=== PATIENT | male | born 1935 | race Caucasian/White ===

== ENCOUNTER 2017-08-30 14:08 | Inpatient (IN) | payer MEDICARE, BC, SELFPAY ==
[2017-08-30] VITALS (10 sets, daily range): BP systolic 111–133; BP diastolic 61–91; PULSE 65–81; RESP 13–20; TEMP 36.4–37.2; O2SAT 94–100; BMI 23.6; BMI 23.3
--- NOTE | 2017-08-30 14:26 | RAD_ITS ---
STUDY: X-RAY CHEST REASON FOR EXAM: Male, 81 years old. Chest tightness. TECHNIQUE: AP upright portable view. COMPARISON: None. FINDINGS: The lungs are clear and expanded. There is no demonstrated pleural abnormality. Normal size heart. Normal mediastinum and erika. Normal visualized pulmonary arteries. Normal visualized aortic arch and descending thoracic aorta. Normal visualized thoracic spine. Normal visualized ribs, clavicles, and shoulders. There is no demonstrated abnormality of the visualized soft tissue structures of the upper abdomen. RAD/Chest 1 View (Portable) IMPRESSION: Normal x-ray examination of the chest. Electronically Signed: Neo Salmon MD at 14:51 EDT , Service support ,
--- NOTE | 2017-08-30 14:26 | EKG12_ITS ---
Test Reason : CP Blood Pressure : / mmHG Vent. Rate : 076 BPM Atrial Rate : 076 BPM P-R Int : 160 ms QRS Dur : 092 ms QT Int : 382 ms P-R-T Axes : 035 -16 046 degrees QTc Int : 429 ms Normal sinus rhythm Leftward axis Inferior AR, age undetermined, cannot be excluded Confirmed by ERAN KYLE, MYNOR ([id number]), graphic editor CELSO URBANO ([id number] on 09/03/2017 2:20:44 PM Referred By: Lupillo Vick Confirmed By:MYNOR BARILLAS MD
--- NOTE | 2017-08-30 14:39 | ED.VISSUMM ---
- ER Visit Summary Date of Service: 08/30/17 Chief Complaint: Chest pain History of Present Illness: The patient is a 81 M history of prior CAD with one stent. Patient states that was placed 15 or so years ago in [place]. He also is a uau-jnsbkzn-iupelzfkx diabetic. He states the last 6 months he has had exertional dyspnea and exertional chest pain. It seems be progressively getting more advanced. He states the trazodone too much work he has to stop because he is short of breath and at times is midsternal chest pain. It occurred today while working in his yard. And seemed to last longer today he was more concerned so he came into the ER. His did give him one baby aspirin. Currently states he feels much better. Physical Examination: Well appearing older male. Vital signs are stable afebrile. Pulse ox 96% on room air no signs of hypoxia. H EENT exam unremarkable. Neck nontender no JVD. Lungs clear to auscultation bilaterally. Heart regular rate and rhythm no murmur. Chest wall nontender. Abdomen soft and nontender. Normal bowel sounds. No peritoneal signs. Moving all 4 extremities. Neurovascular intact. Calves nontender without edema or cords. Neurologically is awake and alert without focal motor deficits. Test Results: CBC is unremarkable with a hemoglobin of 12.9. Chemistries unremarkable. Glucose is 214. Normal creatinine. Troponin normal. EKG sinus rhythm rate is 76 no acute abnormality. Chest x-ray shows a normal cardiac silhouette and mediastinum read by my Emergency Department Course and Treatment: Patient will undergo a cardiac workup and be admitted. He is describing classic exertional chest pain and dyspnea consistent with accelerating angina. Treatment Plan: Exam doing well resting in bed comfortably. I did speak to Dr. Mauricio on for cardiology and Dr. Vick who is the hospitalist down the ER evaluate the patient for admission. Disposition: Admission Impression: Acute exertional chest pain and dyspnea consistent with accelerating angina History of prior CAD and one stent History of plx-swkcsza-hxuyswwlf diabetes This note was generated with [employer] dictation software. It may contain incorrect words, spelling, and punctuation that were not noted in review of the chart prior to signing ED Disposition - Plan for ED Patient: Chief Complaint: Chest Pain Referrals: [facility] Doctor,Out of [NON-STAFF] -
[2017-08-30] MEDS: Aspirin 81 MG TAB.CHEW 324 MG PO (14:56)
[2017-08-30 15:05] LABS: Absolute Lymphocyte Count 1.79 X10^3/ul (0.83-4.51); Absolute Neutrophil Count 2.7 X10^3/uL (2.0-7.7); Basophil# 0.01 X10^3/uL; Basophil% 0.2 % (0-1); Eosinophil# 0.12 X10^3/uL; Eosinophils% 2.3 % (0-5); Hematocrit 37.4 % (40-54); Hemoglobin 12.9 g/dl (13.0-16.5); Lymphocyte # 1.79 X10^3/ul (4.0); Lymphocyte % 34.4 % (19-41); Mean Corp Hgb Conc 34.5 g/gl (32-36); Mean Corpuscular Hgb 29.5 pg (27.0-32.0); Mean Corpuscular Volume 85.4 fL (80-94); Mean Platelet Vol. 10.1 fl (6.2-12.0); Monocyte# 0.59 X10^3/uL; Monocyte% 11.3 % (0-10); Neutrophil # 2.69 X10^3/uL (2.7-7.7); Neutrophil % 51.8 % (47-70); Platelet Count 204 K/mm3 (150-450); RBC Distribution Width CV 12.2 % (11.6-14.6); Red Blood Count 4.38 M/mm3 (4.6-6.2); White Blood Count 5.2 K/mm3 (4.4-11.0)
[2017-08-30 15:16] LABS: POSITIVE COUNT NO; POSITIVE DIFFERENTIAL NO; POSITIVE MORPHOLOGY NO
[2017-08-30 15:24] LABS: Anion Gap 5 (5-15); BUN 15 mg/dL (7-18); BUN/Creat Ratio 15.3 RATIO (10-20); Calcium,Total 8.5 mg/dL (8.5-10.1); Chloride 105 mmol/L (98-107); Creatinine, Serum 0.98 mg/dL (0.70-1.30); EST Glomerular Filtration Rate 78 mL/min (>60); Est Glom Filt Rate - Afr Amer 94 mL/min (>60); Estimated Creatinine Clearance 56.22 ml/min; Glucose 214 mg/dL (74-106); Potassium 4.1 mmol/L (3.5-5.1); Sodium Level 139 mmol/L (136-145)
--- NOTE | 2017-08-30 16:04 | ED.DEP ---
ED Disposition - Plan for ED Patient: Chief Complaint: Chest Pain Referrals: [facility] Doctor,Out of [NON-STAFF] -
--- NOTE | 2017-08-30 16:37 | HP.PCM_ITS ---
<Philip Land - Last Filed: 08/30/17 16:26> Problem List (1) Unstable angina Status: Acute (2) HTN (hypertension) Status: Chronic (3) HLD (hyperlipidemia) Status: Chronic (4) Anxiety Status: Chronic (5) CAD (coronary artery disease) Status: Chronic (6) Hearing loss Status: Chronic History of Present Illness Date of Admission: 08/30/17 Chief Complaint: chest pain The patient is a 81 year old M with a past medical history of CAD with one stent about 15 years ago, type 2 diabetes, does not follow cardiology, hypertension, hyperlipidemia, anxiety, who presented to the emergency room with chief complaint of chest pain. Pain is been going on for about 6 months. Is been off and on most notably with exertion, however is normally relieved with rest. Today he presented to the emergency room because he developed 6-7 out of 10 midsternal and bilateral anterior chest wall pain described as an aching sensation that did not go away when he sat down. He also became short of breath. He had no radiation of chest pain into his back, neck, jaw, or arms. He sometimes feels dizzy and lightheaded but did not notice any at the time for chest pain. He was brought to the emergency room and is currently feeling better in the emergency room. Dr. Mauricio came and evaluated the patient and is planning to take him to have a heart catheterization on Saturday for unstable angina. The patient thinks that he did have a stress test last year and that was negative at that time. He had been getting dizzy and lightheaded he had had his Lexapro decreased by half at that time. He is also former smoker, he smoked for 25 years about a pack per day but did quit about 50 years ago. He does have a positive family history for heart disease, his father of an [place]. [] Past Medical History Past Medical History (Chronic Problems): Chronic Problems HTN (hypertension) (Chronic) HLD (hyperlipidemia) (Chronic) Anxiety (Chronic) CAD (coronary artery disease) (Chronic) Hearing loss (Chronic) Allergies Penicillins Allergy (Verified 08/30/17 14:09) Unknown Home Medications: Ambulatory Orders Medication Instructions Recorded Amlodipine [Norvasc] 5 mg PO DAILY 08/30/17 Aspirin [Aspir-Low] 81 mg PO DAILY 08/30/17 Escitalopram Oxalate [Lexapro] 5 mg PO DAILY 08/30/17 Herbal Drugs [Colon Herbal 1 each PO DAILY 08/30/17 Cleanser] Lansoprazole [Prevacid] 30 mg PO DAILY 08/30/17 Metformin HCl [Glucophage] 100 mg PO BIDCM 08/30/17 Mv-Min/FA/Vit K/Lycop/Lut/Zeax 1 each PO QHS 08/30/17 [Ocuvite Eye + Multi Tablet] Rosuvastatin Calcium [Rosuvastatin 20 mg PO QHS 08/30/17 Calcium] Surgical History: no surgical history Psychiatric History: Anxiety Lives: Spouse/ Significant Other Smoking Status: Former smoker Tobacco Use: Non-smoker Alcohol: None Drugs: None - *Family History Maternal History Items: - - from complications of Paternal History Items: Heart Disease - from [place] Review of Systems Constitutional: Denies: Chills, Fever, Weight Change HEENT: Denies: Head Aches, Sinus Congestion, Sinus Drainage Cardiovascular: Reports: Chest Pain, Light Headedness. Denies: Heaviness, Palpitations Respiratory: Reports: Shortness of Breath, Shortness of breath upon exertion. Denies: Cough, Shortness of breath at rest, Sputum production Gastrointestinal: Denies: Abdominal Pain, Nausea, Vomiting Genitourinary: Denies: Dysuria Musculoskeletal: Denies: Joint Pain, Joint Tenderness Skin: Denies: Rash, Wounds Neurological: Denies: Numbness, Tingling, Focal weakness Psychiatric: Reports: Anxiety. Denies: Depression, Homicidal Ideations, Suicidal Ideations Hematologic/ Lymphatic: Denies: Easy Bruising, Easy Bleeding VTE Information - Inpt Only VTE Present on Admission: No VTE Mechan Device Prophylaxis: SCD's VTE Pharm Prophylaxis ordered?: Yes Patient Problems: Active and Suspected Problems Unstable angina (Acute) - Physical Exam General: Alert, Oriented x3, Cooperative HEENT: Atraumatic, PERRLA, EOMI, Normocephalic Neck: Supple, No JVD, Negative Carotid Bruits Lungs: Clear to auscultation, Normal air movement Cardiovascular: Regular rate, No murmurs Abdomen: Bowel Sounds Present, Soft, Non Tender Extremities: No edema, Capillary Refill Less than 3 Seconds Skin: No rashes, No breakdown Musculoskeletal: No Tenderness to Palpation of Joints or Extremities Neurological: Cranial nerves II-XII grossly intact Psych/Mental Status: Normal Affect, Appropriate Vital Signs Temp Pulse Resp BP Pulse Ox 99 F 72 15 113/61 98 08/30/17 14:10 08/30/17 16:09 08/30/17 16:09 08/30/17 16:09 08/30/17 16:09 Oxygen Flow Rate (L/min) 2 Oxygen Delivery Method Nasal Cannula Weight: 70.4 kg Body Mass Index (BMI) 23.6 Laboratory Tests Past 24 Hrs 08/30/17 08/30/17 14:10 14:10 WBC 5.2 RBC 4.38 L Hgb 12.9 L Hct 37.4 L MCV 85.4 MCH 29.5 MCHC 34.5 RDW 12.2 RDW Differential 38.0 Plt Count 204 MPV 10.1 Immature Gran % (Auto) 0.000 Neut % (Auto) 51.8 Lymph % (Auto) 34.4 Buchanan % (Auto) 11.3 H Eos % (Auto) 2.3 Baso % (Auto) 0.2 Absolute Neuts (auto) 2.7 Absolute Lymphs (auto) 1.79 Total Counted Not Reportable Sodium 139 Potassium 4.1 Chloride 105 Carbon Dioxide 29.0 Anion Gap 5 BUN 15 Creatinine 0.98 Estim Creat Clear Calc 56.22 Est GFR (MDRD) Af Amer 94 Est GFR (MDRD) Non-Af 78 BUN/Creatinine Ratio 15.3 Glucose 214 H Calcium 8.5 Troponin I < 0.015 Assessment/Plan Active and Suspected Problems Unstable angina (Acute) 1. Unstable angina-patient will be placed on aspirin, Plavix, as needed nitro. Consider insitiating lizandro/BB. Cardiology consult, plan for cath on Saturday. Maintain on telemetry. Repeat EKG, cycle troponins, echocardiogram. Start on high-dose statin therapy. Check fasting lipid panel, check A1c. EKG was negative in the ER. Patient risk factors include increasing symptoms of chest pain with exertion, now no longer relieved by rest, history of CAD with prior stent, hypertension, diabetes, hyperlipidemia, family history, and significant smoking history, age. 2. History of CAD-status post 1 stent approximately 15 years ago. Currently on aspirin and statin, and Norvasc at home. He does not regularly follow cardiology, reportedly had a negative stress test last year. 3. Hypertension-stable in the emergency room 4. Type 2 diabetes-hold metformin, start sliding scale insulin, check A1c and adjust home medications if indicated 5. Anxiety-continue Lexapro 6. GERD-continue PPI DVT prophylaxis: Lovenox DC planning: Patient will be here at least until Saturday as he will have a heart catheterization on Saturday This patient was seen by Philip Land PA-C under the supervision of Doctor Nicanor. <Lupillo Vick - Last Filed: 08/30/17 17:06> History of Present Illness Seen and examined The patient came to ER with gradual progression of chest pressure and shortness of breath on exertion for last 6 months. Says he gets chest pressure/shortness of breath on climbing 10 steps walking half to 1 block. Seen by instant printer operator Dr. Mauricio in the ER. [] Past Medical History Allergies Penicillins Allergy (Verified 08/30/17 14:09) Unknown - Physical Exam General: Alert, Oriented x3, Cooperative HEENT: Atraumatic, PERRLA, EOMI, Normocephalic Neck: Supple, No JVD, Negative Carotid Bruits Lungs: Clear to auscultation, Normal air movement Cardiovascular: Regular rate, Regular Rhythm, Normal S1, Normal S2, No murmurs Abdomen: Bowel Sounds Present, Soft, Non Tender, Non-Distended Extremities: No edema, Capillary Refill Less than 3 Seconds Skin: No rashes, No breakdown Musculoskeletal: No Tenderness to Palpation of Joints or Extremities Neurological: Cranial nerves II-XII grossly intact Psych/Mental Status: Normal Affect, Appropriate Vital Signs Temp Pulse Resp BP Pulse Ox 99 F 72 15 113/61 98 08/30/17 14:10 08/30/17 16:09 08/30/17 16:09 08/30/17 16:09 08/30/17 16:09 Weight: 153 lb 7.068 oz Body Mass Index (BMI) 23.3 Assessment/Plan This patient was seen in conjunction with Philip GREEN. I have independently interviewed and examined the patient and reviewed pertinent history, examination findings, laboratory and plan of management. I have reviewed the note and agree with the documented findings with the few additional points. In brief, patient is admitted for chest pain or shortness of breath, progressively worsening for 6 months suggestive of unstable angina. On aspirin and Plavix as mentioned above. On ACS protocol. Seen by instant printer operator carolann. Plan for cardiac cath on Saturday. I have discussed my assessment with Philip GREEN and orders have been reviewed. Code Visit Inpatient E&M: 15103 Init Hosp L3
--- NOTE | 2017-08-30 17:14 | EKG12_ITS ---
Test Reason : AM EKG Blood Pressure : / mmHG Vent. Rate : 067 BPM Atrial Rate : 067 BPM P-R Int : 182 ms QRS Dur : 094 ms QT Int : 416 ms P-R-T Axes : 045 -01 049 degrees QTc Int : 439 ms Normal sinus rhythm Normal ECG When compared with ECG of 31-AUG-2017 03:42, MANUAL COMPARISON REQUIRED, DATA IS UNCONFIRMED Confirmed by ASAF KYLE, DE ([id number]), material expeditor CELSO URBANO ([id number]) on 09/03/2017 3:20:06 PM Referred By: Lupillo Vick Confirmed By:DE RON MD
--- NOTE | 2017-08-30 17:51 | PCM.CONS.C ---
Reason for Consult Date of Consultation: 08/30/17 Reason for Consultation: Chest discomfort History of Present Illness: The patient is an 81 year old M with a past medical history of CAD with one stent about 15 years ago, type 2 diabetes, hypertension, hyperlipidemia, who presented to the emergency room with chief complaint of chest pain. Pain is been going on for about 6 months. Is been off and on most notably with exertion, however is normally relieved with rest. Today he presented to the emergency room because he developed 6-7 out of 10 midsternal and bilateral anterior chest wall pain described as an aching sensation that did not go away when he sat down. He also became short of breath. He had no radiation of chest pain into his back, neck, jaw, or arms. He has never had any rest discomfort but due to the persistence of the chest discomfort he presented to the emergency room where he was evaluated his electrocardiogram did not demonstrate any significant changes in his blood work was also noted to be normal. I was notified to evaluate him and I saw him in the emergency room where he was pain-free. He has had no previous dizziness diaphoresis near syncope or syncope. [] Past Medical History Allergies/Adverse Reactions: Allergies Penicillins Allergy (Verified 08/30/17 14:09) Unknown Home Medications: Ambulatory Orders Medication Instructions Recorded Amlodipine [Norvasc] 5 mg PO DAILY 08/30/17 Aspirin [Aspir-Low] 81 mg PO DAILY 08/30/17 Escitalopram Oxalate [Lexapro] 5 mg PO DAILY 08/30/17 Herbal Drugs [Colon Herbal 1 each PO DAILY 08/30/17 Cleanser] Lansoprazole [Prevacid] 30 mg PO DAILY 08/30/17 Metformin HCl [Glucophage] 100 mg PO BIDCM 08/30/17 Mv-Min/FA/Vit K/Lycop/Lut/Zeax 1 each PO QHS 08/30/17 [Ocuvite Eye + Multi Tablet] Rosuvastatin Calcium [Rosuvastatin 20 mg PO QHS 08/30/17 Calcium] Past Medical History (Chronic Problems): Chronic Problems HTN (hypertension) (Chronic) HLD (hyperlipidemia) (Chronic) Anxiety (Chronic) CAD (coronary artery disease) (Chronic) Hearing loss (Chronic) Surgical History: no surgical history Psychiatric History: Anxiety - *Family History Maternal History Items: - - from complications of Paternal History Items: Heart Disease - from [place] Lives: Spouse/ Significant Other Smoking Status: Former smoker Tobacco Use: Non-smoker Alcohol: None Drugs: None Review of Systems - Review of Systems General: Denies: Fever, Night Sweats, Fatigue Cardiovascular: Reports: Chest Discomfort, Chest Discomfort with Exertion, Chest Heaviness, Shortness of Breath with Exertion. Denies: Shortness of Breath, Orthopnea, PND, Peripheral Edema, Palpitations, Lightheadedness, Dizziness, Near Syncope, Syncope Respiratory: Denies: Cough, Sputum Production, Hemoptysis Gastrointestinal: Denies: Hematemesis, Hematochezia, Melena Genitourinary: Denies: Dysuria, Hematuria Skin: Denies: Rash Psychiatric: Reports: Anxiety Subjectve: Pleasant gentleman in no apparent distress Objective: Vital Signs Temp Pulse Resp BP Pulse Ox 97.6 F L 71 16 133/65 H 100 08/30/17 16:56 08/30/17 17:16 08/30/17 16:56 08/30/17 16:56 08/30/17 16:56 Oxygen Flow Rate (L/min) 2 Oxygen Delivery Method Nasal Cannula Weight: 153 lb 7.068 oz Body Mass Index (BMI) 23.3 General: Awake, Alert, Oriented x 3 HEENT: PERRL, EOMI, Sclera Non Icteric Neck: Supple, Good ROM, No Lymph Node Enlargement Lungs: Clear to auscultation Cardiovascular: Regular Rhythm, Normal S1, Normal S2, No Murmurs, No Rubs, No Gallops Vascular: No Carotid Bruits, Normal Femoral Pulses, Normal Radial Pulses, Normal Dorsalis Pedal Pulse, Normal Posterior Tibial Pulses Abdomen: Bowel Sounds Present, Soft, Non Tender, No HSM, No Organomegaly Extremities: No Cyanosis, No Clubbing, No edema Neurological: No Focal Motor or Sensory Deficit Rhythm: EKG: Normal sinus rhythm with a rate of 54 bpm no acute changes Assessment/Plan 1. New onset angina. Patient presents with fairly recent onset angina which appears to be worse with exertion and dissipates with rest. The above appears to have the classic characteristics of angina pectoris. My recommendation at this time would be for him to continue his statin, and start him on aspirin as well as clopidogrel and a low-dose beta-javier. I would recommend that he undergo coronary angiography to assess his coronary anatomy and to determine further therapy. I have discussed the above with him and his family they understand and agreed to proceed. Depending on the results further recommendations will be made. Plans are for him to undergo the above procedure on Saturday morning. 2. Hypertension He does have a history of hypertension which is well-controlled on his amlodipine and this will be continued without any changes. Her low-dose beta-javier would however be added. An echocardiogram should be performed to assess his left ventricular function and evaluate for any wall thickness and wall motion abnormality. 3. Hyperlipidemia risk factor modification He does have a history of hyperlipidemia and will continue on medium intensity statin. Lipid profile will be performed in a.m. Thank you for allowing me to participate in the care of your patient. Please don't hesitate to call if any issues arise
--- NOTE | 2017-08-30 17:57 | CON.PCM_ITS ---
Reason for Consult Date of Consultation: 08/30/17 Reason for Consultation: Chest discomfort History of Present Illness: The patient is an 81 year old M with a past medical history of CAD with one stent about 15 years ago, type 2 diabetes, hypertension, hyperlipidemia, who presented to the emergency room with chief complaint of chest pain. Pain is been going on for about 6 months. Is been off and on most notably with exertion , however is normally relieved with rest. Today he presented to the emergency room because he developed 6-7 out of 10 midsternal and bilateral anterior chest wall pain described as an aching sensation that did not go away when he sat down. He also became short of breath. He had no radiation of chest pain into his back, neck, jaw, or arms. He has never had any rest discomfort but due to the persistence of the chest discomfort he presented to the emergency room where he was evaluated his electrocardiogram did not demonstrate any significant changes in his blood work was also noted to be normal. I was notified to evaluate him and I saw him in the emergency room where he was pain- free. He has had no previous dizziness diaphoresis near syncope or syncope. [] Past Medical History Allergies/Adverse Reactions: Allergies Penicillins Allergy (Verified 08/30/17 14:09) Unknown Home Medications: Ambulatory Orders Medication Instructions Recorded Amlodipine [Norvasc] 5 mg PO DAILY 08/30/17 Aspirin [Aspir-Low] 81 mg PO DAILY 08/30/17 Escitalopram Oxalate [Lexapro] 5 mg PO DAILY 08/30/17 Herbal Drugs [Colon Herbal 1 each PO DAILY 08/30/17 Cleanser] Lansoprazole [Prevacid] 30 mg PO DAILY 08/30/17 Metformin HCl [Glucophage] 100 mg PO BIDCM 08/30/17 Mv-Min/FA/Vit K/Lycop/Lut/Zeax 1 each PO QHS 08/30/17 [Ocuvite Eye + Multi Tablet] Rosuvastatin Calcium [Rosuvastatin 20 mg PO QHS 08/30/17 Calcium] Past Medical History (Chronic Problems): Chronic Problems HTN (hypertension) (Chronic) HLD (hyperlipidemia) (Chronic) Anxiety (Chronic) CAD (coronary artery disease) (Chronic) Hearing loss (Chronic) Surgical History: no surgical history Psychiatric History: Anxiety - *Family History Maternal History Items: - - from complications of Paternal History Items: Heart Disease - from [place] Lives: Spouse/ Significant Other Smoking Status: Former smoker Tobacco Use: Non-smoker Alcohol: None Drugs: None Review of Systems - Review of Systems General: Denies: Fever, Night Sweats, Fatigue Cardiovascular: Reports: Chest Discomfort, Chest Discomfort with Exertion, Chest Heaviness, Shortness of Breath with Exertion. Denies: Shortness of Breath , Orthopnea, PND, Peripheral Edema, Palpitations, Lightheadedness, Dizziness, Near Syncope, Syncope Respiratory: Denies: Cough, Sputum Production, Hemoptysis Gastrointestinal: Denies: Hematemesis, Hematochezia, Melena Genitourinary: Denies: Dysuria, Hematuria Skin: Denies: Rash Psychiatric: Reports: Anxiety Subjectve: Pleasant gentleman in no apparent distress Objective: Vital Signs Temp Pulse Resp BP Pulse Ox 97.6 F L 71 16 133/65 H 100 08/30/17 16:56 08/30/17 17:16 08/30/17 16:56 08/30/17 16:56 08/30/17 16:56 Oxygen Flow Rate (L/min) 2 Oxygen Delivery Method Nasal Cannula Weight: 153 lb 7.068 oz Body Mass Index (BMI) 23.3 General: Awake, Alert, Oriented x 3 HEENT: PERRL, EOMI, Sclera Non Icteric Neck: Supple, Good ROM, No Lymph Node Enlargement Lungs: Clear to auscultation Cardiovascular: Regular Rhythm, Normal S1, Normal S2, No Murmurs, No Rubs, No Gallops Vascular: No Carotid Bruits, Normal Femoral Pulses, Normal Radial Pulses, Normal Dorsalis Pedal Pulse, Normal Posterior Tibial Pulses Abdomen: Bowel Sounds Present, Soft, Non Tender, No HSM, No Organomegaly Extremities: No Cyanosis, No Clubbing, No edema Neurological: No Focal Motor or Sensory Deficit Rhythm: EKG: Normal sinus rhythm with a rate of 54 bpm no acute changes Assessment/Plan 1. New onset angina. * Patient presents with fairly recent onset angina which appears to be worse with exertion and dissipates with rest. The above appears to have the classic characteristics of angina pectoris. My recommendation at this time would be for him to continue his statin, and start him on aspirin as well as clopidogrel and a low-dose beta-javier. I would recommend that he undergo coronary angiography to assess his coronary anatomy and to determine further therapy. I have discussed the above with him and his family they understand and agreed to proceed. Depending on the results further recommendations will be made. Plans are for him to undergo the above procedure on Saturday morning. 2. Hypertension * He does have a history of hypertension which is well-controlled on his amlodipine and this will be continued without any changes. Her low-dose beta- javier would however be added. An echocardiogram should be performed to assess his left ventricular function and evaluate for any wall thickness and wall motion abnormality. * 3. Hyperlipidemia risk factor modification * He does have a history of hyperlipidemia and will continue on medium intensity statin. Lipid profile will be performed in a.m. * * Thank you for allowing me to participate in the care of your patient. Please don't hesitate to call if any issues arise
[2017-08-30] MEDS: Clopidogrel Bisulfate 300 MG Tablet PO (18:47)
[2017-08-30] MEDS: Enoxaparin 80 MG/0.8 ML Syringe 70 MG SC (18:47)
[2017-08-30 19:22] LABS: Magnesium 1.6 mg/dL (1.6-2.6); Thyroid Stim Hormone (TSH) 1.56 uIU/mL (0.358-3.74)
[2017-08-30] MEDS: Atorvastatin Calcium 40 MG Tablet PO (22:30)
[2017-08-30 23:11] LABS: Bedside Glucose 213 mg/dL (70-110)
[2017-08-31] VITALS (13 sets, daily range): BP systolic 116–133; BP diastolic 57–66; PULSE 65–80; RESP 16; TEMP 36.7–36.8; O2SAT 92–96
--- NOTE | 2017-08-31 03:03 | EKG12_ITS ---
Test Reason : Blood Pressure : / mmHG Vent. Rate : 071 BPM Atrial Rate : 071 BPM P-R Int : 180 ms QRS Dur : 096 ms QT Int : 404 ms P-R-T Axes : 045 001 042 degrees QTc Int : 439 ms Normal sinus rhythm Normal ECG No previous ECGs available Confirmed by ASAF KYLE, DE ([id number]), acquisitions editor CELSO URBANO ([id number] on 09/03/2017 3:36:13 PM Referred By: Lupillo Vick Confirmed By:DE RON MD
--- NOTE | 2017-08-31 05:55 | EKG12_ITS ---
Test Reason : CP/AM EKG Blood Pressure : / mmHG Vent. Rate : 073 BPM Atrial Rate : 073 BPM P-R Int : 170 ms QRS Dur : 092 ms QT Int : 398 ms P-R-T Axes : 050 -06 058 degrees QTc Int : 438 ms Normal sinus rhythm Normal ECG When compared with ECG of 30-AUG-2017 17:18, MANUAL COMPARISON REQUIRED, DATA IS UNCONFIRMED Confirmed by ASAF KYLE, DE ([id number]), magazine editor CELSO URBANO ([id number]) on 09/03/2017 3:24:14 PM Referred By: Lupillo Vick Confirmed By:DE RON MD
[2017-08-31] MEDS: Enoxaparin 80 MG/0.8 ML Syringe 70 MG SC ×2 (06:53→17:27)
[2017-08-31 07:05] LABS: Bedside Glucose 147 mg/dL (70-110)
[2017-08-31 07:08] LABS: Absolute Lymphocyte Count 1.69 X10^3/ul (0.83-4.51); Absolute Neutrophil Count 2.3 X10^3/uL (2.0-7.7); Basophil# 0.01 X10^3/uL; Basophil% 0.2 % (0-1); Eosinophils% 4.2 % (0-5); Hematocrit 36.1 % (40-54); Hemoglobin 12.6 g/dl (13.0-16.5); Lymphocyte # 1.69 X10^3/ul (4.0); Lymphocyte % 35.5 % (19-41); Mean Corp Hgb Conc 34.9 g/gl (32-36); Mean Corpuscular Hgb 29.9 pg (27.0-32.0); Mean Corpuscular Volume 85.5 fL (80-94); Mean Platelet Vol. 10.5 fl (6.2-12.0); Monocyte# 0.57 X10^3/uL; Neutrophil # 2.29 X10^3/uL (2.7-7.7); Neutrophil % 48.1 % (47-70); Platelet Count 223 K/mm3 (150-450); RBC Distribution Width SD 36.3 fl (35.1-43.9); Red Blood Count 4.22 M/mm3 (4.6-6.2); White Blood Count 4.8 K/mm3 (4.4-11.0)
[2017-08-31 07:11] LABS: POSITIVE COUNT NO; POSITIVE DIFFERENTIAL NO; POSITIVE MORPHOLOGY NO
[2017-08-31 07:23] LABS: Anion Gap 7 (5-15); BUN 15 mg/dL (7-18); BUN/Creat Ratio 19.7 RATIO (10-20); Calcium,Total 8.4 mg/dL (8.5-10.1); Chloride 105 mmol/L (98-107); Cholesterol 111 mg/dL (200); Creatinine, Serum 0.76 mg/dL (0.70-1.30); EST Glomerular Filtration Rate 104 mL/min (>60); Est Glom Filt Rate - Afr Amer 126 mL/min (>60); Glucose 145 mg/dL (74-106); High Density Lipoprotein 28 mg/dL; Potassium 3.8 mmol/L (3.5-5.1); Sodium Level 142 mmol/L (136-145); Triglycerides 177 mg/dL; Very Low Density Lipoprotein 35 mg/dL (5-40)
[2017-08-31 07:41] LABS: Hemoglobin A1c 8.7 % (4.2-6.3)
[2017-08-31] MEDS: Escitalopram Oxalate 10 MG Tablet 5 MG PO (08:55)
[2017-08-31] MEDS: Aspirin 81 MG TAB.CHEW PO (08:55)
[2017-08-31] MEDS: amLODIPine 5 MG Tablet PO (08:56)
[2017-08-31] MEDS: Clopidogrel Bisulfate 75 MG Tablet PO (08:56)
[2017-08-31] MEDS: Metoprolol(XL)Succ 25 MG Tablet PO (08:57)
[2017-08-31] MEDS: Pantoprazole Sodium 40 MG Tablet PO (08:57)
[2017-08-31 11:11] LABS: Bedside Glucose 237 mg/dL (70-110)
--- NOTE | 2017-08-31 12:13 | CASEMGMT ---
SOCIAL WORK: Referral received from form drafter this date. Chart reviewed. Met with patient and in room to introduce self and SW role and availability at [facility] and to assess for potential discharge planning needs. Patient to have heart cath on Saturday. presents self and as being independent and capable and denies any current needs or concerns for discharge. SW will remain available in the event that needs arise. Carmen RODRIGUEZ,JUAN
--- NOTE | 2017-08-31 12:50 | PCM.PN.CARD ---
Subjectve: The patient states overall he is feeling better at this time. He denies ongoing episodes at rest or with his minimal exertion of chest discomfort or worsening shortness of breath/dyspnea. Objective: Vital Signs Temp Pulse Resp BP Pulse Ox 98.3 F 67 16 120/57 L 96 08/31/17 08:59 08/31/17 11:00 08/31/17 08:59 08/31/17 08:59 08/31/17 08:59 Oxygen Flow Rate (L/min) 1 Oxygen Delivery Method Room Air Weight: 153 lb 7.068 oz Body Mass Index (BMI) 23.3 Intake and Output for Last 24 Hours 08/29/17 08/30/17 08/31/17 23:59 23:59 23:59 Intake Total 150 / 150 700 / 700 Balance 150 / 150 700 / 700 General: Awake, Alert, Oriented x 3, Cooperative, No Acute Distress HEENT: Atraumatic, Normocephalic, PERRL, EOMI, Sclera Non Icteric Neck: Supple, Good ROM, No JVD Lungs: Clear to auscultation Cardiovascular: Regular Rhythm, Normal S1, Normal S2 Abdomen: Bowel Sounds Present, Soft, Non Tender Extremities: No Cyanosis, No Clubbing, No edema Neurological: No Focal Motor or Sensory Deficit 08/30/17 17:58: Troponin I < 0.015 08/30/17 17:58: Magnesium 1.6 08/30/17 20:28: Troponin I < 0.015 08/31/17 06:15: WBC 4.8, RBC 4.22 L, Hgb 12.6 L, Hct 36.1 L, MCV 85.5, MCH 29.9, MCHC 34.9, RDW 12.0, RDW Differential 36.3, Plt Count 223, MPV 10.5, Immature Gran % (Auto) 0.000, Neut % (Auto) 48.1, Lymph % (Auto) 35.5, [place] % (Auto) 12.0 H, Eos % (Auto) 4.2, Baso % (Auto) 0.2, Absolute Neuts (auto) 2.3, Total Counted Not Reportable 08/31/17 06:15: Sodium 142, Potassium 3.8, Chloride 105, Carbon Dioxide 30.0, Anion Gap 7, BUN 15, Creatinine 0.76, Est GFR (MDRD) Af Amer 126, Est GFR (MDRD) Non-Af 104, BUN/Creatinine Ratio 19.7, Glucose 145 H, Calcium 8.4 L, Triglycerides 177, Cholesterol 111, LDL Cholesterol 48, VLDL Cholesterol 35, HDL Cholesterol 28 L 08/31/17 06:15: Hemoglobin A1c 8.7 H Rhythm: Sinus rhythm EKG: Sinus rhythm; no acute ECG changes ECHO: Pending Medical Necessity - Tobacco Use Smoking Status: Former smoker Tobacco Use: Non-smoker Assessment/Plan 1. Unstable angina pectoris The present time the patient has been monitored. His cardiac enzymes have been negative. His ECG demonstrates no new acute ECG changes. He is continuing risk factor modification and medical management. He is tentatively scheduled for upcoming diagnostic cardiac catheterization on 09/02/2017 further evaluate his coronary anatomy, etc. 2. Hypertension The patient's blood pressure is being monitored. His medications will be adjusted as deemed appropriate. 3. Hyperlipidemia The patient will remain on lipid-lowering therapy. Comment: The above was discussed with the patient, his spouse, and other family members present. This note was generated with [employer] software. It may contain incorrect words, spelling, and punctuation that were not noted in checking the note before signing.
--- NOTE | 2017-08-31 12:54 | PN.CARD_ITS ---
Subjectve: The patient states overall he is feeling better at this time. He denies ongoing episodes at rest or with his minimal exertion of chest discomfort or worsening shortness of breath/dyspnea. Objective: Vital Signs Temp Pulse Resp BP Pulse Ox 98.3 F 67 16 120/57 L 96 08/31/17 08:59 08/31/17 11:00 08/31/17 08:59 08/31/17 08:59 08/31/17 08:59 Oxygen Flow Rate (L/min) 1 Oxygen Delivery Method Room Air Weight: 153 lb 7.068 oz Body Mass Index (BMI) 23.3 Intake and Output for Last 24 Hours 08/29/17 08/30/17 08/31/17 23:59 23:59 23:59 Intake Total 150 / 150 700 / 700 Balance 150 / 150 700 / 700 General: Awake, Alert, Oriented x 3, Cooperative, No Acute Distress HEENT: Atraumatic, Normocephalic, PERRL, EOMI, Sclera Non Icteric Neck: Supple, Good ROM, No JVD Lungs: Clear to auscultation Cardiovascular: Regular Rhythm, Normal S1, Normal S2 Abdomen: Bowel Sounds Present, Soft, Non Tender Extremities: No Cyanosis, No Clubbing, No edema Neurological: No Focal Motor or Sensory Deficit 08/30/17 17:58: Troponin I < 0.015 08/30/17 17:58: Magnesium 1.6 08/30/17 20:28: Troponin I < 0.015 08/31/17 06:15: WBC 4.8, RBC 4.22 L, Hgb 12.6 L, Hct 36.1 L, MCV 85.5, MCH 29.9 , MCHC 34.9, RDW 12.0, RDW Differential 36.3, Plt Count 223, MPV 10.5, Immature Gran % (Auto) 0.000, Neut % (Auto) 48.1, Lymph % (Auto) 35.5, [place] % (Auto) 12.0 H, Eos % (Auto) 4.2, Baso % (Auto) 0.2, Absolute Neuts (auto) 2.3, Total Counted Not Reportable 08/31/17 06:15: Sodium 142, Potassium 3.8, Chloride 105, Carbon Dioxide 30.0, Anion Gap 7, BUN 15, Creatinine 0.76, Est GFR (MDRD) Af Amer 126, Est GFR (MDRD ) Non-Af 104, BUN/Creatinine Ratio 19.7, Glucose 145 H, Calcium 8.4 L, Triglycerides 177, Cholesterol 111, LDL Cholesterol 48, VLDL Cholesterol 35, HDL Cholesterol 28 L 08/31/17 06:15: Hemoglobin A1c 8.7 H Rhythm: Sinus rhythm EKG: Sinus rhythm; no acute ECG changes ECHO: Pending Medical Necessity - Tobacco Use Smoking Status: Former smoker Tobacco Use: Non-smoker Assessment/Plan 1. Unstable angina pectoris The present time the patient has been monitored. His cardiac enzymes have been negative. His ECG demonstrates no new acute ECG changes. He is continuing risk factor modification and medical management. He is tentatively scheduled for upcoming diagnostic cardiac catheterization on 2017 further evaluate his coronary anatomy, etc. 2. Hypertension The patient's blood pressure is being monitored. His medications will be adjusted as deemed appropriate. 3. Hyperlipidemia The patient will remain on lipid-lowering therapy. Comment: The above was discussed with the patient, his spouse, and other family members present. This note was generated with Integration [employer] software. It may contain incorrect words, spelling, and punctuation that were not noted in checking the note before signing.
--- NOTE | 2017-08-31 13:14 | PCM.PN.HOSP ---
Patient Problems: Active and Suspected Problems Unstable angina (Acute) Subjective: Patient did not had chest pain or shortness of breath overnight. Patient is comfortable laying on the bed. On Lovenox 1 mg/kg body weight for unstable angina. Serial troponins are negative. Vitals/I&O's: Vital Signs Temp Pulse Resp BP Pulse Ox 98.3 F 67 16 120/57 L 96 08/31/17 08:59 08/31/17 11:00 08/31/17 08:59 08/31/17 08:59 08/31/17 08:59 Oxygen Flow Rate (L/min) 1 Oxygen Delivery Method Room Air Weight: 153 lb 7.068 oz Body Mass Index (BMI) 23.3 Intake and Output for Last 24 Hours 08/29/17 08/30/17 08/31/17 23:59 23:59 23:59 Intake Total 150 / 150 700 / 700 Balance 150 / 150 700 / 700 General: Alert, Oriented x3, Cooperative HEENT: Atraumatic, PERRLA, EOMI, Normocephalic Neck: Supple, No JVD, Negative Carotid Bruits Lungs: Clear to auscultation, Normal air movement, No rhonchi, No wheeze Cardiovascular: Regular rate, Regular Rhythm, Normal S1, Normal S2, No murmurs Abdomen: Bowel Sounds Present, Soft, Non Tender, Non-Distended, No Hepato-splenomegaly Extremities: No edema, Capillary Refill Less than 3 Seconds Skin: No rashes, No breakdown Musculoskeletal: No Tenderness to Palpation of Joints or Extremities Neurological: Cranial nerves II-XII grossly intact, Neuro grossly intact Psych/Mental Status: Normal Affect, Appropriate Laboratory Results 08/30/17 17:58: Troponin I < 0.015 08/30/17 17:58: Magnesium 1.6, TSH 1.56 08/30/17 20:28: Troponin I < 0.015 08/30/17 22:18: POC Glucose 213 H 08/31/17 06:15: WBC 4.8, RBC 4.22 L, Hgb 12.6 L, Hct 36.1 L, MCV 85.5, MCH 29.9, MCHC 34.9, RDW 12.0, RDW Differential 36.3, Plt Count 223, MPV 10.5, Immature Gran % (Auto) 0.000, Neut % (Auto) 48.1, Lymph % (Auto) 35.5, [place] % (Auto) 12.0 H, Eos % (Auto) 4.2, Baso % (Auto) 0.2, Absolute Neuts (auto) 2.3, Absolute Lymphs (auto) 1.69, Total Counted Not Reportable 08/31/17 06:15: Sodium 142, Potassium 3.8, Chloride 105, Carbon Dioxide 30.0, Anion Gap 7, BUN 15, Creatinine 0.76, Estim Creat Clear Calc 55.10, Est GFR (MDRD) Af Amer 126, Est GFR (MDRD) Non-Af 104, BUN/Creatinine Ratio 19.7, Glucose 145 H, Calcium 8.4 L, Triglycerides 177, Cholesterol 111, LDL Cholesterol 48, VLDL Cholesterol 35, HDL Cholesterol 28 L 08/31/17 06:15: Hemoglobin A1c 8.7 H 08/31/17 06:57: POC Glucose 147 H 08/31/17 11:07: POC Glucose 237 H Current Medications Acetaminophen (Tylenol) 650 mg PO Q6H PRN PRN PRN Reason: PAIN Amlodipine Besylate (Norvasc) 5 mg PO DAILY [facility] Last Admin: 08/31/17 08:56 Dose: 5 mg Aspirin (Aspirin, Baby) 81 mg PO DAILY@0800 [facility] Last Admin: 08/31/17 08:55 Dose: 81 mg Atorvastatin Calcium (Lipitor) 40 mg PO QHS [facility] Last Admin: 08/30/17 22:30 Dose: 40 mg Clopidogrel Bisulfate (Plavix) 75 mg PO DAILY [facility] Last Admin: 08/31/17 08:56 Dose: 75 mg Enoxaparin Sodium (Lovenox) 70 mg SC Q12@0600,1800 [facility] Last Admin: 08/31/17 06:53 Dose: 70 mg Escitalopram Oxalate (Lexapro) 5 mg PO DAILY [facility] Last Admin: 08/31/17 08:55 Dose: 5 mg Insulin Aspart (Novolog Flexpen (Bkc)) 0 units SC ACHS [facility] PRN Reason: Protocol Last Admin: 08/31/17 11:32 Dose: 2 units Metoprolol Succinate (Toprol Xl (Beta Yen)) 25 mg PO DAILY [facility] Last Admin: 08/31/17 08:57 Dose: 25 mg Morphine Sulfate () 1 mg IV Q3H PRN PRN PRN Reason: SEVERE PAIN (6-10/10) Nitroglycerin (Nitrostat) 0.4 mg SUBLINGUAL Q5M PRN PRN Reason: CARDIAC/CHEST PAIN Last Admin: 08/31/17 03:06 Dose: 0.4 mg Ondansetron HCl (Zofran) 4 mg IV Q6H PRN PRN PRN Reason: NAUSEA Pantoprazole Sodium (Protonix) 40 mg PO DAILY [facility] Last Admin: 08/31/17 08:57 Dose: 40 mg Sodium Chloride () 5 - 30 ml IV UD PRN PRN Reason: SALINE FLUSH Medical Necessity - Tobacco Use Smoking Status: Former smoker Tobacco Use: Non-smoker Assessment/Plan Active and Suspected Problems Unstable angina (Acute) patient is admitted for chest pain or shortness of breath, progressively worsening for 6 months suggestive of unstable angina. On aspirin and Plavix as mentioned above. On ACS protocol. Seen by dark[facility]. Plan for cardiac cath on Saturday. 1. Unstable angina with typical pattern of angina pectoris-patient will be placed on aspirin, Plavix, Lovenox 1 mg/kg body weight as needed nitro. On beta-yen. Maintain on telemetry. Start on high-dose statin therapy. EKG was negative in the ER. Scheduled for cardiac cath on Saturday 2. History of CAD-status post 1 stent approximately 15 years ago. He does not regularly follow cardiology, reportedly had a negative stress test last year. 3. Hypertension-stable Blood pressure is controlled. 4. Type 2 diabetes-hold metformin, start sliding scale insulin, adjust home medications if indicated. A1c 8.7. 5. Anxiety-continue Lexapro 6. GERD-continue PPI DVT prophylaxis: Lovenox DC planning: Patient will be here at least until Saturday as he will have a heart catheterization on Saturday Laboratory Results 08/30/17 14:10: WBC 5.2, RBC 4.38 L, Hgb 12.9 L, Hct 37.4 L, MCV 85.4, MCH 29.5, MCHC 34.5, RDW 12.2, RDW Differential 38.0, Plt Count 204, MPV 10.1, Immature Gran % (Auto) 0.000, Neut % (Auto) 51.8, Lymph % (Auto) 34.4, [place] % (Auto) 11.3 H, Eos % (Auto) 2.3, Baso % (Auto) 0.2, Absolute Neuts (auto) 2.7, Absolute Lymphs (auto) 1.79, Total Counted Not Reportable 08/30/17 14:10: Sodium 139, Potassium 4.1, Chloride 105, Carbon Dioxide 29.0, Anion Gap 5, BUN 15, Creatinine 0.98, Estim Creat Clear Calc 56.22, Est GFR (MDRD) Af Amer 94, Est GFR (MDRD) Non-Af 78, BUN/Creatinine Ratio 15.3, Glucose 214 H, Calcium 8.5, Troponin I < 0.015 08/30/17 17:58: Troponin I < 0.015 08/30/17 17:58: Magnesium 1.6, TSH 1.56 08/30/17 20:28: Troponin I < 0.015 08/30/17 22:18: POC Glucose 213 H 08/31/17 06:15: WBC 4.8, RBC 4.22 L, Hgb 12.6 L, Hct 36.1 L, MCV 85.5, MCH 29.9, MCHC 34.9, RDW 12.0, RDW Differential 36.3, Plt Count 223, MPV 10.5, Immature Gran % (Auto) 0.000, Neut % (Auto) 48.1, Lymph % (Auto) 35.5, [place] % (Auto) 12.0 H, Eos % (Auto) 4.2, Baso % (Auto) 0.2, Absolute Neuts (auto) 2.3, Absolute Lymphs (auto) 1.69, Total Counted Not Reportable 08/31/17 06:15: Sodium 142, Potassium 3.8, Chloride 105, Carbon Dioxide 30.0, Anion Gap 7, BUN 15, Creatinine 0.76, Estim Creat Clear Calc 55.10, Est GFR (MDRD) Af Amer 126, Est GFR (MDRD) Non-Af 104, BUN/Creatinine Ratio 19.7, Glucose 145 H, Calcium 8.4 L, Triglycerides 177, Cholesterol 111, LDL Cholesterol 48, VLDL Cholesterol 35, HDL Cholesterol 28 L 08/31/17 06:15: Hemoglobin A1c 8.7 H 08/31/17 06:57: POC Glucose 147 H 08/31/17 11:07: POC Glucose 237 H Clinical Impression(s) from Imaging Studies Chest X-Ray 08/30/17 14:26 IMPRESSION: Normal x-ray examination of the chest. Code Visit Inpatient E&M: 94859 Subs Hosp L2
--- NOTE | 2017-08-31 13:21 | PN_ITS ---
Patient Problems: Active and Suspected Problems Unstable angina (Acute) Subjective: Patient did not had chest pain or shortness of breath overnight. Patient is comfortable laying on the bed. On Lovenox 1 mg/kg body weight for unstable angina. Serial troponins are negative. Vitals/I&O's: Vital Signs Temp Pulse Resp BP Pulse Ox 98.3 F 67 16 120/57 L 96 08/31/17 08:59 08/31/17 11:00 08/31/17 08:59 08/31/17 08:59 08/31/17 08:59 Oxygen Flow Rate (L/min) 1 Oxygen Delivery Method Room Air Weight: 153 lb 7.068 oz Body Mass Index (BMI) 23.3 Intake and Output for Last 24 Hours 08/29/17 08/30/17 08/31/17 23:59 23:59 23:59 Intake Total 150 / 150 700 / 700 Balance 150 / 150 700 / 700 General: Alert, Oriented x3, Cooperative HEENT: Atraumatic, PERRLA, EOMI, Normocephalic Neck: Supple, No JVD, Negative Carotid Bruits Lungs: Clear to auscultation, Normal air movement, No rhonchi, No wheeze Cardiovascular: Regular rate, Regular Rhythm, Normal S1, Normal S2, No murmurs Abdomen: Bowel Sounds Present, Soft, Non Tender, Non-Distended, No Hepato- splenomegaly Extremities: No edema, Capillary Refill Less than 3 Seconds Skin: No rashes, No breakdown Musculoskeletal: No Tenderness to Palpation of Joints or Extremities Neurological: Cranial nerves II-XII grossly intact, Neuro grossly intact Psych/Mental Status: Normal Affect, Appropriate Laboratory Results 08/30/17 17:58: Troponin I < 0.015 08/30/17 17:58: Magnesium 1.6, TSH 1.56 08/30/17 20:28: Troponin I < 0.015 08/30/17 22:18: POC Glucose 213 H 08/31/17 06:15: WBC 4.8, RBC 4.22 L, Hgb 12.6 L, Hct 36.1 L, MCV 85.5, MCH 29.9 , MCHC 34.9, RDW 12.0, RDW Differential 36.3, Plt Count 223, MPV 10.5, Immature Gran % (Auto) 0.000, Neut % (Auto) 48.1, Lymph % (Auto) 35.5, [place] % (Auto) 12.0 H, Eos % (Auto) 4.2, Baso % (Auto) 0.2, Absolute Neuts (auto) 2.3, Absolute Lymphs (auto) 1.69, Total Counted Not Reportable 08/31/17 06:15: Sodium 142, Potassium 3.8, Chloride 105, Carbon Dioxide 30.0, Anion Gap 7, BUN 15, Creatinine 0.76, Estim Creat Clear Calc 55.10, Est GFR ( MDRD) Af Amer 126, Est GFR (MDRD) Non-Af 104, BUN/Creatinine Ratio 19.7, Glucose 145 H, Calcium 8.4 L, Triglycerides 177, Cholesterol 111, LDL Cholesterol 48, VLDL Cholesterol 35, HDL Cholesterol 28 L 08/31/17 06:15: Hemoglobin A1c 8.7 H 08/31/17 06:57: POC Glucose 147 H 08/31/17 11:07: POC Glucose 237 H Current Medications Acetaminophen (Tylenol) 650 mg PO Q6H PRN PRN PRN Reason: PAIN Amlodipine Besylate (Norvasc) 5 mg PO DAILY [facility] Last Admin: 08/31/17 08:56 Dose: 5 mg Aspirin (Aspirin, Baby) 81 mg PO DAILY@0800 [facility] Last Admin: 08/31/17 08:55 Dose: 81 mg Atorvastatin Calcium (Lipitor) 40 mg PO QHS [facility] Last Admin: 08/30/17 22:30 Dose: 40 mg Clopidogrel Bisulfate (Plavix) 75 mg PO DAILY [facility] Last Admin: 08/31/17 08:56 Dose: 75 mg Enoxaparin Sodium (Lovenox) 70 mg SC Q12@0600,1800 [facility] Last Admin: 08/31/17 06:53 Dose: 70 mg Escitalopram Oxalate (Lexapro) 5 mg PO DAILY [facility] Last Admin: 08/31/17 08:55 Dose: 5 mg Insulin Aspart (Novolog Flexpen (Bkc)) 0 units SC ACHS [facility] PRN Reason: Protocol Last Admin: 08/31/17 11:32 Dose: 2 units Metoprolol Succinate (Toprol Xl (Beta Yen)) 25 mg PO DAILY [facility] Last Admin: 08/31/17 08:57 Dose: 25 mg Morphine Sulfate () 1 mg IV Q3H PRN PRN PRN Reason: SEVERE PAIN (6-10/10) Nitroglycerin (Nitrostat) 0.4 mg SUBLINGUAL Q5M PRN PRN Reason: CARDIAC/CHEST PAIN Last Admin: 08/31/17 03:06 Dose: 0.4 mg Ondansetron HCl (Zofran) 4 mg IV Q6H PRN PRN PRN Reason: NAUSEA Pantoprazole Sodium (Protonix) 40 mg PO DAILY [facility] Last Admin: 08/31/17 08:57 Dose: 40 mg Sodium Chloride () 5 - 30 ml IV UD PRN PRN Reason: SALINE FLUSH Medical Necessity - Tobacco Use Smoking Status: Former smoker Tobacco Use: Non-smoker Assessment/Plan Active and Suspected Problems Unstable angina (Acute) patient is admitted for chest pain or shortness of breath, progressively worsening for 6 months suggestive of unstable angina. On aspirin and Plavix as mentioned above. On ACS protocol. Seen by construction economist [facility]. Plan for cardiac cath on Saturday. 1. Unstable angina with typical pattern of angina pectoris-patient will be placed on aspirin, Plavix, Lovenox 1 mg/kg body weight as needed nitro. On beta -yen. Maintain on telemetry. Start on high-dose statin therapy. EKG was negative in the ER. Scheduled for cardiac cath on Saturday 2. History of CAD-status post 1 stent approximately 15 years ago. He does not regularly follow cardiology, reportedly had a negative stress test last year. 3. Hypertension-stable Blood pressure is controlled. 4. Type 2 diabetes-hold metformin, start sliding scale insulin, adjust home medications if indicated. A1c 8.7. 5. Anxiety-continue Lexapro 6. GERD-continue PPI DVT prophylaxis: Lovenox DC planning: Patient will be here at least until Saturday as he will have a heart catheterization on Saturday Laboratory Results 08/30/17 14:10: WBC 5.2, RBC 4.38 L, Hgb 12.9 L, Hct 37.4 L, MCV 85.4, MCH 29.5 , MCHC 34.5, RDW 12.2, RDW Differential 38.0, Plt Count 204, MPV 10.1, Immature Gran % (Auto) 0.000, Neut % (Auto) 51.8, Lymph % (Auto) 34.4, [place] % (Auto) 11.3 H, Eos % (Auto) 2.3, Baso % (Auto) 0.2, Absolute Neuts (auto) 2.7, Absolute Lymphs (auto) 1.79, Total Counted Not Reportable 08/30/17 14:10: Sodium 139, Potassium 4.1, Chloride 105, Carbon Dioxide 29.0, Anion Gap 5, BUN 15, Creatinine 0.98, Estim Creat Clear Calc 56.22, Est GFR ( MDRD) Af Amer 94, Est GFR (MDRD) Non-Af 78, BUN/Creatinine Ratio 15.3, Glucose 214 H, Calcium 8.5, Troponin I < 0.015 08/30/17 17:58: Troponin I < 0.015 08/30/17 17:58: Magnesium 1.6, TSH 1.56 08/30/17 20:28: Troponin I < 0.015 08/30/17 22:18: POC Glucose 213 H 08/31/17 06:15: WBC 4.8, RBC 4.22 L, Hgb 12.6 L, Hct 36.1 L, MCV 85.5, MCH 29.9 , MCHC 34.9, RDW 12.0, RDW Differential 36.3, Plt Count 223, MPV 10.5, Immature Gran % (Auto) 0.000, Neut % (Auto) 48.1, Lymph % (Auto) 35.5, [place] % (Auto) 12.0 H, Eos % (Auto) 4.2, Baso % (Auto) 0.2, Absolute Neuts (auto) 2.3, Absolute Lymphs (auto) 1.69, Total Counted Not Reportable 08/31/17 06:15: Sodium 142, Potassium 3.8, Chloride 105, Carbon Dioxide 30.0, Anion Gap 7, BUN 15, Creatinine 0.76, Estim Creat Clear Calc 55.10, Est GFR ( MDRD) Af Amer 126, Est GFR (MDRD) Non-Af 104, BUN/Creatinine Ratio 19.7, Glucose 145 H, Calcium 8.4 L, Triglycerides 177, Cholesterol 111, LDL Cholesterol 48, VLDL Cholesterol 35, HDL Cholesterol 28 L 08/31/17 06:15: Hemoglobin A1c 8.7 H 08/31/17 06:57: POC Glucose 147 H 08/31/17 11:07: POC Glucose 237 H Clinical Impression(s) from Imaging Studies Chest X-Ray 08/30/17 14:26 IMPRESSION: Normal x-ray examination of the chest. Code Visit Inpatient E&M: 85001 Subs Hosp L2
[2017-08-31 16:35] LABS: Bedside Glucose 166 mg/dL (70-110)
[2017-08-31] MEDS: Bisacodyl 5 MG Tablet 10 MG PO (17:27)
[2017-08-31] MEDS: Atorvastatin Calcium 40 MG Tablet PO (21:07)
[2017-08-31 21:11] LABS: Bedside Glucose 268 mg/dL (70-110)
[2017-09-01] VITALS (11 sets, daily range): BP systolic 108–114; BP diastolic 52–67; PULSE 58–69; RESP 14–16; TEMP 36.6–37; O2SAT 95–97
[2017-09-01 06:30] LABS: Anion Gap 5 (5-15); BUN 15 mg/dL (7-18); BUN/Creat Ratio 20.2 RATIO (10-20); Calcium,Total 8.6 mg/dL (8.5-10.1); Chloride 105 mmol/L (98-107); Creatinine, Serum 0.74 mg/dL (0.70-1.30); EST Glomerular Filtration Rate 107 mL/min (>60); Est Glom Filt Rate - Afr Amer 129 mL/min (>60); Glucose 155 mg/dL (74-106); Potassium 3.9 mmol/L (3.5-5.1); Sodium Level 140 mmol/L (136-145)
[2017-09-01] MEDS: Enoxaparin 80 MG/0.8 ML Syringe 70 MG SC (07:33)
[2017-09-01] MEDS: Bisacodyl 5 MG Tablet 10 MG PO (09:52)
[2017-09-01] MEDS: Aspirin 81 MG TAB.CHEW PO (09:52)
[2017-09-01] MEDS: Escitalopram Oxalate 10 MG Tablet 5 MG PO (09:52)
[2017-09-01] MEDS: amLODIPine 5 MG Tablet PO (09:53)
[2017-09-01] MEDS: Metoprolol(XL)Succ 25 MG Tablet PO (09:54)
[2017-09-01] MEDS: Pantoprazole Sodium 40 MG Tablet PO (09:54)
[2017-09-01] MEDS: Clopidogrel Bisulfate 75 MG Tablet PO (09:54)
[2017-09-01 11:05] LABS: Bedside Glucose 173 mg/dL (70-110)
[2017-09-01 11:11] LABS: Bedside Glucose 385 mg/dL (70-110)
--- NOTE | 2017-09-01 11:17 | PCM.PN.HOSP ---
Patient Problems: Active and Suspected Problems Unstable angina (Acute) Subjective: No obvious previous night symptoms or health related issues. On Lovenox. We will stop the night dose today. Vitals/I&O's: Vital Signs Temp Pulse Resp BP Pulse Ox 98.1 F 68 16 110/59 L 95 09/01/17 09:42 09/01/17 09:54 09/01/17 09:42 09/01/17 09:42 09/01/17 09:42 Oxygen Flow Rate (L/min) 1 Oxygen Delivery Method Room Air Weight: 153 lb 7.068 oz Body Mass Index (BMI) 23.3 Intake and Output for Last 24 Hours 08/30/17 08/31/17 09/01/17 23:59 23:59 23:59 Intake Total 150 / 150 700 / 700 240 / 240 Balance 150 / 150 700 / 700 240 / 240 General: Alert, Oriented x3, Cooperative HEENT: Atraumatic, PERRLA, EOMI, Normocephalic Neck: Supple, No JVD, Negative Carotid Bruits Lungs: Clear to auscultation, Normal air movement, No rhonchi, No wheeze, No rales Cardiovascular: Regular rate, Regular Rhythm, Normal S1, Normal S2, No murmurs Abdomen: Bowel Sounds Present, Soft, Non Tender Extremities: No edema, Capillary Refill Less than 3 Seconds Skin: No rashes, No breakdown Musculoskeletal: No Tenderness to Palpation of Joints or Extremities Neurological: Cranial nerves II-XII grossly intact Psych/Mental Status: Normal Affect, Appropriate Laboratory Results 08/31/17 16:27: POC Glucose 166 H 08/31/17 21:05: POC Glucose 268 H 09/01/17 06:00: Sodium 140, Potassium 3.9, Chloride 105, Carbon Dioxide 30.0, Anion Gap 5, BUN 15, Creatinine 0.74, Estim Creat Clear Calc 55.10, Est GFR (MDRD) Af Amer 129, Est GFR (MDRD) Non-Af 107, BUN/Creatinine Ratio 20.2 H, Glucose 155 H, Calcium 8.6 09/01/17 07:32: POC Glucose 173 H 09/01/17 11:04: POC Glucose 385 H Current Medications Acetaminophen (Tylenol) 650 mg PO Q6H PRN PRN PRN Reason: PAIN Amlodipine Besylate (Norvasc) 5 mg PO DAILY CINDY Last Admin: 09/01/17 09:53 Dose: 5 mg Aspirin (Aspirin, Baby) 81 mg PO DAILY@0800 [facility] Last Admin: 09/01/17 09:52 Dose: 81 mg Atorvastatin Calcium (Lipitor) 40 mg PO QHS [facility] Last Admin: 08/31/17 21:07 Dose: 40 mg Bisacodyl (Dulcolax) 10 mg PO DAILY PRN PRN Reason: Constipation Last Admin: 09/01/17 09:52 Dose: 10 mg Clopidogrel Bisulfate (Plavix) 75 mg PO DAILY [facility] Last Admin: 09/01/17 09:54 Dose: 75 mg Enoxaparin Sodium (Lovenox) 70 mg SC Q12@0600,1800 [facility] Last Admin: 09/01/17 07:33 Dose: 70 mg Escitalopram Oxalate (Lexapro) 5 mg PO DAILY [facility] Last Admin: 09/01/17 09:52 Dose: 5 mg Insulin Aspart (Novolog Flexpen (Bkc)) 0 units SC ACHS [facility] PRN Reason: Protocol Last Admin: 09/01/17 07:33 Dose: 1 units Metoprolol Succinate (Toprol Xl (Beta Yen)) 25 mg PO DAILY [facility] Last Admin: 09/01/17 09:54 Dose: 25 mg Morphine Sulfate () 1 mg IV Q3H PRN PRN PRN Reason: SEVERE PAIN (6-10/10) Nitroglycerin (Nitrostat) 0.4 mg SUBLINGUAL Q5M PRN PRN Reason: CARDIAC/CHEST PAIN Last Admin: 08/31/17 03:06 Dose: 0.4 mg Ondansetron HCl (Zofran) 4 mg IV Q6H PRN PRN PRN Reason: NAUSEA Pantoprazole Sodium (Protonix) 40 mg PO DAILY [facility] Last Admin: 09/01/17 09:54 Dose: 40 mg Sodium Chloride () 5 - 30 ml IV UD PRN PRN Reason: SALINE FLUSH Medical Necessity - Tobacco Use Smoking Status: Former smoker Tobacco Use: Non-smoker Assessment/Plan Active and Suspected Problems Unstable angina (Acute) patient is admitted for chest pain or shortness of breath, progressively worsening for 6 months suggestive of unstable angina. On aspirin and Plavix as mentioned above. On ACS protocol. [facility] Plan for cardiac cath on Saturday. 1. Unstable angina with typical pattern of angina pectoris-patient will be placed on aspirin, Plavix, Lovenox 1 mg/kg body weight as needed nitro. On beta-yen. Maintain on telemetry. Start on high-dose statin therapy. EKG was negative in the ER. Hold the night dose of Lovenox for scheduled cardiac cath on Saturday. Discussed with Dr. vuong and Dr. Leos. 2. History of CAD-status post 1 stent approximately 15 years ago. He does not regularly follow cardiology, reportedly had a negative stress test last year. 3. Hypertension-stable Blood pressure is controlled. 4. Type 2 diabetes-hold metformin, start sliding scale insulin, adjust home medications if indicated. A1c 8.7. 5. Anxiety-continue Lexapro 6. GERD-continue PPI DVT prophylaxis: Lovenox DC planning: Patient will be here at least until Saturday as he will have a heart catheterization on Saturday Laboratory Results 08/31/17 16:27: POC Glucose 166 H 08/31/17 21:05: POC Glucose 268 H 09/01/17 06:00: Sodium 140, Potassium 3.9, Chloride 105, Carbon Dioxide 30.0, Anion Gap 5, BUN 15, Creatinine 0.74, Estim Creat Clear Calc 55.10, Est GFR (MDRD) Af Amer 129, Est GFR (MDRD) Non-Af 107, BUN/Creatinine Ratio 20.2 H, Glucose 155 H, Calcium 8.6 09/01/17 07:32: POC Glucose 173 H 09/01/17 11:04: POC Glucose 385 H 08/31/17 06:15: WBC 4.8, RBC 4.22 L, Hgb 12.6 L, Hct 36.1 L, MCV 85.5, MCH 29.9, MCHC 34.9, RDW 12.0, RDW Differential 36.3, Plt Count 223, MPV 10.5, Immature Gran % (Auto) 0.000, Neut % (Auto) 48.1, Lymph % (Auto) 35.5, [place] % (Auto) 12.0 H, Eos % (Auto) 4.2, Baso % (Auto) 0.2, Absolute Neuts (auto) 2.3, Absolute Lymphs (auto) 1.69, Total Counted Not Reportable 08/31/17 06:15: Sodium 142, Potassium 3.8, Chloride 105, Carbon Dioxide 30.0, Anion Gap 7, BUN 15, Creatinine 0.76, Estim Creat Clear Calc 55.10, Est GFR (MDRD) Af Amer 126, Est GFR (MDRD) Non-Af 104, BUN/Creatinine Ratio 19.7, Glucose 145 H, Calcium 8.4 L, Triglycerides 177, Cholesterol 111, LDL Cholesterol 48, VLDL Cholesterol 35, HDL Cholesterol 28 L 08/31/17 06:15: Hemoglobin A1c 8.7 H Clinical Impression(s) from Imaging Studies Chest X-Ray 08/30/17 14:26 IMPRESSION: Normal x-ray examination of the chest. Code Visit Inpatient E&M: 25878 Subs Hosp L2
--- NOTE | 2017-09-01 13:20 | PCM.PN.CARD ---
Subjectve: The patient states he feels better overall. He is not complaining of ongoing chest discomfort or difficulty breathing. Objective: Vital Signs Temp Pulse Resp BP Pulse Ox 98.1 F 67 16 110/59 L 95 09/01/17 09:42 09/01/17 11:00 09/01/17 09:42 09/01/17 09:42 09/01/17 09:42 Oxygen Flow Rate (L/min) 1 Oxygen Delivery Method Room Air Weight: 153 lb 7.068 oz Body Mass Index (BMI) 23.3 Intake and Output for Last 24 Hours 08/30/17 08/31/17 09/01/17 23:59 23:59 23:59 Intake Total 150 / 150 700 / 700 800 / 800 Balance 150 / 150 700 / 700 800 / 800 General: Awake, Alert, Oriented x 3, Cooperative, No Acute Distress HEENT: Atraumatic, Normocephalic, PERRL, EOMI, Sclera Non Icteric Neck: Supple, Good ROM, No JVD Lungs: Clear to auscultation Cardiovascular: Regular Rhythm, Normal S1, Normal S2 Abdomen: Bowel Sounds Present, Soft, Non Tender Extremities: No Cyanosis, No Clubbing, No edema Neurological: No Focal Motor or Sensory Deficit 09/01/17 06:00: Sodium 140, Potassium 3.9, Chloride 105, Carbon Dioxide 30.0, Anion Gap 5, BUN 15, Creatinine 0.74, Est GFR (MDRD) Af Amer 129, Est GFR (MDRD) Non-Af 107, BUN/Creatinine Ratio 20.2 H, Glucose 155 H, Calcium 8.6 Rhythm: Sinus rhythm EKG: Sinus rhythm; no acute ECG changes Medical Necessity - Tobacco Use Smoking Status: Former smoker Tobacco Use: Non-smoker Assessment/Plan 1. Unstable angina pectoris The present time the patient has been monitored. His cardiac enzymes have been negative. His ECG demonstrates no new acute ECG changes. He is continuing risk factor modification and medical management. He is tentatively scheduled for upcoming diagnostic cardiac catheterization on 09/02/2017 further evaluate his coronary anatomy, etc. 2. Hypertension The patient's blood pressure is being monitored. His medications will be adjusted as deemed appropriate. 3. Hyperlipidemia The patient will remain on lipid-lowering therapy. Comment: The above was discussed with the patient. This note was generated with [employer] software. It may contain incorrect words, spelling, and punctuation that were not noted in checking the note before signing.
[2017-09-01 16:35] LABS: Bedside Glucose 155 mg/dL (70-110)
[2017-09-01 19:52] LABS: Color, Urine Yellow (Yellow); Glucose, Dipstick 1000 mg/dl (Normal); Ketone-Dipstick 5 mg/dl (Negative); Leukocyte Esterase-Dipstick 25 /ul (Negative); Nitrite-Dipstick Negative (Negative); Occult Blood-Urine 10 /ul (Negative); Protein-Dipstick 15 mg/dl (Negative); Urine Bilirubin Dipstick 1 mg/dL (Negative); Urine Clarity Clear (Clear); Urine Urobilinogen 1 mg/dl (Normal)
[2017-09-01] MEDS: 0.9% NaCl Peripheral Flush Adult/Peds IV (19:53)
[2017-09-01] MEDS: Atorvastatin Calcium 40 MG Tablet PO (22:04)
[2017-09-01 22:11] LABS: Bedside Glucose 272 mg/dL (70-110)
[2017-09-02] VITALS (37 sets, daily range): BP systolic 109–153; BP diastolic 42–64; PULSE 55–71; RESP 11–21; TEMP 36.5–37.1; O2SAT 93–99
[2017-09-02 05:51] LABS: Hematocrit 38.4 % (40-54); Hemoglobin 13.2 g/dl (13.0-16.5); Mean Corp Hgb Conc 34.4 g/gl (32-36); Mean Corpuscular Hgb 29.4 pg (27.0-32.0); Mean Corpuscular Volume 85.5 fL (80-94); Mean Platelet Vol. 10.3 fl (6.2-12.0); Platelet Count 204 K/mm3 (150-450); RBC Distribution Width CV 12.4 % (11.6-14.6); RBC Distribution Width SD 38.8 fl (35.1-43.9); Red Blood Count 4.49 M/mm3 (4.6-6.2); White Blood Count 4.5 K/mm3 (4.4-11.0)
[2017-09-02 05:57] LABS: Anion Gap 9 (5-15); BUN 15 mg/dL (7-18); BUN/Creat Ratio 20.9 RATIO (10-20); Calcium,Total 8.5 mg/dL (8.5-10.1); Chloride 105 mmol/L (98-107); Creatinine, Serum 0.72 mg/dL (0.70-1.30); EST Glomerular Filtration Rate 111 mL/min (>60); Est Glom Filt Rate - Afr Amer 135 mL/min (>60); Glucose 131 mg/dL (74-106); Potassium 3.9 mmol/L (3.5-5.1); Sodium Level 144 mmol/L (136-145)
[2017-09-02 05:58] LABS: International Normalized Ratio 1.1; Partial Thromboplast Time 28.3 Seconds (24.1-36.2); Prothrombin Time (Protime)PT. 13.8 SECONDS (11.7-14.9)
[2017-09-02 06:15] LABS: Scan Indicated on CBC? Y/N NO
[2017-09-02] MEDS: amLODIPine 5 MG Tablet PO (06:20)
[2017-09-02] MEDS: Aspirin 81 MG TAB.CHEW PO (06:20)
[2017-09-02] MEDS: Metoprolol(XL)Succ 25 MG Tablet PO (06:20)
[2017-09-02] MEDS: 0.9% Normal Saline 1,000 ML 15 ML IV (06:20)
[2017-09-02] MEDS: Clopidogrel Bisulfate 75 MG Tablet PO (06:20)
[2017-09-02 06:26] LABS: Bedside Glucose 136 mg/dL (70-110)
--- NOTE | 2017-09-02 07:52 | PCM.PN.CARD ---
Subjectve: Patient seen and evaluated. Appears to be doing well. Underwent cardiac catheterization this morning. Objective: Vital Signs Temp Pulse Resp BP Pulse Ox 98.3 F 66 15 122/60 H 97 09/02/17 06:20 09/02/17 06:20 09/02/17 06:20 09/02/17 06:20 09/02/17 06:20 Oxygen Flow Rate (L/min) 1 Oxygen Delivery Method Room Air Weight: 153 lb 7.068 oz Body Mass Index (BMI) 23.3 Intake and Output for Last 24 Hours 08/31/17 09/01/17 09/02/17 23:59 23:59 23:59 Intake Total 700 / 700 1400 / 1400 60 / 60 Balance 700 / 700 1400 / 1400 60 / 60 General: Awake, Alert, Oriented x 3 HEENT: PERRL, EOMI, Sclera Non Icteric Neck: Supple, Good ROM, No Lymph Node Enlargement Lungs: Clear to auscultation Cardiovascular: Regular Rhythm, Normal S1, Normal S2, No Murmurs, No Rubs, No Gallops Vascular: No Carotid Bruits, Normal Femoral Pulses, Normal Radial Pulses, Normal Dorsalis Pedal Pulse, Normal Posterior Tibial Pulses Abdomen: Bowel Sounds Present, Soft, Non Tender, No HSM, No Organomegaly Extremities: No Cyanosis, No Clubbing, No edema Neurological: No Focal Motor or Sensory Deficit 09/01/17 19:00: Urine Color Yellow, Urine Clarity Clear, Urine pH 5.0, Ur Specific [place] 1.020, Urine Protein 15 H, Urine Glucose (UA) 1000 H, Urine Ketones 5 H, Urine Occult Blood 10 H, Urine Nitrite Negative, Urine Bilirubin 1 H, Urine Urobilinogen 1 H, Ur Leukocyte Esterase 25 H 09/02/17 05:15: WBC 4.5, RBC 4.49 L, Hgb 13.2, Hct 38.4 L, MCV 85.5, MCH 29.4, MCHC 34.4, RDW 12.4, RDW Differential 38.8, Plt Count 204, MPV 10.3 09/02/17 05:15: PT 13.8, INR 1.1, APTT 28.3 09/02/17 05:15: Sodium 144, Potassium 3.9, Chloride 105, Carbon Dioxide 30.0, Anion Gap 9, BUN 15, Creatinine 0.72, Est GFR (MDRD) Af Amer 135, Est GFR (MDRD) Non-Af 111, BUN/Creatinine Ratio 20.9 H, Glucose 131 H, Calcium 8.5 Rhythm: EKG: ECHO: Stress Test: Cardiac Cath: PCI: CT Surgery: Holter monitor: EPS: PPM: CXR: Chest CT Scan: Medical Necessity - Tobacco Use Smoking Status: Former smoker Tobacco Use: Non-smoker Assessment/Plan 1. New onset angina. Patient presents with fairly recent onset angina which appears to be worse with exertion and dissipates with rest. The above appears to have the classic characteristics of angina pectoris. My recommendation at this time would be for him to continue his statin, and start him on aspirin as well as clopidogrel and a low-dose beta-javier. His cardiac catheterization this morning demonstrated the following: Left main coronary artery which is normal. Dominant right coronary artery with proximal 95-99% stenosis with mild distal disease. Left circumflex artery with 70% calcified proximal stenosis. Left anterior descending artery which is previously stented with approximately 30% in-stent stenosis and ostial disease noted of the septal perforators. Preserved left ventricular systolic function. Based on the above angiographic findings the patient will be considered for percutaneous intervention. 2. Hypertension He does have a history of hypertension which is well-controlled on his amlodipine and this will be continued without any changes. A low-dose beta-javier would however be added. 3. Hyperlipidemia risk factor modification He does have a history of hyperlipidemia and will continue on medium intensity statin. Thank you for allowing me to participate in the care of your patient. Please don't hesitate to call if any issues arise
--- NOTE | 2017-09-02 07:56 | PN.CARD_ITS ---
Subjectve: Patient seen and evaluated. Appears to be doing well. Underwent cardiac catheterization this morning. Objective: Vital Signs Temp Pulse Resp BP Pulse Ox 98.3 F 66 15 122/60 H 97 09/02/17 06:20 09/02/17 06:20 09/02/17 06:20 09/02/17 06:20 09/02/17 06:20 Oxygen Flow Rate (L/min) 1 Oxygen Delivery Method Room Air Weight: 153 lb 7.068 oz Body Mass Index (BMI) 23.3 Intake and Output for Last 24 Hours 08/31/17 09/01/17 09/02/17 23:59 23:59 23:59 Intake Total 700 / 700 1400 / 1400 60 / 60 Balance 700 / 700 1400 / 1400 60 / 60 General: Awake, Alert, Oriented x 3 HEENT: PERRL, EOMI, Sclera Non Icteric Neck: Supple, Good ROM, No Lymph Node Enlargement Lungs: Clear to auscultation Cardiovascular: Regular Rhythm, Normal S1, Normal S2, No Murmurs, No Rubs, No Gallops Vascular: No Carotid Bruits, Normal Femoral Pulses, Normal Radial Pulses, Normal Dorsalis Pedal Pulse, Normal Posterior Tibial Pulses Abdomen: Bowel Sounds Present, Soft, Non Tender, No HSM, No Organomegaly Extremities: No Cyanosis, No Clubbing, No edema Neurological: No Focal Motor or Sensory Deficit 09/01/17 19:00: Urine Color Yellow, Urine Clarity Clear, Urine pH 5.0, Ur Specific [place] 1.020, Urine Protein 15 H, Urine Glucose (UA) 1000 H, Urine Ketones 5 H, Urine Occult Blood 10 H, Urine Nitrite Negative, Urine Bilirubin 1 H, Urine Urobilinogen 1 H, Ur Leukocyte Esterase 25 H 09/02/17 05:15: WBC 4.5, RBC 4.49 L, Hgb 13.2, Hct 38.4 L, MCV 85.5, MCH 29.4, MCHC 34.4, RDW 12.4, RDW Differential 38.8, Plt Count 204, MPV 10.3 09/02/17 05:15: PT 13.8, INR 1.1, APTT 28.3 09/02/17 05:15: Sodium 144, Potassium 3.9, Chloride 105, Carbon Dioxide 30.0, Anion Gap 9, BUN 15, Creatinine 0.72, Est GFR (MDRD) Af Amer 135, Est GFR (MDRD ) Non-Af 111, BUN/Creatinine Ratio 20.9 H, Glucose 131 H, Calcium 8.5 Rhythm: EKG: ECHO: Stress Test: Cardiac Cath: PCI: CT Surgery: Holter monitor: EPS: PPM: CXR: Chest CT Scan: Medical Necessity - Tobacco Use Smoking Status: Former smoker Tobacco Use: Non-smoker Assessment/Plan 1. New onset angina. * Patient presents with fairly recent onset angina which appears to be worse with exertion and dissipates with rest. The above appears to have the classic characteristics of angina pectoris. My recommendation at this time would be for him to continue his statin, and start him on aspirin as well as clopidogrel and a low-dose beta-javier. * His cardiac catheterization this morning demonstrated the following: Left main coronary artery which is normal. Dominant right coronary artery with proximal 95-99% stenosis with mild distal disease. Left circumflex artery with 70% calcified proximal stenosis. Left anterior descending artery which is previously stented with approximately 30% in-stent stenosis and ostial disease noted of the septal perforators. Preserved left ventricular systolic function. Based on the above angiographic findings the patient will be considered for percutaneous intervention. 2. Hypertension * He does have a history of hypertension which is well-controlled on his amlodipine and this will be continued without any changes. A low-dose beta- javier would however be added. * 3. Hyperlipidemia risk factor modification * He does have a history of hyperlipidemia and will continue on medium intensity statin. * * Thank you for allowing me to participate in the care of your patient. Please don't hesitate to call if any issues arise
--- NOTE | 2017-09-02 08:03 | CL.D_ITS ---
Patient Name: NIGEL DONOHUE Study Date: 09/02/2017 Performing: Fernando Mauricio MD Ht: 68.11 inches 173 cm : 1935 Wt: 154.32 lbs 70 kg Age: 81 Gender: male BSA: 1.83 PROCEDURE(S) PERFORMED [id number]/LV CLINICAL PROFILE AND INDICATIONS Indications: New Onset Angina <= 2 months Heart Failure: None Stress/Imaging Stress/Image Study Performed: No Angina Classification Anginal Classification w/in 2 Weeks: CCS III CAD Presentations: Unstable angina. CONCLUSIONS Severe disease involving the proximal right coronary artery and moderately severe disease involving t he left circumflex artery. Previously placed stent in the left anterior descending artery is patent. RECOMMENDATIONS Referred for immediate PCI DESCRIPTION OF PROCEDURE The patient arrived to the procedure lab. The risks and benefits of the procedure as well as a full d escription of our services here and current unavailability of surgical backup were fully explained to the patient and/or their significant other prior to the catheterization. The Timeout was completed, verifying the correct patient and procedure. The patient's procedural site was prepped and draped in the usual fashion. Local anesthetic was given subcutaneously to right groin region with Lidocaine 2%. Using a modified Seldinger technique, arterial access was obtained via the right femoral artery, a 5 Fr sheath was inserted. Left Coronary Artery selective angiography was performed in multiple views u sing a 5 Fr. JL4 catheter. Right Coronary Artery selective angiography was then performed in multiple views using a 5 Fr. 3DRC (Vincenzo) catheter. Left Ventriculography was performed in LUJAN projection using a 5 Fr. Pigtail catheter. LV to AO pullback pressures were then recorded. CORONARY ANGIOGRAPHY DOMINANCE: Right Dominant LEFT HEART ASSESSMENT Left Ventricular Ejection Fraction: by LV Gram 60 % Normal LV wall motion Normal Left Ventricular systolic function LEFT MAIN: Angiographically normal LEFT ANTERIOR DECENDING ARTERY: PROX LAD: Previously placed stent has an instent 20 % restenosis SEPTAL: 70 % Stenosis CIRCUMFLEX ARTERY: PROX CIRC: 70 % Stenosis, Moderate calcification RIGHT CORONARY ARTERY: PROX RCA: 95 % Stenosis COMPLICATIONS PROCEDURE MEDICATIONS Versed 1 mg IV Oxygen: 2 L/min via nasal cannula SUMMARY OF HEMODYNAMIC DATA Time AIR REST ECG 07:10:35 AO 95/49 (69) SA 07:26:50 LV 112/5, 7 07:34:26 LV 111/4, 6 07:34:33 LV 96/4, 6 07:35:28 LVp 97/4, 6 07:35:35 AOp 102/42 (64) 07:35:40 Signed By Fernando Mauricio MD On 09/02/2017 08:02:58 Fernando Mauricio MD
--- NOTE | 2017-09-02 08:59 | CL.I_ITS ---
Patient Name: NIGEL DONOHUE Study Date: 09/02/2017 Performing: Hernandez Lafleur MD Ht: 68.11 inches 173 cm : 1935 Wt: 154.32 lbs 70 kg Age: 81 Gender: male BSA: 1.83 PROCEDURE(S) PERFORMED [id number] W OR WO PTCA, SINGLE CORONARY ARTERY CLINICAL PROFILE AND CO-MORBIDITIES Indications: New Onset Angina <= 2 months, ACS <= 24 hrs Heart Failure: None Stress/Imaging Stress/Image Study Performed: No Stress/Image Study Performed: No Angina Classification Anginal Classification w/in 2 Weeks: CCS III CAD Presentations: Unstable angina. Unstable angina. Comorbidities/Risk Factors: Hypertension Dyslipidemia Prior PCI CONCLUSIONS Successful PTCA/LOUISE of the proximal RCA with 3.0 x 16 Promus stent with 3.25 x 8 NC balloon post dila may; 85%-->0%, no dissection. Pt required multiple pre-dilation and long 45 cm sheath due to tortuos ity. RECOMMENDATIONS Highly recommend quitting all tobacco products Follow up with primary electrical tech/project manager Risk factor modification ASA Indefinitley Plavix for at least 12 months Routine post interventional care Refer for Outpatient Cardiac Rehab Manual sheath removal per protocol Elective PCI/LOUISE of proximal LCX in 3 weeks. Follow up with Dr. Mauricio DESCRIPTION OF PROCEDURE The patient arrived to the procedure lab. The risks and benefits of the procedure as well as a full d escription of our services here and current unavailability of surgical backup were fully explained to the patient and/or their significant other prior to the catheterization. The Timeout was completed, verifying the correct patient and procedure. The patient's procedural site was prepped and draped in the usual fashion. Local anesthetic was given subcutaneously to right groin region with Lidocaine 2% Using a modified Seldinger technique,arterial access was obtained via the right femoral artery, a 5Fr sheath was inserted. Left Coronary Artery selective angiography was performed in multiple views usin g a 5 Fr. JL4 catheter. Right Coronary Artery selective angiography was then performed in multiple vi ews using a 5 Fr. 3DRC (Vincenzo) catheter. Left Ventriculography was performed in LUJAN projection usi ng a 5 Fr. Pigtail catheter. LV to AO pullback pressures were then recorded.The images were reviewed and options discussed. A decision was then made to proceed with an Intervention, IVUS or other adjunc t procedure. Arterial sheath was exchanged for a 45cm 6 Fr Sheath. HSII Guide catheter was inserted and engaged in to the RCA. [employer] [place] Wire Guide wire was advanced to the RCA. 2.0x12 emerge Balloon catheter was inserted. Balloon catheter was advanced across lesion in the right coronary, proximal. Angiogram per formed pre balloon dilatation. PTCA balloon inflated at 12 atms for 10 secs. PTCA balloon inflated at 12 atms for 8 secs. PTCA balloon inflated at 12 atms for 11 secs. Angiogram performed post balloon d ilatation. 3.0x 16 synergy Drug Eluting stent was inserted. Drug Eluting stent was removed intact, fa iled to cross lesion 2.5 x 12 emerge Balloon catheter was inserted. Balloon catheter was advanced acr oss lesion in the right coronary, proximal. PTCA balloon inflated at 12 atms for 9 secs. PTCA balloon inflated at 10 atms for 8 secs. 3.0x 16 emerge Drug Eluting stent was inserted. Drug Eluting stent w as advanced across the lesion in the right coronary, proximal. Angiogram performed pre stent deployme nt. Angiogram performed post stent deployment. 3.025x8 NC Emerge Balloon catheter was inserted. Ballo on catheter was advanced across lesion in the right coronary, proximal. Angiogram performed pre ballo on dilatation. Angiogram performed post balloon dilatation. Arterial sheath was exchanged for a 11 cm 6 Fr Sheath. The arterial sheath was sutured in place and capped INTERVENTION INFORMATION LESION SITE: RCA (Proximal) Lesion Complexity: High/C, lesion at bifurcation: No, thrombus present: No, lesion length: 16 mm, cul prit lesion: Yes Pre Stenosis: 85 % Pre intervention ROCIO flow: 3 PROCEDURE: Drug Eluting Stent with pre and post dilatation Post Stenosis: 0 % Post intervention ROCIO flow: 3 Lesion Devices: [place] .014 [employer] [place] Straight 190cm Medtronic 6 Fr HSII 100cm Guide Catheter Dada Sci EMERGE MR 2.00x12 BALLOON Dada Sci Synergy MR LOUISE 3.00x16 Dada Sci NC EMERGE MR 3.25x08 BALLOON Dada Sci EMERGE MR 2.50x12 BALLOON COMPLICATIONS No Complications PROCEDURE MEDICATIONS Versed 1 mg IV Oxygen: 2 L/min via nasal cannula Heparin 6000 unit(s) IV 09/02/2017 08:16:39 Nitro 200 mcg IC 09/02/2017 08:23:28 Nitro 200 mcg IC 09/02/2017 08:23:28 IV Bolus: .9 NaCl 500ml total 09/02/2017 08:18:17 SUMMARY OF HEMODYNAMIC DATA Time AIR REST ECG 07:10:35 AO 95/49 (69) SA 07:26:50 LV 112/5, 7 07:34:26 LV 111/4, 6 07:34:33 LV 96/4, 6 07:35:28 LVp 97/4, 6 07:35:35 AOp 102/42 (64) 07:35:40 Signed By Hernandez Lafleur MD On 09/02/2017 08:59:10 Hernandez Lafleur MD
[2017-09-02 09:01] LABS: ACT Activated Clotting Time 202 sec (74-137)
[2017-09-02] MEDS: 0.9% Normal Saline 1,000 ML 150 ML IV (09:30)
[2017-09-02 09:33] LABS: Hematocrit 37.7 % (40-54); Hemoglobin 13.1 g/dl (13.0-16.5); Mean Corp Hgb Conc 34.7 g/gl (32-36); Mean Corpuscular Volume 86.5 fL (80-94); Mean Platelet Vol. 10.4 fl (6.2-12.0); Platelet Count 203 K/mm3 (150-450); RBC Distribution Width CV 12.1 % (11.6-14.6); RBC Distribution Width SD 37.7 fl (35.1-43.9); Red Blood Count 4.36 M/mm3 (4.6-6.2)
[2017-09-02 09:34] LABS: Scan Indicated on CBC? Y/N NO
[2017-09-02] MEDS: Acetaminophen 325 MG Tablet 650 MG PO (09:37)
[2017-09-02 09:48] LABS: CPK Total, Creatine Kinase 36 U/L (39-308)
[2017-09-02 11:15] LABS: ACT Activated Clotting Time 147 sec (74-137)
--- NOTE | 2017-09-02 11:26 | CRPHASE1 ---
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 Risk Factors/Lifestyle Smoking Status: Former smoker Hx Hypertension: Yes Hx Diabetes Mellitus Type 2: Yes Hx Metabolic Disorders: Yes Hx Dyslipidemia: Yes Hx Obesity: No Height: 5 ft 8 in - BMI 23.3 Stress: Home/Family Risk Factor for Sedentary Lifestyle: Highest Risk Past Cardiac Illness: Coronary Artery Disease, Previous PCI w/Stent Laboratory Values: Cardiac Rehab Phase I Labs Hemoglobin A1c 8.7 % (4.2-6.3) H 08/31/17 06:15 Triglycerides 177 mg/dL (-199) 08/31/17 06:15 Cholesterol 111 mg/dL (200) 08/31/17 06:15 LDL Cholesterol 48 mg/dL (0-130) 08/31/17 06:15 HDL Cholesterol 28 mg/dL (40-) L 08/31/17 06:15 Phase I Education Given On:: [place], Nutrition, Antiplatelet medication, Smoking cessation, Diabetes - Type II Issues Affecting Care:: None Knowledge of Condition:: Yes Learning Preferences: Verbal, Written - AND SON AT BEDSIDE Hospital Course Presenting Symptoms:: EXERTIONAL ANGINA Medical/Surgical History [place]:: No Angina:: Yes - WITH EXERTION Diabetes Type II:: Yes Hypertension:: Yes Dyslipidemia:: Yes Anxiety:: Yes PTCA:: Yes Discharge/Home/Social Eval Discharge Disposition: Home Marital Status:
--- NOTE | 2017-09-02 11:29 | CRPHASE1_ITS ---
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 Risk Factors/Lifestyle Smoking Status: Former smoker Hx Hypertension: Yes Hx Diabetes Mellitus Type 2: Yes Hx Metabolic Disorders: Yes Hx Dyslipidemia: Yes Hx Obesity: No Height: 5 ft 8 in - BMI 23.3 Stress: Home/Family Risk Factor for Sedentary Lifestyle: Highest Risk Past Cardiac Illness: Coronary Artery Disease, Previous PCI w/Stent Laboratory Values: Cardiac Rehab Phase I Labs Hemoglobin A1c 8.7 % (4.2-6.3) H 08/31/17 06:15 Triglycerides 177 mg/dL (-199) 08/31/17 06:15 Cholesterol 111 mg/dL (200) 08/31/17 06:15 LDL Cholesterol 48 mg/dL (0-130) 08/31/17 06:15 HDL Cholesterol 28 mg/dL (40-) L 08/31/17 06:15 Phase I Education Given On:: Gap, Nutrition, Antiplatelet medication, Smoking cessation, Diabetes - Type II Issues Affecting Care:: None Knowledge of Condition:: Yes Learning Preferences: Verbal, Written - AND SON AT BEDSIDE Hospital Course Presenting Symptoms:: EXERTIONAL ANGINA Medical/Surgical History DE:: No Angina:: Yes - WITH EXERTION Diabetes Type II:: Yes Hypertension:: Yes Dyslipidemia:: Yes Anxiety:: Yes PTCA:: Yes Discharge/Home/Social Eval Discharge Disposition: Home Marital Status:
--- NOTE | 2017-09-02 11:31 | CRPH1.INST_ITS ---
General Education CAD and cardiac anatomy and function:: Patient communicates acknowledgment, Family communicates acknowledgment Explanation of diagnoses and procedures:: Patient communicates acknowledgment, Family communicates acknowledgment Sign/Symptoms of DE:: Patient communicates acknowledgment, Family communicates acknowledgment Antiplatelet therapy: Patient communicates acknowledgment, Family communicates acknowledgment Proper use of NTG-SL: Patient communicates acknowledgment, Family communicates acknowledgment Emergency procedures and activation of EMS: Patient communicates acknowledgment , Family communicates acknowledgment Compliance of all prescribed medications: Patient communicates acknowledgment, Family communicates acknowledgment - AND SON AT BEDSIDE Smoking Recommendations Include:: Previous smoker; encourage continued cessation Nicotine/Smoking Response Code:: Patient communicates acknowledgment, Family communicates acknowledgment Dyslipidemia Patient Dyslipidemia Risk Factors Are:: Total Cholesterol, Triglycerides, HDL, LDL Recommendations Include:: Lipid profile provided, Reviewed NCEP/ATP guidelines, Therapeutic Lifestyle Change dietary guidelines Dyslipidemia Response Code:: Patient communicates acknowledgment, Family communicates acknowledgment Overweight/Obesity Patient Overweight/Obesity Risk Factors Are:: BMI Normal [24-29 & > 65 years old ] Hypertension Recommendations Include:: BP <130/80 if diabetic, DASH dietary guidelines, Decrease/maintain normal body weight, Moderation of ETOH Hypertension:: Patient communicates acknowledgment, Family communicates acknowledgment Heart Disease Patient Heart Disease Risk Factors Are:: Previous cardiac event Recommendations Include:: Educated family members of their risk, Educated family members of importance of prevention of heart disease Heart Disease Response Code:: Patient communicates acknowledgment, Family communicates acknowledgment Diabetes Patient Diabetes Risk Factors Are:: Elevated blood sugars Recommendations Include:: Maintain fasting blood sugars 70-110 md/dL, Maintain HgbA1c of 6% or less, Monitor blood sugar as prescribed, Diabetic dietary guidelines, Decrease/maintain body weight Diabetes:: Patient communicates acknowledgment, Family communicates acknowledgment Metabolic Syndrome Patient Metabolic Syndrome Risk Factors Are [3 of 5]:: Fasting blood sugar > 100 mg/dL, High triglyceride >150, Hypertension, Low HDL <40 [male] or < 50 [ female] Recommendations Include:: Reinforce compliance to risk factor modifications, Patient is diabetic, Encouraged follow-up with Primary Care Physician Metabolic Syndrome Response Code:: Patient communicates acknowledgment, Family communicates acknowledgment Sedentary Patient Sedentary Risk Factors Are:: Lack of regular exercise Recommendations Include:: Aerobic exercise 5-7 times/week for 20-30 minutes continuously, Benefits of regular exercise, Discussed home walking program, Monitored Outpatient Cardiac Rehab Sedentary Response Code:: Patient communicates acknowledgment, Family communicates acknowledgment Stress Recommendations Include:: Identification of stressors, and assessment of coping skills, Stress management techniques Stress Response Code:: Patient communicates acknowledgment, Family communicates acknowledgment
--- NOTE | 2017-09-02 12:11 | PCM.PROGNOTE ---
<Philip Land - Last Filed: 09/02/17 12:11> Patient Problems: Active and Suspected Problems Unstable angina (Acute) Subjective: Pt resting comfortably in bed s/p heart cath. No chest pain. No pressure or tightness. No SOB. No palp/dizziness/LH. No n/v. No leg edema. No sweating. - Physical Exam General: Alert, Oriented x3, Cooperative HEENT: Atraumatic, PERRLA, EOMI, Normocephalic Neck: Supple, No JVD, Negative Carotid Bruits Lungs: Clear to auscultation, Normal air movement Cardiovascular: Regular rate, No murmurs Abdomen: Bowel Sounds Present, Soft, Non Tender Extremities: No edema, Capillary Refill Less than 3 Seconds Skin: No rashes, No breakdown Musculoskeletal: No Tenderness to Palpation of Joints or Extremities Neurological: Cranial nerves II-XII grossly intact Psych/Mental Status: Normal Affect, Appropriate, Alert and oriented to time, place, person, mood and affect Vital Signs Temp Pulse Resp BP Pulse Ox 98.3 F 55 L 18 134/60 H 96 09/02/17 06:20 09/02/17 12:00 09/02/17 12:00 09/02/17 12:00 09/02/17 12:00 Oxygen Flow Rate (L/min) 2 Oxygen Delivery Method Room Air Weight: 69.6 kg Body Mass Index (BMI) 23.3 Intake and Output for Last 24 Hours 08/31/17 09/01/17 09/02/17 23:59 23:59 23:59 Intake Total 700 / 700 1400 / 1400 60 / 60 Balance 700 / 700 1400 / 1400 60 / 60 Laboratory Tests Past 24 Hrs 09/01/17 09/02/17 09/02/17 19:00 05:15 05:15 WBC 4.5 RBC 4.49 L Hgb 13.2 Hct 38.4 L MCV 85.5 MCH 29.4 MCHC 34.4 RDW 12.4 RDW Differential 38.8 Plt Count 204 MPV 10.3 PT 13.8 INR 1.1 APTT 28.3 Activated Clotting Time Sodium Potassium Chloride Carbon Dioxide Anion Gap BUN Creatinine Estim Creat Clear Calc Est GFR (MDRD) Af Amer Est GFR (MDRD) Non-Af BUN/Creatinine Ratio Glucose Calcium Total Creatine Kinase Urine Color Yellow Urine Clarity Clear Urine pH 5.0 Ur Specific [place] 1.020 Urine Protein 15 H Urine Glucose (UA) 1000 H Urine Ketones 5 H Urine Occult Blood 10 H Urine Nitrite Negative Urine Bilirubin 1 H Urine Urobilinogen 1 H Ur Leukocyte Esterase 25 H MRSA (PCR) 09/02/17 09/02/17 09/02/17 05:15 08:41 09:15 WBC RBC Hgb Hct MCV MCH MCHC RDW RDW Differential Plt Count MPV PT INR APTT Activated Clotting Time 202 H Sodium 144 Potassium 3.9 Chloride 105 Carbon Dioxide 30.0 Anion Gap 9 BUN 15 Creatinine 0.72 Estim Creat Clear Calc 55.10 Est GFR (MDRD) Af Amer 135 Est GFR (MDRD) Non-Af 111 BUN/Creatinine Ratio 20.9 H Glucose 131 H Calcium 8.5 Total Creatine Kinase 36 L Urine Color Urine Clarity Urine pH Ur Specific [place] Urine Protein Urine Glucose (UA) Urine Ketones Urine Occult Blood Urine Nitrite Urine Bilirubin Urine Urobilinogen Ur Leukocyte Esterase MRSA (PCR) 09/02/17 09/02/17 09/02/17 09:15 09:45 11:03 WBC 5.0 RBC 4.36 L Hgb 13.1 Hct 37.7 L MCV 86.5 MCH 30.0 MCHC 34.7 RDW 12.1 RDW Differential 37.7 Plt Count 203 MPV 10.4 PT INR APTT Activated Clotting Time 147 H Sodium Potassium Chloride Carbon Dioxide Anion Gap BUN Creatinine Estim Creat Clear Calc Est GFR (MDRD) Af Amer Est GFR (MDRD) Non-Af BUN/Creatinine Ratio Glucose Calcium Total Creatine Kinase Urine Color Urine Clarity Urine pH Ur Specific [place] Urine Protein Urine Glucose (UA) Urine Ketones Urine Occult Blood Urine Nitrite Urine Bilirubin Urine Urobilinogen Ur Leukocyte Esterase MRSA (PCR) Pending POC Glucose 09/02/17 09/01/17 09/01/17 06:17 22:02 16:28 POC Glucose 136 H 272 H 155 H Medical Necessity - Tobacco Use Smoking Status: Former smoker Tobacco Use: Non-smoker Assessment/Plan Active and Suspected Problems Unstable angina (Acute) 1. Unstable angina - s/p cath with stent x 1 prox RCA. Asa/statin/BB/plavix/heparin. Never had bump in troponin this admission. LDL was 48. 2. History of CAD-status post 1 stent approximately 15 years ago. He does not regularly follow cardiology, reportedly had a negative stress test last year. 3. Hypertension-stable 4. Type 2 diabetes-hold metformin x 3 days. plan to add additional agent at DC given his A1C, would benefit from agent that will reduce his incidence of CV events such as GLP-1 agonist or SGLT2 inhibitor. Continue SSI. 5. Anxiety-continue Lexapro 6. GERD-continue PPI DVT prophylaxis: heparin DC planning: monitor overnight. This patient was seen by Philip Land PA-C under the supervision of Doctor Chloe. <Gorge Corona - Last Filed: 09/02/17 16:02> - Physical Exam Vital Signs Temp Pulse Resp BP Pulse Ox 98.7 F 60 16 121/55 H 96 09/02/17 12:00 09/02/17 15:09 09/02/17 15:00 09/02/17 15:00 09/02/17 15:00 Oxygen Flow Rate (L/min) 2 Oxygen Delivery Method Room Air Weight: 69.6 kg Body Mass Index (BMI) 23.3 Intake and Output for Last 24 Hours 08/31/17 09/01/17 09/02/17 23:59 23:59 23:59 Intake Total 700 / 700 1400 / 1400 60 / 60 Balance 700 / 700 1400 / 1400 60 / 60 Laboratory Tests Past 24 Hrs 09/01/17 09/02/17 09/02/17 19:00 05:15 05:15 WBC 4.5 RBC 4.49 L Hgb 13.2 Hct 38.4 L MCV 85.5 MCH 29.4 MCHC 34.4 RDW 12.4 RDW Differential 38.8 Plt Count 204 MPV 10.3 PT 13.8 INR 1.1 APTT 28.3 Activated Clotting Time Sodium Potassium Chloride Carbon Dioxide Anion Gap BUN Creatinine Estim Creat Clear Calc Est GFR (MDRD) Af Amer Est GFR (MDRD) Non-Af BUN/Creatinine Ratio Glucose Calcium Total Creatine Kinase Urine Color Yellow Urine Clarity Clear Urine pH 5.0 Ur Specific [place] 1.020 Urine Protein 15 H Urine Glucose (UA) 1000 H Urine Ketones 5 H Urine Occult Blood 10 H Urine Nitrite Negative Urine Bilirubin 1 H Urine Urobilinogen 1 H Ur Leukocyte Esterase 25 H MRSA (PCR) 09/02/17 09/02/17 09/02/17 05:15 08:41 09:15 WBC RBC Hgb Hct MCV MCH MCHC RDW RDW Differential Plt Count MPV PT INR APTT Activated Clotting Time 202 H Sodium 144 Potassium 3.9 Chloride 105 Carbon Dioxide 30.0 Anion Gap 9 BUN 15 Creatinine 0.72 Estim Creat Clear Calc 55.10 Est GFR (MDRD) Af Amer 135 Est GFR (MDRD) Non-Af 111 BUN/Creatinine Ratio 20.9 H Glucose 131 H Calcium 8.5 Total Creatine Kinase 36 L Urine Color Urine Clarity Urine pH Ur Specific [place] Urine Protein Urine Glucose (UA) Urine Ketones Urine Occult Blood Urine Nitrite Urine Bilirubin Urine Urobilinogen Ur Leukocyte Esterase MRSA (PCR) 09/02/17 09/02/17 09/02/17 09:15 09:45 11:03 WBC 5.0 RBC 4.36 L Hgb 13.1 Hct 37.7 L MCV 86.5 MCH 30.0 MCHC 34.7 RDW 12.1 RDW Differential 37.7 Plt Count 203 MPV 10.4 PT INR APTT Activated Clotting Time 147 H Sodium Potassium Chloride Carbon Dioxide Anion Gap BUN Creatinine Estim Creat Clear Calc Est GFR (MDRD) Af Amer Est GFR (MDRD) Non-Af BUN/Creatinine Ratio Glucose Calcium Total Creatine Kinase Urine Color Urine Clarity Urine pH Ur Specific [place] Urine Protein Urine Glucose (UA) Urine Ketones Urine Occult Blood Urine Nitrite Urine Bilirubin Urine Urobilinogen Ur Leukocyte Esterase MRSA (PCR) POSITIVE H 09/02/17 09/02/17 15:20 15:20 WBC Pending RBC Pending Hgb Pending Hct Pending MCV Pending MCH Pending MCHC Pending RDW Pending RDW Differential Pending Plt Count Pending MPV PT INR APTT Activated Clotting Time Sodium Potassium Chloride Carbon Dioxide Anion Gap BUN Creatinine Estim Creat Clear Calc Est GFR (MDRD) Af Amer Est GFR (MDRD) Non-Af BUN/Creatinine Ratio Glucose Calcium Total Creatine Kinase 33 L Urine Color Urine Clarity Urine pH Ur Specific [place] Urine Protein Urine Glucose (UA) Urine Ketones Urine Occult Blood Urine Nitrite Urine Bilirubin Urine Urobilinogen Ur Leukocyte Esterase MRSA (PCR) POC Glucose 09/02/17 09/02/17 09/01/17 14:02 06:17 22:02 POC Glucose 120 H 136 H 272 H 09/01/17 16:28 POC Glucose 155 H Assessment/Plan This patient was seen in conjunction withCasey Shanda PA-C. I have independently interviewed and examined the patient and reviewed pertinent historical, laboratory, and other data. Please refer to Philip Land PA-C note for details of this patient's presentation, findings, and recommendations. I have reviewed Philip Land PA-C note and concur with documented findings. In brief, patient is a 81-year-old gentleman with previous history of CAD status post stent placement who presented with chest pain and assessment of unstable angina made admitted to monitored bed with consultation placed to cardiology patient underwent left heart catheterization with stent placements in the proximal RCA. Patient was also found to have significant lesions in his LAD plan is for patient undergo PCI/LOUISE in 3 weeks Physical Examination: GENERAL: cooperative HEENT: Clear conjunctiva, NECK; supple, normal thyroid, CHEST: Clear to auscultation bilaterally, HEART: Regular S1 S2, no audible murmurs ABDOMEN: soft, non-tender, normoactive bowel sounds, RECTAL: deferred EXTREMITIES: No edema, no clubbing, no cyanosis. ORTHOPHOTOGRAPHY TECHNICIAN: Awake; no lateralizing signs. SKIN: No Rash Assessment: 1. Unstable angina status post PCI/LOUISE to proximal RCA 2. CAD next 3. Depression with anxiety 4. Diabetes mellitus type 2 5. GERD Recommendations: 1. I have discussed the results of my overview and impressions with the patient 2. Options for management were reviewed Code Visit Inpatient E&M: 44818 [facility] L3
[2017-09-02 12:18] LABS: M R Staph aureus DNA By PCR POSITIVE (Negative); Probe Check PASS
[2017-09-02 14:11] LABS: Bedside Glucose 120 mg/dL (70-110)
--- NOTE | 2017-09-02 15:24 | CASEMGMT ---
RN CM Assessment Link. DC PLAN: home on dc. no needs identified @ this time. Carmela WALTERN RN ACM
[2017-09-02] MEDS: Pantoprazole Sodium 40 MG Tablet PO (15:27)
[2017-09-02] MEDS: Escitalopram Oxalate 10 MG Tablet 5 MG PO (15:27)
[2017-09-02 15:43] LABS: Hemoglobin 12.7 g/dl (13.0-16.5); Mean Corp Hgb Conc 33.4 g/gl (32-36); Mean Corpuscular Volume 86.8 fL (80-94); Mean Platelet Vol. 10.2 fl (6.2-12.0); Platelet Count 189 K/mm3 (150-450); RBC Distribution Width CV 12.5 % (11.6-14.6); RBC Distribution Width SD 40.1 fl (35.1-43.9); Red Blood Count 4.38 M/mm3 (4.6-6.2); White Blood Count 4.1 K/mm3 (4.4-11.0)
[2017-09-02 15:48] LABS: CPK Total, Creatine Kinase 33 U/L (39-308)
[2017-09-02 16:07] LABS: Scan Indicated on CBC? Y/N NO
[2017-09-02] MEDS: 0.9% NaCl Peripheral Flush Adult/Peds IV (16:53)
[2017-09-02 19:20] LABS: Bedside Glucose 237 mg/dL (70-110)
[2017-09-02] MEDS: Atorvastatin Calcium 40 MG Tablet PO (21:20)
[2017-09-02 21:26] LABS: Bedside Glucose 293 mg/dL (70-110)
[2017-09-02 23:23] LABS: Hematocrit 35.2 % (40-54); Mean Corp Hgb Conc 34.1 g/gl (32-36); Mean Corpuscular Hgb 29.2 pg (27.0-32.0); Mean Corpuscular Volume 85.6 fL (80-94); Platelet Count 192 K/mm3 (150-450); RBC Distribution Width CV 12.2 % (11.6-14.6); RBC Distribution Width SD 38.1 fl (35.1-43.9); Red Blood Count 4.11 M/mm3 (4.6-6.2); White Blood Count 3.7 K/mm3 (4.4-11.0)
[2017-09-02 23:25] LABS: Scan Indicated on CBC? Y/N NO
[2017-09-02 23:47] LABS: CPK Total, Creatine Kinase 34 U/L (39-308)
[2017-09-03] VITALS (14 sets, daily range): BP systolic 106–143; BP diastolic 32–99; PULSE 59–71; RESP 16–19; TEMP 36.5–36.7; O2SAT 93–95
[2017-09-03 04:27] LABS: Hematocrit 36.1 % (40-54); Hemoglobin 12.5 g/dl (13.0-16.5); Mean Corp Hgb Conc 34.6 g/gl (32-36); Mean Corpuscular Hgb 29.6 pg (27.0-32.0); Mean Corpuscular Volume 85.5 fL (80-94); Mean Platelet Vol. 10.3 fl (6.2-12.0); Platelet Count 193 K/mm3 (150-450); RBC Distribution Width CV 11.9 % (11.6-14.6); RBC Distribution Width SD 36.3 fl (35.1-43.9); Red Blood Count 4.22 M/mm3 (4.6-6.2); White Blood Count 4.3 K/mm3 (4.4-11.0)
[2017-09-03 04:28] LABS: Scan Indicated on CBC? Y/N NO
[2017-09-03 05:14] LABS: Anion Gap 7 (5-15); BUN 15 mg/dL (7-18); BUN/Creat Ratio 20.9 RATIO (10-20); Calcium,Total 8.2 mg/dL (8.5-10.1); Chloride 106 mmol/L (98-107); Cholesterol 105 mg/dL (200); Creatinine, Serum 0.72 mg/dL (0.70-1.30); EST Glomerular Filtration Rate 111 mL/min (>60); Est Glom Filt Rate - Afr Amer 135 mL/min (>60); Glucose 155 mg/dL (74-106); High Density Lipoprotein 29 mg/dL; Sodium Level 143 mmol/L (136-145); Triglycerides 120 mg/dL; Very Low Density Lipoprotein 24 mg/dL (5-40)
--- NOTE | 2017-09-03 05:55 | EKG12_ITS ---
Test Reason : AM EKG Blood Pressure : / mmHG Vent. Rate : 068 BPM Atrial Rate : 068 BPM P-R Int : 188 ms QRS Dur : 092 ms QT Int : 402 ms P-R-T Axes : 047 001 049 degrees QTc Int : 427 ms Normal sinus rhythm Normal ECG Confirmed by ERAN KYLE, MYNOR ([id number]), non linear editor CELSO URBANO ([id number] on 09/11/2017 3:34:46 PM Referred By: Lupillo Vick Confirmed By:MYNOR BARILLAS MD
[2017-09-03 06:16] LABS: Bedside Glucose 159 mg/dL (70-110)
--- NOTE | 2017-09-03 07:05 | PCM.PN.CARD ---
Subjectve: The patient was seen and evaluated and appears to be doing quite well with no chest pain or groin problems Objective: Vital Signs Temp Pulse Resp BP Pulse Ox 97.7 F L 65 18 108/45 L 94 09/03/17 05:00 09/03/17 06:00 09/03/17 06:00 09/03/17 06:00 09/03/17 06:00 Oxygen Flow Rate (L/min) 2 Oxygen Delivery Method Room Air Weight: 153 lb 7.068 oz Body Mass Index (BMI) 23.3 Intake and Output for Last 24 Hours 09/01/17 09/02/17 09/03/17 23:59 23:59 23:59 Intake Total 1400 / 1400 1482 / 1482 400 / 400 Output Total 1200 / 1200 600 / 600 Balance 1400 / 1400 282 / 282 -200 / -200 General: Awake, Alert, Oriented x 3 HEENT: PERRL, EOMI, Sclera Non Icteric Neck: Supple, Good ROM, No Lymph Node Enlargement Lungs: Clear to auscultation Cardiovascular: Regular Rhythm, Normal S1, Normal S2, No Murmurs, No Rubs, No Gallops Vascular: No Carotid Bruits, Normal Femoral Pulses, Normal Radial Pulses, Normal Dorsalis Pedal Pulse, Normal Posterior Tibial Pulses Abdomen: Bowel Sounds Present, Soft, Non Tender, No HSM, No Organomegaly Extremities: No Cyanosis, No Clubbing, No edema Neurological: No Focal Motor or Sensory Deficit 09/02/17 09:15: WBC 5.0, RBC 4.36 L, Hgb 13.1, Hct 37.7 L, MCV 86.5, MCH 30.0, MCHC 34.7, RDW 12.1, RDW Differential 37.7, Plt Count 203, MPV 10.4 09/02/17 15:20: WBC 4.1 L, RBC 4.38 L, Hgb 12.7 L, Hct 38.0 L, MCV 86.8, MCH 29.0, MCHC 33.4, RDW 12.5, RDW Differential 40.1, Plt Count 189, MPV 10.2 09/02/17 23:00: WBC 3.7 L, RBC 4.11 L, Hgb 12.0 L, Hct 35.2 L, MCV 85.6, MCH 29.2, MCHC 34.1, RDW 12.2, RDW Differential 38.1, Plt Count 192, MPV 10.0 09/03/17 04:00: Sodium 143, Potassium 4.0, Chloride 106, Carbon Dioxide 30.0, Anion Gap 7, BUN 15, Creatinine 0.72, Est GFR (MDRD) Af Amer 135, Est GFR (MDRD) Non-Af 111, BUN/Creatinine Ratio 20.9 H, Glucose 155 H, Calcium 8.2 L, Triglycerides 120, Cholesterol 105, LDL Cholesterol 52, VLDL Cholesterol 24, HDL Cholesterol 29 L 09/03/17 04:00: WBC 4.3 L, RBC 4.22 L, Hgb 12.5 L, Hct 36.1 L, MCV 85.5, MCH 29.6, MCHC 34.6, RDW 11.9, RDW Differential 36.3, Plt Count 193, MPV 10.3 Rhythm: EKG: Normal sinus rhythm with no acute changes ECHO: Stress Test: Cardiac Cath: PCI: CT Surgery: Holter monitor: EPS: PPM: CXR: Chest CT Scan: Medical Necessity - Tobacco Use Smoking Status: Former smoker Tobacco Use: Non-smoker Assessment/Plan 1. New onset angina. Patient presented with fairly recent onset angina which appears to be worse with exertion and dissipates with rest. The above appeared to have the classic characteristics of angina pectoris. His cardiac catheterization demonstrated the following: Left main coronary artery which is normal. Dominant right coronary artery with proximal 95-99% stenosis with mild distal disease. Left circumflex artery with 70% calcified proximal stenosis. Left anterior descending artery which is previously stented with approximately 30% in-stent stenosis and ostial disease noted of the septal perforators. Preserved left ventricular systolic function. Based on the above angiographic findings the patient underwent percutaneous intervention and stenting of the right coronary artery. He has done well postprocedure with no drop in his hemoglobin and no increase in his creatinine. His EKG remains free of any changes. Plan will be to discharge patient today and see him in the office in 2 weeks. Will schedule for elective intervention of the circumflex artery lesion in [address] Lafleur. 2. Hypertension He does have a history of hypertension which is well-controlled on his amlodipine and this will be continued without any changes. A low-dose beta-javier would however be added. 3. Hyperlipidemia risk factor modification He does have a history of hyperlipidemia and will continue on medium intensity statin. Thank you for allowing me to participate in the care of your patient. Please don't hesitate to call if any issues arise
--- NOTE | 2017-09-03 07:08 | PN.CARD_ITS ---
Subjectve: The patient was seen and evaluated and appears to be doing quite well with no chest pain or groin problems Objective: Vital Signs Temp Pulse Resp BP Pulse Ox 97.7 F L 65 18 108/45 L 94 09/03/17 05:00 09/03/17 06:00 09/03/17 06:00 09/03/17 06:00 09/03/17 06:00 Oxygen Flow Rate (L/min) 2 Oxygen Delivery Method Room Air Weight: 153 lb 7.068 oz Body Mass Index (BMI) 23.3 Intake and Output for Last 24 Hours 09/01/17 09/02/17 09/03/17 23:59 23:59 23:59 Intake Total 1400 / 1400 1482 / 1482 400 / 400 Output Total 1200 / 1200 600 / 600 Balance 1400 / 1400 282 / 282 -200 / -200 General: Awake, Alert, Oriented x 3 HEENT: PERRL, EOMI, Sclera Non Icteric Neck: Supple, Good ROM, No Lymph Node Enlargement Lungs: Clear to auscultation Cardiovascular: Regular Rhythm, Normal S1, Normal S2, No Murmurs, No Rubs, No Gallops Vascular: No Carotid Bruits, Normal Femoral Pulses, Normal Radial Pulses, Normal Dorsalis Pedal Pulse, Normal Posterior Tibial Pulses Abdomen: Bowel Sounds Present, Soft, Non Tender, No HSM, No Organomegaly Extremities: No Cyanosis, No Clubbing, No edema Neurological: No Focal Motor or Sensory Deficit 09/02/17 09:15: WBC 5.0, RBC 4.36 L, Hgb 13.1, Hct 37.7 L, MCV 86.5, MCH 30.0, MCHC 34.7, RDW 12.1, RDW Differential 37.7, Plt Count 203, MPV 10.4 09/02/17 15:20: WBC 4.1 L, RBC 4.38 L, Hgb 12.7 L, Hct 38.0 L, MCV 86.8, MCH 29.0, MCHC 33.4, RDW 12.5, RDW Differential 40.1, Plt Count 189, MPV 10.2 09/02/17 23:00: WBC 3.7 L, RBC 4.11 L, Hgb 12.0 L, Hct 35.2 L, MCV 85.6, MCH 29.2, MCHC 34.1, RDW 12.2, RDW Differential 38.1, Plt Count 192, MPV 10.0 09/03/17 04:00: Sodium 143, Potassium 4.0, Chloride 106, Carbon Dioxide 30.0, Anion Gap 7, BUN 15, Creatinine 0.72, Est GFR (MDRD) Af Amer 135, Est GFR (MDRD ) Non-Af 111, BUN/Creatinine Ratio 20.9 H, Glucose 155 H, Calcium 8.2 L, Triglycerides 120, Cholesterol 105, LDL Cholesterol 52, VLDL Cholesterol 24, HDL Cholesterol 29 L 09/03/17 04:00: WBC 4.3 L, RBC 4.22 L, Hgb 12.5 L, Hct 36.1 L, MCV 85.5, MCH 29.6, MCHC 34.6, RDW 11.9, RDW Differential 36.3, Plt Count 193, MPV 10.3 Rhythm: EKG: Normal sinus rhythm with no acute changes ECHO: Stress Test: Cardiac Cath: PCI: CT Surgery: Holter monitor: EPS: PPM: CXR: Chest CT Scan: Medical Necessity - Tobacco Use Smoking Status: Former smoker Tobacco Use: Non-smoker Assessment/Plan 1. New onset angina. * Patient presented with fairly recent onset angina which appears to be worse with exertion and dissipates with rest. The above appeared to have the classic characteristics of angina pectoris. * His cardiac catheterization demonstrated the following: Left main coronary artery which is normal. Dominant right coronary artery with proximal 95-99% stenosis with mild distal disease. Left circumflex artery with 70% calcified proximal stenosis. Left anterior descending artery which is previously stented with approximately 30% in-stent stenosis and ostial disease noted of the septal perforators. Preserved left ventricular systolic function. Based on the above angiographic findings the patient underwent percutaneous intervention and stenting of the right coronary artery. He has done well postprocedure with no drop in his hemoglobin and no increase in his creatinine. His EKG remains free of any changes. Plan will be to discharge patient today and see him in the office in 2 weeks. * Will schedule for elective intervention of the circumflex artery lesion in [address] Lafleur. * 2. Hypertension * He does have a history of hypertension which is well-controlled on his amlodipine and this will be continued without any changes. A low-dose beta- javier would however be added. * 3. Hyperlipidemia risk factor modification * He does have a history of hyperlipidemia and will continue on medium intensity statin. * * Thank you for allowing me to participate in the care of your patient. Please don't hesitate to call if any issues arise
--- NOTE | 2017-09-03 07:21 | PCM.DC ---
- Discharge Diagnoses Current Active Problems: Current Active and Chronic Problems Unstable angina (Acute) HTN (hypertension) (Chronic) HLD (hyperlipidemia) (Chronic) Anxiety (Chronic) CAD (coronary artery disease) (Chronic) Hearing loss (Chronic) You will use the following diet at home:: Calorie/Carbohydrate Controlled (specify 1200, 1400, etc) - 1800, Cardiac Discharge Activity: Return to Normal Activity Instructions: ED Chest Pain NonCardiac Allergies/Adverse Reactions: Allergies Penicillins Allergy (Verified 08/30/17 14:09) Unknown Medications to take at Discharge Amlodipine [Norvasc] 5 mg PO DAILY 08/30/17 Aspirin [Aspir-Low] 81 mg PO DAILY 08/30/17 Escitalopram Oxalate [Lexapro] 5 mg PO DAILY 08/30/17 Lansoprazole [Prevacid] 30 mg PO DAILY 08/30/17 Metformin HCl [Glucophage] 100 mg PO BIDCM 08/30/17 Mv-Min/FA/Vit K/Lycop/Lut/Zeax [Ocuvite Eye Plus Multi Tablet] 1 each PO QHS 08/30/17 Rosuvastatin Calcium 20 mg PO QHS 08/30/17 Clopidogrel Bisulfate [Plavix] 75 mg PO DAILY #90 tab 09/03/17 The following prescriptions were given: Clopidogrel Bisulfate [Plavix] 75 mg PO DAILY #90 tab Primary Care Physician: [facility] Doctor,Out of [NON-STAFF] - Please Follow Up With: Fernando Mauricio MD When: in 2 weeks Please Follow Up With: Hernandez Lafleur MD When: in 3 weeks for intervention of circumflex lesion Proposed Discharge Date: 09/03/17
--- NOTE | 2017-09-03 07:23 | PCM.DC.SUM ---
Discharge Date and Diagnosis - Problem List Patient Problems: Active and Suspected Problems Unstable angina (Acute) Date of Admission: 08/30/17 Date of Discharge: 09/03/17 - Primary Discharge Diagnosis Active and Suspected Problems Unstable angina (Acute) - Secondary Discharge Diagnosis Chronic Problems HTN (hypertension) (Chronic) HLD (hyperlipidemia) (Chronic) Anxiety (Chronic) CAD (coronary artery disease) (Chronic) Hearing loss (Chronic) Hospital Course and Treatment Imaging Results: Clinical Impression(s) from Imaging Studies Chest X-Ray 08/30/17 14:26 IMPRESSION: Normal x-ray examination of the chest. Electronically Signed: Neo Salmon MD at 14:51 EDT , Service support , Summary of Care Provided: In brief, patient is a 81-year-old gentleman with previous history of CAD status post stent placement who presented with chest pain and assessment of unstable angina made admitted to monitored bed with consultation placed to cardiology patient underwent left heart catheterization with stent placements in the proximal RCA. Patient was also found to have significant lesions in his LAD plan is for patient undergo PCI/LOUISE in 3 weeks Assessment: 1. Unstable angina status post PCI/LOUISE to proximal RCA 2. CAD next 3. Depression with anxiety 4. Diabetes mellitus type 2 5. GERD Physical Examination on discharge: GENERAL: cooperative HEENT: Clear conjunctiva, NECK; supple, normal thyroid, CHEST: Clear to auscultation bilaterally, HEART: Regular S1 S2, no audible murmurs ABDOMEN: soft, non-tender, normoactive bowel sounds, RECTAL: deferred EXTREMITIES: No edema, no clubbing, no cyanosis. TELEVISION REPAIRER: Awake; no lateralizing signs. SKIN: No Rash Discharge Activity: Return to Normal Activity Home Medications: Medications to take at Discharge Amlodipine [Norvasc] 5 mg PO DAILY 08/30/17 Aspirin [Aspir-Low] 81 mg PO DAILY 08/30/17 Escitalopram Oxalate [Lexapro] 5 mg PO DAILY 08/30/17 Lansoprazole [Prevacid] 30 mg PO DAILY 08/30/17 Metformin HCl [Glucophage] 100 mg PO BIDCM 08/30/17 Mv-Min/FA/Vit K/Lycop/Lut/Zeax [Ocuvite Eye Plus Multi Tablet] 1 each PO QHS 08/30/17 Rosuvastatin Calcium 20 mg PO QHS 08/30/17 Clopidogrel Bisulfate [Plavix] 75 mg PO DAILY #90 tab 09/03/17 Metoprolol(XL)Succ [Toprol Xl (Beta Yen)] 25 mg PO DAILY #60 tab 09/03/17 Following Prescrptions Were Given to Patient: Clopidogrel Bisulfate [Plavix] 75 mg PO DAILY #90 tab Metoprolol(XL)Succ [Toprol Xl (Beta Yen)] 25 mg PO DAILY #60 tab Primary Care Physician: Gissell Doctor,Out of [NON-STAFF] - Please Follow Up With: Fernando Mauricio MD When: in 2 weeks Please Follow Up With: Hernandez Lafleur MD When: in 3 weeks for intervention of circumflex lesion Patient Instructions: ED Chest Pain NonCardiac Disposition: Home Minutes spent on discharge:: 35 Patient Condition:: Stable Medical Necessity - Tobacco Use Smoking Status: Former smoker Tobacco Use: Non-smoker Meaningful Use Info Meaningful Use Diagnoses (Choose all that apply): None applicable Code Visit Inpatient E&M: 79081 Disch Hosp
[2017-09-03] MEDS: Aspirin 81 MG TAB.CHEW PO (07:54)
[2017-09-03] MEDS: Escitalopram Oxalate 10 MG Tablet 5 MG PO (07:55)
[2017-09-03] MEDS: Pantoprazole Sodium 40 MG Tablet PO (07:56)
[2017-09-03] MEDS: Clopidogrel Bisulfate 75 MG Tablet PO (07:56)
[2017-09-03] MEDS: Metoprolol(XL)Succ 25 MG Tablet PO (07:57)
[2017-09-03] MEDS: amLODIPine 5 MG Tablet PO (07:57)
== END 2017-09-03 10:00 | disposition home or self-care (01) | DRG 247 ==
LOC: ED 15:19 → PCU 16:21 → ICU 09-02 10:16 → PCU 09-02 15:11
PROVIDERS: Internal Medicine Cardiovascular Disease; Physician Assistant; Admitting Provider Internal Medicine; Emergency Provider Emergency Medicine; Family Provider Internal Medicine; PCP Internal Medicine; Visit Provider Internal Medicine
DX: I25.110 Atherosclerotic heart disease of native coronary artery with unstable angina pectoris (principal); I10 Essential (primary) hypertension; E78.5 Hyperlipidemia, unspecified; E11.9 Type 2 diabetes mellitus without complications; H91.90 Unspecified hearing loss, unspecified ear; F32.9 Major depressive disorder, single episode, unspecified; F41.9 Anxiety disorder, unspecified; K21.9 Gastro-esophageal reflux disease without esophagitis; Z95.5 Presence of coronary angioplasty implant and graft; Z87.891 Personal history of nicotine dependence; Z79.01 Long term (current) use of anticoagulants; Z79.82 Long term (current) use of aspirin; Z79.84 Long term (current) use of oral hypoglycemic drugs; Z79.899 Other long term (current) drug therapy; Z82.49 Family history of ischemic heart disease and other diseases of the circulatory system
CPT/HCPCS: 36415; 71045; 80048; 80061; 81002; 82550; 82962; 83036; 83735; 84443; 84484; 85025; 85027; 85347; 85610; 85730; 87641; 92928; 93005; 93306; 93458; 99152; 99153; 99285; J7030; A4216; C1725; C1769; C1874; C1887; C1894; C9600; Q9967

== ENCOUNTER → 2017-10-11 08:13 | Outpatient (CLI) | payer MEDICARE, BC, SELFPAY ==
--- NOTE | 2017-10-11 08:15 | STE_ITS ---
Reason For Study: DYSPNEA/SOB Stress Results Protocol: Jose A Protocol Maximum Predicted HR: 137 bpm Target HR: 116 bpm% Max imum Predicted HR: 75 % DurationHeart Rate Stage (mm:ss) (bpm) BPCom ment BASELINE 58 132/76 STAGE 1 3:00 90 142/52 STAGE 2 1:20 10 3 / LEG DISCOMFORT BASELINE 86 140/62 Stress Duration: 4:20 mm:ss Maximum Stress HR: 103 bpm Baseline Echocardiogram Findings The estimated ejection fraction is 55 %. Stress Echo Wall motion Data Resting WMIntermediate WMStress WM Resting Wall Motion Wall Motion Stress No regional wall motion No regional wall motion abnormalities noted. abnormalities noted. EKG Data The baseline ECG demonstrates normal sinus rhythm with at rate of _ beats per minute. The patient exercised according to the regular Jose A protocol for a total duration of 4:32. The maximum heart rate attained was 103 beats per minute. This was 75% of maximum predicted heart rate. The patient exercised into stage 2 of the Jose A protocol. During stress, there were no ST or T wave changes noted to suggest ischemia. No clinical angina was noted. No arrhythmias noted. Interpretation Summary The estimated ejection fraction is 55 %. Normal, submaximal, treadmill echocardiogram. Negative for ischemia by EKG and echocardiographic criteria. No anginal symptoms noted. No arrhythmias noted. Appropriate blood pressure response to exercise. Although patient did not reach 85% of target heart rate his rate pressure product was adequate at 12,638. Final LVEF of 75%. No complications. Ordering Physician: Hernandez Lafleur Referring Physician: Hernandez Lafleur Performed By: Lucy Brewer RDCS, RVT
--- NOTE | 2017-10-11 13:25 | PFTCOMP_ITS ---
COMPLETE PULMONARY FUNCTION TEST INTERPRETATION Brief HPI: Patient is an 82 year old male, currently under the care of Dr. Lafleur , who presents to [facility] for complete pulmonary function tests secondary to diagnosis of dyspnea on exertion. Respiratory therapist reports good effort and reproducible results. Interpretation: Forced expiration spirometry shows no large airways obstructive ventilatory defect with an FEV1 of 105% predicted. There is no significant bronchodilator response by ATS criteria. Spirograms are of good quality and plateau normally. The respiratory flow volume loop shows a normal pattern. Lung volumes by body plethysmography show an elevated total lung capacity at 6.93 L, 124% predicted. All other lung volumes are increased symmetrically. Diffusion capacity by carbon monoxide is normal at 106% predicted. The airway resistance is normal. No previous pulmonary function tests were available for review. Impression: These pulmonary function tests are grossly within normal limits. There is slight increase in lung volumes, but this may be a physiologic variant.
== END ==
PROVIDERS: Family Provider Internal Medicine; PCP Internal Medicine; Visit Provider Internal Medicine Cardiovascular Disease
DX: I25.110 Atherosclerotic heart disease of native coronary artery with unstable angina pectoris (principal); R06.09 Other forms of dyspnea; Z95.5 Presence of coronary angioplasty implant and graft
CPT/HCPCS: 93017; 93350; 94060; 94726; 94729

== ENCOUNTER → 2017-10-18 07:50 | Outpatient (CLI) | payer MEDICARE, BC, SELFPAY ==
--- NOTE | 2017-10-18 13:03 | PCM.CR.HP2 ---
CR - History & Physical - General Arrival date:: 10/18/17 Arrival time:: 13:03 Date of Referral:: 10/11/17 Date of CR Evaluation:: 10/18/17 Referring Physician: Dr. Hernandez Lafleur Primary Diagnosis: PCI w/ status post coronary stent placement - History of Present Cardiac Event Onset Date: Enter Onset Date of cardiac illnesses in Comment field below PTCA or coronary stenting:: Yes - 09/02/2017 Type of Symptoms:: chest pain, shortness of breath, lazy. Patient complained of dyspnea walkign inclines, but no anginal pain. Interventions with present event:: heart cath 09/02/17; was scheduled for elective PCI but postponed Were there any complications?: none - Medications Home Medications: Ambulatory Orders Medication Instructions Recorded Amlodipine [Norvasc] 5 mg PO DAILY 08/30/17 Aspirin [Aspir-Low] 81 mg PO DAILY 08/30/17 Escitalopram Oxalate [Lexapro] 5 mg PO DAILY 08/30/17 Lansoprazole [Prevacid] 30 mg PO DAILY 08/30/17 Metformin HCl [Glucophage] 100 mg PO BIDCM 08/30/17 Mv-Min/FA/Vit K/Lycop/Lut/Zeax 1 ea PO QHS 08/30/17 [Ocuvite Eye Plus Multi Tablet] Rosuvastatin Calcium 20 mg PO QHS 08/30/17 Clopidogrel Bisulfate [Plavix] 75 mg PO DAILY #90 tab 09/03/17 Metoprolol(XL)Succ [Toprol Xl 25 mg PO DAILY #60 tab 09/03/17 (Beta Yen)] - Allergies Allergies/Adverse Reactions: Allergies Penicillins Allergy (Verified 10/10/17 15:22) Unknown - Sleep Disorder Evaluation Hx of Sleep Apnea: No Do you snore loudly (louder than talking or can be heard through closed doors)?: Yes Do you often feel tired/ fatigued/ sleepy during daytime?: Yes Has anyone observed you stop breathing during sleep?: No History of Hypertension (for STOP score): Yes STOP Results: Positive Advanced Directives - Advanced Directives 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: No Living Will: Yes Advance Directives Information Provided: No Advance Directives on File: Yes DNR Order?:: No - MOLST See MOLST form: No Past Medical History - Past Medical Illness Medical History: Past Medical History (Last Updated 10/10/17 @ 13:08 by Stephanie England) History of coronary artery stent placement (Acute) Onset Date: 09/02/17 Z95.5 [id number] RCA w/ 3.0 x 16 mm Promus Stent Atherosclerosis of coronary artery of elem heart without angina pectoris (Acute) I25.10 [id number] RCA w/ 3.0 x 16 mm Promus Stent 09/02/17 Unstable angina (Resolved) I20.0 HTN (hypertension) (Chronic) I10 HLD (hyperlipidemia) (Chronic) E78.5 - Past Surgical History Surgical History: no surgical history Social History - Smoking History Smoking Status: Former smoker Packs Smoked per Day: 1 Hx Smoking Cessation Date: 53 years ago Hx Tobacco Use: Yes Hx Smoking Exposure: No - Alcohol Use Alcohol Usage: No - Substance Abuse Hx Substance Use: No - Occupation Occupation (List type of work in comments):: Retired - Hobbies, Recreation, Social Activities Hobbies: Other - [employer] car Recreational Activities: I am able to engage in most, but not all activities Social Environment - Status Marital Status: - Current Living Arrangements Living Environment:: Spouse - Children How many children do you have?: 1 Do any of your children live nearby?: Yes - in and around the area; lives close to home - Assistance Do you need any assistance at home?: none Review of Systems - Review of Systems Hints: Right click = Denies ([place]ash). Left click = Reports ([place]) Review of Present Symptoms: Reports: Shortness of Breath with Exertion, Fatigue, Appetite - Normal, Appetite - Special Diet - avoid red meats, and added sugars/sweets, Sleep - Normal. Denies: Angina, Dizziness/Lightheadedness, Heart Arrhythmia/Irregularities, Sexual Changes - Pain Is Patient Pain Free?: Yes Pain Location: none Pain Level: 0/10 Risk Factor Assessment - Chief Complaint Chief Complaint: Derrick is a very pleasant 82 year old male of Dr. Lafleur'emma who presents to cardiac rehab today following a recent elective heart cath w/ subsequent PCI and coroanry stent placement. The patient had been scheduled for an elective additional PCI but that has been postponed at this time. - Vital Signs Temperature: 98.7 F Respiratory Rate: 16 Pulse Ox: 96 - room air Blood Pressure: 112/58 - Pulse Pulse Rate: 62 Pulse Rhythm: Regular - Hypertension Blood Pressure Sitting - Left Arm: 112/58 - Diabetes Diabetic History: Type II, Medication Dependent - metformin only - Obesity Height: 5 ft 8 in Weight:: 155 lb Weight in Pounds: 155.0 lbs Weight Source: Standing Scale Body Mass Index (BMI): 23.6 Nutritional Referral for Obesity: No - Physical Inactivity Physical Inactivity: None - Risk Stratification Risk Guidelines: Lowest Risk: Risk Factor for Smoking, Risk Factor for Dyslipidemia, Risk Factor for Diabetes, Risk Factor for Obesity, Risk Factor for Hypertension, Risk Factor for Depression, Highest Risk: Risk Factor for Sedentary Lifestyle - For Smoking Smoking Risk Guidelines: Smoking Low Risk: None or quit greater than 6 months ago. Smoking Moderate Risk: Smoker or quit 6 months or less ago. Smoking High Risk: Smoker - For Dyslipidemia Dyslipidemia Risk Guidelines: Low Risk: Moderate Risk: High Risk: 15-25% fat 25.1-29% fat >/= 30% fat. <7% sat fat 7-9% sat fat >9% sat fat. <150 mg chol 150-299 mg chol >/= 300 mg chol. LDL <100 LDL 100-129 LDL >/= 130. Chol/HDL ratio <5.0 Chol/HDL ratio 5.0-6.0 Chol/HDL ratio >6.0. Triglycerides <100 Triglycerides 100-149 Triglycerides >/= 150 - For Diabetes Mellitus Diabetes Risk Guidelines: Diabetes Low Risk: HgA1c <6.5% and/or FBG <120. Diabetes Moderate Risk: HgA1c 6.6-7.9% and/or FBG 120-180. Diabetes High Risk: HgA1c >/= 8% and/or FBG >180 - For Obesity/Overweight Obesity/Overweight Risk Guidelines: Obesity Low Risk: BMI <25.0. Obesity Moderate Risk: BMI 25-29.9. Obesity High Risk: BMI >/= 30.0 - For Hypertension Hypertension Risk Guidelines: Hypertension Low Risk: Systolic <120 and Diastolic <80. Hypertension Moderate Risk: Systolic 120-139 and Diastolic 80-89. Hypertension High Risk: Systolic >/= 140 and Diastolic >/= 90 - For Sedentary Lifestyle Sedentary Lifestyle Risk Guidelines: Sedentary Lifestyle Low Risk: >/= 1,500 kcal/week. Sedentary Lifestyle Moderate Risk: 700-1,499 kcal/week. Sedentary Lifestyle High Risk: < 700 kcal/week - For Depression Depression Risk Guidelines: Depression Low Risk: Not clinically depressed. Depression Moderate Risk: Mildly depressed. Depression High Risk: Clinically depressed Motivation - Motivation to Participate On a scale of 1 to 10, how prepared are you to commit to attending program?: 10 What do you see as barriers to successfully being able to complete the program?: shortness of breath; left hip discomfort What do you see as the benefits of succesfully completing the program? In other words, what do you hope to get out of participating in the program?: get back to a normal routine, get back to a healthier life. Are there issues you are dealing with that will interfere with completing the program?: none Do you have a spouse or signficant other, family or friends who will help support you to complete the program?: yes
--- NOTE | 2017-10-18 13:12 | CR.ITP_ITS ---
General Information - General Information Admitting Diagnosis: PCI w/ status post coronary stent placement - Education/Goals Barriers to Learning: Hearing Impairment, Vision Impairment Individual Counseling: Initial Assessment: Abnormal Cholesterol Levels, High Blood Pressure, Diabetes, Hypertension, Sedentary Lifestyle Cardiac Rehabilitation Goals: 1. Maintain the individual as the primary focus of care. 2. To improve the patient's quality of life. 3. Identification of cardiac risk factors and provide cardiac risk factor management. 4. Enhance the psychosocial status of the patient. 5. Reconditioning enough to allow the patient to resume customary activities. 6. Control symptoms of cardiac disease Scale for measuring improvement of personal goals: Enter appropriate number in Comments. 2 = Unchanged. 3 = Slightly Better. 4 = Moderate Improvement. 5 = Met my Goal Personal Goals: Initial Assessment: Improve energy level, Get back to work, or to resume activities faster, Improve knowledge of cardiac disease, Improve muscle strength and endurance, Control risk factors (learn risk factor modification) Exercise - Initial Assessment - Visit Date of Eval: 10/18/17 - established ITP today; starting on - Stages of Change Stages of Change:: Action - Exercise Prescription Mode:: Treadmill, Rower, Airdyne, NuStep Angina with exercise?: No Target Heart Rate:: 103-110 - Hypertension Do any of the following apply?: Yes, Medication Resting Blood Pressure:: 112/58 - Intervention Home Exercise/Activity Goal:: Sitting Time <3 hrs/day - Education Goals:: Warm-up, RPE CAT Scale, S/S, Safe Exercise, Self-Monitoring - Exercise Program Goals Exercise Program Goals: Aerobic Activity >30 min Nutrition - Initial Assessment - Program Goals Nutrition Program Goals: LDL <70. Total Cholesterol <200. HDL >45. Triglycerides <150. HgbA1C <7%. BMI <25 - Visit Date of Assessment:: 10/18/17 - established ITP today; starting on - Stages of Change Stages of Change:: Action - Lipids Total Cholesterol (mg/dL) Goal = less than 200 mg/dL: 111 - 08/31/2017 HDL Cholesterol (mg/dL) Goal = less than 45 mg/dL: 28 LDL Cholesterol (mg/dL) Goal = less than 70 mg/dL: 48 Triglycerides (mg/dL) Goal = less than 150 mg/dL: 177 - Diabetes Diabetes:: Yes Non-Insulin Dependent?: Yes - Metformin - Weight Management Height: 5 ft 8 in Weight:: 155 lb Body Fat %:: 23.6 - Intervention Referral to dietitian:: No Referral to Diabetic Clinic:: Yes Will attend diet classes:: Yes - Education Gave educational materials for:: Relate diabetes to coronary artery disease, Healthy eating Tobacco - Initial Assessment - Program Goals Tobacco Program Goals: Complete smoking cessation. Attend education classes. Improve Knowledge Test score - Stage of Change Stages of Change:: Action - Learning Barriers Learning Barriers: Hearing, Ready to Learn - Family Support Do you have family support?: Yes - Tobacco Use Tobacco Use: Non-smoker - Former smoker quit about 53 years ago. How long ago did you quit using tobacco products?: Greater than or equal to 6 months ago Do you use smokeless tobacco?: No - Intervention Smoking Cessation Referral:: No Individual Education/Counseling:: No Education Schedule Given:: Yes - Education Gave educational material for:: Coronary artery disease, Risk factors, Sexuality , Medical compliance, Cardiac A&P, Angina signs & symptoms Psychosocial - Initial Assess - Target Goals Target Goals: Assess presence or absence of depression. Using a valid screening tool, maximizes coping skills. Positive support system - Stages of Change Stages of Change:: Action - Psychosocial Test Tool Used:: HANDS Depression Questionnaire - Intervention PS - Interventions: Yes Attend Stress Management Classes, No Referral to Mental Health, No Referral to [facility] Case Management, No Referral to Physician, No Uses Stress Management Skills - Education Gave educational materials for:: Coping techniques, Signs & symptoms of depression, Stress management, Relaxation techniques - Patient/Program Goal Preventative Medication(s):: Aspirin, Clopidogrel, Beta javier, Statin/lipid - Assistive Devices Assistive Devices:: None Fall Risk Assessed:: Yes Patient Health Questionnaire Initial Assessment 1. Little interest or pleasure in doing things: Not at all 2. Feeling down, depressed, or hopeless: Not at all 3. Trouble falling or staying asleep, or sleeping too much: Several days 4. Feeling tired or having little energy: More than half the days 5. Poor appetite or overeating: Not at all 6. Feeling bad about yourself -- or that you are a failure or have let yourself or your family down: Not at all 7. Trouble concentrating on things, such as reading the newspaper or watching television: Not at all 8. Moving or speaking so slowly that other people could have noticed. Or the opposite - being so fidgety or restless that you have been moving around a lot more than usual: Several days 9. Thoughts that you would be better off , or of hurting yourself in some way: Not at all How difficult have these problems made it for you to do your work, take care of things at home, or get along with other people?: Not difficult at all Total Score: 4 KIARA-Q SV Test - Statements CAD is a disease of the arteries in the heart: False Examples of risk factors for heart disease: True Angina is chest pain or discomfort: True The benefits of resistance training include: True Eating more meat and dairy products: True Anti-platelet medications such as aspirin are important: True The only effective way to manage stress: True An exercise warm-up slowly increases heart rate: True Prepared, processed foods usually have high sodium: True Depression is common after a heart attack: True The statin medications lower cholesterol: True To control blood pressure, lower the amount of sodium: True If someone gets chest discomfort during walking: False Transfats are partially hydrogenated vegetable oils: True Sleep apnea that is not treated increases the risk: True To control cholesterol, one should become a vegetarian: False Someone knows if he/she is exercising at the right level: False Diabetes cannot be prevented with exercise & health eating: True Stress is a large risk for heart attack: True A diet that can help lower blood pressure is rich in: True - Total Score Total Correct Responses: 15 Self-Efficacy Initial Assessment We would like to know how confident you are in doing certain activities. Please select your confidence level for:: Select your confidence level for the following using the scale 1-10 where 1 is not at all confident and 10 is totally confident. Your score is the average of all 6 responses. Fatigue: How confident are you that you can keep the fatigue caused by your disease from interfering with the things you want to do? Select Number: 5 Physical Discomfort or Pain: How confident are you that you can keep the physical discomfort or pain of your disease from interfering with the things you want to do? Select Number: 6 Emotional Distress: How confident are you that you can keep the emotional distress caused by your disease from interfering with the things you want to do? Select Number: 6 Other Symptoms or Health Problems: How confident are you that you can keep other symptoms or health problems from interfering with the things you want to do? Select Number: 6 Different Tasks and Activities: How confident are you that you can do the different tasks and activities needed to manage your health condition so as to reduce your need to see a doctor? Select Number: 5 Medication: How confident are you that you can do things other than just taking medication to reduce how much your illness affects your everyday life? Select Number: 6 Total Score:: 5 Nutrition Survey - Nutrition Survey Instructions Scoring Instructions: Scoring is as follows: Yes = 1 points. No = 0 point. Patient score that is >/=12 is considered to be at potential nutritional risk and could benefit from a referral to a registered dietitian. - Nutrition Survey Initial Have you lost >10 lbs over the past 2 months without trying?: No Are you following a special diet at home for diabetes, low fat, or low salt?: No Are you interested in meeting with a dietitian for help understanding your diet? : Yes Do you eat less than 3 meals a day?: No Do you eat fatty meats (rich, sausage, ribs, etc), fried foods, desserts, large amounts of salad dressings, margarine, butter, or cheese most days?: Yes Do you have food allergies? [Enter types in comment field]: No Do you eat in restaurants more than 3 times a week?: Yes Do you season food with salt, seasoning salt, or garlic salt?: No Do you used canned, boxed, frozen meals, or soups, seasoning packets?: Yes Total Score:: 4
--- NOTE | 2017-10-18 13:13 | CR.HP_ITS ---
CR - History & Physical - General Arrival date:: 10/18/17 Arrival time:: 13:03 Date of Referral:: 10/11/17 Date of CR Evaluation:: 10/18/17 Referring Physician: Dr. Hernandez Lafleur Primary Diagnosis: PCI w/ status post coronary stent placement - History of Present Cardiac Event Onset Date: Enter Onset Date of cardiac illnesses in Comment field below PTCA or coronary stenting:: Yes - 09/02/2017 Type of Symptoms:: chest pain, shortness of breath, lazy. Patient complained of dyspnea walkign inclines, but no anginal pain. Interventions with present event:: heart cath 09/02/17; was scheduled for elective PCI but postponed Were there any complications?: none - Medications Home Medications: Ambulatory Orders Medication Instructions Recorded Amlodipine [Norvasc] 5 mg PO DAILY 08/30/17 Aspirin [Aspir-Low] 81 mg PO DAILY 08/30/17 Escitalopram Oxalate [Lexapro] 5 mg PO DAILY 08/30/17 Lansoprazole [Prevacid] 30 mg PO DAILY 08/30/17 Metformin HCl [Glucophage] 100 mg PO BIDCM 08/30/17 Mv-Min/FA/Vit K/Lycop/Lut/Zeax 1 ea PO QHS 08/30/17 [Ocuvite Eye Plus Multi Tablet] Rosuvastatin Calcium 20 mg PO QHS 08/30/17 Clopidogrel Bisulfate [Plavix] 75 mg PO DAILY #90 tab 09/03/17 Metoprolol(XL)Succ [Toprol Xl 25 mg PO DAILY #60 tab 09/03/17 (Beta Yen)] - Allergies Allergies/Adverse Reactions: Allergies Penicillins Allergy (Verified 10/10/17 15:22) Unknown - Sleep Disorder Evaluation Hx of Sleep Apnea: No Do you snore loudly (louder than talking or can be heard through closed doors)? : Yes Do you often feel tired/ fatigued/ sleepy during daytime?: Yes Has anyone observed you stop breathing during sleep?: No History of Hypertension (for STOP score): Yes STOP Results: Positive Advanced Directives - Advanced Directives Power of Application Development Consultant: No Living Will: Yes Advance Directives Information Provided: No Advance Directives on File: Yes DNR Order?:: No - MOLST See MOLST form: No Past Medical History - Past Medical Illness Medical History: Past Medical History (Last Updated 10/10/17 @ 13:08 by Stephanie England) History of coronary artery stent placement (Acute) Onset Date: 09/02/17 Z95.5 DJV-IMT-Shab RCA w/ 3.0 x 16 mm Promus Stent Atherosclerosis of coronary artery of [place] heart without angina pectoris ( Acute) I25.10 [facility]-HPD-Vvkv RCA w/ 3.0 x 16 mm Promus Stent 09/02/17 Unstable angina (Resolved) I20.0 HTN (hypertension) (Chronic) I10 HLD (hyperlipidemia) (Chronic) E78.5 - Past Surgical History Surgical History: no surgical history Social History - Smoking History Smoking Status: Former smoker Packs Smoked per Day: 1 Hx Smoking Cessation Date: 53 years ago Hx Tobacco Use: Yes Hx Smoking Exposure: No - Alcohol Use Alcohol Usage: No - Substance Abuse Hx Substance Use: No - Occupation Occupation (List type of work in comments):: Retired - Hobbies, Recreation, Social Activities Hobbies: Other - [employer] car Recreational Activities: I am able to engage in most, but not all activities Social Environment - Status Marital Status: - Current Living Arrangements Living Environment:: Spouse - Children How many children do you have?: 1 Do any of your children live nearby?: Yes - in and around the area; lives close to home - Assistance Do you need any assistance at home?: none Review of Systems - Review of Systems Hints: Right click = Denies (Slash). Left click = Reports ([place] [employer]) Review of Present Symptoms: Reports: Shortness of Breath with Exertion, Fatigue , Appetite - Normal, Appetite - Special Diet - avoid red meats, and added sugars /sweets, Sleep - Normal. Denies: Angina, Dizziness/Lightheadedness, Heart Arrhythmia/Irregularities, Sexual Changes - Pain Is Patient Pain Free?: Yes Pain Location: none Pain Level: 0/10 Risk Factor Assessment - Chief Complaint Chief Complaint: Derrick is a very pleasant 82 year old male of Dr. Lafleur'emma who presents to cardiac rehab today following a recent elective heart cath w/ subsequent PCI and coroanry stent placement. The patient had been scheduled for an elective additional PCI but that has been postponed at this time. - Vital Signs Temperature: 98.7 F Respiratory Rate: 16 Pulse Ox: 96 - room air Blood Pressure: 112/58 - Pulse Pulse Rate: 62 Pulse Rhythm: Regular - Hypertension Blood Pressure Sitting - Left Arm: 112/58 - Diabetes Diabetic History: Type II, Medication Dependent - metformin only - Obesity Height: 5 ft 8 in Weight:: 155 lb Weight in Pounds: 155.0 lbs Weight Source: Standing Scale Body Mass Index (BMI): 23.6 Nutritional Referral for Obesity: No - Physical Inactivity Physical Inactivity: None - Risk Stratification Risk Guidelines: Lowest Risk: Risk Factor for Smoking, Risk Factor for Dyslipidemia, Risk Factor for Diabetes, Risk Factor for Obesity, Risk Factor for Hypertension, Risk Factor for Depression, Highest Risk: Risk Factor for Sedentary Lifestyle - For Smoking Smoking Risk Guidelines: Smoking Low Risk: None or quit greater than 6 months ago. Smoking Moderate Risk: Smoker or quit 6 months or less ago. Smoking High Risk: Smoker - For Dyslipidemia Dyslipidemia Risk Guidelines: Low Risk: Moderate Risk: High Risk: 15-25% fat 25.1-29% fat >/= 30% fat. <7% sat fat 7-9% sat fat >9% sat fat. <150 mg chol 150-299 mg chol >/= 300 mg chol. LDL <100 LDL 100-129 LDL >/= 130. Chol/HDL ratio <5.0 Chol/HDL ratio 5.0-6.0 Chol/HDL ratio >6.0. Triglycerides <100 Triglycerides 100-149 Triglycerides >/= 150 - For Diabetes Mellitus Diabetes Risk Guidelines: Diabetes Low Risk: HgA1c <6.5% and/or FBG <120. Diabetes Moderate Risk: HgA1c 6.6-7.9% and/or FBG 120-180. Diabetes High Risk: HgA1c >/= 8% and/or FBG >180 - For Obesity/Overweight Obesity/Overweight Risk Guidelines: Obesity Low Risk: BMI <25.0. Obesity Moderate Risk: BMI 25-29.9. Obesity High Risk: BMI >/= 30.0 - For Hypertension Hypertension Risk Guidelines: Hypertension Low Risk: Systolic <120 and Diastolic <80. Hypertension Moderate Risk: Systolic 120-139 and Diastolic 80-89. Hypertension High Risk: Systolic >/= 140 and Diastolic >/= 90 - For Sedentary Lifestyle Sedentary Lifestyle Risk Guidelines: Sedentary Lifestyle Low Risk: >/= 1 ,500 kcal/week. Sedentary Lifestyle Moderate Risk: 700-1,499 kcal/week. Sedentary Lifestyle High Risk: < 700 kcal/week - For Depression Depression Risk Guidelines: Depression Low Risk: Not clinically depressed. Depression Moderate Risk: Mildly depressed. Depression High Risk: Clinically depressed Motivation - Motivation to Participate On a scale of 1 to 10, how prepared are you to commit to attending program?: 10 What do you see as barriers to successfully being able to complete the program? : shortness of breath; left hip discomfort What do you see as the benefits of succesfully completing the program? In other words, what do you hope to get out of participating in the program?: get back to a normal routine, get back to a healthier life. Are there issues you are dealing with that will interfere with completing the program?: none Do you have a spouse or signficant other, family or friends who will help support you to complete the program?: yes
[2017-10-18 13:20] VITALS: BP 112/58; PULSE 62; RESP 16; TEMP 37.1; O2SAT 96; BMI 23.6
[2017-10-18 14:00] VITALS: BP 112/58
== END ==
PROVIDERS: Family Provider Internal Medicine; PCP Internal Medicine; Visit Provider Internal Medicine Cardiovascular Disease
DX: Z95.5 Presence of coronary angioplasty implant and graft (principal); I25.110 Atherosclerotic heart disease of native coronary artery with unstable angina pectoris; I10 Essential (primary) hypertension; E78.5 Hyperlipidemia, unspecified

== ENCOUNTER 2017-11-11 08:00 | Outpatient (RCR) | payer MEDICARE, BC, SELFPAY ==
[2017-11-06 11:47] VITALS: BP 112/60; BP 130/72
--- NOTE | 2017-11-06 11:48 | CR.ITP_ITS ---
Exercise - 30-day Assessment - Visit Date of Eval: 11/06/17 Session #:: 8 - Stages of Change Stages of Change:: Action - Exercise Prescription Mode:: Treadmill, Airdyne, NuStep Frequency (x/week): 3 Duration:: 30 METs - Progression: 0.5-1 MET as tolerated: 2.9 Target Heart Rate:: 106-113 - Hypertension Resting Blood Pressure:: 112/60 Peak Exercise Blood Pressure:: 130/72 Medication Changes:: No - Intervention Home Exercise/Activity Goal:: Moderate Exercise 30 min/day x 5 days/wk - Education Goals:: Warm-up, RPE CAT Scale, S/S, Safe Exercise, Self-Monitoring - Exercise Program Goals Exercise Program Goals: Aerobic Activity >30 min Nutrition - 30-Day Assessment - Program Goals Nutrition Program Goals: LDL <70. Total Cholesterol <200. HDL >45. Triglycerides <150. HgbA1C <7%. BMI <25 - Visit Date of Eval: 11/06/17 - Stages of Change Stages of Change:: Action - Lipids Has the patient seen the dietitian?: No - Diabetes Diabetes:: No - Weight Management Weight:: 264 lb - down 4# - Intervention Referral to dietitian:: No Referral to Diabetic Clinic:: No Will attend diet classes:: Yes - Education Attended class for:: Healthy eating Tobacco - Initial Assessment - Program Goals Tobacco Program Goals: Complete smoking cessation. Attend education classes. Improve Knowledge Test score - Learning Barriers Learning Barriers: Hearing, Ready to Learn Tobacco - 30-Day Assessment - Program Goals Tobacco Program Goals: Complete smoking cessation. Attend education classes. Improve Knowledge Test score - Stage of Change Stages of Change:: Action - Learning Barriers Learning Barriers: Participates in education - Family Support Do you have family support?: No - Tobacco Use Tobacco Use: Non-smoker - Intervention Education Schedule Given:: Yes - Education Attended class for:: Coronary artery disease, Risk factors, Sexuality, Medical compliance, Cardiac A&P, Angina signs & symptoms Psychosocial - Initial Assess - Target Goals Target Goals: Assess presence or absence of depression. Using a valid screening tool, maximizes coping skills. Positive support system - Psychosocial Test Tool Used:: HANDS Depression Questionnaire - Assistive Devices Fall Risk Assessed:: Yes Psychosocial - 30-Day Assess - Target Goals Target Goals: Assess presence or absence of depression. Using a valid screening tool, maximizes coping skills. Positive support system - Stages of Change Stages of Change:: Action - Psychosocial Test Tool Used:: HANDS Depression Questionnaire - Intervention PS - Interventions: Yes Attend Stress Management Classes, Yes Uses Stress Management Skills, No Referral to Mental Health, No Referral to [facility] Case Management, No Referral to Physician - Education Attended classes for:: Coping techniques, Signs & symptoms of depression, Stress management, Relaxation techniques - Patient/Program Goal Preventative Medication(s):: Aspirin - Assistive Devices Assistive Devices:: None Fall Risk Assessed:: Yes Patient Health Questionnaire 30-Day Re-eval Assessment 1. Little interest or pleasure in doing things: Not at all 2. Feeling down, depressed, or hopeless: Not at all 3. Trouble falling or staying asleep, or sleeping too much: Not at all 4. Feeling tired or having little energy: Several days 5. Poor appetite or overeating: Not at all 6. Feeling bad about yourself -- or that you are a failure or have let yourself or your family down: Not at all 7. Trouble concentrating on things, such as reading the newspaper or watching television: Not at all 8. Moving or speaking so slowly that other people could have noticed. Or the opposite - being so fidgety or restless that you have been moving around a lot more than usual: Several days 9. Thoughts that you would be better off , or of hurting yourself in some way: Not at all How difficult have these problems made it for you to do your work, take care of things at home, or get along with other people?: Not difficult at all Total Score: 2 Self-Efficacy 30-Day Re-eval Assessment We would like to know how confident you are in doing certain activities. Please select your confidence level for:: Select your confidence level for the following using the scale 1-10 where 1 is not at all confident and 10 is totally confident. Your score is the average of all 6 responses. Fatigue: How confident are you that you can keep the fatigue caused by your disease from interfering with the things you want to do? Select Number: 7 Physical Discomfort or Pain: How confident are you that you can keep the physical discomfort or pain of your disease from interfering with the things you want to do? Select Number: 8 Emotional Distress: How confident are you that you can keep the emotional distress caused by your disease from interfering with the things you want to do? Select Number: 8 Other Symptoms or Health Problems: How confident are you that you can keep other symptoms or health problems from interfering with the things you want to do? Select Number: 8 Different Tasks and Activities: How confident are you that you can do the different tasks and activities needed to manage your health condition so as to reduce your need to see a doctor? Select Number: 6 Medication: How confident are you that you can do things other than just taking medication to reduce how much your illness affects your everyday life? Select Number: 7 Total Score:: 7
== END 2017-11-12 23:59 ==
LOC: CR 08:00
PROVIDERS: Family Provider Internal Medicine; PCP Internal Medicine; Visit Provider Internal Medicine Cardiovascular Disease
DX: I25.10 Atherosclerotic heart disease of native coronary artery without angina pectoris (principal); I10 Essential (primary) hypertension; Z72.0 Tobacco use; Z95.5 Presence of coronary angioplasty implant and graft
CPT/HCPCS: 93798

== ENCOUNTER 2017-12-09 08:00 | Outpatient (RCR) | payer MEDICARE, BC, SELFPAY ==
[2017-11-13 01:19] VITALS: BP 112/60; BP 130/72
--- NOTE | 2017-12-06 15:25 | PCM.CR.ITP ---
General Information - General Information Admitting Diagnosis: PCI with coronary artery stenting - Education/Goals Cardiac Rehabilitation Goals: 1. Maintain the individual as the primary focus of care. 2. To improve the patient's quality of life. 3. Identification of cardiac risk factors and provide cardiac risk factor management. 4. Enhance the psychosocial status of the patient. 5. Reconditioning enough to allow the patient to resume customary activities. 6. Control symptoms of cardiac disease Scale for measuring improvement of personal goals: Enter appropriate number in Comments. 2 = Unchanged. 3 = Slightly Better. 4 = Moderate Improvement. 5 = Met my Goal Exercise - 60-Day Assessment - Visit Date of Eval: 12/06/17 Session #:: 18 - Stages of Change Stages of Change:: Action - Exercise Prescription Mode:: Treadmill, Airdyne, NuStep Frequency (x/week): 3 Duration:: 30 METs: 3.9 Target Heart Rate:: 103-110 Max HR 96 - Hypertension Resting Blood Pressure:: 122/64 Peak Exercise Blood Pressure:: 144/60 - Intervention Home Exercise/Activity Goal:: Sitting Time <3 hrs/day - Education Goals:: Warm-up, RPE CAT Scale, S/S, Safe Exercise, Self-Monitoring - Exercise Program Goals Exercise Program Goals: Aerobic Activity >30 min, B/P <130/80 Nutrition - 60-Day Assessment - Program Goals Nutrition Program Goals: LDL <70. Total Cholesterol <200. HDL >45. Triglycerides <150. HgbA1C <7%. BMI <25 - Visit Date of Eval: 12/06/17 - Stages of Change Stages of Change:: Action - Lipids Has the patient seen the dietitian?: No - Diabetes Diabetes:: No - Weight Management Weight:: 68.039 kg - Intervention Referral to dietitian:: No Referral to Diabetic Clinic:: No Will attend diet classes:: Yes - Education Attended class for:: Signs & symptoms of hypoglycemia, Signs & symptoms of hyperglycemia, Relate diabetes to coronary artery disease, Healthy eating Tobacco - Initial Assessment - Program Goals Tobacco Program Goals: Complete smoking cessation. Attend education classes. Improve Knowledge Test score - Learning Barriers Learning Barriers: Hearing, Ready to Learn Tobacco - 60-Day Assessment - Program Goals Tobacco Program Goals: Complete smoking cessation. Attend education classes. Improve Knowledge Test score - Stage of Change Stages of Change:: Action - Learning Barriers Learning Barriers: Participates in education - Family Support Do you have family support?: Yes - Tobacco Use Tobacco Use: Non-smoker Do you use smokeless tobacco?: No - Intervention Smoking Cessation Referral:: No Individual Education/Counseling:: No Education Schedule Given:: Yes - Education Attended class for:: Tobacco triggers, Coronary artery disease, Risk factors, Sexuality, Medical compliance, Cardiac A&P, Angina signs & symptoms Psychosocial - 60-Day Assess - Target Goals Target Goals: Assess presence or absence of depression. Using a valid screening tool, maximizes coping skills. Positive support system - Stages of Change Stages of Change:: Action - Psychosocial Test Tool Used:: HANDS Depression Questionnaire - Intervention PS - Interventions: Yes Attend Stress Management Classes, Yes Uses Stress Management Skills, No Referral to Mental Health, No Referral to [facility] Case Management, No Referral to Physician - Education Attended classes for:: Coping techniques, Signs & symptoms of depression, Stress management, Relaxation techniques - Assistive Devices Assistive Devices:: None Fall Risk Assessed:: Yes Patient Health Questionnaire 60-Day Re-eval Assessment 1. Little interest or pleasure in doing things: Not at all 2. Feeling down, depressed, or hopeless: Not at all 3. Trouble falling or staying asleep, or sleeping too much: Not at all 4. Feeling tired or having little energy: Several days 5. Poor appetite or overeating: Not at all 6. Feeling bad about yourself -- or that you are a failure or have let yourself or your family down: Not at all 7. Trouble concentrating on things, such as reading the newspaper or watching television: Not at all 8. Moving or speaking so slowly that other people could have noticed. Or the opposite - being so fidgety or restless that you have been moving around a lot more than usual: Several days 9. Thoughts that you would be better off , or of hurting yourself in some way: Not at all How difficult have these problems made it for you to do your work, take care of things at home, or get along with other people?: Not difficult at all Total Score: 2 Self-Efficacy 60-Day Re-eval Assessment We would like to know how confident you are in doing certain activities. Please select your confidence level for:: Select your confidence level for the following using the scale 1-10 where 1 is not at all confident and 10 is totally confident. Your score is the average of all 6 responses. Fatigue: How confident are you that you can keep the fatigue caused by your disease from interfering with the things you want to do? Select Number: 7 Physical Discomfort or Pain: How confident are you that you can keep the physical discomfort or pain of your disease from interfering with the things you want to do? Select Number: 8 Emotional Distress: How confident are you that you can keep the emotional distress caused by your disease from interfering with the things you want to do? Select Number: 8 Other Symptoms or Health Problems: How confident are you that you can keep other symptoms or health problems from interfering with the things you want to do? Select Number: 8 Different Tasks and Activities: How confident are you that you can do the different tasks and activities needed to manage your health condition so as to reduce your need to see a doctor? Select Number: 7 Medication: How confident are you that you can do things other than just taking medication to reduce how much your illness affects your everyday life? Select Number: 7 Total Score:: 7
[2017-12-06 15:29] VITALS: BP 122/64; BP 144/60
== END 2017-12-13 23:59 ==
LOC: CR 08:00
PROVIDERS: Family Provider Internal Medicine; PCP Internal Medicine; Visit Provider Internal Medicine Cardiovascular Disease
DX: I25.810 Atherosclerosis of coronary artery bypass graft(s) without angina pectoris (principal); I10 Essential (primary) hypertension; Z72.0 Tobacco use; Z95.5 Presence of coronary angioplasty implant and graft
CPT/HCPCS: 93798

== ENCOUNTER → 2017-12-13 15:36 | Outpatient (CLI) | payer MEDICARE, BC, SELFPAY ==
[2017-12-13 10:37] LABS: Hemoglobin 12.4 g/dl (13.0-16.5); Mean Corp Hgb Conc 33.5 g/gl (32-36); Mean Corpuscular Hgb 29.1 pg (27.0-32.0); Mean Corpuscular Volume 86.9 fL (80-94); Mean Platelet Vol. 10.5 fl (6.2-12.0); Platelet Count 192 K/mm3 (150-450); RBC Distribution Width CV 12.7 % (11.6-14.6); RBC Distribution Width SD 40.7 fl (35.1-43.9); Red Blood Count 4.26 M/mm3 (4.6-6.2); White Blood Count 4.6 K/mm3 (4.4-11.0)
[2017-12-13 10:38] LABS: Scan Indicated on CBC? Y/N NO
[2017-12-13 10:44] LABS: Partial Thromboplast Time 26.5 Seconds (24.1-36.2); Prothrombin Time (Protime)PT. 13.2 SECONDS (11.7-14.9)
[2017-12-13 10:58] LABS: Anion Gap 8 (5-15); BUN 21 mg/dL (7-18); BUN/Creat Ratio 24.2 RATIO (10-20); Calcium,Total 9.1 mg/dL (8.5-10.1); Chloride 104 mmol/L (98-107); Creatinine, Serum 0.87 mg/dL (0.70-1.30); EST Glomerular Filtration Rate 89 mL/min (>60); Est Glom Filt Rate - Afr Amer 108 mL/min (>60); Glucose 184 mg/dL (74-106); Sodium Level 142 mmol/L (136-145)
[2017-12-17 08:43] VITALS: BMI 22.5
== END ==
PROVIDERS: Family Provider Internal Medicine; PCP Internal Medicine; Visit Provider Internal Medicine Cardiovascular Disease
DX: R07.9 Chest pain, unspecified (principal)
CPT/HCPCS: 36415; 80048; 85027; 85610; 85730

== ENCOUNTER 2017-12-16 19:28 | Inpatient (IN) | payer MEDICARE, BC, SELFPAY ==
[2017-12-16 19:20] VITALS: BP 138/63; PULSE 71; RESP 16; TEMP 36.6; O2SAT 96; BMI 23.5
[2017-12-16 19:36] LABS: Absolute Lymphocyte Count 2.11 X10^3/ul (0.83-4.51); Absolute Neutrophil Count 2.1 X10^3/uL (2.0-7.7); Basophil# 0.01 X10^3/uL; Basophil% 0.2 % (0-1); Eosinophil# 0.14 X10^3/uL; Eosinophils% 2.9 % (0-5); Hemoglobin 11.8 g/dl (13.0-16.5); Lymphocyte # 2.11 X10^3/ul (4.0); Lymphocyte % 43.2 % (19-41); Mean Corp Hgb Conc 33.7 g/gl (32-36); Mean Corpuscular Hgb 29.3 pg (27.0-32.0); Mean Corpuscular Volume 86.8 fL (80-94); Mean Platelet Vol. 10.3 fl (6.2-12.0); Monocyte% 10.2 % (0-10); Neutrophil # 2.11 X10^3/uL (2.7-7.7); Neutrophil % 43.3 % (47-70); Platelet Count 161 K/mm3 (150-450); RBC Distribution Width CV 12.6 % (11.6-14.6); RBC Distribution Width SD 40.4 fl (35.1-43.9); Red Blood Count 4.03 M/mm3 (4.6-6.2); White Blood Count 4.9 K/mm3 (4.4-11.0)
[2017-12-16 19:37] LABS: POSITIVE COUNT NO; POSITIVE DIFFERENTIAL NO; POSITIVE MORPHOLOGY NO
--- NOTE | 2017-12-16 19:48 | ED.VISSUMM ---
- ER Visit Summary Date of Service: 12/16/17 Chief Complaint: Left arm pain History of Present Illness: The patient is a 82 M who developed left arm and neck pain about an hour prior to arrival. He states that sharp in the left upper arm up in the left neck. He denies any chest pain. Nothing made it worse but medications by EMS made it better. He did feel short of breath with it. He is scheduled for a cardiac stent on Saturday with Dr. Lafleur. He has a history of coronary artery disease and had a stent placed back in August due to coronary artery disease. Physical Examination: Vital signs reviewed. HEENT exam unremarkable. Heart is regular rate and rhythm without murmurs. Lungs are clear to auscultation. Abdomen is soft and nontender. Extremities reveal no edema. He does have some tenderness of the left upper arm into the left neck. No chest tenderness. Full pulses are equal. Skin exam normal. Neurologic exam normal. Test Results: EKG is sinus rhythm with nonspecific ST-T wave changes. Unchanged. Laboratory studies are unremarkable. Emergency Department Course and Treatment: Patient does have a history of cardiac disease. He is scheduled to get a catheterization in 2 days. With his symptoms and his history and a ROCIO score of 4, I feel he should be at least kept overnight to cycle his enzymes and have cardiology see him in the morning. Discussed with the hospitalist for admission Treatment Plan: [] Disposition: Admit to inpatient to ROCIO score 4 Impression: Left upper arm pain This note was generated with [employer] dictation software. It may contain incorrect words, spelling, and punctuation that were not noted in review of the chart prior to signing ED Disposition - Plan for ED Patient: Chief Complaint: Chest Pain Referrals: Valeriano Monroy [Primary Care Provider] -
[2017-12-16 19:54] LABS: Anion Gap 9 (5-15); BUN 20 mg/dL (7-18); BUN/Creat Ratio 22.7 RATIO (10-20); Calcium,Total 8.6 mg/dL (8.5-10.1); Chloride 107 mmol/L (98-107); Creatinine, Serum 0.88 mg/dL (0.70-1.30); EST Glomerular Filtration Rate 88 mL/min (>60); Est Glom Filt Rate - Afr Amer 106 mL/min (>60); Estimated Creatinine Clearance 59.46 ml/min; Glucose 144 mg/dL (74-106); Potassium 4.3 mmol/L (3.5-5.1); Sodium Level 145 mmol/L (136-145)
[2017-12-16 20:02] VITALS: BP 142/63; PULSE 66; RESP 16; O2SAT 96
[2017-12-16] MEDS: Aspirin 81 MG TAB.CHEW 324 MG PO (20:04)
--- NOTE | 2017-12-16 20:24 | PCM.HP.STD ---
Problem List (1) HTN (hypertension) Status: Chronic Qualifiers: Hypertension type: essential hypertension Qualified Code(s): I10 - Essential (primary) hypertension (2) Left arm pain Status: Acute (3) History of coronary artery stent placement Status: Chronic Comment: [id number] RCA w/ 3.0 x 16 mm Promus Stent (4) Diabetes Status: Chronic History of Present Illness Date of Admission: 12/16/17 Chief Complaint: left arm pain x one day The patient is a 82 year old M with a significant history of CAD status post drug-eluting stents in RCA in August 2017 and on dual antiplatelet therapy; diabetes mellitus; hypertension; hyperlipidemia, and former smoker who presents with left arm pain that radiates to his left shoulder. His pain started about 3 hours prior to admission. He described his pain as sharp and constant with a severity of about 8 out of 10. His pain occurred at rest. EMS gave patient some kind of pain medication which brought his pain to about a 2. Patient does not know the exact medication he received from the EMS. Patient denies any nausea. His reports that patient looked clammy. Associated with his symptoms is shortness of breath. Because of continuous chest pain with cardiac rehab patient was scheduled to have a cardiac catheterization with Dr. Lafleur on 12/18/2017. At emergency department EKG shows some T-wave flattening in inferior leads, and sinus rhythm with PVC. T waves appeared little flatter than previous. Chest x-ray was unremarkable. Troponin was unremarkable. At emergency department patient was given aspirin 324 mg. Past Medical History Past Medical History (Chronic Problems): Chronic Problems (Last Updated 10/10/17 @ 13:08 by Stephanie England) Diabetes (Chronic) History of coronary artery stent placement (Chronic 09/02/17) [id number] RCA w/ 3.0 x 16 mm Promus Stent HTN (hypertension) (Chronic) HLD (hyperlipidemia) (Chronic) Medical History: Medical History (Last Updated 10/10/17 @ 13:08 by Stephanie England) History of coronary artery stent placement (Chronic) Onset Date: 09/02/17 Z95.5 ENS-VHK-Ypmk RCA w/ 3.0 x 16 mm Promus Stent Atherosclerosis of coronary artery of [place] heart without angina pectoris (Acute) I25.10 OOL-EHG-Qyut RCA w/ 3.0 x 16 mm Promus Stent 09/02/17 Unstable angina (Resolved) I20.0 HTN (hypertension) (Chronic) I10 HLD (hyperlipidemia) (Chronic) E78.5 Allergies Penicillins Allergy (Verified 12/16/17 19:23) Unknown Home Medications: Ambulatory Orders Medication Instructions Recorded Amlodipine [Norvasc] 5 mg PO DAILY 08/30/17 Aspirin [Aspir-Low] 81 mg PO DAILY 08/30/17 Escitalopram Oxalate [Lexapro] 5 mg PO DAILY 08/30/17 Lansoprazole [Prevacid] 30 mg PO DAILY 08/30/17 Metformin HCl [Glucophage] 100 mg PO BIDCM 08/30/17 Mv-Min/FA/Vit K/Lycop/Lut/Zeax 1 ea PO QHS 08/30/17 [Ocuvite Eye Plus Multi Tablet] Rosuvastatin Calcium 20 mg PO QHS 08/30/17 Clopidogrel Bisulfate [Plavix] 75 mg PO DAILY #90 tab 09/03/17 metoprolol succinate ER 25 mg 12.5 mg PO DAILY tab 12/13/17 tablet,extended release 24 hr Surgical History: no surgical history Psychiatric History: Depression Lives: Spouse/ Significant Other Smoking Status: Former smoker - *Family History Maternal History Items: - - from complications of Paternal History Items: Heart Disease - from [place] Review of Systems Constitutional: Reports: - - Clammy Eyes: Denies: Blurred vision, Pain HEENT: Denies: Head Aches, Sinus Congestion, Sinus Drainage Cardiovascular: Denies: Chest Pain, Chest Pressure Respiratory: Reports: Shortness of Breath Gastrointestinal: Denies: Abdominal Pain, Nausea, Vomiting Genitourinary: Denies: Dysuria Musculoskeletal: Reports: Arm Pain Skin: Denies: Rash, Wounds Neurological: Denies: Numbness, Tingling, Focal weakness Psychiatric: Denies: Anxiety, Depression, Homicidal Ideations, Suicidal Ideations Hematologic/ Lymphatic: Denies: Easy Bruising, Easy Bleeding VTE Information - Inpt Only VTE Present on Admission: No VTE Mechan Device Prophylaxis: None VTE Pharm Prophylaxis ordered?: Yes Patient Problems: Active and Suspected Problems (Last Updated 10/10/17 @ 13:08 by Stephanie England) Left arm pain (Acute) - Physical Exam General: Alert, Oriented x3, Cooperative HEENT: Atraumatic, PERRLA, EOMI, Normocephalic Neck: Supple, No JVD, Negative Carotid Bruits Lungs: Clear to auscultation, Normal air movement Cardiovascular: Regular rate Abdomen: Bowel Sounds Present, Soft, Non Tender Extremities: No edema, Capillary Refill Less than 3 Seconds Skin: No rashes, No breakdown Musculoskeletal: No Tenderness to Palpation of Joints or Extremities Neurological: Cranial nerves II-XII grossly intact Psych/Mental Status: Normal Affect, Appropriate Vital Signs Temp Pulse Resp BP Pulse Ox 98 F 66 16 142/63 H 96 12/16/17 19:20 12/16/17 20:02 12/16/17 20:02 12/16/17 20:02 12/16/17 20:02 Oxygen Delivery Method Room Air Weight: 68.2 kg Body Mass Index (BMI) 23.5 Laboratory Tests Past 24 Hrs 12/16/17 12/16/17 19:21 19:21 WBC 4.9 RBC 4.03 L Hgb 11.8 L Hct 35.0 L MCV 86.8 MCH 29.3 MCHC 33.7 RDW 12.6 RDW Differential 40.4 Plt Count 161 MPV 10.3 Immature Gran % (Auto) 0.200 Neut % (Auto) 43.3 L Lymph % (Auto) 43.2 H [place] % (Auto) 10.2 H Eos % (Auto) 2.9 Baso % (Auto) 0.2 Absolute Neuts (auto) 2.1 Absolute Lymphs (auto) 2.11 Total Counted Not Reportable Sodium 145 Potassium 4.3 Chloride 107 Carbon Dioxide 29.0 Anion Gap 9 BUN 20 H Creatinine 0.88 Estim Creat Clear Calc 59.46 Est GFR (MDRD) Af Amer 106 Est GFR (MDRD) Non-Af 88 BUN/Creatinine Ratio 22.7 H Glucose 144 H Calcium 8.6 Troponin I < 0.015 Assessment/Plan All Active Problems (Last Updated 10/10/17 @ 13:08 by Stephanie England) Left arm pain (Acute) Dyspnea on exertion (Acute) Atherosclerosis of coronary artery of [place] heart without angina pectoris (Acute) Unstable angina (Resolved) The patient is a 82 year old M with a significant history of CAD status post drug-eluting stents in RCA in August 2017 and on dual antiplatelet therapy; diabetes mellitus; hypertension; hyperlipidemia, and former smoker who presents with left arm pain that radiates to his left shoulder. Acute coronary syndrome (Unstable Angina) Left arm pain radiating to shoulder. Because of his cardiac history and risk factors of hypertension diabetes this is probably due to acute coronary syndrome Heart score is 6. Admit to a monitored bed on PCU CXR independently reviewed was unremarkable EKG independently reveiwed showed Q waves in lead III and T-wave flattening in lead III and aVF. Q waves was present in EKG in August 2017. T waves in lead III and aVF appears more flattened at this time. ASA 81 mg p.o. daily SL NTG 0.4 mg prn as needed for chest pain Plavix continued Crestor continued Serial cardiac enzymes Stat EKG as needed for chest pain Old record review showed that stress echocardiogram 10/11/2017 showed an ejection fraction of 55%. Stress echo echo was unremarkable except the patient did not reach 85% of target heart rate. Since patient is a known patient of Dr. Lafleur and was scheduled to have a cardiac cath with Dr. Lafleur on 12/18/2017, cardiology has been consulted. If further cardiac evaluation is unremarkable, consider cervical spinal disease Hypertension Blood pressure is within goal at time of admission. Amlodipine and metoprolol continued. Trend blood pressures Diabetes mellitus Blood glucose within goal of 140-180 at the time of admission. We will hold metformin because patient may have had a test. We will keep n.p.o. after midnight. A correction scale insulin with every 6 hours blood glucose check. Depression Lexapro continued. DVT prophylaxis with subcutaneous heparin. Code Visit Inpatient E&M: 17717 Init Hosp L3
--- NOTE | 2017-12-16 20:47 | NURSING ---
ED NOTIFIED OK to bring pt. up to floor
[2017-12-16 21:15] VITALS: BP 142/68; PULSE 60; RESP 16; TEMP 36.7; O2SAT 98
[2017-12-16 22:09] VITALS: BMI 23.1; BMI 23.5
[2017-12-16 22:33] VITALS: PULSE 61
[2017-12-16] MEDS: Heparin Injection (Vial) 5,000 UNIT/ML VIAL 5000 UNIT SC (23:00)
[2017-12-16 23:10] LABS: Bedside Glucose 102 mg/dL (70-110)
[2017-12-16 23:14] VITALS: PULSE 57
[2017-12-16 23:50] VITALS: O2SAT 98
[2017-12-17] VITALS (12 sets, daily range): BP systolic 117–134; BP diastolic 62–71; PULSE 64–74; RESP 16–18; TEMP 36.4–37.1; O2SAT 93–95
[2017-12-17] MEDS: amLODIPine 5 MG Tablet PO (06:38)
[2017-12-17] MEDS: Aspirin E.C. 81 MG Tablet PO (06:38)
[2017-12-17] MEDS: Metoprolol(XL)Succ 25 MG Tablet 12.5 MG PO (06:38)
[2017-12-17] MEDS: Clopidogrel Bisulfate 75 MG Tablet PO (06:38)
[2017-12-17 07:10] LABS: Bedside Glucose 114 mg/dL (70-110)
[2017-12-17 07:14] LABS: Hematocrit 34.8 % (40-54); Hemoglobin 12.1 g/dl (13.0-16.5); Mean Corp Hgb Conc 34.8 g/gl (32-36); Mean Corpuscular Hgb 29.9 pg (27.0-32.0); Mean Corpuscular Volume 85.9 fL (80-94); Mean Platelet Vol. 10.4 fl (6.2-12.0); Platelet Count 170 K/mm3 (150-450); RBC Distribution Width CV 12.3 % (11.6-14.6); RBC Distribution Width SD 37.7 fl (35.1-43.9); Red Blood Count 4.05 M/mm3 (4.6-6.2)
[2017-12-17 07:22] LABS: Scan Indicated on CBC? Y/N NO
[2017-12-17 07:31] LABS: Anion Gap 9 (5-15); BUN 18 mg/dL (7-18); BUN/Creat Ratio 25.8 RATIO (10-20); Calcium,Total 8.4 mg/dL (8.5-10.1); Chloride 107 mmol/L (98-107); EST Glomerular Filtration Rate 115 mL/min (>60); Est Glom Filt Rate - Afr Amer 139 mL/min (>60); Estimated Creatinine Clearance 52.33 ml/min; Glucose 112 mg/dL (74-106); Potassium 3.9 mmol/L (3.5-5.1); Sodium Level 146 mmol/L (136-145)
[2017-12-17 07:55] LABS: Bacteria 0 SEEN /hpf (None Seen); Mucous, Urine 0 SEEN /hpf (<or=2+); Red Blood Cells-Urine 0 SEEN /hpf (0-5); White Blood Cells 0 SEEN /hpf (0-5)
[2017-12-17 08:06] LABS: Color, Urine Yellow (Yellow); Glucose, Dipstick Normal (Normal); Ketone-Dipstick Negative (Negative); Leukocyte Esterase-Dipstick Negative /ul (Negative); Nitrite-Dipstick Negative (Negative); Occult Blood-Urine Negative /ul (Negative); Protein-Dipstick Negative (Negative); Urine Bilirubin Dipstick Negative (Negative); Urine Clarity Clear (Clear); Urine Urobilinogen Normal (Normal)
[2017-12-17 08:26] LABS: Squamous Epithelial Cells - UA 0-5 SEEN /hpf (0-5)
[2017-12-17 08:28] LABS: Prothrombin Time (Protime)PT. 13.5 SECONDS (11.7-14.9)
--- NOTE | 2017-12-17 10:03 | PCM.CONS.C ---
Problem List (1) Left arm pain Status: Acute (2) Diabetes Status: Chronic (3) Dyspnea on exertion Status: Acute (4) History of coronary artery stent placement Status: Chronic Comment: [id number]-Dkha RCA w/ 3.0 x 16 mm Promus Stent (5) Atherosclerosis of coronary artery of [place] heart without angina pectoris Status: Acute Qualifiers: Coronary Disease-Associated Artery/Lesion type: [place] artery Qualified Code(s): I25.10 - Atherosclerotic heart disease of [place] coronary artery without angina pectoris Comment: FVC-RNG-Wtcf RCA w/ 3.0 x 16 mm Promus Stent 09/02/17 (6) Unstable angina Status: Resolved (7) HTN (hypertension) Status: Chronic Qualifiers: Hypertension type: essential hypertension Qualified Code(s): I10 - Essential (primary) hypertension (8) HLD (hyperlipidemia) Status: Chronic Qualifiers: Hyperlipidemia type: pure hypercholesterolemia Qualified Code(s): E78.00 - Pure hypercholesterolemia, unspecified; E78.0 - Pure hypercholesterolemia Reason for Consult Date of Consultation: 12/17/17 Reason for Consultation: Left arm pain, coronary artery disease, unstable angina History of Present Illness: The patient is a 82 year old M, fairly well known to me with a history of coronary artery disease status post angioplasty and stenting to his LAD, I believe his RCA, with complex calcified tortuous proximal left circumflex stenosis which was evaluated recently in the last year with a stress test which was negative for inferolateral ischemia. Patient has been participating in cardiac rehab but has had progressively worsening exertional anginal symptoms, with associated shortness of breath. Given the patient's known left circumflex remaining stenosis, he was scheduled for repeat catheterization tomorrow morning, Saturday, but unfortunately this weekend he developed fatigue, tiredness, and then atypical, nonexertional left upper arm pain with no associated chest pain or angina. Out of an abundance of caution he was brought to the emergency room where an EKG was performed which showed normal sinus rhythm,/sinus bradycardia, PVC, no acute changes. His troponins have been negative ?3. He has had no recurrent anginal symptoms. He has been normotensive since arrival. [] Past Medical History Allergies/Adverse Reactions: Allergies Penicillins Allergy (Verified 12/16/17 22:12) Unknown Home Medications: Ambulatory Orders Medication Instructions Recorded Amlodipine [Norvasc] 5 mg PO DAILY 08/30/17 Aspirin [Aspir-Low] 81 mg PO DAILY 08/30/17 Escitalopram Oxalate [Lexapro] 5 mg PO DAILY 08/30/17 Lansoprazole [Prevacid] 30 mg PO DAILY 08/30/17 Metformin HCl [Glucophage] 100 mg PO BIDCM 08/30/17 Mv-Min/FA/Vit K/Lycop/Lut/Zeax 1 ea PO QHS 08/30/17 [Ocuvite Eye Plus Multi Tablet] Rosuvastatin Calcium 20 mg PO QHS 08/30/17 Clopidogrel Bisulfate [Plavix] 75 mg PO DAILY #90 tab 09/03/17 metoprolol succinate ER 25 mg 12.5 mg PO DAILY tab 12/13/17 tablet,extended release 24 hr Past Medical History (Chronic Problems): Chronic Problems (Last Updated 10/10/17 @ 13:08 by Stephanie England) Diabetes (Chronic) History of coronary artery stent placement (Chronic 09/02/17) [id number] RCA w/ 3.0 x 16 mm Promus Stent HTN (hypertension) (Chronic) HLD (hyperlipidemia) (Chronic) Surgical History: no surgical history Psychiatric History: Depression - *Family History Maternal History Items: - - from complications of Paternal History Items: Heart Disease - from [place] Lives: Spouse/ Significant Other Smoking Status: Former smoker Review of Systems - Review of Systems General: Denies: Fever, Night Sweats, Fatigue Cardiovascular: Reports: Chest Discomfort, Chest Discomfort with Exertion. Denies: Shortness of Breath, Orthopnea, PND, Peripheral Edema, Palpitations, Lightheadedness, Dizziness, Near Syncope, Syncope Respiratory: Denies: Cough, Sputum Production, Hemoptysis Gastrointestinal: Denies: Hematemesis, Hematochezia, Melena Genitourinary: Denies: Dysuria, Hematuria Skin: Denies: Rash Subjectve: Patient laying in bed, no acute distress. Objective: Vital Signs Temp Pulse Resp BP Pulse Ox 97.8 F 68 16 117/62 94 12/17/17 06:35 12/17/17 06:58 12/17/17 06:35 12/17/17 06:38 12/17/17 07:00 Oxygen Delivery Method Room Air Weight: 147 lb 4.301 oz Body Mass Index (BMI) 23.1 General: Awake, Alert, Oriented x 3 HEENT: PERRL, EOMI, Sclera Non Icteric Neck: Supple, Good ROM, No Lymph Node Enlargement Lungs: Clear to auscultation Cardiovascular: Regular Rhythm, Normal S1, Normal S2, No Murmurs, No Rubs, No Gallops Vascular: No Carotid Bruits, Normal Femoral Pulses, Normal Radial Pulses, Normal Dorsalis Pedal Pulse, Normal Posterior Tibial Pulses Abdomen: Bowel Sounds Present, Soft, Non Tender, No HSM, No Organomegaly Extremities: No Cyanosis, No Clubbing, No edema Neurological: No Focal Motor or Sensory Deficit 12/16/17 23:25: Troponin I < 0.015 12/17/17 01:17: Troponin I < 0.015 12/17/17 05:30: Urine Color Yellow, Urine Clarity Clear, Urine pH 7.0, Ur Specific [place] 1.010, Urine Protein Negative, Urine Glucose (UA) Normal, Urine Ketones Negative, Urine Occult Blood Negative, Urine Nitrite Negative, Urine Bilirubin Negative, Urine Urobilinogen Normal, Ur Leukocyte Esterase Negative, Urine RBC 0 SEEN, Urine WBC 0 SEEN 12/17/17 06:44: WBC 4.0 L, RBC 4.05 L, Hgb 12.1 L, Hct 34.8 L, MCV 85.9, MCH 29.9, MCHC 34.8, RDW 12.3, RDW Differential 37.7, Plt Count 170, MPV 10.4 12/17/17 06:44: Sodium 146 H, Potassium 3.9, Chloride 107, Carbon Dioxide 30.0, Anion Gap 9, BUN 18, Creatinine 0.70, Est GFR (MDRD) Af Amer 139, Est GFR (MDRD) Non-Af 115, BUN/Creatinine Ratio 25.8 H, Glucose 112 H, Calcium 8.4 L 12/17/17 06:44: PT 13.5, INR 1.0, APTT 29.0 Rhythm: Telemetry negative. EKG: As above ECHO: Stress Test: Cardiac Cath: Pending PCI: CT Surgery: Holter monitor: EPS: PPM: CXR: Chest CT Scan: Assessment/Plan 1. Coronary artery disease: Patient presents with progressively worsening exertional anginal symptoms, shortness of breath, dyspnea on exertion superimposed on new onset atypical, nonexertional left arm pain with no associated chest pain. Out of an abundance of caution he was brought to the emergency room as we had already scheduled him for a diagnostic coronary angiogram tomorrow morning. Patient has been tolerant of his antihypertensive and dual antiplatelet therapy without any difficulty. His troponins are negative. His EKG is negative for acute changes. At this point I recommend the patient continue his aspirin, Plavix, and antihypertensive medications. We will arrange for the patient undergo diagnostic coronary angiogram tomorrow, 12/18/17. I do not believe he requires urgent catheterization at this time. We will relook at his right coronary artery, and assess whether his left circumflex requires intervention. If the patient's LAD and RCA stents are widely patent, would recommend pursuing intervention of his tortuous, moderately calcified left circumflex. The risks/benefits of the procedure were thoroughly explained to the patient and his family, and informed consent was obtained. 2. Hyperlipidemia: Continue Lipitor. 3. Thank you very much for the opportunity to participate in the cardiac care of your patient. Consultation time took place between 930 and 10:05 AM. Code Visit Inpatient E&M: 14274 Init Hosp L2
[2017-12-17] MEDS: Escitalopram Oxalate 10 MG Tablet 5 MG PO (10:24)
[2017-12-17] MEDS: Pantoprazole Sodium 40 MG Tablet PO (10:25)
[2017-12-17] MEDS: Heparin Injection (Vial) 5,000 UNIT/ML VIAL 5000 UNIT SC ×2 (10:25→21:14)
[2017-12-17] MEDS: Insulin Lispro 100 UNIT/ML INSULN.PEN SQ ×2 (11:32→17:03)
[2017-12-17 11:40] LABS: Bedside Glucose 182 mg/dL (70-110)
--- NOTE | 2017-12-17 11:47 | PCM.PN.HOSP ---
Patient Problems: Active and Suspected Problems (Last Updated 10/10/17 @ 13:08 by Stephanie England) Left arm pain (Acute) Subjective: No further chest pain. Vitals/I&O's: Vital Signs Temp Pulse Resp BP Pulse Ox 36.7 C 64 18 123/62 H 94 12/17/17 10:25 12/17/17 10:25 12/17/17 10:25 12/17/17 10:25 12/17/17 10:25 Oxygen Delivery Method Room Air Weight: 66.8 kg Body Mass Index (BMI) 23.1 General: Alert, No apparent distress HEENT: Atraumatic, Normocephalic Oral: Moist Mucosa, No Gingival or Mucosal Lesions/ Ulcerations Neck: No Nodes, Thyroid Normal Size and Texture Lungs: Clear to auscultation, Normal air movement, No rhonchi, No wheeze Cardiovascular: Regular rate, Regular Rhythm, Normal S1, Normal S2, No murmurs Abdomen: Bowel Sounds Present, Soft, Non Tender, Non-Distended, No Hepato-splenomegaly Extremities: No edema, No Calf Tenderness Skin: No rashes, No breakdown Psych/Mental Status: Normal Affect, Appropriate Laboratory Results 12/16/17 22:59: POC Glucose 102 12/16/17 23:25: Troponin I < 0.015 12/17/17 01:17: Troponin I < 0.015 12/17/17 05:30: Urine Color Yellow, Urine Clarity Clear, Urine pH 7.0, Ur Specific [place] 1.010, Urine Protein Negative, Urine Glucose (UA) Normal, Urine Ketones Negative, Urine Occult Blood Negative, Urine Nitrite Negative, Urine Bilirubin Negative, Urine Urobilinogen Normal, Ur Leukocyte Esterase Negative, Urine RBC 0 SEEN, Urine WBC 0 SEEN, Ur Squamous Epith Cells 0-5 SEEN, Urine Bacteria 0 SEEN, Urine Mucus 0 SEEN 12/17/17 06:44: WBC 4.0 L, RBC 4.05 L, Hgb 12.1 L, Hct 34.8 L, MCV 85.9, MCH 29.9, MCHC 34.8, RDW 12.3, RDW Differential 37.7, Plt Count 170, MPV 10.4 12/17/17 06:44: Sodium 146 H, Potassium 3.9, Chloride 107, Carbon Dioxide 30.0, Anion Gap 9, BUN 18, Creatinine 0.70, Estim Creat Clear Calc 52.33, Est GFR (MDRD) Af Amer 139, Est GFR (MDRD) Non-Af 115, BUN/Creatinine Ratio 25.8 H, Glucose 112 H, Calcium 8.4 L 12/17/17 06:44: PT 13.5, INR 1.0, APTT 29.0 12/17/17 06:45: POC Glucose 114 H 12/17/17 11:30: POC Glucose 182 H Current Medications Amlodipine Besylate (Norvasc) 5 mg PO DAILY [facility] Last Admin: 12/17/17 06:38 Dose: 5 mg Aspirin (Ecotrin) 81 mg PO DAILY [facility] Last Admin: 12/17/17 06:38 Dose: 81 mg Atorvastatin Calcium (Lipitor) 40 mg PO QHS [facility] Bisacodyl (Dulcolax) 5 mg PO DAILY PRN PRN PRN Reason: Constipation Clopidogrel Bisulfate (Plavix) 75 mg PO DAILY [facility] Last Admin: 12/17/17 06:38 Dose: 75 mg Dextrose (D50w Syringe) 0 gm IV X1 PRN; Protocol PRN Reason: Hypoglycemia Diphenhydramine HCl (Benadryl) 50 mg PO X1 ONE Stop: 12/18/17 07:01 Escitalopram Oxalate (Lexapro) 5 mg PO DAILY [facility] Last Admin: 12/17/17 10:24 Dose: 5 mg Glucagon () 1 mg IM .X1 PRN PRN Reason: Hypoglycemia Heparin Sodium (Porcine) (Heparin Na) 5,000 unit SC Q12 [facility] Last Admin: 12/17/17 10:25 Dose: 5,000 unit Sodium Chloride () 1,000 mls @ 15 mls/hr IV .Q48H CINDY PRN Reason: KVO Insulin Human Lispro (Humalog Kwikpen (Bkc)) 0 unit SQ Q6 CINDY PRN Reason: Protocol Last Admin: 12/17/17 11:32 Dose: 2 u Magnesium Hydroxide (Milk Of Magnesia) 30 ml PO DAILY PRN PRN Reason: Constipation Metoprolol Succinate (Toprol Xl (Beta Yen)) 12.5 mg PO DAILY [facility] Last Admin: 12/17/17 06:38 Dose: 12.5 mg Multivitamins/Minerals (Healthy Eyes) 1 tablet PO QHS [facility] Last Admin: 12/16/17 23:01 Dose: Not Given Nitroglycerin (Nitrostat) 0.4 mg SUBLINGUAL Q5M PRN PRN Reason: CHEST PAIN Pantoprazole Sodium (Protonix) 40 mg PO DAILY CINDY Last Admin: 12/17/17 10:25 Dose: 40 mg Sodium Chloride () 5 - 30 ml IV UD PRN PRN Reason: SALINE FLUSH Medical Necessity - Tobacco Use Smoking Status: Former smoker Assessment/Plan All Active Problems (Last Updated 10/10/17 @ 13:08 by Stephanie England) Left arm pain (Acute) Dyspnea on exertion (Acute) Atherosclerosis of coronary artery of [place] heart without angina pectoris (Acute) Unstable angina (Resolved) 1. Chest pain: [facility] planned for 12/18 on ASA, HIS (for age), metoprolol 2. DVT proph: SQ heparin. Code Visit Inpatient E&M: 45790 Subs Hosp L2
--- NOTE | 2017-12-17 15:06 | CASEMGMT ---
RN CM Assessment completed. See Link. No needs identified @ this time. -PT/OT evaluations reviewed. No therapy recommended @ this time. Carmela WALTERN RN ACM
[2017-12-17 17:11] LABS: Bedside Glucose 182 mg/dL (70-110)
[2017-12-17] MEDS: Atorvastatin Calcium 40 MG Tablet PO (21:14)
[2017-12-17 22:36] LABS: Bedside Glucose 144 mg/dL (70-110)
[2017-12-18] VITALS (40 sets, daily range): BP systolic 94–165; BP diastolic 45–93; PULSE 60–74; RESP 12–23; TEMP 36.4–37.2; O2SAT 93–98
[2017-12-18 05:54] LABS: Absolute Lymphocyte Count 1.85 X10^3/ul (0.83-4.51); Absolute Neutrophil Count 2.3 X10^3/uL (2.0-7.7); Basophil# 0.01 X10^3/uL; Basophil% 0.2 % (0-1); Eosinophil# 0.13 X10^3/uL; Eosinophils% 2.7 % (0-5); Hematocrit 35.9 % (40-54); Hemoglobin 12.4 g/dl (13.0-16.5); Lymphocyte # 1.85 X10^3/ul (4.0); Lymphocyte % 38.5 % (19-41); Mean Corp Hgb Conc 34.5 g/gl (32-36); Mean Corpuscular Hgb 29.4 pg (27.0-32.0); Mean Corpuscular Volume 85.1 fL (80-94); Mean Platelet Vol. 10.8 fl (6.2-12.0); Monocyte# 0.52 X10^3/uL; Monocyte% 10.8 % (0-10); Neutrophil # 2.29 X10^3/uL (2.7-7.7); Neutrophil % 47.6 % (47-70); Platelet Count 165 K/mm3 (150-450); RBC Distribution Width CV 12.3 % (11.6-14.6); RBC Distribution Width SD 37.2 fl (35.1-43.9); Red Blood Count 4.22 M/mm3 (4.6-6.2); White Blood Count 4.8 K/mm3 (4.4-11.0)
--- NOTE | 2017-12-18 05:55 | EKG12_ITS ---
Test Reason : AM EKG Blood Pressure : / mmHG Vent. Rate : 065 BPM Atrial Rate : 065 BPM P-R Int : 170 ms QRS Dur : 092 ms QT Int : 420 ms P-R-T Axes : 046 -08 045 degrees QTc Int : 436 ms Sinus rhythm with occasional Premature ventricular complexes Otherwise normal ECG When compared with ECG of 16-DEC-2017 23:52, MANUAL COMPARISON REQUIRED, DATA IS UNCONFIRMED Confirmed by NICOLE DAN ([id number]), news videotape editor CELSO URBANO ([id number]) on 12/24/2017 3:15:06 PM Referred By: BERNARD Confirmed By:NICOLE DAN
[2017-12-18 06:00] LABS: POSITIVE COUNT NO; POSITIVE DIFFERENTIAL NO; POSITIVE MORPHOLOGY NO
[2017-12-18 06:03] LABS: International Normalized Ratio 1.1
[2017-12-18 06:04] LABS: Anion Gap 8 (5-15); BUN 18 mg/dL (7-18); BUN/Creat Ratio 23.6 RATIO (10-20); Calcium,Total 8.5 mg/dL (8.5-10.1); Chloride 107 mmol/L (98-107); Creatinine, Serum 0.76 mg/dL (0.70-1.30); EST Glomerular Filtration Rate 104 mL/min (>60); Est Glom Filt Rate - Afr Amer 126 mL/min (>60); Estimated Creatinine Clearance 52.33 ml/min; Glucose 126 mg/dL (74-106); Partial Thromboplast Time 55.8 Seconds (24.1-36.2); Potassium 4.2 mmol/L (3.5-5.1); Sodium Level 144 mmol/L (136-145)
[2017-12-18] MEDS: Metoprolol(XL)Succ 25 MG Tablet 12.5 MG PO (06:08)
[2017-12-18] MEDS: Pantoprazole Sodium 40 MG Tablet PO (06:08)
[2017-12-18] MEDS: Aspirin E.C. 81 MG Tablet PO (06:08)
[2017-12-18] MEDS: amLODIPine 5 MG Tablet PO (06:08)
[2017-12-18] MEDS: Clopidogrel Bisulfate 75 MG Tablet PO ×2 (06:08→18:12)
[2017-12-18 07:05] LABS: Bedside Glucose 122 mg/dL (70-110)
[2017-12-18] MEDS: DiphenhydrAMINE 25 MG Capsule 50 MG PO (07:47)
[2017-12-18] MEDS: 0.9% Normal Saline 1,000 ML 15 ML IV (07:47)
--- NOTE | 2017-12-18 08:06 | NURSING ---
Patient will be transferred to ICU following heart cath-report given to [employer]
--- NOTE | 2017-12-18 09:41 | CRPHASE1 ---
Patient Data/Charges Former Patient:: Phase II Reason Not Completed:: Patient is a current Cardiac Rehab patient and was seen for ongoing chest pain during activity and exercise. Start Phase II:: Resume Cardiac Rehab 2 weeks post-discharge.
--- NOTE | 2017-12-18 09:42 | CRPH1.INSTRU ---
General Education CAD and cardiac anatomy and function:: Not instructed Explanation of diagnoses and procedures:: Not instructed Sign/Symptoms of [place]:: Not instructed Antiplatelet therapy: Not instructed Proper use of NTG-SL: Not instructed Emergency procedures and activation of EMS: Not instructed Compliance of all prescribed medications: Not instructed - Patient is currently enrolled in Cardiac Rehab following previous PCI/Stent
--- NOTE | 2017-12-18 09:45 | EKG12_ITS ---
Test Reason : POST PCI Blood Pressure : / mmHG Vent. Rate : 060 BPM Atrial Rate : 060 BPM P-R Int : 176 ms QRS Dur : 094 ms QT Int : 426 ms P-R-T Axes : 049 -07 044 degrees QTc Int : 426 ms Normal sinus rhythm Normal ECG When compared with ECG of 18-DEC-2017 05:25, MANUAL COMPARISON REQUIRED, DATA IS UNCONFIRMED Confirmed by NICOLE DAN ([id number]), script editor CELSO URBANO ([id number]) on 12/24/2017 3:11:38 PM Referred By: NI Confirmed By:NICOLE DAN
--- NOTE | 2017-12-18 10:24 | CASEMGMT ---
Pt reports during traffic observer at admission that pt will bring the forms for LW/POA in to the hospital. MICHAEL Helms, EMBEDDED SOFTWARE PROGRAMMER
[2017-12-18] MEDS: 0.9% Normal Saline 1,000 ML 150 ML IV (10:38)
[2017-12-18 11:06] LABS: ACT Activated Clotting Time 208 sec (74-137)
--- NOTE | 2017-12-18 11:36 | PCM.PN.HOSP ---
Patient Problems: Active and Suspected Problems (Last Updated 10/10/17 @ 13:08 by Stephanie England) Left arm pain (Acute) Subjective: S/P LHC with stent to circ. No chest pain at this time. Vitals/I&O's: Vital Signs Temp Pulse Resp BP Pulse Ox 36.4 C L 64 18 165/66 H 96 12/18/17 09:55 12/18/17 11:00 12/18/17 11:00 12/18/17 11:00 12/18/17 11:00 Oxygen Delivery Method Room Air Intake and Output for Last 24 Hours 12/16/17 12/17/17 12/18/17 23:59 23:59 23:59 Intake Total 665 / 1025 120 / 120 Balance 665 / 1025 120 / 120 General: Alert, No apparent distress HEENT: Atraumatic, Normocephalic Oral: Moist Mucosa, No Gingival or Mucosal Lesions/ Ulcerations Neck: No Nodes, Thyroid Normal Size and Texture Lungs: Clear to auscultation, Normal air movement, No rhonchi, No wheeze Cardiovascular: Regular rate, Regular Rhythm, Normal S1, Normal S2, No murmurs Abdomen: Bowel Sounds Present, Soft, Non Tender, Non-Distended, No Hepato-splenomegaly Extremities: No edema, No Calf Tenderness Skin: No rashes, No breakdown Laboratory Results 12/17/17 17:01: POC Glucose 182 H 12/17/17 21:16: POC Glucose 144 H 12/18/17 05:12: WBC 4.8, RBC 4.22 L, Hgb 12.4 L, Hct 35.9 L, MCV 85.1, MCH 29.4, MCHC 34.5, RDW 12.3, RDW Differential 37.2, Plt Count 165, MPV 10.8, Immature Gran % (Auto) 0.200, Neut % (Auto) 47.6, Lymph % (Auto) 38.5, [place] % (Auto) 10.8 H, Eos % (Auto) 2.7, Baso % (Auto) 0.2, Absolute Neuts (auto) 2.3, Absolute Lymphs (auto) 1.85, Total Counted Not Reportable 12/18/17 05:12: PT 14.0, INR 1.1, APTT 55.8 H 12/18/17 05:12: Sodium 144, Potassium 4.2, Chloride 107, Carbon Dioxide 29.0, Anion Gap 8, BUN 18, Creatinine 0.76, Estim Creat Clear Calc 52.33, Est GFR (MDRD) Af Amer 126, Est GFR (MDRD) Non-Af 104, BUN/Creatinine Ratio 23.6 H, Glucose 126 H, Calcium 8.5 12/18/17 06:46: POC Glucose 122 H 12/18/17 09:29: Activated Clotting Time 208 H 12/18/17 10:55: Troponin I < 0.015 Current Medications Amlodipine Besylate (Norvasc) 5 mg PO DAILY [facility] Last Admin: 12/18/17 06:08 Dose: 5 mg Aspirin (Ecotrin) 81 mg PO DAILY [facility] Last Admin: 12/18/17 06:08 Dose: 81 mg Atorvastatin Calcium (Lipitor) 40 mg PO QHS [facility] Last Admin: 12/17/17 21:14 Dose: 40 mg Atropine Sulfate () 0.5 mg IV UD PRN PRN Reason: HR <50 bpm Bisacodyl (Dulcolax) 5 mg PO DAILY PRN PRN PRN Reason: Constipation Clopidogrel Bisulfate (Plavix) 75 mg PO 0600,1800 [facility] Dextrose (D50w Syringe) 0 gm IV X1 PRN; Protocol PRN Reason: Hypoglycemia Escitalopram Oxalate (Lexapro) 5 mg PO DAILY [facility] Last Admin: 12/17/17 10:24 Dose: 5 mg Glucagon () 1 mg IM .X1 PRN PRN Reason: Hypoglycemia Heparin Sodium (Beef Lung) (Heparin 500 Unit/5 Ml (100/Ml)) 500 unit IV UD PRN PRN Reason: HEPARIN FLUSH Heparin Sodium (Porcine) (Heparin Na) 5,000 unit SC Q12 [facility] Last Admin: 12/17/17 21:14 Dose: 5,000 unit Sodium Chloride () 1,000 mls @ 15 mls/hr IV .Q48H [facility] PRN Reason: KVO Last Admin: 12/18/17 07:47 Dose: 15 mls/hr Sodium Chloride () 1,000 mls @ 150 mls/hr IV .Q6H40M [facility] Stop: 12/18/17 16:14 Last Admin: 12/18/17 10:38 Dose: 150 mls/hr Insulin Human Lispro (Humalog Kwikpen (Bkc)) 0 unit SQ ACHS CINDY PRN Reason: Protocol Last Admin: 12/18/17 07:03 Dose: Not Given Labetalol HCl (Trandate) 5 mg IV X1 PRN PRN Reason: SBP > 160 when pulling sheath Stop: 12/20/17 09:31 Magnesium Hydroxide (Milk Of Magnesia) 30 ml PO DAILY PRN PRN Reason: Constipation Metoprolol Succinate (Toprol Xl (Beta Yen)) 12.5 mg PO DAILY [facility] Last Admin: 12/18/17 06:08 Dose: 12.5 mg Multivitamins/Minerals (Healthy Eyes) 1 tablet PO QHS [facility] Last Admin: 12/17/17 21:14 Dose: Not Given Nitroglycerin (Nitrostat) 0.4 mg SUBLINGUAL Q5M PRN PRN Reason: CHEST PAIN Pantoprazole Sodium (Protonix) 40 mg PO DAILY [facility] Last Admin: 12/18/17 06:08 Dose: 40 mg Sodium Chloride () 5 - 30 ml IV UD PRN PRN Reason: SALINE FLUSH Sodium Chloride () 500 ml IV BOLUS PRN PRN Reason: VASO-VAGAL PROTOCOL Medical Necessity - Tobacco Use Smoking Status: Former smoker Assessment/Plan All Active Problems (Last Updated 10/10/17 @ 13:08 by Stephanie England) Left arm pain (Acute) Dyspnea on exertion (Acute) Atherosclerosis of coronary artery of [place] heart without angina pectoris (Acute) Unstable angina (Resolved) 1. Unstable angina s/p stent to circ 12/18/17 on ASA, HIS, plavix, Torpol XL 2. DVT proph: SQ heparin. Code Visit Inpatient E&M: 00347 Subs Hosp L2
[2017-12-18 12:05] LABS: ACT Activated Clotting Time 175 sec (74-137)
[2017-12-18] MEDS: Escitalopram Oxalate 10 MG Tablet 5 MG PO (14:35)
[2017-12-18 14:41] LABS: Bedside Glucose 102 mg/dL (70-110)
[2017-12-18 18:30] LABS: Bedside Glucose 137 mg/dL (70-110)
--- NOTE | 2017-12-18 20:25 | NURSING ---
pt ambulated to bathroom and back to bed at 1950. Heart cath site c/d/i, no bleeding or hematoma noted.
[2017-12-18] MEDS: Atorvastatin Calcium 40 MG Tablet PO (21:33)
[2017-12-18] MEDS: Heparin Injection (Vial) 5,000 UNIT/ML VIAL 5000 UNIT SC (21:33)
[2017-12-18 21:45] LABS: Bedside Glucose 172 mg/dL (70-110)
[2017-12-19] VITALS (15 sets, daily range): BP systolic 90–143; BP diastolic 37–68; PULSE 58–80; RESP 12–19; TEMP 36.4–36.6; O2SAT 94–97
[2017-12-19 04:31] LABS: Hematocrit 33.5 % (40-54); Hemoglobin 11.3 g/dl (13.0-16.5); Mean Corp Hgb Conc 33.7 g/gl (32-36); Mean Corpuscular Volume 85.9 fL (80-94); Mean Platelet Vol. 10.4 fl (6.2-12.0); Platelet Count 152 K/mm3 (150-450); RBC Distribution Width CV 12.7 % (11.6-14.6); RBC Distribution Width SD 39.9 fl (35.1-43.9); White Blood Count 4.5 K/mm3 (4.4-11.0)
[2017-12-19 04:34] LABS: Scan Indicated on CBC? Y/N NO
[2017-12-19 04:52] LABS: Anion Gap 8 (5-15); BUN 17 mg/dL (7-18); BUN/Creat Ratio 22.8 RATIO (10-20); Chloride 111 mmol/L (98-107); Creatinine, Serum 0.75 mg/dL (0.70-1.30); EST Glomerular Filtration Rate 106 mL/min (>60); Est Glom Filt Rate - Afr Amer 128 mL/min (>60); Estimated Creatinine Clearance 52.33 ml/min; Glucose 123 mg/dL (74-106); Potassium 3.9 mmol/L (3.5-5.1); Sodium Level 146 mmol/L (136-145)
[2017-12-19] MEDS: Clopidogrel Bisulfate 75 MG Tablet PO (05:48)
[2017-12-19 06:46] LABS: Bedside Glucose 120 mg/dL (70-110)
--- NOTE | 2017-12-19 07:55 | PCM.PN.BLA ---
Progress Note He will keep January 03, 2018 appointment with [facility] Nurse Practitioner, David Bauer, at 11:00 for ongoing evaluation.
--- NOTE | 2017-12-19 08:11 | PCM.PN.HOSP ---
Patient Problems: Active and Suspected Problems (Last Updated 12/18/17 @ 17:33 by Sandra Arnold) Left arm pain (Acute) Subjective: No new complaints. No chest pain. No right groin pain. Vitals/I&O's: Vital Signs Temp Pulse Resp BP Pulse Ox 36.4 C L 58 L 18 95/37 L 96 12/19/17 06:00 12/19/17 07:00 12/19/17 07:00 12/19/17 07:00 12/19/17 07:00 Oxygen Delivery Method Room Air Weight: 67 kg Intake and Output for Last 24 Hours 12/17/17 12/18/17 12/19/17 23:59 23:59 23:59 Intake Total 665 / 1025 1564 / 1564 360 / 360 Output Total 875 / 875 200 / 200 Balance 665 / 1025 689 / 689 160 / 160 General: Alert, No apparent distress HEENT: Atraumatic, Normocephalic Oral: Moist Mucosa, No Gingival or Mucosal Lesions/ Ulcerations Neck: No Nodes, Thyroid Normal Size and Texture Lungs: Clear to auscultation, Normal air movement, No rhonchi, No wheeze Cardiovascular: Regular rate, Regular Rhythm, Normal S1, Normal S2, No murmurs Abdomen: Bowel Sounds Present, Soft, Non Tender, Non-Distended, No Hepato-splenomegaly Extremities: No edema, No Calf Tenderness, - - ecchymosis right groin. Skin: No rashes, No breakdown Psych/Mental Status: Normal Affect, Appropriate Laboratory Results 12/18/17 09:29: Activated Clotting Time 208 H 12/18/17 10:55: Troponin I < 0.015 12/18/17 11:55: Activated Clotting Time 175 H 12/18/17 14:33: POC Glucose 102 12/18/17 15:40: Troponin I 0.020 12/18/17 18:09: POC Glucose 137 H 12/18/17 18:15: Troponin I 0.074 H 12/18/17 21:32: POC Glucose 172 H 12/19/17 04:20: WBC 4.5, RBC 3.90 L, Hgb 11.3 L, Hct 33.5 L, MCV 85.9, MCH 29.0, MCHC 33.7, RDW 12.7, RDW Differential 39.9, Plt Count 152, MPV 10.4 12/19/17 04:20: Sodium 146 H, Potassium 3.9, Chloride 111 H, Carbon Dioxide 27.0, Anion Gap 8, BUN 17, Creatinine 0.75, Estim Creat Clear Calc 52.33, Est GFR (MDRD) Af Amer 128, Est GFR (MDRD) Non-Af 106, BUN/Creatinine Ratio 22.8 H, Glucose 123 H, Calcium 8.0 L 12/19/17 06:41: POC Glucose 120 H Current Medications Amlodipine Besylate (Norvasc) 5 mg PO DAILY [facility] Last Admin: 12/18/17 06:08 Dose: 5 mg Aspirin (Ecotrin) 81 mg PO DAILY [facility] Last Admin: 12/18/17 06:08 Dose: 81 mg Atorvastatin Calcium (Lipitor) 40 mg PO QHS [facility] Last Admin: 12/18/17 21:33 Dose: 40 mg Atropine Sulfate () 0.5 mg IV UD PRN PRN Reason: HR <50 bpm Bisacodyl (Dulcolax) 5 mg PO DAILY PRN PRN PRN Reason: Constipation Clopidogrel Bisulfate (Plavix) 75 mg PO 0600,1800 [facility] Last Admin: 12/19/17 05:48 Dose: 75 mg Dextrose (D50w Syringe) 0 gm IV X1 PRN; Protocol PRN Reason: Hypoglycemia Escitalopram Oxalate (Lexapro) 5 mg PO DAILY [facility] Last Admin: 12/18/17 14:35 Dose: 5 mg Glucagon () 1 mg IM .X1 PRN PRN Reason: Hypoglycemia Heparin Sodium (Beef Lung) (Heparin 500 Unit/5 Ml (100/Ml)) 500 unit IV UD PRN PRN Reason: HEPARIN FLUSH Heparin Sodium (Porcine) (Heparin Na) 5,000 unit SC Q12 [facility] Last Admin: 12/18/17 21:33 Dose: 5,000 unit Sodium Chloride () 1,000 mls @ 15 mls/hr IV .Q48H [facility]IND[facility] PRN Reason: KVO Last Admin: 12/18/17 07:47 Dose: 15 mls/hr Insulin Human Lispro (Humalog Kwikpen (Bkc)) 0 unit SQ ACHS CINDY PRN Reason: Protocol Last Admin: 12/19/17 08:06 Dose: Not Given Labetalol HCl (Trandate) 5 mg IV X1 PRN PRN Reason: SBP > 160 when pulling sheath Stop: 12/20/17 09:31 Magnesium Hydroxide (Milk Of Magnesia) 30 ml PO DAILY PRN PRN Reason: Constipation Metoprolol Succinate (Toprol Xl (Beta Yen)) 12.5 mg PO DAILY [facility] Last Admin: 12/18/17 06:08 Dose: 12.5 mg Multivitamins/Minerals (Healthy Eyes) 1 tablet PO QHS [facility] Last Admin: 12/18/17 21:34 Dose: Not Given Nitroglycerin (Nitrostat) 0.4 mg SUBLINGUAL Q5M PRN PRN Reason: CHEST PAIN Pantoprazole Sodium (Protonix) 40 mg PO DAILY [facility] Last Admin: 12/18/17 06:08 Dose: 40 mg Sodium Chloride () 5 - 30 ml IV UD PRN PRN Reason: SALINE FLUSH Sodium Chloride () 500 ml IV BOLUS PRN PRN Reason: VASO-VAGAL PROTOCOL Medical Necessity - Tobacco Use Smoking Status: Former smoker Assessment/Plan All Active Problems (Last Updated 12/18/17 @ 17:33 by Sandra Arnold) Left arm pain (Acute) Dyspnea on exertion (Acute) Atherosclerosis of coronary artery of [place] heart without angina pectoris (Acute 09/02/17) Unstable angina (Resolved) 1. Unstable angina s/p stent to circ 12/18/17 on ASA, HIS, plavix, Torpol XL 2. DVT proph: SQ heparin. 3. Disposition: to home when ok w cardiology. Code Visit Inpatient E&M: 45901 Subs Hosp L2
--- NOTE | 2017-12-19 09:42 | PCM.PN.CARD ---
Subjectve: Patient doing very well this morning. Denies any chest pain, in fact feels much better since angioplasty. Right groin is clean/dry/intact with mild ecchymosis, no bruits, thrills or hematoma. 2+ DP PT pulses bilaterally. Creatinine and hemoglobin within nominal limits. Telemetry showed normal sinus rhythm, rare PVCs. Objective: Vital Signs Temp Pulse Resp BP Pulse Ox 97.5 F L 80 17 137/57 H 95 12/19/17 06:00 12/19/17 08:00 12/19/17 08:00 12/19/17 08:00 12/19/17 08:00 Oxygen Delivery Method Room Air Weight: 147 lb 11.355 oz Intake and Output for Last 24 Hours 12/17/17 12/18/17 12/19/17 23:59 23:59 23:59 Intake Total 665 / 1025 1564 / 1564 360 / 360 Output Total 875 / 875 200 / 200 Balance 665 / 1025 689 / 689 160 / 160 General: Awake, Alert, Oriented x 3 HEENT: PERRL, EOMI, Sclera Non Icteric Neck: Supple, Good ROM, No Lymph Node Enlargement Lungs: Clear to auscultation Cardiovascular: Regular Rhythm, Normal S1, Normal S2, No Murmurs, No Rubs, No Gallops Vascular: No Carotid Bruits, Normal Femoral Pulses, Normal Radial Pulses, Normal Dorsalis Pedal Pulse, Normal Posterior Tibial Pulses Abdomen: Bowel Sounds Present, Soft, Non Tender, No HSM, No Organomegaly Extremities: No Cyanosis, No Clubbing, No edema Neurological: No Focal Motor or Sensory Deficit 12/18/17 10:55: Troponin I < 0.015 12/18/17 15:40: Troponin I 0.020 12/18/17 18:15: Troponin I 0.074 H 12/19/17 04:20: WBC 4.5, RBC 3.90 L, Hgb 11.3 L, Hct 33.5 L, MCV 85.9, MCH 29.0, MCHC 33.7, RDW 12.7, RDW Differential 39.9, Plt Count 152, MPV 10.4 12/19/17 04:20: Sodium 146 H, Potassium 3.9, Chloride 111 H, Carbon Dioxide 27.0, Anion Gap 8, BUN 17, Creatinine 0.75, Est GFR (MDRD) Af Amer 128, Est GFR (MDRD) Non-Af 106, BUN/Creatinine Ratio 22.8 H, Glucose 123 H, Calcium 8.0 L Rhythm: EKG: ECHO: Stress Test: Cardiac Cath: PCI: CT Surgery: Holter monitor: EPS: PPM: CXR: Chest CT Scan: Medical Necessity - Tobacco Use Smoking Status: Former smoker Assessment/Plan 1. Coronary artery disease: Patient presented with progressively worsening exertional anginal symptoms, shortness of breath, dyspnea on exertion superimposed on new onset atypical, nonexertional left arm pain with no associated chest pain. Out of an abundance of caution he was brought to the emergency room as we had already scheduled him for a diagnostic coronary angiogram tomorrow morning. Patient has been tolerant of his antihypertensive and dual antiplatelet therapy without any difficulty. His troponins are negative. His EKG is negative for acute changes. Patient underwent repeat catheterization which demonstrated widely patent stents of his RCA, LAD, and a probably significant stenosis in his proximal left circumflex which was known before. Patient underwent successful complex angioplasty and drug-eluting stent to the proximal left circumflex with suboptimal expansion of stent due to concentric calcification and fibrosis. This was despite double wire technique, multiple balloons and multiple wires. Patient absolutely no chest pain symptoms during balloon inflation or stent deployment, suggesting that he has no significant ischemia in this territory with occlusion of the vessel. Given his incomplete stent expansion and drug-eluting stent I recommend baby aspirin for life and Plavix 75 mg p.o. twice daily for at least 6 months time while his stent is endothelialized in. I would not recommend additional intervention at this time given his atypical symptoms, lack of chest pain during balloon inflation, complex tortuosity of his left circumflex with concentric calcification. 2. Hyperlipidemia: Continue Lipitor. 3. Thank you very much for the opportunity to participate in the cardiac care of your patient. Patient may be discharged home. Code Visit Inpatient E&M: 46904 Subs Hosp L2
[2017-12-19] MEDS: Pantoprazole Sodium 40 MG Tablet PO (09:48)
[2017-12-19] MEDS: amLODIPine 5 MG Tablet PO (09:48)
[2017-12-19] MEDS: Aspirin E.C. 81 MG Tablet PO (09:48)
[2017-12-19] MEDS: Escitalopram Oxalate 10 MG Tablet 5 MG PO (09:49)
[2017-12-19] MEDS: Metoprolol(XL)Succ 25 MG Tablet 12.5 MG PO (09:49)
[2017-12-19] MEDS: Heparin Injection (Vial) 5,000 UNIT/ML VIAL 5000 UNIT SC (09:50)
--- NOTE | 2017-12-19 09:53 | PCM.DC ---
- Discharge Diagnoses Current Active Problems: Current Active and Chronic Problems (Last Updated 12/18/17 @ 17:33 by Sandra Arnold) Left arm pain (Acute) Diabetes (Chronic) You will use the following diet at home:: Calorie/Carbohydrate Controlled (specify 1200, 1400, etc) - 1800, Cardiac Your food should be the consistency of: Regular Your liquids should be the consistency of: Regular/Thin Discharge Activity: - - activity as tolerated Call your doctor if your incision/area has: Continuous Slow Oozing, Sudden Increased Bleeding, Increased Pain/ Swelling Call your doctor if you observe: Fever of 101 or Higher, Shortness of breath, Chest pain Instructions: ED Chest Pain NonCardiac Allergies/Adverse Reactions: Allergies Penicillins Allergy (Verified 12/16/17 22:12) Unknown Medications to take at Discharge Amlodipine [Norvasc] 5 mg PO DAILY 08/30/17 Aspirin [Aspir-Low] 81 mg PO DAILY 08/30/17 Escitalopram Oxalate [Lexapro] 5 mg PO DAILY 08/30/17 Lansoprazole [Prevacid] 30 mg PO DAILY 08/30/17 Mv-Min/FA/Vit K/Lycop/Lut/Zeax [Ocuvite Eye Plus Multi Tablet] 1 ea PO QHS 08/30/17 metoprolol succinate ER 25 mg tablet,extended release 24 hr 12.5 mg PO DAILY tab 12/13/17 Atorvastatin Calcium [Lipitor] 40 mg PO QHS #30 tab 12/19/17 Clopidogrel Bisulfate [Plavix] 75 mg PO 0600,1800 #60 tab 12/19/17 Metformin HCl [Glucophage] 100 mg PO BIDCM #0 12/19/17 The following prescriptions were given: Atorvastatin Calcium [Lipitor] 40 mg PO QHS #30 tab Clopidogrel Bisulfate [Plavix] 75 mg PO 0600,1800 #60 tab Primary Care Physician: Valeriano Monroy [Primary Care Provider] - Within 2 Weeks Test Results: Test results from this visit will be discussed in further detail at your follow-up appointment, if applicable. Please Follow Up With: Hernandez Lafleur MD When: 2-4 weeks Proposed Discharge Date: 12/19/17
--- NOTE | 2017-12-19 09:55 | PCM.DC.SUM ---
Discharge Date and Diagnosis Date of Admission: 12/16/17 Date of Discharge: 12/19/17 - Primary Discharge Diagnosis Active and Suspected Problems (Last Updated 12/18/17 @ 17:33 by Sandra Arnold) Left arm pain (Acute) - Secondary Discharge Diagnosis Chronic Problems (Last Updated 12/18/17 @ 17:33 by Sandra Arnold) Diabetes (Chronic) History of coronary artery stent placement (Chronic 12/18/17) LBF-LFA-Gyun RCA w/ 3.0 x 16 mm Promus Stent 09/02/2017; PCI-LOUISE of proximal LCX with 3.0 X12 Promus Synergy 12/18/2017 HTN (hypertension) (Chronic) HLD (hyperlipidemia) (Chronic) Hospital Course and Treatment Imaging Results: Clinical Impression(s) from Imaging Studies Chest X-Ray 12/16/17 19:45 IMPRESSION: No acute cardiopulmonary disease or interval change. Electronically Signed: Ayush Roche DO at 20:03 EDT Tel [phone], Service support , Hernandez Lafleur MD; cardiology Operations: None Procedures: Cardiac catheterization Summary of Care Provided: The patient is a 82 year old M resents with chest pain. Patient underwent a left heart catheterization on the fifth and had a stent to the left circumflex. Patient tolerated the procedure well. Per cardiology's note: Patient underwent repeat catheterization which demonstrated widely patent stents of his RCA, LAD, and a probably significant stenosis in his proximal left circumflex which was known before. Patient underwent successful complex angioplasty and drug-eluting stent to the proximal left circumflex with suboptimal expansion of stent due to concentric calcification and fibrosis. This was despite double wire technique, multiple balloons and multiple wires. Patient absolutely no chest pain symptoms during balloon inflation or stent deployment, suggesting that he has no significant ischemia in this territory with occlusion of the vessel. Given his incomplete stent expansion and drug-eluting stent I recommend baby aspirin for life and Plavix 75 mg p.o. twice daily for at least 6 months time while his stent is endothelialized in. I would not recommend additional intervention at this time given his atypical symptoms, lack of chest pain during balloon inflation, complex tortuosity of his left circumflex with concentric calcification. Patient will be discharged today. [] Discharge Diet: Low fat/ Low Cholesterol, 1800 Calorie Control Diet Discharge Activity: - - activity as tolerated Call your doctor if your incision/area has: Continuous Slow Oozing, Sudden Increased Bleeding, Increased Pain/ Swelling Call your doctor if you observe: Fever of 101 or Higher, Shortness of breath, Chest pain Home Medications: Medications to take at Discharge Amlodipine [Norvasc] 5 mg PO DAILY 08/30/17 Aspirin [Aspir-Low] 81 mg PO DAILY 08/30/17 Escitalopram Oxalate [Lexapro] 5 mg PO DAILY 08/30/17 Lansoprazole [Prevacid] 30 mg PO DAILY 08/30/17 Mv-Min/FA/Vit K/Lycop/Lut/Zeax [Ocuvite Eye Plus Multi Tablet] 1 ea PO QHS 08/30/17 metoprolol succinate ER 25 mg tablet,extended release 24 hr 12.5 mg PO DAILY tab 12/13/17 Atorvastatin Calcium [Lipitor] 40 mg PO QHS #30 tab 12/19/17 Clopidogrel Bisulfate [Plavix] 75 mg PO 0600,1800 #60 tab 12/19/17 Metformin HCl [Glucophage] 100 mg PO BIDCM #0 12/19/17 Following Prescrptions Were Given to Patient: Atorvastatin Calcium [Lipitor] 40 mg PO QHS #30 tab Clopidogrel Bisulfate [Plavix] 75 mg PO 0600,1800 #60 tab Primary Care Physician: Valeriano Monroy [Primary Care Provider] - Within 2 Weeks Please Follow Up With: Hernandez Lafleur MD When: 2-4 weeks Patient Instructions: ED Chest Pain NonCardiac Disposition: Home Minutes spent on discharge:: 32 Patient Condition:: Fair Medical Necessity - Tobacco Use Smoking Status: Former smoker Meaningful Use Info Meaningful Use Diagnoses (Choose all that apply): None applicable Code Visit Inpatient E&M: 67344 Disch Hosp
--- NOTE | 2017-12-19 10:00 | EKG12_ITS ---
Test Reason : AM EKG Blood Pressure : / mmHG Vent. Rate : 071 BPM Atrial Rate : 071 BPM P-R Int : 162 ms QRS Dur : 092 ms QT Int : 424 ms P-R-T Axes : 036 -20 036 degrees QTc Int : 460 ms Sinus rhythm with frequent Premature ventricular complexes Inferior infarct , age undetermined Abnormal ECG When compared with ECG of 18-DEC-2017 10:21, MANUAL COMPARISON REQUIRED, DATA IS UNCONFIRMED Confirmed by ASAF KYLE, DE ([id number]), editorial clerk CELSO URBANO ([id number]) on 12/25/2017 2:10:44 PM Referred By: Hernandez Lafleur Confirmed By:DE RON MD
== END 2017-12-19 11:58 | disposition home or self-care (01) | DRG 247 ==
LOC: ED 20:06 → PCU 20:52 → ICU 12-18 09:25
PROVIDERS: Internal Medicine Cardiovascular Disease; Admitting Provider Hospitalist; Emergency Provider Emergency Medicine; Family Provider Internal Medicine; PCP Internal Medicine
DX: I25.110 Atherosclerotic heart disease of native coronary artery with unstable angina pectoris (principal); E11.9 Type 2 diabetes mellitus without complications; Z95.5 Presence of coronary angioplasty implant and graft; Z87.891 Personal history of nicotine dependence; E78.5 Hyperlipidemia, unspecified; Z79.84 Long term (current) use of oral hypoglycemic drugs; I10 Essential (primary) hypertension
CPT/HCPCS: 36415; 71045; 80048; 81001; 82962; 84484; 85025; 85027; 85347; 85610; 85730; 92928; 93005; 93458; 99285; J7030; A4216; C1725; C1769; C1874; C1887; C1894; C9600; Q9967

== ENCOUNTER 2018-01-10 08:00 | Outpatient (RCR) | payer MEDICARE, BC, SELFPAY ==
[2017-12-14 01:22] VITALS: BP 122/64; BP 144/60
--- NOTE | 2018-01-08 14:12 | PCM.CR.ITP ---
Exercise - 90-Day Assessment - Visit Date of Eval: 01/08/18 - Patient restented and was absent 12/09-01/06/18 Session #:: 23 - Stages of Change Stages of Change:: Action - Exercise Prescription Mode:: Treadmill, Rower, Airdyne, NuStep Frequency (x/week): 3 Duration:: 30 METs: 4 Target Heart Rate:: 103-110 - Hypertension Resting Blood Pressure:: 98/40 Peak Exercise Blood Pressure:: 140/70 Medication Changes:: No - Intervention Home Exercise/Activity Goal:: Moderate Exercise 30 min/day x 5 days/wk - Education Goals:: Warm-up, RPE CAT Scale, S/S, Safe Exercise, Self-Monitoring - Exercise Program Goals Exercise Program Goals: Aerobic Activity >30 min Nutrition - 90-Day Assessment - Program Goals Nutrition Program Goals: LDL <70. Total Cholesterol <200. HDL >45. Triglycerides <150. HgbA1C <7%. BMI <25 - Visit Date of Eval: 01/08/18 - Stages of Change Stages of Change:: Action - Lipids Has the patient seen the dietitian?: No - Diabetes Diabetes:: No Insulin: No Non-Insulin Dependent?: No - Weight Management Weight:: 150 lb - Intervention Referral to dietitian:: No Referral to Diabetic Clinic:: No Will attend diet classes:: Yes - Education Attended class for:: Healthy eating Tobacco - Initial Assessment - Program Goals Tobacco Program Goals: Complete smoking cessation. Attend education classes. Improve Knowledge Test score - Learning Barriers Learning Barriers: Hearing, Ready to Learn Tobacco - 90-Day Assessment - Program Goals Tobacco Program Goals: Complete smoking cessation. Attend education classes. Improve Knowledge Test score - Stage of Change Stages of Change:: Action - Learning Barriers Learning Barriers: Declined education - Family Support Do you have family support?: No - Tobacco Use Tobacco Use: Non-smoker Do you use smokeless tobacco?: No - Intervention Smoking Cessation Referral:: No Education Schedule Given:: Yes - Education Attended class for:: Tobacco triggers, Coronary artery disease, Risk factors, Sexuality, Medical compliance, Cardiac A&P, Angina signs & symptoms Psychosocial - Initial Assess - Target Goals Target Goals: Assess presence or absence of depression. Using a valid screening tool, maximizes coping skills. Positive support system - Psychosocial Test Tool Used:: HANDS Depression Questionnaire - Assistive Devices Fall Risk Assessed:: Yes Psychosocial - 90-Day Assess - Target Goals Target Goals: Assess presence or absence of depression. Using a valid screening tool, maximizes coping skills. Positive support system - Stages of Change Stages of Change:: Action - Psychosocial Test Tool Used:: HANDS Depression Questionnaire - Intervention PS - Interventions: Yes Attend Stress Management Classes, Yes Uses Stress Management Skills, No Referral to Mental Health, No Referral to [facility] Case Management, No Referral to Physician - Education Attended classes for:: Coping techniques, Signs & symptoms of depression, Stress management, Relaxation techniques - Patient/Program Goal Preventative Medication(s):: Aspirin, Clopidogrel, Statin/lipid - Assistive Devices Assistive Devices:: None Fall Risk Assessed:: Yes Patient Health Questionnaire 90-Day Re-eval Assessment 1. Little interest or pleasure in doing things: Several days 2. Feeling down, depressed, or hopeless: Several days 3. Trouble falling or staying asleep, or sleeping too much: Not at all 4. Feeling tired or having little energy: Several days 5. Poor appetite or overeating: Several days 6. Feeling bad about yourself -- or that you are a failure or have let yourself or your family down: Not at all 7. Trouble concentrating on things, such as reading the newspaper or watching television: Not at all 8. Moving or speaking so slowly that other people could have noticed. Or the opposite - being so fidgety or restless that you have been moving around a lot more than usual: Not at all 9. Thoughts that you would be better off , or of hurting yourself in some way: Not at all How difficult have these problems made it for you to do your work, take care of things at home, or get along with other people?: Not difficult at all Total Score: 4 Self-Efficacy 90-Day Re-eval Assessment We would like to know how confident you are in doing certain activities. Please select your confidence level for:: Select your confidence level for the following using the scale 1-10 where 1 is not at all confident and 10 is totally confident. Your score is the average of all 6 responses. Fatigue: How confident are you that you can keep the fatigue caused by your disease from interfering with the things you want to do? Select Number: 8 Physical Discomfort or Pain: How confident are you that you can keep the physical discomfort or pain of your disease from interfering with the things you want to do? Select Number: 8 Emotional Distress: How confident are you that you can keep the emotional distress caused by your disease from interfering with the things you want to do? Select Number: 8 Other Symptoms or Health Problems: How confident are you that you can keep other symptoms or health problems from interfering with the things you want to do? Select Number: 8 Different Tasks and Activities: How confident are you that you can do the different tasks and activities needed to manage your health condition so as to reduce your need to see a doctor? Select Number: 8 Medication: How confident are you that you can do things other than just taking medication to reduce how much your illness affects your everyday life? Select Number: 8 Total Score:: 8
[2018-01-08 14:18] VITALS: BP 140/70; BP 98/40
== END 2018-01-12 23:59 ==
LOC: CR 08:00
PROVIDERS: Family Provider Internal Medicine; PCP Internal Medicine; Visit Provider Internal Medicine Cardiovascular Disease
DX: I25.810 Atherosclerosis of coronary artery bypass graft(s) without angina pectoris (principal); I10 Essential (primary) hypertension; Z72.0 Tobacco use; Z95.5 Presence of coronary angioplasty implant and graft
CPT/HCPCS: 93798

== ENCOUNTER 2018-02-10 08:00 | Outpatient (RCR) | payer MEDICARE, BC, SELFPAY ==
[2018-01-13 01:03] VITALS: BP 140/70; BP 98/40
--- NOTE | 2018-02-07 08:08 | PCM.CR.ITP ---
General Information - Education/Goals Cardiac Rehabilitation Goals: 1. Maintain the individual as the primary focus of care. 2. To improve the patient's quality of life. 3. Identification of cardiac risk factors and provide cardiac risk factor management. 4. Enhance the psychosocial status of the patient. 5. Reconditioning enough to allow the patient to resume customary activities. 6. Control symptoms of cardiac disease Scale for measuring improvement of personal goals: Enter appropriate number in Comments. 2 = Unchanged. 3 = Slightly Better. 4 = Moderate Improvement. 5 = Met my Goal Personal Goals: Discharge Reassessment: Improve energy level - Goal met, Improve knowledge of cardiac disease - goal met, Improve muscle strength and endurance - Goal met, Control risk factors (learn risk factor modification) - goal met Exercise - Final/Discharge - Visit Date of Eval: 02/07/18 Session #:: 35 - Stages of Change Stages of Change:: Action - Exercise Prescription Mode:: Treadmill, Airdyne, NuStep Frequency (x/week): 3 Duration:: 35 METs: 4 Target Heart Rate:: 103-110 Max HR 96 - Hypertension Do any of the following apply?: Yes, Medication Resting Blood Pressure:: 98/40 Peak Exercise Blood Pressure:: 130/50 - on Airdyne - Intervention Home Exercise/Activity Goal:: Moderate Exercise 30 min/day x 5 days/wk - Education Goal Progress: Goal Met - Exercise Program Goals Exercise Program Goals: Aerobic Activity >30 min Nutrition - Final Assessment - Program Goals Nutrition Program Goals: LDL <70. Total Cholesterol <200. HDL >45. Triglycerides <150. HgbA1C <7%. BMI <25 - Visit Date of Eval: 02/07/18 - session 35 - Stages of Change Stages of Change:: Action - Diabetes Diabetes:: No Non-Insulin Dependent?: No - Weight Management Height: 5 ft 8 in Weight:: 144 lb Body Fat %:: 23.3 - Intervention Referral to dietitian:: No Referral to Diabetic Clinic:: No Will attend diet classes:: Yes - Patient participated actively in education - Education Education Goal Reached?: Yes Tobacco - Initial Assessment - Program Goals Tobacco Program Goals: Complete smoking cessation. Attend education classes. Improve Knowledge Test score - Learning Barriers Learning Barriers: Hearing, Ready to Learn Tobacco - Final Assessment - Program Goals Tobacco Program Goals: Complete smoking cessation. Attend education classes. Improve Knowledge Test score - Stage of Change Stages of Change:: Action - Family Support Do you have family support?: Yes - Tobacco Use Tobacco Use: Non-smoker Do you use smokeless tobacco?: No - Intervention Smoking Cessation Referral:: No Individual Education/Counseling:: No Education Schedule Given:: Yes - Education Education Goal Reached?: Yes Psychosocial - Initial Assess - Target Goals Target Goals: Assess presence or absence of depression. Using a valid screening tool, maximizes coping skills. Positive support system - Psychosocial Test Tool Used:: HANDS Depression Questionnaire - Assistive Devices Fall Risk Assessed:: Yes Psychosocial - Final Assessmen - Target Goals Target Goals: Assess presence or absence of depression. Using a valid screening tool, maximizes coping skills. Positive support system - Stages of Change Stages of Change:: Action - Psychosocial Test Tool Used:: HANDS Depression Questionnaire - Intervention PS - Interventions: Yes Attend Stress Management Classes, Yes Uses Stress Management Skills, No Referral to Mental Health, No Referral to [facility] Case Management, No Referral to Physician - Education Education Goal Reached?: Yes - Patient/Program Goal Preventative Medication(s):: Aspirin, Clopidogrel, Beta javier, Statin/lipid - Assistive Devices Assistive Devices:: None Fall Risk Assessed:: Yes Patient Health Questionnaire Discharge Assessment 1. Little interest or pleasure in doing things: Not at all 2. Feeling down, depressed, or hopeless: Not at all 3. Trouble falling or staying asleep, or sleeping too much: Not at all 4. Feeling tired or having little energy: Not at all 5. Poor appetite or overeating: Not at all 6. Feeling bad about yourself -- or that you are a failure or have let yourself or your family down: Not at all 7. Trouble concentrating on things, such as reading the newspaper or watching television: Not at all 8. Moving or speaking so slowly that other people could have noticed. Or the opposite - being so fidgety or restless that you have been moving around a lot more than usual: Not at all 9. Thoughts that you would be better off , or of hurting yourself in some way: Not at all How difficult have these problems made it for you to do your work, take care of things at home, or get along with other people?: Not difficult at all Total Score: 0 KIARA-Q SV Test - Statements CAD is a disease of the arteries in the heart: False Examples of risk factors for heart disease: True Angina is chest pain or discomfort: True The benefits of resistance training include: True Eating more meat and dairy products: False Anti-platelet medications such as aspirin are important: True The only effective way to manage stress: False An exercise warm-up slowly increases heart rate: True Prepared, processed foods usually have high sodium: True Depression is common after a heart attack: True The statin medications lower cholesterol: True To control blood pressure, lower the amount of sodium: True If someone gets chest discomfort during walking: False Transfats are partially hydrogenated vegetable oils: True Sleep apnea that is not treated increases the risk: False To control cholesterol, one should become a vegetarian: False Someone knows if he/she is exercising at the right level: True Diabetes cannot be prevented with exercise & health eating: False Stress is a large risk for heart attack: True A diet that can help lower blood pressure is rich in: True - Total Score Total Correct Responses: 20 Self-Efficacy Discharge Assessment We would like to know how confident you are in doing certain activities. Please select your confidence level for:: Select your confidence level for the following using the scale 1-10 where 1 is not at all confident and 10 is totally confident. Your score is the average of all 6 responses. Fatigue: How confident are you that you can keep the fatigue caused by your disease from interfering with the things you want to do? Select Number: 10 Physical Discomfort or Pain: How confident are you that you can keep the physical discomfort or pain of your disease from interfering with the things you want to do? Select Number: 10 Emotional Distress: How confident are you that you can keep the emotional distress caused by your disease from interfering with the things you want to do? Select Number: 10 Other Symptoms or Health Problems: How confident are you that you can keep other symptoms or health problems from interfering with the things you want to do? Select Number: 10 Different Tasks and Activities: How confident are you that you can do the different tasks and activities needed to manage your health condition so as to reduce your need to see a doctor? Select Number: 10 Medication: How confident are you that you can do things other than just taking medication to reduce how much your illness affects your everyday life? Select Number: 10 Total Score:: 10 Nutrition Survey - Nutrition Survey Instructions Scoring Instructions: Scoring is as follows: Yes = 1 points. No = 0 point. Patient score that is >/=12 is considered to be at potential nutritional risk and could benefit from a referral to a registered dietitian. - Nutrition Survey Discharge Have you lost >10 lbs over the past 2 months without trying?: No Are you following a special diet at home for diabetes, low fat, or low salt?: No Are you interested in meeting with a dietitian for help understanding your diet?: No Do you eat less than 3 meals a day?: No Do you eat fatty meats (rich, sausage, ribs, etc), fried foods, desserts, large amounts of salad dressings, margarine, butter, or cheese most days?: No Do you have food allergies? [Enter types in comment field]: No Do you eat in restaurants more than 3 times a week?: No Do you season food with salt, seasoning salt, or garlic salt?: No Do you used canned, boxed, frozen meals, or soups, seasoning packets?: Yes Total Score:: 1
[2018-02-07 08:13] VITALS: BP 130/50; BP 98/40
== END 2018-02-12 23:59 ==
LOC: CR 08:00
PROVIDERS: Family Provider Internal Medicine; PCP Internal Medicine; Referring Provider Internal Medicine Cardiovascular Disease; Visit Provider Internal Medicine Cardiovascular Disease
DX: I25.810 Atherosclerosis of coronary artery bypass graft(s) without angina pectoris (principal); I10 Essential (primary) hypertension; Z72.0 Tobacco use; Z95.5 Presence of coronary angioplasty implant and graft
CPT/HCPCS: 93798

== ENCOUNTER 2018-02-14 06:55 | Outpatient (RCR) | payer MEDICARE, BC, SELFPAY ==
[2018-02-13 01:07] VITALS: BP 130/50; BP 98/40
== END 2018-03-14 23:59 ==
LOC: CR 06:55
PROVIDERS: Family Provider Internal Medicine; PCP Internal Medicine; Referring Provider Internal Medicine Cardiovascular Disease; Visit Provider Internal Medicine Cardiovascular Disease
DX: I25.810 Atherosclerosis of coronary artery bypass graft(s) without angina pectoris (principal); I10 Essential (primary) hypertension; Z72.0 Tobacco use; Z95.5 Presence of coronary angioplasty implant and graft
CPT/HCPCS: 93798

== ENCOUNTER → 2018-09-23 10:23 | Outpatient (CLI) | payer MEDICARE, BC, SELFPAY ==
[2018-09-15 13:41] VITALS: BMI 21.7
[2018-09-23 11:55] LABS: AST(SGOT) 14 U/L (15-37); Alanine Aminotransfer ALT/SGPT 17 U/L (16-61); Albumin, Serum 3.5 g/dL (3.2-5.0); Alkaline Phosphatase 57 U/L (45-117); Bilirubin, Direct 0.15 mg/dL (0.00-0.30); Cholesterol 135 mg/dL (200); Globulin 3.6 g/dL (2.2-4.2); High Density Lipoprotein 40 mg/dL; Protein, Total 7.1 g/dL (6.4-8.2); Triglycerides 114 mg/dL; Very Low Density Lipoprotein 23 mg/dL (5-40)
== END ==
LOC: LABSURVEY 10:27 → LAB 10:30
PROVIDERS: Family Provider Internal Medicine; PCP Internal Medicine; Referring Provider Internal Medicine Cardiovascular Disease; Visit Provider Internal Medicine Cardiovascular Disease
DX: I25.10 Atherosclerotic heart disease of native coronary artery without angina pectoris (principal); E78.5 Hyperlipidemia, unspecified; E11.9 Type 2 diabetes mellitus without complications
CPT/HCPCS: 36415; 80061; 80076

== ENCOUNTER 2019-10-16 12:28 | Inpatient (IN) | payer MEDICARE, BC, SELFPAY ==
[2019-10-15 15:18] VITALS: BMI 23.8
[2019-10-16] VITALS (9 sets, daily range): BP systolic 113–133; BP diastolic 50–62; PULSE 64–75; RESP 16–21; TEMP 36.7–37.2; O2SAT 94–98; BMI 20.7; BMI 22.2; BMI 22.3
--- NOTE | 2019-10-16 12:35 | EKG12_ITS ---
Test Reason : Blood Pressure : / mmHG Vent. Rate : 064 BPM Atrial Rate : 064 BPM P-R Int : 144 ms QRS Dur : 092 ms QT Int : 406 ms P-R-T Axes : 039 -13 039 degrees QTc Int : 418 ms Normal sinus rhythm Inferior infarct , age undetermined Abnormal ECG Confirmed by NICOLE DAN ([id number]), videotape editor GALE FARIAS ([id number]) on 10/19/2019 2:15:32 PM Referred By: SARAH Confirmed By:NICOLE DAN
--- NOTE | 2019-10-16 12:35 | CT_ITS ---
STUDY: CT BRAIN WITHOUT CONTRAST REASON FOR EXAM: Male, 84 years old. DIZZINESS/DIAPHORESIS. Hx of HTN, diabetes, skin cancer and heart stents. RADIATION DOSAGE (If Supplied By Facility): CTDIvol = ( 44.99 ) mGy, DLP = ( 796.11 ) mGycm TECHNIQUE: Transaxial CT imaging of the brain was performed without administration of intravenous contrast material. Individualized dose optimization techniques were used for this CT. COMPARISON: No relevant priors. FINDINGS: Normal soft tissue structures. Normal calvarium. There is moderate cerebral atrophy with widening of the extra-axial spaces and ventricular dilatation. There are areas of decreased attenuation within the white matter tracts of the supratentorial brain, consistent with microvascular disease changes. Normal basal ganglia and thalami. Normal brainstem. Normal cerebellum. There is no intracranial hemorrhage. There are no findings of an acute ischemic infarction. Mucosal retention cyst or polyp of the right maxillary sinus. CT/Brain/Head without Contrast IMPRESSION: Chronic involutional changes of the brain. Electronically Signed: Sathish Christie MD at 13:20 EDT , Service support ,
--- NOTE | 2019-10-16 12:50 | RAD_ITS ---
STUDY: X-RAY CHEST REASON FOR EXAM: Male, 84 years old. DIZZINESS AND CHEST PAINS. TECHNIQUE: Single AP portable view of the chest. COMPARISON: December 16, 2017 FINDINGS: There are monitoring devices. The lungs are clear and expanded. There is no demonstrated pleural abnormality. Normal size heart. Normal mediastinum and eirka. Normal visualized pulmonary arteries. There is atherosclerotic calcification of the aortic arch with tortuosity. There is demineralization of the osseous structures. Degenerative change of the spine and shoulders. There are healed rib fractures. There is no demonstrated abnormality of the visualized soft tissue structures of the upper abdomen. RAD/Chest 1 View (Portable) IMPRESSION: Degenerative changes, as described above. No demonstrated acute cardiopulmonary process. Electronically Signed: Sathish Christie MD at 13:33 EDT , Service support ,
[2019-10-16 12:52] LABS: Absolute Lymphocyte Count 1.26 X10^3/uL (0.83-4.51); Absolute Neutrophil Count 7.3 X10^3/uL (2.0-7.7); Basophil# 0.03 X10^3/uL; Basophil% 0.3 % (0-1); Eosinophil# 0.11 X10^3/uL; Eosinophils% 1.2 % (0-5); Hematocrit 40.1 % (40-54); Hemoglobin 12.8 g/dL (13.0-16.5); Lymphocyte # 1.26 X10^3/ul (4.0); Lymphocyte % 13.3 % (19-41); Mean Corp Hgb Conc 31.9 g/dL (32-36); Mean Corpuscular Hgb 29.8 pg (27.0-32.0); Mean Corpuscular Volume 93.5 fL (80-94); Mean Platelet Vol. 9.9 fl (6.2-12.0); Monocyte# 0.69 X10^3/uL; Monocyte% 7.3 % (0-10); NRBC Flagged by Analyzer 0 % (0-5); Neutrophil # 7.33 X10^3/uL (2.7-7.7); Neutrophil % 77.6 % (47-70); Platelet Count 267 K/mm3 (150-450); RBC Distribution Width CV 13.2 % (11.6-14.6); RBC Distribution Width SD 44.6 fl (35.1-43.9); Red Blood Count 4.29 M/mm3 (4.6-6.2); White Blood Count 9.5 K/mm3 (4.4-11.0)
--- NOTE | 2019-10-16 12:53 | ED.VIS.GEN ---
History of Present Illness Chief Complaint: Dizziness Informant: Patient Narrative: 84-year-old male with past medical history of coronary artery disease, hypertension, diabetes presents with concern for dizziness. States about 4 hours ago became dizzy suddenly and began sweating. States this lasted for approximately 10 to 15 minutes. States that this time he has a headache and feels weak. He denies any chest pain, shortness of breath, nausea, vomiting. States that the dizziness is more presyncopal than the room spinning. Denies any head injury. Patient is currently on Plavix. Past Medical History - Allergies and Home Meds Allergies/Adverse Reactions: Allergies Penicillins Allergy (Verified 10/16/19 12:31) Unknown Prior records reviewed: Yes Past Medical History: - - HTN, DM, CAD Surgical History: - - Cardiac stenting Lives: Spouse/ Significant Other Smoking Status: Former smoker Alcohol: None Drugs: None - Family History Maternal Family History: Reports: - - from complications of Paternal Family History: Reports: Heart Disease - from [place] Review of Systems General: Reports: Sweats. Denies: Chills, Fever Eyes: Denies: Visual changes - bilaterally, Diplopia ENT: Denies: Rhinorrhea, Sore throat Cardiovascular: Denies: Chest pain, Palpitations Respiratory: Denies: Dyspnea, Cough, Dyspnea on exertion Gastrointestinal: Denies: Abdominal pain, Nausea, Vomiting, Diarrhea, Melena, Hematochezia Genitourinary: Denies: Dysuria, Hematuria, Frequency Musculoskeletal: Denies: Back pain, Extremity Pain Skin: Denies: Rash, Wounds Neurological: Reports: Weakness. Denies: Headache, Numbness - Dizziness Physical Exam Vital Signs/Narrative: Vital Signs Temp Pulse Resp BP Pulse Ox 10/16/19 12:31 98.9 F 66 16 114/50 L 96 Inital Vital Signs reviewed: Yes General: Well nourished, Well developed, No Acute Distress Head: Normocephalic, Atraumatic Eyes: Perrl, EOMI ENT: Moist mucous membranes, No rhinorrhea Neck: Supple, Nontender Cardiovascular: Regular rate, Regular rhythm, No murmurs Respiratory: No distress, CTA bilaterally, Chest nontender Abdomen: Soft, Nontender, Nondistended, Normal bowel sounds Back: Nontender, Normal Inspection Extremities: Nontender, No edema Skin: Normal color, No rash Neurological: Alert, Oriented x3, Cranial nerves II-XII grossly intact, Normal Strength, Normal Sensation Psychological: Normal affect, Normal Mood Diagnostic/Tx/Re-eval Clinical Impression(s) from Imaging Studies Brain CT 10/16/19 12:35 IMPRESSION: Chronic involutional changes of the brain. Electronically Signed: Sathish Christie MD at 13:20 EDT , Service support , Chest X-Ray 10/16/19 12:50 IMPRESSION: Degenerative changes, as described above. No demonstrated acute cardiopulmonary process. Electronically Signed: Sathish Christie MD at 13:33 EDT , Service support , Laboratory Data 10/16/19 10/16/19 12:35 12:35 WBC 9.5 RBC 4.29 L Hgb 12.8 L Hct 40.1 MCV 93.5 MCH 29.8 MCHC 31.9 L RDW Std Deviation 44.6 H RDW Coeff of Joshua 13.2 Plt Count 267 MPV 9.9 Immature Gran % (Auto) 0.300 Neut % (Auto) 77.6 H Lymph % (Auto) 13.3 L Sterling % (Auto) 7.3 Eos % (Auto) 1.2 Baso % (Auto) 0.3 Absolute Neuts (auto) 7.3 Absolute Lymphs (auto) 1.26 Nucleated RBC % 0 Sodium 143 Potassium 4.5 Chloride 110 H Carbon Dioxide 28.0 Anion Gap 5 BUN 25 H Creatinine 1.21 Estim Creat Clear Calc 39.08 Est GFR (MDRD) Af Amer 73 Est GFR (MDRD) Non-Af 61 BUN/Creatinine Ratio 20.7 H Glucose 146 H Calcium 8.7 Troponin I < 0.015 - Rhythm Strip Rhythm Strip: Sinus Rhythm Rate: 64 Ectopy: None - EKG Initial EKG Interpretation: Sinus Rhythm - Sinus rhythm at 64 bpm. IN interval 144 ms. QTC of 418 ms. No evidence of ST elevation or depression at this time. - Medical Decision Making Appears well nontoxic. Vital signs within normal limits. No evidence of acute focal neurologic deficit. Patient was given small fluid bolus. CT brain negative. Patient lab work fairly unremarkable. Patient was ambulated and appeared very ataxic and upon returning to bed heart rate was approximately 40. Spoke again with the patient as well as his were agreeable with admission. Hospitalist, Dr. Palacio, at the bedside, who will admit the patient. Patient admitted in stable condition. ED Disposition - Plan for ED Patient: Disposition: Acute Care Hospital [facility] Diagnosis: Ataxia, Volume depletion, Bradycardia
[2019-10-16 13:10] LABS: Anion Gap 5 (5-15); BUN 25 mg/dL (7-18); BUN/Creat Ratio 20.7 RATIO (10-20); Calcium,Total 8.7 mg/dL (8.5-10.1); Chloride 110 mmol/L (98-107); Creatinine, Serum 1.21 mg/dL (0.70-1.30); EST Glomerular Filtration Rate 61 mL/min (>60); Est Glom Filt Rate - Afr Amer 73 mL/min (>60); Estimated Creatinine Clearance 39.08 ml/min; Glucose 146 mg/dL (74-106); Potassium 4.5 mmol/L (3.5-5.1); Sodium Level 143 mmol/L (136-145)
--- NOTE | 2019-10-16 14:07 | NURSING ---
DR JORDY SMITH
--- NOTE | 2019-10-16 14:50 | NURSING ---
med surg ataxia sementi
--- NOTE | 2019-10-16 15:08 | HP.PCM_ITS ---
Problem List (1) Near syncope Status: Acute (2) Ataxia Status: Acute (3) Vertigo Status: Acute (4) Acute renal failure Status: Acute (5) Dehydration Status: Acute (6) Diabetes Status: Chronic (7) Volume depletion Status: Acute (8) Bradycardia Status: Acute (9) History of coronary artery stent placement Status: Chronic Comment: [id number] RCA w/ 3.0 x 16 mm Promus Stent 09/02/2017; PCI-LOUISE of proximal LCX with 3.0 X12 Promus Synergy 12/18/2017 (10) Atherosclerosis of coronary artery of [place] heart without angina pectoris Status: Acute Qualifiers: Coronary Disease-Associated Artery/Lesion type: [place] artery Qualified Code(s): I25.10 - Atherosclerotic heart disease of [place] coronary artery without angina pectoris Comment: [id number] RCA w/ 3.0 x 16 mm Promus Stent 09/02/17; PTCA/LOUISE to LCX in December 2017; (11) HTN (hypertension) Status: Chronic Qualifiers: Hypertension type: essential hypertension Qualified Code(s): I10 - Essential (primary) hypertension (12) HLD (hyperlipidemia) Status: Chronic Qualifiers: Hyperlipidemia type: pure hypercholesterolemia Qualified Code(s): E78.00 - Pure hypercholesterolemia, unspecified History of Present Illness Date of Admission: 10/16/19 Chief Complaint: vertigo associated with near syncope and generalized weakness The patient is a 84 year old M with a past medical history of hypertension, diabetes mellitus type 2, coronary artery disease with history of drug-eluting stent to the LAD and drug-eluting stent to the RCA in August 2017 and PTCA/LOUISE to the left circumflex in December 2017, hyperlipidemia, recently diagnosed dementia, tobacco dependence in remission and chronic normochromic normocytic anemia whon presented to the Ed at [facility] on 10/16/19 complaining of dizziness associated with sweating. To me he c/o vertigo and told me the room was spinning. He gets this often and it is always when he is standing. It goes away after he sits down for awhile. It is not associated with shortness of breath or palpitations. He denies chest pain in association with this near syncope. He was recently started on donepezil 5 mg daily approximately 3 weeks ago for memory difficulties. He actually recently saw Dr. Lafleur on 10/15/2019 complaining of similar symptoms and also fatigue and generalized weakness. He was given a requisition to obtain a stress echocardiogram. Vital signs at presentation to the emergency room were temperature 98.9, pulse rate 66, blood pressure 114/50, respiratory rate 16 and he was 96 to 98% saturated on room air. CBC showed a white blood cell count of 9.5 with 77% neutrophils. The hemoglobin was 12.8 and the platelets were within normal limits. There were normochromic normocytic indices. CMP showed an elevated BUN at 25 with a creatinine of 1.21 which is up from 0.75 in December 2017. Liver panel is unremarkable. Initial troponin was less than 0.015. Magnesium is low at 1.3 and a TSH was normal at 0.79. His hemoglobin A1c is only 6.3 and I suspect he has been getting hypoglycemic. He and his both states that he eats well and he drinks a lot of water. EKG was unremarkable. The ER physician did tell me at 1 point he noticed the heart rate was in the 40s. EKG with no QT prolongation, old IWMI and no significant ST depression or T wave abnormality. No ST elevation CXR no infiltrates, effusions or pulmonary vascular congestion. Past Medical History Past Medical History (Chronic Problems): Chronic Problems (Last Reviewed 10/15/19 @ 15:18 by Sandra Arnold) Diabetes (Chronic) History of coronary artery stent placement (Chronic 12/18/17) [id number] RCA w/ 3.0 x 16 mm Promus Stent 09/02/2017; PCI-LOUISE of proximal LCX with 3.0 X12 Promus Synergy 12/18/2017 HTN (hypertension) (Chronic) HLD (hyperlipidemia) (Chronic) Medical History: Medical History (Last Reviewed 10/16/19 @ 20:[address] Kaila Palacio DO) Atherosclerosis of coronary artery of [place] heart without angina pectoris (Acute) Onset Date: 09/02/17 I25.10 [id number] RCA w/ 3.0 x 16 mm Promus Stent 09/02/17; PTCA/LOUISE to LCX in December 2017; HTN (hypertension) (Chronic) I10 HLD (hyperlipidemia) (Chronic) E78.5 Unstable angina (Resolved) I20.0 Allergies Penicillins Allergy (Verified 10/16/19 12:31) Unknown Home Medications: Ambulatory Orders Medication Instructions Recorded Amlodipine [Norvasc] 5 mg PO DAILY 08/30/17 Aspirin [Aspir-Low] 81 mg PO DAILY 08/30/17 atorvastatin 40 mg tablet 40 mg PO QHS #90 tab 01/03/18 lisinopril 10 mg tablet 10 mg PO DAILY #30 tab 01/03/18 metformin 500 mg tablet 1,000 mg PO BIDCM #0 tab 01/03/18 clopidogrel 75 mg tablet 75 mg PO 0600,1800 #180 tab 02/25/18 metoprolol succinate 25 mg 12.5 mg PO DAILY #45 tab 02/25/18 tablet,extended release 24 hr escitalopram oxalate 10 mg tablet 10 mg PO DAILY 09/15/18 donepezil 5 mg tablet 5 mg PO DAILY 10/15/19 Surgical History: Surgical History (Last Reviewed 10/16/19 @ 20:[address] Kaila Palacio, DO) History of coronary artery stent placement (Chronic) Onset Date: 12/18/17 Z95.5 [id number] RCA w/ 3.0 x 16 mm Promus Stent 09/02/2017; PCI-LOUISE of proximal LCX with 3.0 X12 Promus Synergy 12/18/2017 Surgical History: - - Cardiac stenting Psychiatric History: Depression Lives: Spouse/ Significant Other Smoking Status: Former smoker - quit more than 50 years ago Alcohol: None Drugs: None - *Family History Maternal History Items: - - from complications of Paternal History Items: Heart Disease - from [place] Review of Systems Constitutional: Reports: Weakness, Fatigue - He fatigues easily. He tells me that just last year he was able to ambulate to the mailbox 5 times for exercise and now he cannot even make it 1 time without shortness of breath and feeling like his legs are going to give out. He has pain in his thighs at rest and with ambulation.. Denies: Anorexia, Chills, Fever, Weight Change Eyes: Denies: Blurred vision, Vision Change HEENT: Reports: Difficulty Hearing. Denies: Difficulty Swallowing, Head Aches, Nasal Congestion, Sinus Congestion, Sinus Drainage, Sore Throat Cardiovascular: Reports: Claudication - possibly.....he has pain in the anterior thighs with ambulation and sometimes at rest also, Light Headedness. Denies: Chest Pain, Edema, Heaviness, Orthopnea - He sleeps on one pillow at night and does not wake up short of breath. He does wake up usually 2-3 times at night to urinate., Palpitations Respiratory: Reports: Shortness of Breath, Shortness of breath upon exertion. Denies: Cough, Hemoptysis, Pleuritic Pain, Shortness of breath at rest, Sputum production, Wheezing Gastrointestinal: Denies: Abdominal Pain, Constipation, Diarrhea, Dyspepsia, Nausea, Vomiting Genitourinary: Reports: Nocturia. Denies: Dysuria, Hesitancy, Retention Musculoskeletal: Reports: Leg Pain - Pain in the anterior thighs bilaterally with ambulation and sometimes when sitting. Denies: Joint Pain, Joint Tenderness Skin: Denies: Jaundice, Rash, Wounds Neurological: Reports: Confusion - poor memory...recently started on donepizil. Denies: Balance problems, Change in Speech, Slurred speech, Focal weakness, Numbness, Tingling Psychiatric: Denies: Anxiety, Depression, Homicidal Ideations, Suicidal Ideations Endocrine: Denies: Hx of Thyroiditis Hematologic/ Lymphatic: Denies: Easy Bruising, Easy Bleeding, Hx of blood clot VTE Information - Inpt Only VTE Present on Admission: No VTE Mechan Device Prophylaxis: Knee High BLANQUITA Hose VTE Pharm Prophylaxis ordered?: Yes Patient Problems: Active and Suspected Problems (Last Reviewed 10/15/19 @ 15:18 by Sandra Arnold) Near syncope (Acute) Ataxia (Acute) Vertigo (Acute) Acute renal failure (Acute) Dehydration (Acute) Volume depletion (Acute) Bradycardia (Acute) - Physical Exam Vitals/I&O's: Vital Signs Temp Pulse Resp BP Pulse Ox 98.2 F 72 19 H 133/54 H 97 10/16/19 14:56 10/16/19 14:56 10/16/19 14:56 10/16/19 14:56 10/16/19 14:56 Oxygen Delivery Method Room Air Weight: 136 lb 7.458 oz Body Mass Index (BMI) 20.7 General: Alert, Oriented x3, Cooperative, No apparent distress, Well developed, Well nourished HEENT: Atraumatic, PERRLA, EOMI, Normocephalic, - - no vertical nystagmus Oral: No Gingival or Mucosal Lesions/ Ulcerations, Dry Mucosa Neck: Supple, No JVD, Negative Carotid Bruits, No Nodes, No Nuchal Rigidity, Trachea Midline Lungs: Normal air movement, No wheeze, Rales - soft in the right base Cardiovascular: Regular rate, Regular Rhythm, Normal S1, Normal S2, No murmurs, No rub noted, No Gallop, - - occasional PVC Abdomen: Bowel Sounds Present, Soft, Non Tender, Non-Distended Extremities: No clubbing, No cyanosis, No edema, No Calf Tenderness, Diminished Peripheral Pulses Skin: No rashes, No breakdown Musculoskeletal: Arthritic Changes Neurological: Cranial nerves II-XII grossly intact, - - ataxic with ambulation Laboratory Results 10/16/19 12:35: WBC 9.5, RBC 4.29 L, Hgb 12.8 L, Hct 40.1, MCV 93.5, MCH 29.8, MCHC 31.9 L, RDW Std Deviation 44.6 H, RDW Coeff of Joshua 13.2, Plt Count 267, MPV 9.9, Immature Gran % (Auto) 0.300, Neut % (Auto) 77.6 H, Lymph % (Auto) 13.3 L, [place] % (Auto) 7.3, Eos % (Auto) 1.2, Baso % (Auto) 0.3, Absolute Neuts (auto) 7.3, Absolute Lymphs (auto) 1.26, Nucleated RBC % 0 10/16/19 12:35: Sodium 143, Potassium 4.5, Chloride 110 H, Carbon Dioxide 28.0, Anion Gap 5, BUN 25 H, Creatinine 1.21, Estim Creat Clear Calc 39.08, Est GFR (MDRD) Af Amer 73, Est GFR (MDRD) Non-Af 61, BUN/Creatinine Ratio 20.7 H, Glucose 146 H, Calcium 8.7, Troponin I < 0.015 Assessment/Plan All Active Problems (Last Reviewed 10/15/19 @ 15:18 by Sandra Arnold) Near syncope (Acute) Ataxia (Acute) Vertigo (Acute) Acute renal failure (Acute) Dehydration (Acute) Volume depletion (Acute) Bradycardia (Acute) Atherosclerosis of coronary artery of [place] heart without angina pectoris (Acute 09/02/17) Dyspnea on exertion (Resolved) Left arm pain (Resolved) Unstable angina (Resolved) Impressions 1. Vertigo associated with ataxia when ambulating in the emergency room. Noncontrast CT brain showed involutional changes only. He passed his swallowing evaluation with no difficulty. I suspect his sx may be due to dehydration and I also suspect the recent increase in the sx may be due to the Donepezil. Doubt a posterior stroke....no dysphagia and no vertical nystagmus. 2. Suspected acute renal failure. Creatinine currently is 1.21 and only 2 years ago was 0.65-0.75. He is on no medications for BPH. He has nocturia. 3. Hypomagnesemia 4. Chronic normochromic normocytic anemia of unknown etiology 5. Diabetes mellitus type 2 with a hemoglobin A1c of 6.3. He is more likely than not getting hypoglycemic at times at home which may account for some of the fatigue and the dizziness and diaphoresis. 6. History of coronary artery disease with PCI/LOUISE to the proximal RCA and PCI/LOUISE of the proximal LCx in 2018. 7. Hypertension 8. Hyperlipidemia 9. Dementia?-Recently started on donepezil by his family doctor. This may be causing the dizziness and the fatigue. Admit to PCU Serial cardiac enzymes Orthostatic vital signs Discontinue donepezil Hold metformin and place him on sliding insulin scale Heparin 5000 units subcu every 12 hours for DVT prophylaxis Continue metoprolol, lisinopril and amlodipine. Check postvoid residuals x3 Ultrasound of the bladder and kidneys in the a.m.-looking for obstructive uropathy Stress echocardiogram in the a.m. Consult Dr. Lafleur-he agrees with discontinuation of donepezil and will see the patient in the a.m. Supplement magnesium Recheck lab in the a.m. Hold escitalopram for now-it is the SSRI most likely to cause QT prolongation and the patient's magnesium is very low. This puts him at risk for ventricular ectopy. Inpatient E&M: 23374 Init Hosp L3
--- NOTE | 2019-10-16 15:53 | NURSING ---
123 VERTIGO, NEAR SYNCOPE, ARF SEMENTI
[2019-10-16 17:34] LABS: AST(SGOT) 13 U/L (15-37); Alanine Aminotransfer ALT/SGPT 18 U/L (16-61); Albumin, Serum 3.3 g/dL (3.2-5.0); Alkaline Phosphatase 65 U/L (45-117); Bilirubin, Direct 0.14 mg/dL (0.00-0.30); Globulin 3.1 g/dL (2.2-4.2); Protein, Total 6.4 g/dL (6.4-8.2)
[2019-10-16 17:41] LABS: Hemoglobin A1c 6.3 % (3.8-5.6); Magnesium 1.3 mg/dL (1.6-2.6); Thyroid Stim Hormone (TSH) 0.79 uIU/mL (0.358-3.74)
[2019-10-16] MEDS: 0.9% Normal Saline 1,000 ML 100 ML IV (17:49)
[2019-10-16] MEDS: 0.9% Saline Lock 10 ML Syringe IV (17:49)
[2019-10-16 17:56] LABS: Bedside Glucose 100 mg/dL (70-110)
--- NOTE | 2019-10-16 18:01 | EKG12_ITS ---
Test Reason : Blood Pressure : / mmHG Vent. Rate : 070 BPM Atrial Rate : 070 BPM P-R Int : 156 ms QRS Dur : 082 ms QT Int : 402 ms P-R-T Axes : 039 -03 038 degrees QTc Int : 434 ms Normal sinus rhythm Inferior infarct , age undetermined Abnormal ECG Confirmed by ERAN KYLE, MYNOR ([id number]), staff editor LYNDSAY LUCERO ([id number]) on 10/21/2019 10:40:07 AM Referred By: JEAN CLAUDE Confirmed By:MYNOR BARILLAS MD
[2019-10-16] MEDS: metFORMIN HCl 1,000 MG Tablet 1000 MG PO (19:10)
[2019-10-16] MEDS: Magnesium Sulfate 4gm/100mL 4 GM/100 ML IV.SOLN. IV (20:44)
[2019-10-16 21:18] LABS: Bacteria 0 SEEN /hpf (None Seen); Mucous, Urine 0 SEEN /hpf (<or=2+)
[2019-10-16 21:27] LABS: Color, Urine Yellow (Yellow); Glucose, Dipstick 50 mg/dl (Normal); Ketone-Dipstick Negative (Negative); Leukocyte Esterase-Dipstick Negative /ul (Negative); Nitrite-Dipstick Negative (Negative); Occult Blood-Urine Negative /ul (Negative); Protein-Dipstick Negative (Negative); Urine Bilirubin Dipstick Negative (Negative); Urine Clarity Clear (Clear); Urine Urobilinogen 1 mg/dl (Normal); Urine pH 6.5 (5.0 - 8.0)
[2019-10-16] MEDS: Atorvastatin Calcium 40 MG Tablet PO (21:47)
[2019-10-16] MEDS: Heparin Injection (Vial) 5,000 UNIT/ML VIAL 5000 UNIT SC (21:47)
[2019-10-16 21:55] LABS: Bedside Glucose 110 mg/dL (70-110)
[2019-10-16 22:14] LABS: Hyaline Cast 0-5 SEEN /lpf (0-5)
[2019-10-16 22:15] LABS: Squamous Epithelial Cells - UA 0-5 SEEN /hpf (0-5)
[2019-10-16 22:16] LABS: Red Blood Cells-Urine 0-5 SEEN /hpf (0-5); White Blood Cells 0-5 SEEN /hpf (0-5)
[2019-10-16 22:17] LABS: Renal Epithelial Cells 0-5 SEEN /hpf (0-5)
[2019-10-16] MEDS: Acetaminophen 325 MG Tablet 650 MG PO (23:42)
[2019-10-17] VITALS (10 sets, daily range): BP systolic 118–133; BP diastolic 53–63; PULSE 60–72; RESP 16–18; TEMP 36.4–36.6; O2SAT 95–98
[2019-10-17] MEDS: 0.9% Normal Saline 1,000 ML 100 ML IV (03:46)
[2019-10-17] MEDS: Aspirin E.C. 81 MG Tablet PO (05:48)
[2019-10-17] MEDS: Lisinopril 10 MG Tablet PO (05:48)
--- NOTE | 2019-10-17 05:55 | ECHOD_ITS ---
Reason For Study: SOB Procedure This was a 2D Doppler, Color Flow transthoracic echocardiogram. Exam performed in department. Left Ventricle Normal size and thickness. The estimated ejection fraction is 65 %. Stage 1 diastolic dysfunction. No regional wall motion abnormalities noted. Right Ventricle Normal size and thickness. Normal systolic function. Atria Normal left atrium. Normal right atrium. Normal atrial septum. Mitral Valve The mitral valve is structurally normal. No prolapse or stenosis seen. Trivial mitral valve insufficiency. Tricuspid Valve Normal tricuspid valve. Trivial tricuspid valve insufficiency. Right ventricular systolic pressure estimated to be 43 mmHg. Mild pulmonary hypertension. Aortic Valve Normal aortic valve. Trisinus/trileaflet aortic valve. Pulmonic Valve Normal pulmonic valve. Great Vessels Normal aortic root. Normal arch. Normal inferior vena cava. Inferior vena cava collapse with sniff. Pericardium/Pleural No pericardial effusion. MMode/2D Measurements & Calculations LVIDd: 4.2 cm IVSd: 1.1 cm Ao root diam: 3.6 cm LVIDs: 2.4 cm LVPWd: 1.1 cm RVDd: 3.1 cm FS: 42.7 % LAV(MOD-bp): 39.3 ml LVAd ap4: 28.1 cm2 SV(MOD-sp4): 53.2 ml LAV(MOD-bp) Indexed: 21.7 ml/m2 EDV(MOD-sp4): 80.9 ml LAV(MOD-sp2): 36.8 ml EDV(sp4-el): 83.6 ml LAV(MOD-sp4): 41.2 ml LVAs ap4: 14.1 cm2 ESV(MOD-sp4): 27.7 ml ESV(sp4-el): 26.2 ml EF(MOD-sp4): 65.8 % EF(sp4-el): 68.6 % SV(sp4-el): 57.4 ml LA A4 area: 15.6 cm2 LA dimension(2D): 3.2 cm RA A4 area: 13.2 cm2 Doppler Measurements & Calculations MV E max clifford: 65.7 cm/sec Lat Peak E' Clifford: 9.0 cm/sec Med Peak E' Clifford: 7.8 cm/sec MV A max clifford: 97.1 cm/sec E/E' lat: 7.3 E/E' med: 8.4 MV E/A: 0.68 Ao V2 max: 126.1 cm/sec LV V1 max: 80.7 cm/sec PA V2 max: 90.4 cm/sec Ao max P.4 mmHg LV V1 max P.6 mmHg TR max clifford: 312.9 cm/sec TR max P.2 mmHg Interpretation Summary The estimated ejection fraction is 65 %. Stage 1 diastolic dysfunction. Trivial tricuspid valve insufficiency. Right ventricular systolic pressure estimated to be 43 mmHg. Mild pulmonary hypertension. Compared to echo report dated 09/02/2017, no appreciable changes noted. Ordering Physician: Kaila Palacio Referring Physician: Valeriano Monroy Performed By: Samantha Salguero RDCS
--- NOTE | 2019-10-17 05:55 | STE_ITS ---
Reason For Study: Near Syncope Stress Results Protocol: Jose A Protocol Maximum Predicted HR: 135 bpm Target HR: 115 bpm % Maximum Predicted HR: 83 % DurationHeart Rate Stage (mm:ss) (bpm) BP Comment Baseline 66 138/66No Chest Pain Jose A Protocol Stage I 3:00 98 146/60No Chest Pain; Mild Dyspnea; Fatigue Jose A Protocol Stage II 1:00 112 / No Chest Pain; Mod Dyspnea; Fatigue Recovery 65 136/60No Chest Pain Stress Duration: 4:00 mm:ss Maximum Stress HR: 112 bpm METS: 7 Baseline Echocardiogram Findings The estimated ejection fraction is 65 %. Stress Echo Wall motion Data Resting WM Intermediate WM Stress WM Resting Wall Motion Wall Motion Stress No regional wall motion No regional wall motion abnormalities noted. abnormalities noted. EKG Data The baseline ECG displays normal sinus rhythm. The patient exercised according to the regular Jose A protocol for a total duration of 7:00. The maximum heart rate attained was 112 beats per minute. This was 85% of maximum predicted heart rate. The patient exercised into stage 2 of the Jose A protocol. During stress, there were no ST or T wave changes noted to suggest ischemia. No clinical angina was noted. Interpretation Summary The estimated ejection fraction is 65 %. Normal, adequate, treadmill echocardiogram. Negative for ischemia by EKG and echocardiographic criteria. No anginal symptoms noted. Rare PVCs noted. Good chronotropic response to exercise. Test terminated due to foot drop and fatigue. Final LVEF is 75%. Patient tolerated procedure well. No complications. Ordering Physician: Kaila Palacio Referring Physician: Hernandez Lafleur Performed By: Samantha Salguero RDCS
[2019-10-17 06:10] LABS: Hematocrit 33.3 % (40-54); Hemoglobin 10.7 g/dL (13.0-16.5); Mean Corp Hgb Conc 32.1 g/dL (32-36); Mean Corpuscular Hgb 29.5 pg (27.0-32.0); Mean Corpuscular Volume 91.7 fL (80-94); Mean Platelet Vol. 10.1 fl (6.2-12.0); Platelet Count 215 K/mm3 (150-450); RBC Distribution Width CV 12.7 % (11.6-14.6); RBC Distribution Width SD 42.1 fl (35.1-43.9); Red Blood Count 3.63 M/mm3 (4.6-6.2); White Blood Count 6.4 K/mm3 (4.4-11.0)
[2019-10-17 06:56] LABS: Anion Gap 6 (5-15); BUN 21 mg/dL (7-18); BUN/Creat Ratio 23.9 RATIO (10-20); Calcium,Total 7.8 mg/dL (8.5-10.1); Chloride 109 mmol/L (98-107); Cholesterol 109 mg/dL (200); Creatinine, Serum 0.88 mg/dL (0.70-1.30); EST Glomerular Filtration Rate 88 mL/min (>60); Est Glom Filt Rate - Afr Amer 106 mL/min (>60); Estimated Creatinine Clearance 57.99 ml/min; Glucose 99 mg/dL (74-106); High Density Lipoprotein 29 mg/dL; Magnesium 2.4 mg/dL (1.6-2.6); Phosphorus 2.7 mg/dL (2.5-4.9); Potassium 4.3 mmol/L (3.5-5.1); Sodium Level 141 mmol/L (136-145); Triglycerides 143 mg/dL; Very Low Density Lipoprotein 29 mg/dL (5-40)
[2019-10-17 07:11] LABS: Bedside Glucose 106 mg/dL (70-110)
--- NOTE | 2019-10-17 09:12 | PN_ITS ---
Patient Problems: Active and Suspected Problems (Last Reviewed 10/16/19 @ 20:[address] Kaila Palacio, ) Near syncope (Acute) Ataxia (Acute) Vertigo (Acute) Acute renal failure (Acute) Dehydration (Acute) Volume depletion (Acute) Bradycardia (Acute) Subjective: Patient seen and examined. Patient reports dizziness/vertigo has resolved. Complains of continued lower extremity weakness which he states has been ongoing for the last year. Awaiting stress test results. - Physical Exam Vitals/I&O's: Vital Signs Temp Pulse Resp BP Pulse Ox 97.7 F L 64 16 124/63 H 95 10/17/19 08:39 10/17/19 08:39 10/17/19 08:39 10/17/19 08:39 10/17/19 08:39 Oxygen Delivery Method Room Air Weight: 147 lb 4.301 oz Body Mass Index (BMI) 22.2 Orthostatic Vital Signs Start: 10/16/19 16:40 Freq: q24h Status: Active Protocol: Activity Type Activity Date Activity User E-Sign Co-Sign Detail Recorded Client Recorded Date Recorded By Document 10/16/19 16:40 [facility] [id number] 10/16/19 16:41 [facility] 10/16/19 16:40 Orthostatic Vitals Standing -Blood Pressure (90/60-120/80) 113/54 L -Extremity Use Right Arm -Pulse Rate (60-100) 74 Sitting -Blood Pressure (90/60-120/80) 122/60 H -Extremity Use Right Arm -Pulse Rate (60-100) 66 Lying -Blood Pressure (90/60-120/80) 120/53 L -Extremity Use Right Arm -Pulse Rate (60-100) 64 Intake and Output for Last 24 Hours 10/15/19 10/16/19 10/17/19 23:59 23:59 23:59 Intake Total 200 / 400 1798.58 / 1798.58 Balance 200 / 400 1798.58 / 1798.58 General: Alert, Oriented x3, Cooperative HEENT: Atraumatic, PERRLA, EOMI, Normocephalic Neck: Supple, No JVD, Negative Carotid Bruits Lungs: Clear to auscultation, Normal air movement Cardiovascular: Regular rate, No murmurs Abdomen: Bowel Sounds Present, Soft, Non Tender Extremities: No clubbing, No cyanosis, No edema, Capillary Refill Less than 3 Seconds Skin: No rashes, No breakdown Musculoskeletal: No Tenderness to Palpation of Joints or Extremities Neurological: Cranial nerves II-XII grossly intact, Neuro grossly intact Psych/Mental Status: Normal Affect, Appropriate Laboratory Results 10/16/19 12:35: WBC 9.5, RBC 4.29 L, Hgb 12.8 L, Hct 40.1, MCV 93.5, MCH 29.8, MCHC 31.9 L, RDW Std Deviation 44.6 H, RDW Coeff of [place] 13.2, Plt Count 267, MPV 9.9, Immature Gran % (Auto) 0.300, Neut % (Auto) 77.6 H, Lymph % (Auto) 13.3 L, [place] % (Auto) 7.3, Eos % (Auto) 1.2, Baso % (Auto) 0.3, Absolute Neuts (auto) 7.3, Absolute Lymphs (auto) 1.26, Nucleated RBC % 0 10/16/19 12:35: Sodium 143, Potassium 4.5, Chloride 110 H, Carbon Dioxide 28.0, Anion Gap 5, BUN 25 H, Creatinine 1.21, Estim Creat Clear Calc 39.08, Est GFR (MDRD) Af Amer 73, Est GFR (MDRD) Non-Af 61, BUN/Creatinine Ratio 20.7 H, Glucose 146 H, Calcium 8.7, Troponin I < 0.015 10/16/19 16:53: Total Bilirubin 0.40, Direct Bilirubin 0.14, AST 13 L, ALT 18, Alkaline Phosphatase 65, Total Protein 6.4, Albumin 3.3, Globulin 3.1 10/16/19 16:53: Magnesium 1.3 L, Troponin I < 0.015, TSH 0.79 10/16/19 16:53: Hemoglobin A1c 6.3 H 10/16/19 17:21: POC Glucose 100 10/16/19 19:50: Troponin I < 0.015 10/16/19 21:12: Urine Color Yellow, Urine Clarity Clear, Urine pH 6.5, Ur Specific [place] 1.010, Urine Protein Negative, Urine Glucose (UA) 50 H, Urine Ketones Negative, Urine Occult Blood Negative, Urine Nitrite Negative, Urine Bilirubin Negative, Urine Urobilinogen 1 H, Ur Leukocyte Esterase Negative, Urine RBC 0-5 SEEN, Urine WBC 0-5 SEEN, Ur Squamous Epith Cells 0-5 SEEN, Ur Renal Epithelial Cell 0-5 SEEN, Urine Bacteria 0 SEEN, Hyaline Casts 0-5 SEEN, Urine Mucus 0 SEEN 10/16/19 21:45: POC Glucose 110 10/17/19 05:26: WBC 6.4, RBC 3.63 L, Hgb 10.7 L, Hct 33.3 L, MCV 91.7, MCH 29.5, MCHC 32.1, RDW Std Deviation 42.1, RDW Coeff of [place] 12.7, Plt Count 215, MPV 10.1 10/17/19 05:26: Sodium 141, Potassium 4.3, Chloride 109 H, Carbon Dioxide 26.0, Anion Gap 6, BUN 21 H, Creatinine 0.88, Estim Creat Clear Calc 57.99, Est GFR (MDRD) Af Amer 106, Est GFR (MDRD) Non-Af 88, BUN/Creatinine Ratio 23.9 H, Glucose 99, Calcium 7.8 L, Phosphorus 2.7, Magnesium 2.4, Triglycerides 143, Cholesterol 109, LDL Cholesterol 51, VLDL Cholesterol 29, HDL Cholesterol 29 L 10/17/19 06:53: POC Glucose 106 Current Medications Acetaminophen (Tylenol) 650 mg PO Q6H PRN PRN PRN Reason: Pain Score 1-10/Temp > 100.7 F Last Admin: 10/16/19 23:42 Dose: 650 mg Documented by: Al Hydroxide/Mg Hydroxide (Mylanta Ii) 30 ml PO Q6H PRN PRN PRN Reason: Gastric Burning Amlodipine Besylate (Norvasc) 5 mg PO DAILY [facility] Aspirin (Ecotrin) 81 mg PO DAILY [facility] Last Admin: 10/17/19 05:48 Dose: 81 mg Documented by: Atorvastatin Calcium (Lipitor) 40 mg PO QHS [facility] Last Admin: 10/16/19 21:47 Dose: 40 mg Documented by: Clopidogrel Bisulfate (Plavix) 75 mg PO DAILY [facility] Dextrose (D50w Syringe) 0 gm IV X1 PRN; Protocol PRN Reason: Hypoglycemia Glucagon () 1 mg IM .X1 PRN PRN Reason: Hypoglycemia Heparin Sodium (Porcine) (Heparin Na) 5,000 unit SC Q12 [facility] Last Admin: 10/16/19 21:47 Dose: 5,000 unit Documented by: Sodium Chloride () 1,000 mls @ 100 mls/hr IV .Q10H [facility] Stop: 10/17/19 22:31 Last Infusion: 10/17/19 08:39 Dose: 0 mls/hr Documented by: Sodium Chloride () 250 mls @ 15 mls/hr IV .[id number] PRN PRN Reason: Saline Flush Last Infusion: 10/17/19 02:00 Dose: 0 mls/hr Documented by: Sodium Chloride () 250 mls @ 15 mls/hr IV .[id number] PRN PRN Reason: Additional IVPB Infusion Insulin Human Lispro (Humalog Kwikpen (Bkc)) 0 unit SC TIDAC [facility]; Protocol Last Admin: 10/17/19 07:03 Dose: Not Given Documented by: Iopamidol (Contrast Allergy Check) 0 ml IV X1 [facility] Last Admin: 10/16/19 17:47 Dose: Not Given Documented by: Lisinopril (Zestril) 10 mg PO DAILY [facility] Last Admin: 10/17/19 05:48 Dose: 10 mg Documented by: Magnesium Hydroxide (Milk Of Magnesia) 30 ml PO DAILY PRN PRN PRN Reason: Constipation Melatonin (Melatonin) 3 mg PO QHS PRN PRN PRN Reason: INSOMNIA [facility] Last Admin: 10/16/19 19:10 Dose: 1,000 mg Documented by: Metoprolol Succinate (Toprol Xl (Beta Yen)) 12.5 mg PO DAILY [facility] Nitroglycerin (Nitrostat) 0.4 mg SUBLINGUAL Q5M PRN PRN Reason: CARDIAC/CHEST PAIN Pantoprazole Sodium (Protonix) 40 mg PO DAILY [facility] Prochlorperazine Edisylate (Compazine Iv) 5 mg IV Q4H PRN PRN PRN Reason: Breakthrough Nausea/Vomiting Sodium Chloride () 10 - 40 ml IV UD PRN PRN Reason: SALINE FLUSH Last Admin: 10/16/19 17:49 Dose: 10 ml Documented by: Medical Necessity - Tobacco Use Smoking Status: Former smoker - quit more than 50 years ago Assessment/Plan All Active Problems (Last Reviewed 10/16/19 @ 20:[address] Kaila Palacio DO) Near syncope (Acute) Ataxia (Acute) Vertigo (Acute) Acute renal failure (Acute) Dehydration (Acute) Volume depletion (Acute) Bradycardia (Acute) Atherosclerosis of coronary artery of [place] heart without angina pectoris (Acute 09/02/17) Dyspnea on exertion (Resolved) Left arm pain (Resolved) Unstable angina (Resolved) 1. Vertigo, near syncope-brain CT unremarkable. Orthostatic vitals negative. UA unremarkable. BMP shows mild dehydration. Cardiology consulted. Stress/echo pending. PT/OT eval. 2. Mild dehydration-improved. 3. Type 2 diabetes mellitus-hemoglobin A1c 6.3%. Hold metformin. Accu-Cheks with sliding scale insulin. 4. Hypertension-stable, continue amlodipine, lisinopril, metoprolol. 5. CAD with history of stent-follows with Dr. Lafleur. Continue aspirin, statin, lisinopril, metoprolol. 6. Hyperlipidemia-continue statin. 7. Recent diagnosis dementia-recently placed on donepezil which is on hold secondary to #1. 8. History of tobacco use-in remission. 9. Chronic normocytic anemia-stable, trend CBC. DVT prophylaxis-heparin subcu Discharge planning: Pending stress test and PT eval. This patient was seen by TREE Platt under the supervision of Dr. Corona.
[2019-10-17] MEDS: Heparin Injection (Vial) 5,000 UNIT/ML VIAL 5000 UNIT SC (12:00)
[2019-10-17] MEDS: metFORMIN HCl 1,000 MG Tablet 1000 MG PO (12:00)
[2019-10-17] MEDS: amLODIPine 5 MG Tablet PO (12:01)
[2019-10-17] MEDS: Metoprolol(XL)Succ 25 MG Tablet 12.5 MG PO (12:01)
[2019-10-17] MEDS: Pantoprazole Sodium 40 MG Tablet PO (12:01)
[2019-10-17] MEDS: Clopidogrel Bisulfate 75 MG Tablet PO (12:01)
[2019-10-17] MEDS: 0.9% Saline Lock 10 ML Syringe IV (12:02)
--- NOTE | 2019-10-17 12:03 | CON.PCM_ITS ---
Problem List (1) Near syncope Status: Acute (2) Bradycardia Status: Acute (3) History of coronary artery stent placement Status: Chronic Comment: [id number] RCA w/ 3.0 x 16 mm Promus Stent 09/02/2017; PCI-LOUISE of proximal LCX with 3.0 X12 Promus Synergy 12/18/2017 (4) Atherosclerosis of coronary artery of [place] heart without angina pectoris Status: Acute Qualifiers: Coronary Disease-Associated Artery/Lesion type: [place] artery Qualified Code(s): I25.10 - Atherosclerotic heart disease of [place] coronary artery without angina pectoris Comment: [id number] RCA w/ 3.0 x 16 mm Promus Stent 09/02/17; PTCA/LOUISE to LCX in December 2017; (5) HTN (hypertension) Status: Chronic Qualifiers: Hypertension type: essential hypertension Qualified Code(s): I10 - Essential (primary) hypertension (6) HLD (hyperlipidemia) Status: Chronic Qualifiers: Hyperlipidemia type: pure hypercholesterolemia Qualified Code(s): E78.00 - Pure hypercholesterolemia, unspecified Reason for Consult Date of Consultation: 10/17/19 Reason for Consultation: Symptomatic bradycardia, ataxia, hypertension, hypercholesterolemia, coronary disease status post stenting History of Present Illness: NIGEL DONOHUE, is an 84 M who presents to the office today for a cardiovascular outpatient follow-up. He has a history of coronary artery disease status post previous drug-eluting stent to LAD and drug-eluting stent to RCA in August 2017 and PTCA/LOUISE to LCx in December 2017, type 2 diabetes, hypertension, hyperlipidemia, and previous smoker. In addition, after his initial angioplasty,he underwent a stress echocardiogram to evaluate for any inferolateral ischemia. This test showed ejection fraction of 55% and was considered a normal, submaximal, treadmill echocardiogram negative for ischemia by EKG and echocardiographic criteria. No anginal symptoms were noted. No arrhythmias were noted. Patient proceed with cardiac rehab in which she had a continual episodes of chest pain. His heart catheterization in December 2017 showed single-vessel coronary artery disease of the LCx in which he underwent successful PTCA/LOUISE. He was also noted that he had widely patent LAD and RCA stents. He is now here in follow-up. His most recent echocardiogram dated 09/02/2017 showed normal LV function, unable to quantitate RVSP. He recently underwent an office visit on 10/15/2019, at which time the patient complained of worsening dyspnea on exertion, shortness of breath, but no chest pain symptoms. He has had marked decreased exercise capacity over 1 year ago, and unable to get his mail without getting significantly short of breath. He is also had decreased activity level as well as decreased energy level. He is taking and tolerating his medicines well. Patient has already been scheduled for a cardiac evaluation including a 2D echo with Doppler and a stress echocardiogram, but before this could be done he presented to [facility] ER yesterday with lightheadedness, dizziness, significant bradycardia with a heart rate in the 40s, ataxia, and was admitted for observation. Telemetry overnight showed normal sinus rhythm, no other arrhythmias. In addition the patient states that he was started on Namenda approximately 20 days ago, and has had progressively worsening symptoms ever since. This was discontinued. His echocardiogram and stress test were pulled forward today, which demonstrated normal LV size and function, RVSP of 43 mmHg, and normal stress echocardiogram with normal chronotropic competence at peak exercise. No ischemia noted. [] Past Medical History Allergies/Adverse Reactions: Allergies Penicillins Allergy (Verified 10/16/19 12:31) Unknown Home Medications: Ambulatory Orders Medication Instructions Recorded Amlodipine [Norvasc] 5 mg PO DAILY 08/30/17 Aspirin [Aspir-Low] 81 mg PO DAILY 08/30/17 atorvastatin 40 mg tablet 40 mg PO QHS #90 tab 01/03/18 lisinopril 10 mg tablet 10 mg PO DAILY #30 tab 01/03/18 metformin 500 mg tablet 1,000 mg PO BIDCM #0 tab 01/03/18 clopidogrel 75 mg tablet 75 mg PO 0600,1800 #180 tab 02/25/18 metoprolol succinate 25 mg 12.5 mg PO DAILY #45 tab 02/25/18 tablet,extended release 24 hr escitalopram oxalate 10 mg tablet 10 mg PO DAILY 09/15/18 donepezil 5 mg tablet 5 mg PO DAILY 10/15/19 Past Medical History (Chronic Problems): Chronic Problems (Last Reviewed 10/16/19 @ 20:[address] Kaila Palacio DO) Diabetes (Chronic) History of coronary artery stent placement (Chronic 12/18/17) [id number] RCA w/ 3.0 x 16 mm Promus Stent 09/02/2017; PCI-LOUISE of proximal LCX with 3.0 X12 Promus Synergy 12/18/2017 HTN (hypertension) (Chronic) HLD (hyperlipidemia) (Chronic) Surgical History: - - Cardiac stenting Psychiatric History: Depression - *Family History Maternal History Items: - - from complications of Paternal History Items: Heart Disease - from [place] Lives: Spouse/ Significant Other Smoking Status: Former smoker - quit more than 50 years ago Alcohol: None Drugs: None Review of Systems - Review of Systems General: Denies: Fever, Night Sweats, Fatigue Cardiovascular: Reports: Lightheadedness, Dizziness. Denies: Chest Discomfort, Shortness of Breath, Orthopnea, PND, Peripheral Edema, Palpitations, Near Syncope, Syncope Respiratory: Denies: Cough, Sputum Production, Hemoptysis Gastrointestinal: Denies: Hematemesis, Hematochezia, Melena Genitourinary: Denies: Dysuria, Hematuria Skin: Denies: Rash Subjectve: Patient resting comfortably, no acute distress. Orthostatics negative. Objective: Vital Signs Temp Pulse Resp BP Pulse Ox 97.7 F L 63 16 120/63 95 10/17/19 08:39 10/17/19 11:48 10/17/19 08:39 10/17/19 11:48 10/17/19 08:39 Oxygen Delivery Method Room Air Weight: 147 lb 4.301 oz Body Mass Index (BMI) 22.2 Orthostatic Vital Signs Start: 10/16/19 16:40 Freq: q24h Status: Active Protocol: Activity Type Activity Date Activity User E-Sign Co-Sign Detail Recorded Client Recorded Date Recorded By Document 10/17/19 11:48 [facility] [id number] 10/17/19 11:54 [facility] 10/17/19 11:48 Orthostatic Vitals Standing -Blood Pressure (90/60-120/80) 123/62 H -Extremity Use Right Arm -Pulse Rate (60-100) 72 Sitting -Blood Pressure (90/60-120/80) 133/61 H -Extremity Use Right Arm -Pulse Rate (60-100) 60 Lying -Blood Pressure (90/60-120/80) 120/63 -Extremity Use Right Arm -Pulse Rate (60-100) 63 Intake and Output for Last 24 Hours 10/15/19 10/16/19 10/17/19 23:59 23:59 23:59 Intake Total 200 / 400 1798.58 / 1798.58 Balance 200 / 400 1798.58 / 1798.58 General: Awake, Alert, Oriented x 3 HEENT: PERRL, EOMI, Sclera Non Icteric Neck: Supple, Good ROM, No Lymph Node Enlargement Lungs: Clear to auscultation Cardiovascular: Regular Rhythm, Normal S1, Normal S2, No Murmurs, No Rubs, No Gallops Vascular: No Carotid Bruits, Normal Femoral Pulses, Normal Radial Pulses, Normal Dorsalis Pedal Pulse, Normal Posterior Tibial Pulses Abdomen: Bowel Sounds Present, Soft, Non Tender, No HSM, No Organomegaly Extremities: No Cyanosis, No Clubbing, No edema Neurological: No Focal Motor or Sensory Deficit 10/16/19 12:35: WBC 9.5, RBC 4.29 L, Hgb 12.8 L, Hct 40.1, MCV 93.5, MCH 29.8, MCHC 31.9 L, Plt Count 267, MPV 9.9, Immature Gran % (Auto) 0.300, Neut % (Auto) 77.6 H, Lymph % (Auto) 13.3 L, [place] % (Auto) 7.3, Eos % (Auto) 1.2, Baso % (Auto) 0.3, Absolute Neuts (auto) 7.3, Nucleated RBC % 0 10/16/19 12:35: Sodium 143, Potassium 4.5, Chloride 110 H, Carbon Dioxide 28.0, Anion Gap 5, BUN 25 H, Creatinine 1.21, Est GFR (MDRD) Af Amer 73, Est GFR (MDRD) Non-Af 61, BUN/Creatinine Ratio 20.7 H, Glucose 146 H, Calcium 8.7, Troponin I < 0.015 10/16/19 16:53: Total Bilirubin 0.40, Direct Bilirubin 0.14 10/16/19 16:53: Magnesium 1.3 L, Troponin I < 0.015 10/16/19 16:53: Hemoglobin A1c 6.3 H 10/16/19 19:50: Troponin I < 0.015 10/16/19 21:12: Urine Color Yellow, Urine Clarity Clear, Urine pH 6.5, Ur Specific [place] 1.010, Urine Protein Negative, Urine Glucose (UA) 50 H, Urine Ketones Negative, Urine Occult Blood Negative, Urine Nitrite Negative, Urine Bilirubin Negative, Urine Urobilinogen 1 H, Ur Leukocyte Esterase Negative, Urine RBC 0-5 SEEN, Urine WBC 0-5 SEEN 10/17/19 05:26: WBC 6.4, RBC 3.63 L, Hgb 10.7 L, Hct 33.3 L, MCV 91.7, MCH 29.5, MCHC 32.1, Plt Count 215, MPV 10.1 10/17/19 05:26: Sodium 141, Potassium 4.3, Chloride 109 H, Carbon Dioxide 26.0, Anion Gap 6, BUN 21 H, Creatinine 0.88, Est GFR (MDRD) Af Amer 106, Est GFR (MDRD) Non-Af 88, BUN/Creatinine Ratio 23.9 H, Glucose 99, Calcium 7.8 L, Phosphorus 2.7, Magnesium 2.4, Triglycerides 143, Cholesterol 109, LDL Cholesterol 51, VLDL Cholesterol 29, HDL Cholesterol 29 L Rhythm: EKG: Normal sinus rhythm with old inferior wall myocardial infarction, no acute changes. ECHO: As above Stress Test: Cardiac Cath: PCI: CT Surgery: Holter monitor: EPS: PPM: CXR: Chest CT Scan: Assessment/Plan 1. Symptomatic bradycardia: Patient presents with lightheadedness, dizziness, ataxia, and symptomatic bradycardia possibly as a result of the recent addition of donepezil to his medical regimen for memory deficits. This has been shown to induce bradycardia in the past, and recommend discontinuation of donepezil. His stress echocardiogram today showed good chronotropic competence, good blood pressure response to exercise, and no ischemia. No catheterization needed at this time. His repeat echocardiogram demonstrated intact LV function with an EF around 50 to 55% with an RVSP of 43 mmHg. His orthostatics are negative. At this point I would recommend discontinuation of his donepezil, and continuing with his antihypertensive medications as outlined in the [facility]. I do not believe he requires a repeat stress test at this time. His symptoms of fatigue, dyspnea, may have been related to bradycardia as a result of his donepezil. Do not believe he requires pacemaker evaluation at this time. 2. Patient may be discharged home and follow-up with Dr. Lafleur going forward. 3. Thank you very much for the opportunity to participate in the cardiac care of your patient. Consultation time took place between 1030 and 11 AM. Inpatient E&M: 62123 Init Hosp L2
[2019-10-17] MEDS: Acetaminophen 325 MG Tablet 650 MG PO (12:06)
--- NOTE | 2019-10-17 12:29 | DCINST_ITS ---
- Discharge Diagnoses Current Active Problems: Current Active and Chronic Problems (Last Reviewed 10/16/19 @ 20:[address] Kaila Palacio DO) Near syncope (Acute) Ataxia (Acute) Vertigo (Acute) Acute renal failure (Acute) Dehydration (Acute) Volume depletion (Acute) Bradycardia (Acute) You will use the following diet at home:: Cardiac Discharge Activity: Return to Normal Activity Call your doctor if you observe: Shortness of breath, Dizziness, Fainting spel ls, Chest pain Additional Instructions: Recommend reducing home metformin regimen to 500 mg twice daily. Allergies/Adverse Reactions: Allergies Penicillins Allergy (Verified 10/16/19 12:31) Unknown Medications to take at Discharge Amlodipine [Norvasc] 5 mg PO DAILY 08/30/17 Aspirin [Aspir-Low] 81 mg PO DAILY 08/30/17 atorvastatin 40 mg tablet 40 mg PO QHS #90 tab 01/03/18 lisinopril 10 mg tablet 10 mg PO DAILY #30 tab 01/03/18 clopidogrel 75 mg tablet 75 mg PO 0600,1800 #180 tab 02/25/18 metoprolol succinate 25 mg tablet,extended release 24 hr 12.5 mg PO DAILY #45 tab 02/25/18 escitalopram oxalate 10 mg tablet 10 mg PO DAILY 09/15/18 metFORMIN HCl [Glucophage] 500 mg PO BIDCM #0 tab 10/17/19 Primary Care Physician: Valeriano Monroy MD [Primary Care Provider] - Please follow up with your Primary Care Physician in: 1 Week Test Results: Test results from this visit will be discussed in further detail at your follow- up appointment, if applicable. Please Follow Up With: Hernandez Lafleur MD When: As scheduled Proposed Discharge Date: 10/17/19
--- NOTE | 2019-10-17 12:35 | PCM.DC.SUM ---
<Lyndsay Verdin - Last Filed: 10/17/19 12:41> Discharge Date and Diagnosis Date of Admission: 10/16/19 Date of Discharge: 10/17/19 - Primary Discharge Diagnosis Acute Problems: Active Problems (Last Reviewed 10/16/19 @ 20:[address] Kaila Palacio, ) 1. Vertigo, near syncope-suspect secondary to donepezil as well as mild dehydration. 2. Mild dehydration-improved. 3. Type 2 diabetes mellitus 4. Hypertension 5. CAD with history of stent 6. Hyperlipidemia 7. Recent diagnosis dementia 8. History of tobacco use 9. Chronic normocytic anemia - Secondary Discharge Diagnosis Chronic Problems: Chronic Problems (Last Reviewed 10/16/19 @ 20:[address] Kaila Palacio DO) Diabetes (Chronic) History of coronary artery stent placement (Chronic 12/18/17) [id number] RCA w/ 3.0 x 16 mm Promus Stent 09/02/2017; PCI-LOUISE of proximal LCX with 3.0 X12 Promus Synergy 12/18/2017 HTN (hypertension) (Chronic) HLD (hyperlipidemia) (Chronic) Hospital Course and Treatment Imaging Results: Diagnostic Data Brain CT 10/16/19 12:35 IMPRESSION: Chronic involutional changes of the brain. Electronically Signed: Sathish Christie MD at 13:20 EDT , Service support , Chest X-Ray 10/16/19 12:50 IMPRESSION: Degenerative changes, as described above. No demonstrated acute cardiopulmonary process. Electronically Signed: Sathish Christie MD at 13:33 EDT , Service support , Dr. Lafleur- Cardiology Operations: None Procedures: 2-D Echocardiogram, Stress test Summary of Care Provided: The patient is a 84 year old M admitted 10/16/2019 due to vertigo with near syncope. 1. Vertigo, near syncope-brain CT unremarkable. Orthostatic vitals negative. UA unremarkable. BMP shows mild dehydration. Cardiology consulted. Stress echo negative for ischemia. Echo demonstrated EF 65%, stage I diastolic dysfunction, RVSP estimated to be 43 mmHg. Patient's vertigo and lightheadedness resolved with IV fluids and discontinuation of donepezil which is suspected to be related to his symptoms. Patient reports generalized weakness for the past year. Will discuss with case management on Saturday to set up outpatient physical therapy if patient is agreeable. Follow-up with primary care physician in 1 week. 2. Mild dehydration-improved. 3. Type 2 diabetes mellitus-hemoglobin A1c 6.3%. Glucose well controlled during admission. Recommend lowering metformin to 500 mg twice daily to avoid hypoglycemia. 4. Hypertension-stable, continue amlodipine, lisinopril, metoprolol. 5. CAD with history of stent-follows with Dr. Lafleur. Continue aspirin, statin, lisinopril, metoprolol. 6. Hyperlipidemia-continue statin. 7. Recent diagnosis dementia-recently placed on donepezil which was discontinued secondary to #1. Follow-up with PCP for other treatment options. 8. History of tobacco use-in remission. 9. Chronic normocytic anemia-stable, trend CBC. General: Alert, Oriented x3, Cooperative HEENT: Atraumatic, PERRLA, EOMI, Normocephalic Neck: Supple, No JVD, Negative Carotid Bruits Lungs: Clear to auscultation, Normal air movement Cardiovascular: Regular rate, No murmurs Abdomen: Bowel Sounds Present, Soft, Non Tender Extremities: No clubbing, No cyanosis, No edema, Capillary Refill Less than 3 Seconds Skin: No rashes, No breakdown Musculoskeletal: No Tenderness to Palpation of Joints or Extremities Neurological: Cranial nerves II-XII grossly intact, Neuro grossly intact Psych/Mental Status: Normal Affect, Appropriate Patient seen and examined prior to discharge. Physical assessment as noted above. Patient is stable for discharge with follow up recommendations as noted above. This patient was seen by TREE Platt under the supervision of Dr. Corona. - Physical Exam Vitals/I&O's: Vital Signs Temp Pulse Resp BP Pulse Ox 97.7 F L 63 16 120/63 95 10/17/19 08:39 10/17/19 12:01 10/17/19 08:39 10/17/19 12:01 10/17/19 08:39 Oxygen Delivery Method Room Air Weight: 147 lb 4.301 oz Body Mass Index (BMI) 22.2 Orthostatic Vital Signs Start: 10/16/19 16:40 Freq: q24h Status: Active Protocol: Activity Type Activity Date Activity User E-Sign Co-Sign Detail Recorded Client Recorded Date Recorded By Document 10/17/19 11:48 [facility] [place] [id number] 10/17/19 11:54 [facility] [place] 10/17/19 11:48 Orthostatic Vitals Standing -Blood Pressure (90/60-120/80) 123/62 H -Extremity Use Right Arm -Pulse Rate (60-100) 72 Sitting -Blood Pressure (90/60-120/80) 133/61 H -Extremity Use Right Arm -Pulse Rate (60-100) 60 Lying -Blood Pressure (90/60-120/80) 120/63 -Extremity Use Right Arm -Pulse Rate (60-100) 63 Intake and Output for Last 24 Hours 10/15/19 10/16/19 10/17/19 23:59 23:59 23:59 Intake Total 200 / 400 1798.58 / 1798.58 Balance 200 / 400 1798.58 / 1798.58 Laboratory Results 10/16/19 12:35: WBC 9.5, RBC 4.29 L, Hgb 12.8 L, Hct 40.1, MCV 93.5, MCH 29.8, MCHC 31.9 L, RDW Std Deviation 44.6 H, RDW Coeff of Joshua 13.2, Plt Count 267, MPV 9.9, Immature Gran % (Auto) 0.300, Neut % (Auto) 77.6 H, Lymph % (Auto) 13.3 L, [place] % (Auto) 7.3, Eos % (Auto) 1.2, Baso % (Auto) 0.3, Absolute Neuts (auto) 7.3, Absolute Lymphs (auto) 1.26, Nucleated RBC % 0 10/16/19 12:35: Sodium 143, Potassium 4.5, Chloride 110 H, Carbon Dioxide 28.0, Anion Gap 5, BUN 25 H, Creatinine 1.21, Estim Creat Clear Calc 39.08, Est GFR (MDRD) Af Amer 73, Est GFR (MDRD) Non-Af 61, BUN/Creatinine Ratio 20.7 H, Glucose 146 H, Calcium 8.7, Troponin I < 0.015 10/16/19 16:53: Total Bilirubin 0.40, Direct Bilirubin 0.14, AST 13 L, ALT 18, Alkaline Phosphatase 65, Total Protein 6.4, Albumin 3.3, Globulin 3.1 10/16/19 16:53: Magnesium 1.3 L, Troponin I < 0.015, TSH 0.79 10/16/19 16:53: Hemoglobin A1c 6.3 H 10/16/19 17:21: POC Glucose 100 10/16/19 19:50: Troponin I < 0.015 10/16/19 21:12: Urine Color Yellow, Urine Clarity Clear, Urine pH 6.5, Ur Specific [place] 1.010, Urine Protein Negative, Urine Glucose (UA) 50 H, Urine Ketones Negative, Urine Occult Blood Negative, Urine Nitrite Negative, Urine Bilirubin Negative, Urine Urobilinogen 1 H, Ur Leukocyte Esterase Negative, Urine RBC 0-5 SEEN, Urine WBC 0-5 SEEN, Ur Squamous Epith Cells 0-5 SEEN, Ur Renal Epithelial Cell 0-5 SEEN, Urine Bacteria 0 SEEN, Hyaline Casts 0-5 SEEN, Urine Mucus 0 SEEN 10/16/19 21:45: POC Glucose 110 10/17/19 05:26: WBC 6.4, RBC 3.63 L, Hgb 10.7 L, Hct 33.3 L, MCV 91.7, MCH 29.5, MCHC 32.1, RDW Std Deviation 42.1, RDW Coeff of Joshua 12.7, Plt Count 215, MPV 10.1 10/17/19 05:26: Sodium 141, Potassium 4.3, Chloride 109 H, Carbon Dioxide 26.0, Anion Gap 6, BUN 21 H, Creatinine 0.88, Estim Creat Clear Calc 57.99, Est GFR (MDRD) Af Amer 106, Est GFR (MDRD) Non-Af 88, BUN/Creatinine Ratio 23.9 H, Glucose 99, Calcium 7.8 L, Phosphorus 2.7, Magnesium 2.4, Triglycerides 143, Cholesterol 109, LDL Cholesterol 51, VLDL Cholesterol 29, HDL Cholesterol 29 L 10/17/19 06:53: POC Glucose 106 Current Medications Acetaminophen (Tylenol) 650 mg PO Q6H PRN PRN PRN Reason: Pain Score 1-10/Temp > 100.7 F Last Admin: 10/17/19 12:06 Dose: 650 mg Documented by: Al Hydroxide/Mg Hydroxide (Mylanta Ii) 30 ml PO Q6H PRN PRN PRN Reason: Gastric Burning Amlodipine Besylate (Norvasc) 5 mg PO DAILY [facility] Last Admin: 10/17/19 12:01 Dose: 5 mg Documented by: Aspirin (Ecotrin) 81 mg PO DAILY [facility] Last Admin: 10/17/19 05:48 Dose: 81 mg Documented by: Atorvastatin Calcium (Lipitor) 40 mg PO QHS [facility] Last Admin: 10/16/19 21:47 Dose: 40 mg Documented by: Clopidogrel Bisulfate (Plavix) 75 mg PO DAILY [facility] Last Admin: 10/17/19 12:01 Dose: 75 mg Documented by: Dextrose (D50w Syringe) 0 gm IV X1 PRN; Protocol PRN Reason: Hypoglycemia Glucagon () 1 mg IM .X1 PRN PRN Reason: Hypoglycemia Heparin Sodium (Porcine) (Heparin Na) 5,000 unit SC Q12 [facility] Last Admin: 10/17/19 12:00 Dose: 5,000 unit Documented by: Sodium Chloride () 1,000 mls @ 100 mls/hr IV .Q10H [facility] Stop: 10/17/19 22:31 Last Infusion: 10/17/19 11:59 Dose: 100 mls/hr Documented by: Sodium Chloride () 250 mls @ 15 mls/hr IV .[id number] PRN PRN Reason: Saline Flush Last Infusion: 10/17/19 02:00 Dose: 0 mls/hr Documented by: Sodium Chloride () 250 mls @ 15 mls/hr IV .[id number] PRN PRN Reason: Additional IVPB Infusion Insulin Human Lispro (Humalog Kwikpen (Bkc)) 0 unit SC TIDAC [facility]; Protocol Last Admin: 10/17/19 12:01 Dose: Not Given Documented by: Iopamidol (Contrast Allergy Check) 0 ml IV X1 [facility] Last Admin: 10/16/19 17:47 Dose: Not Given Documented by: Lisinopril (Zestril) 10 mg PO DAILY [facility] Last Admin: 10/17/19 05:48 Dose: 10 mg Documented by: Magnesium Hydroxide (Milk Of Magnesia) 30 ml PO DAILY PRN PRN PRN Reason: Constipation Melatonin (Melatonin) 3 mg PO QHS PRN PRN PRN Reason: INSOMNIA Metformin HCl (Glucophage) 1,000 mg PO BIDCM [facility] Last Admin: 10/17/19 12:00 Dose: 1,000 mg Documented by: Metoprolol Succinate (Toprol Xl (Beta Yen)) 12.5 mg PO DAILY [facility] Last Admin: 10/17/19 12:01 Dose: 12.5 mg Documented by: Nitroglycerin (Nitrostat) 0.4 mg SUBLINGUAL Q5M PRN PRN Reason: CARDIAC/CHEST PAIN Pantoprazole Sodium (Protonix) 40 mg PO DAILY [facility] Last Admin: 10/17/19 12:01 Dose: 40 mg Documented by: Prochlorperazine Edisylate (Compazine Iv) 5 mg IV Q4H PRN PRN PRN Reason: Breakthrough Nausea/Vomiting Sodium Chloride () 10 - 40 ml IV UD PRN PRN Reason: SALINE FLUSH Last Admin: 10/17/19 12:02 Dose: 10 ml Documented by: Discharge Diet: Low fat/ Low Cholesterol Discharge Activity: Return to Normal Activity Call your doctor if you observe: Shortness of breath, Dizziness, Fainting spells, Chest pain Home Medications: Medications to take at Discharge Amlodipine [Norvasc] 5 mg PO DAILY 08/30/17 Aspirin [Aspir-Low] 81 mg PO DAILY 08/30/17 atorvastatin 40 mg tablet 40 mg PO QHS #90 tab 01/03/18 lisinopril 10 mg tablet 10 mg PO DAILY #30 tab 01/03/18 clopidogrel 75 mg tablet 75 mg PO 0600,1800 #180 tab 02/25/18 metoprolol succinate 25 mg tablet,extended release 24 hr 12.5 mg PO DAILY #45 tab 02/25/18 escitalopram oxalate 10 mg tablet 10 mg PO DAILY 09/15/18 metFORMIN HCl [Glucophage] 500 mg PO BIDCM #0 tab 10/17/19 Primary Care Physician: Valeriano Monroy MD [Primary Care Provider] - Please follow up with your Primary Care Physician in: 1 Week Please Follow Up With: Hernandez Lafleur MD When: As scheduled Disposition: Home Minutes spent on discharge:: 35 Patient Condition:: Stable Medical Necessity - Tobacco Use Smoking Status: Former smoker - quit more than 50 years ago Meaningful Use Info Meaningful Use Diagnoses (Choose all that apply): None applicable <Gorge Corona - Last Filed: 10/17/19 14:09> Discharge Date and Diagnosis - Secondary Discharge Diagnosis Chronic Problems: Chronic Problems (Last Reviewed 10/16/19 @ 20:[address] Kaila Palacio, DO) Diabetes (Chronic) History of coronary artery stent placement (Chronic 12/18/17) [id number] RCA w/ 3.0 x 16 mm Promus Stent 09/02/2017; PCI-[facility] of proximal LCX with 3.0 X12 Promus Synergy 12/18/2017 HTN (hypertension) (Chronic) HLD (hyperlipidemia) (Chronic) Hospital Course and Treatment Imaging Results: 10/17/19 05:55 Echo Complete [ECHO] AM (NON MEDS) Stress Test Echo w/o Contrast [ECHO] Routine US Kidney [Kidney and Bladder] [US] AM (NON MEDS) 10/18/19 05:55 US Kidney [Kidney and Bladder] [US] AM (NON MEDS) Summary of Care Provided: This patient was seen in conjunction with TREE Platt . I have independently interviewed and examined the patient and reviewed pertinent historical, laboratory, and other data. Please refer to TREE Platt note for details of this patient's presentation, findings, and recommendations. I have reviewed TREE Platt note and concur with documented findings. In brief, patient is with past medical history including coronary artery disease with previous stent placement hypertension, diabetes mellitus type 2 who presented with vertigo and near syncopal episode. Patient admitted to regular nursing floor with consultation placed to patient's feed manager Dr. Lafleur Hospital course: As documented above - Physical Exam Vitals/I&O's: Vital Signs Temp Pulse Resp BP Pulse Ox 97.7 F L 63 16 120/63 95 10/17/19 08:39 10/17/19 12:01 10/17/19 08:39 10/17/19 12:01 10/17/19 08:39 Oxygen Delivery Method Room Air Weight: 66.8 kg Body Mass Index (BMI) 22.2 Orthostatic Vital Signs Start: 10/16/19 16:40 Freq: q24h Status: Active Protocol: Activity Type Activity Date Activity User E-Sign Co-Sign Detail Recorded Client Recorded Date Recorded By Document 10/17/19 11:48 [facility] [place] [id number] 10/17/19 11:54 [facility] [place] 10/17/19 11:48 Orthostatic Vitals Standing -Blood Pressure (90/60-120/80) 123/62 H -Extremity Use Right Arm -Pulse Rate (60-100) 72 Sitting -Blood Pressure (90/60-120/80) 133/61 H -Extremity Use Right Arm -Pulse Rate (60-100) 60 Lying -Blood Pressure (90/60-120/80) 120/63 -Extremity Use Right Arm -Pulse Rate (60-100) 63 Intake and Output for Last 24 Hours 10/15/19 10/16/19 10/17/19 23:59 23:59 23:59 Intake Total 200 / 400 2168.58 / 2168.58 Balance 200 / 400 2168.58 / 2168.58 Laboratory Results 10/16/19 16:53: Total Bilirubin 0.40, Direct Bilirubin 0.14, AST 13 L, ALT 18, Alkaline Phosphatase 65, Total Protein 6.4, Albumin 3.3, Globulin 3.1 10/16/19 16:53: Magnesium 1.3 L, Troponin I < 0.015, TSH 0.79 10/16/19 16:53: Hemoglobin A1c 6.3 H 10/16/19 17:21: POC Glucose 100 10/16/19 19:50: Troponin I < 0.015 10/16/19 21:12: Urine Color Yellow, Urine Clarity Clear, Urine pH 6.5, Ur Specific [place] 1.010, Urine Protein Negative, Urine Glucose (UA) 50 H, Urine Ketones Negative, Urine Occult Blood Negative, Urine Nitrite Negative, Urine Bilirubin Negative, Urine Urobilinogen 1 H, Ur Leukocyte Esterase Negative, Urine RBC 0-5 SEEN, Urine WBC 0-5 SEEN, Ur Squamous Epith Cells 0-5 SEEN, Ur Renal Epithelial Cell 0-5 SEEN, Urine Bacteria 0 SEEN, Hyaline Casts 0-5 SEEN, Urine Mucus 0 SEEN 10/16/19 21:45: POC Glucose 110 10/17/19 05:26: WBC 6.4, RBC 3.63 L, Hgb 10.7 L, Hct 33.3 L, MCV 91.7, MCH 29.5, MCHC 32.1, RDW Std Deviation 42.1, RDW Coeff of Joshua 12.7, Plt Count 215, MPV 10.1 10/17/19 05:26: Sodium 141, Potassium 4.3, Chloride 109 H, Carbon Dioxide 26.0, Anion Gap 6, BUN 21 H, Creatinine 0.88, Estim Creat Clear Calc 57.99, Est GFR (MDRD) Af Amer 106, Est GFR (MDRD) Non-Af 88, BUN/Creatinine Ratio 23.9 H, Glucose 99, Calcium 7.8 L, Phosphorus 2.7, Magnesium 2.4, Triglycerides 143, Cholesterol 109, LDL Cholesterol 51, VLDL Cholesterol 29, HDL Cholesterol 29 L 10/17/19 06:53: POC Glucose 106 10/17/19 11:42: POC Glucose 99 Current Medications Acetaminophen (Tylenol) 650 mg PO Q6H PRN PRN PRN Reason: Pain Score 1-10/Temp > 100.7 F Last Admin: 10/17/19 12:06 Dose: 650 mg Documented by: Al Hydroxide/Mg Hydroxide (Mylanta Ii) 30 ml PO Q6H PRN PRN PRN Reason: Gastric Burning Amlodipine Besylate (Norvasc) 5 mg PO DAILY [facility] Last Admin: 10/17/19 12:01 Dose: 5 mg Documented by: Aspirin (Ecotrin) 81 mg PO DAILY [facility] Last Admin: 10/17/19 05:48 Dose: 81 mg Documented by: Atorvastatin Calcium (Lipitor) 40 mg PO QHS [facility] Last Admin: 10/16/19 21:47 Dose: 40 mg Documented by: Clopidogrel Bisulfate (Plavix) 75 mg PO DAILY [facility] Last Admin: 10/17/19 12:01 Dose: 75 mg Documented by: Dextrose (D50w Syringe) 0 gm IV X1 PRN; Protocol PRN Reason: Hypoglycemia Glucagon () 1 mg IM .X1 PRN PRN Reason: Hypoglycemia Heparin Sodium (Porcine) (Heparin Na) 5,000 unit SC Q12 [facility] Last Admin: 10/17/19 12:00 Dose: 5,000 unit Documented by: Sodium Chloride () 1,000 mls @ 100 mls/hr IV .Q10H [facility] Stop: 10/17/19 22:31 Last Infusion: 10/17/19 11:59 Dose: 100 mls/hr Documented by: Sodium Chloride () 250 mls @ 15 mls/hr IV .[id number] PRN PRN Reason: Saline Flush Last Infusion: 10/17/19 02:00 Dose: 0 mls/hr Documented by: Sodium Chloride () 250 mls @ 15 mls/hr IV .[id number] PRN PRN Reason: Additional IVPB Infusion Insulin Human Lispro (Humalog Kwikpen (Bkc)) 0 unit SC TIDAC [facility]; Protocol Last Admin: 10/17/19 12:01 Dose: Not Given Documented by: Iopamidol (Contrast Allergy Check) 0 ml IV X1 [facility] Last Admin: 10/16/19 17:47 Dose: Not Given Documented by: Lisinopril (Zestril) 10 mg PO DAILY [facility] Last Admin: 10/17/19 05:48 Dose: 10 mg Documented by: Magnesium Hydroxide (Milk Of Magnesia) 30 ml PO DAILY PRN PRN PRN Reason: Constipation Melatonin (Melatonin) 3 mg PO QHS PRN PRN PRN Reason: INSOMNIA Metformin HCl (Glucophage) 1,000 mg PO BIDCM [facility] Last Admin: 10/17/19 12:00 Dose: 1,000 mg Documented by: Metoprolol Succinate (Toprol Xl (Beta Yen)) 12.5 mg PO DAILY [facility] Last Admin: 10/17/19 12:01 Dose: 12.5 mg Documented by: Nitroglycerin (Nitrostat) 0.4 mg SUBLINGUAL Q5M PRN PRN Reason: CARDIAC/CHEST PAIN Pantoprazole Sodium (Protonix) 40 mg PO DAILY [facility] Last Admin: 10/17/19 12:01 Dose: 40 mg Documented by: Prochlorperazine Edisylate (Compazine Iv) 5 mg IV Q4H PRN PRN PRN Reason: Breakthrough Nausea/Vomiting Sodium Chloride () 10 - 40 ml IV UD PRN PRN Reason: SALINE FLUSH Last Admin: 10/17/19 12:02 Dose: 10 ml Documented by: OBSV E&M: [id number] Observation care discharge
[2019-10-17 12:56] LABS: Bedside Glucose 99 mg/dL (70-110)
== END 2019-10-17 14:43 | disposition home or self-care (01) | DRG 149 ==
LOC: ED 13:26 → PCU 15:32
PROVIDERS: Admitting Provider Internal Medicine; Emergency Provider Emergency Medicine; PCP Internal Medicine; Visit Provider Internal Medicine
DX: R42 Dizziness and giddiness (principal); R55 Syncope and collapse; R00.1 Bradycardia, unspecified; E86.0 Dehydration; T44.1X5A Adverse effect of other parasympathomimetics [cholinergics], initial encounter; E11.9 Type 2 diabetes mellitus without complications; I10 Essential (primary) hypertension; I25.10 Atherosclerotic heart disease of native coronary artery without angina pectoris; E78.00 Pure hypercholesterolemia, unspecified; F03.90 Unspecified dementia, unspecified severity, without behavioral disturbance, psychotic disturbance, mood disturbance, and anxiety; D64.9 Anemia, unspecified; R53.1 Weakness; Z95.5 Presence of coronary angioplasty implant and graft; Z79.84 Long term (current) use of oral hypoglycemic drugs; Z79.82 Long term (current) use of aspirin; Z79.02 Long term (current) use of antithrombotics/antiplatelets; Z79.899 Other long term (current) drug therapy; Z87.891 Personal history of nicotine dependence
CPT/HCPCS: 36415; 70450; 71045; 80048; 80061; 80076; 81001; 82962; 83036; 83735; 84100; 84443; 84484; 85025; 85027; 93005; 93017; 93306; 93350; 99251; 99285; J7030; J7050; A4216; G0463

== ENCOUNTER → 2020-12-12 10:19 | Outpatient (CLI) | payer MEDICARE, BC, SELFPAY ==
[2020-12-12 11:34] LABS: Absolute Lymphocyte Count 2.29 X10^3/uL (0.83-4.51); Absolute Neutrophil Count 3.1 X10^3/uL (2.0-7.7); Basophil# 0.02 X10^3/uL; Basophil% 0.3 % (0-1); Eosinophil# 0.21 X10^3/uL; Eosinophils% 3.3 % (0-5); Hematocrit 37.3 % (40-54); Hemoglobin 12.1 g/dL (13.0-16.5); Lymphocyte # 2.29 X10^3/ul (0.83-4.51); Lymphocyte % 35.9 % (19-41); Mean Corp Hgb Conc 32.4 g/dL (32-36); Mean Corpuscular Hgb 29.6 pg (27.0-32.0); Mean Corpuscular Volume 91.2 fL (80-94); Mean Platelet Vol. 10.3 fl (6.2-12.0); NRBC Flagged by Analyzer 0 % (0-5); Neutrophil # 3.14 X10^3/uL (2.7-7.7); Neutrophil % 49.3 % (47-70); Platelet Count 257 K/mm3 (150-450); RBC Distribution Width CV 12.3 % (11.6-14.6); RBC Distribution Width SD 40.5 fl (35.1-43.9); Red Blood Count 4.09 M/mm3 (4.6-6.2); White Blood Count 6.4 K/mm3 (4.4-11.0)
[2020-12-12 12:11] LABS: Anion Gap 4 (5-15); BUN 23 mg/dL (7-18); BUN/Creat Ratio 24.7 RATIO (10-20); Calcium,Total 9.3 mg/dL (8.5-10.1); Chloride 108 mmol/L (98-107); Creatinine, Serum 0.93 mg/dL (0.70-1.30); EST Glomerular Filtration Rate 82 mL/min (>60); Est Glom Filt Rate - Afr Amer 99 mL/min (>60); Glucose 129 mg/dL (74-106); Potassium 4.7 mmol/L (3.5-5.1); Sodium Level 141 mmol/L (136-145)
== END ==
PROVIDERS: PCP Internal Medicine; Visit Provider Physician Assistant Medical
DX: E11.9 Type 2 diabetes mellitus without complications (principal); I10 Essential (primary) hypertension; I25.10 Atherosclerotic heart disease of native coronary artery without angina pectoris; Z95.5 Presence of coronary angioplasty implant and graft
CPT/HCPCS: 36415; 80048; 85025

== ENCOUNTER 2021-09-29 10:38 | Emergency (ER) | payer MEDICARE, BC, SELFPAY ==
[2021-09-29 10:39] VITALS: BP 121/66; PULSE 74; RESP 18; TEMP 36.6; O2SAT 97; BMI 22.8
[2021-09-29 10:52] VITALS: O2SAT 97
--- NOTE | 2021-09-29 11:01 | CT_ITS ---
STUDY: CT BRAIN WITHOUT CONTRAST REASON FOR EXAM: Male, 85 years old. Head injury due to a fall. On anticoagulants. RADIATION DOSAGE (If Supplied By Facility): CTDIvol = ( 44.99 ) mGy, DLP = ( 829.85 ) mGycm TECHNIQUE: Transaxial CT imaging of the brain was performed without administration of intravenous contrast material. Individualized dose optimization techniques were used for this CT. COMPARISON: Comparison is made with prior study of 10/16/2019. FINDINGS: Normal soft tissue structures. Normal calvarium. There is mild cerebral atrophy with widening of the extra-axial spaces and ventricular dilatation. There are areas of decreased attenuation within the white matter tracts of the supratentorial brain, consistent with microvascular disease changes. Normal basal ganglia and thalami. Normal brainstem. Normal cerebellum. There is no intracranial hemorrhage. There are no findings of an acute ischemic infarction. Atherosclerotic plaque formation of the vertebral arteries and cavernous portions of the internal carotid arteries bilaterally. There is a 2.3 cm mucosal retention cyst of the right maxillary sinus. CT/Brain/Head without Contrast IMPRESSION: Chronic involutional changes of the brain. Electronically Signed: Jacob Rivera MD at 11:46 EDT ,
--- NOTE | 2021-09-29 11:01 | CT_ITS ---
STUDY: CT CERVICAL SPINE WITHOUT CONTRAST REASON FOR EXAM: Male, 85 years old. Injury due to a fall. RADIATION DOSAGE (If Supplied By Facility): CTDIvol = ( 18.98 ) mGy, DLP = ( 392.29 ) mGycm TECHNIQUE: High resolution transaxial imaging was performed without contrast material. Sagittal and coronal images were reconstructed. Individualized dose optimization techniques were used for this CT. COMPARISON: None FINDINGS: Normal craniovertebral junction. There are degenerative changes of the anterior atlantoaxial articulation. Normal odontoid process. Normal cervical lordosis. Normal vertebral bodies and posterior osseous elements. C2-3: Facet joint osteoarthritis and hypertrophy worse on the right side. No significant stenosis is seen. C3-4: Mild degree of disc space narrowing and disc degeneration. Facet joint osteoarthritis and hypertrophy worse on the right side. Uncovertebral arthrosis. There is a moderate degree of right neural foraminal stenosis. C4-5: Facet joint osteoarthritis and hypertrophy worse on the right side. Moderate degree of right neural foraminal stenosis. C5-6: Mild degree of disc space narrowing. Facet joint osteoarthritis and hypertrophy worse on the left side with a moderate degree of left neural foraminal stenosis. Uncovertebral arthrosis. C6-7: Moderate degree of disc space narrowing. Spondylosis. No significant stenosis seen. C7-T1: Normal endplates. Normal disc height and morphology. Normal central canal and intervertebral neuroforamina. Atherosclerotic calcification of the carotid bifurcations bilaterally. CT/Spine Cervical without Contras IMPRESSION: Multilevel degenerative changes, as described above. Electronically Signed: Jacob Rivera MD at 11:48 EDT ,
--- NOTE | 2021-09-29 11:25 | RAD_ITS ---
STUDY: X-RAY - PELVIS REASON FOR EXAM: Male, 85 years old. History of fall. TECHNIQUE: One view of the pelvis was obtained. COMPARISON: None. FINDINGS: There is a non-specific bowel gas pattern. There are multiple calcified phleboliths. There is narrowing with cortical sclerosis and osteophyte formation of the sacroiliac joint consistent with degenerative osteoarthritic changes. Normal visualized bilateral superior and inferior pubic rami. There is narrowing with sclerosis of the pubic symphysis. Normal ischial tuberosities. Normal visualized right femoral head. There is osteoarthritic spur formation of the right acetabular rim. There is mild articular joint space narrowing of the right hip. Normal visualized left femoral head. There is osteoarthritic spur formation of the left acetabular rim. There is mild articular joint space narrowing of the left hip. RAD/Pelvis 1 or 2 Views IMPRESSION: Degenerative changes. No fracture is seen. Electronically Signed: Jacob Rivera MD at 11:49 EDT ,
--- NOTE | 2021-09-29 11:26 | EX.ED.DYSGE1 ---
HPI History of Present Illness Chief Complaint: Fall Informant: patient, spouse/S.O. and family Narrative Narrative: 85-year-old male, on Plavix, states that 2 days ago he was going up some stairs. He was on the second from bottom step when he fell backwards landing on his buttocks and then striking the back of his head. He notes headache that began last night as well as neck soreness. He also notes his tailbone hurts. He has been able to ambulate. No nausea vomiting. No loss of consciousness. Because of the headaches and his anticoagulation [facility] Medical History (Updated 09/29/21 @ 12:[address] Hernandez Narayan DO) Acute renal failure Ataxia Atherosclerosis of coronary artery of [place] heart without angina pectoris (09/02/17) Bradycardia Dehydration Essential hypertension History of coronary artery stent placement (12/18/17) Near syncope Pure hypercholesterolemia Type 2 diabetes mellitus Unstable angina Vertigo Volume depletion Home Medications aspirin 81 mg tablet,delayed release 81 mg PO DAILY Heart 08/30/17 [History Last Taken 10/15/19] atorvastatin 40 mg tablet 40 mg PO QHS #90 tabs 01/03/18 [Rx Last Taken 10/15/19 22:00] metoprolol succinate 25 mg tablet,extended release 24 hr 12.5 mg PO DAILY bp #45 tabs 02/25/18 [Rx Last Taken 10/16/19 08:00] escitalopram oxalate 10 mg tablet 10 mg PO DAILY anxiety 09/15/18 [History Last Taken 10/16/19 08:00] clopidogrel 75 mg tablet 75 mg PO DAILY 02/15/20 [History Last Taken Unknown] cyanocobalamin (vitamin B-12) 1,000 mcg/mL injection solution 1,000 mcg IM Q2W 09/19/21 [History Last Taken Unknown] lisinopril 10 mg tablet 5 mg PO DAILY #30 tabs 09/19/21 [Rx Last Taken Unknown] metformin 500 mg tablet 500 mg PO BIDCM Blood Sugar 09/19/21 [History Last Taken Unknown] Allergy/AdvReac Type Severity Reaction Status Date / Time Penicillins Allergy Unknown Verified 09/29/21 10:41 Surgical History Presence of coronary angioplasty implant and graft (~12/18/17) Social History Smoking Status: Former smoker how long ago did patient quit smokin years alcohol intake: never caffeine: Yes Type: coffee Number of servings: 3 ROS ROS ED Constitutional Constitutional ED: Denies chills or weight loss Eyes Eyes: Denies change in vision or diplopia ENT ENT ED: Denies ear pain, rhinorrhea or sore throat Cardiovascular Cardiovascular: Denies chest pain, orthopnea, palpitations or racing heartbeat Respiratory/Chest Respiratory/Chest: Denies cough, dyspnea or orthopnea Gastrointestinal Gastrointestinal: Denies abdominal pain, diarrhea, nausea or vomiting Genitourinary Genitourinary ED: Denies dysuria, hematuria or urinary frequency Musculoskeletal Musculoskeletal: Reports back pain and neck pain; Denies arthralgias or myalgias Integumentary Denies abscess or rash Neurologic Neurologic: Reports headache(s); Denies weakness Psychiatric Psychiatric: Denies anxiety, depression, suicidal ideation or suicidal thoughts Endocrine Endocrinology: Denies polydipsia, polyphagia or polyuria Allergic/Immunologic Allergic/Immunologic ED: Denies mouth swelling, tongue swelling or urticaria EXAM Physical Exam Const Vital Signs: 09/29/21 10:39 09/29/21 10:52 Temperature 97.8 F Temperature Source Temporal Pulse Rate 74 Respiratory Rate 18 Respiratory Effort Normal Non-Labored Respiratory Depth Normal Respiratory Pattern Normal Blood Pressure 121/66 H Blood Pressure Mean 84 Pulse Ox 97 97 Oxygen Delivery Method Room Air Room Air Positive well nourished and well developed General Appearance ED: well developed HEENT Reports normocephalic, head/scalp atraumatic and moist mucous membranes Eyes PERRL and EOMs intact bilaterally Neck no lymphadenopathy, supple and no JVD Neck Narrative: Neck is generally tender to palpation no focal midline pain Resp normal respiratory effort and clear to auscultation bilaterally Cardio regular rate, regular rhythm and no murmurs GI normal to inspection, nondistended, normoactive bowel sounds and non-tender Palpation: soft Back/Spine no CVA tenderness and normal ROM Back/Spine Narrative: Tender palpation over the sacrum Extremity normal to inspection General Extremety ED: Negative for edema General Extremity: Negative for edema Neuro oriented x3 and CN's II-XII intact bilaterally Sensorium / Orientation: alert Motor Exam: strength 5/5 throughout Psych mental status grossly normal Mood & Affect: Negative for depressed or tearful Skin no rashes or lesions noted and no wounds MDM MDM MDM Narrative Medical decision making narrative: CT of the head and neck is negative for fracture or hemorrhage. My interpretation of the plain films of the pelvis is no acute fracture. Patient will be discharged home with supportive care return if worsening or concerns. Radiography Diagnostic Testing: Clinical Impression(s) from Imaging Studies Brain CT 09/29/21 11:01 IMPRESSION: Chronic involutional changes of the brain. Electronically Signed: Jacob Rivera MD at 11:46 EDT , Cervical Spine CT 09/29/21 11:01 IMPRESSION: Multilevel degenerative changes, as described above. Electronically Signed: Jacob Rivera MD at 11:48 EDT , Pelvis X-Ray 09/29/21 11:25 IMPRESSION: Degenerative changes. No fracture is seen. Electronically Signed: Jacob Rivera MD at 11:49 EDT , Discharge Plan Triage Chief Complaint: Fall ED Provider: Hernandez Narayan Dx/Rx/DC Orders Clinical Impression: Head injury, Acute cervical myofascial strain, Coccygeal contusion Instructions: ED Coccyx or Sacrum Contusion, ED Head Injury (Adult) Prescriptions: No Action metoprolol succinate 25 mg tablet extended release 24 hr 12.5 mg PO DAILY Qty: 45 3RF atorvastatin 40 mg tablet 40 mg PO QHS Qty: 90 3RF Rx Instructions: lower cholesterol escitalopram oxalate 10 mg tablet 10 mg PO DAILY clopidogrel 75 mg tablet 75 mg PO DAILY Rx Instructions: blood thinner metformin 500 mg tablet 500 mg PO BIDCM Label Comments: cyanocobalamin (vitamin B-12) 1,000 mcg/mL solution 1,000 mcg IM Q2W Label Comments: INJECT 1ML INTRAMUSCULARLY TWICE MONTHLY lisinopril 10 mg tablet 5 mg PO DAILY Qty: 30 0RF Rx Instructions: blood pressure aspirin 81 MG tablet,delayed release (DR/EC) 81 mg PO DAILY Primary Care Provider: Valeriano Monroy Referrals: Valeriano Monroy MD [Primary Care Provider] - As Needed Disposition Disposition: Home, Self Care
== END 2021-09-29 12:31 | disposition home or self-care (01) ==
PROVIDERS: Emergency Provider Emergency Medicine; PCP Internal Medicine; Visit Provider Emergency Medicine
DX: S09.90XA Unspecified injury of head, initial encounter (principal); E11.9 Type 2 diabetes mellitus without complications; S16.1XXA Strain of muscle, fascia and tendon at neck level, initial encounter; S30.0XXA Contusion of lower back and pelvis, initial encounter; W10.9XXA Fall (on) (from) unspecified stairs and steps, initial encounter; Y93.01 Activity, walking, marching and hiking; Y99.8 Other external cause status; I25.10 Atherosclerotic heart disease of native coronary artery without angina pectoris; I10 Essential (primary) hypertension; E78.00 Pure hypercholesterolemia, unspecified; Z95.5 Presence of coronary angioplasty implant and graft; Z79.02 Long term (current) use of antithrombotics/antiplatelets; Z79.82 Long term (current) use of aspirin; Z79.84 Long term (current) use of oral hypoglycemic drugs; Z79.899 Other long term (current) drug therapy; Z87.891 Personal history of nicotine dependence
CPT/HCPCS: 70450; 72125; 72170; 99282

== ENCOUNTER → 2022-01-25 | Outpatient (CLI) | payer MEDICARE, BC, SELFPAY ==
--- NOTE | 2022-01-25 12:57 | RAD_ITS ---
HISTORY: Postlaminectomy syndrome, not elsewhere classified. TECHNIQUE: XR Spine Lumbar 2 or 3 Views. COMPARISON: None. FINDINGS: VERTEBRAE: Vertebral body heights preserved. Degenerative changes of the posterior elements. ALIGNMENT: No significant anterior or posterior subluxation. INTERVERTEBRAL DISCS: Degenerative endplate changes with osteophytes at multiple levels. RAD/Lumbar Spine 2 or 3 Views IMPRESSION: No acute fracture or dislocation identified in the lumbar spine. Mild degenerative change. Electronically Signed: Stacy Salazar MD at 14:36 EDT ,
== END | disposition home or self-care (01) ==
PROVIDERS: PCP Internal Medicine; Referring Provider Anesthesiology Pain Medicine; Visit Provider Anesthesiology Pain Medicine
DX: M96.1 Postlaminectomy syndrome, not elsewhere classified (principal)
CPT/HCPCS: 72100

== ENCOUNTER → 2024-01-17 | Outpatient (CLI) | payer MEDICARE, BC, SELFPAY ==
[2024-01-17 09:46] LABS: Hemoglobin 11.8 g/dL (13.0-16.5); Mean Corp Hgb Conc 32.8 g/dL (32-36); Mean Corpuscular Hgb 29.5 pg (27.0-32.0); Mean Platelet Vol. 10.2 fl (6.2-12.0); Platelet Count 221 K/mm3 (150-450); RBC Distribution Width CV 12.5 % (11.6-14.6); RBC Distribution Width SD 41.3 fl (35.1-43.9); White Blood Count 6.5 K/mm3 (4.4-11.0)
[2024-01-17 10:42] LABS: ALB/GLOB Ratio 0.9 RATIO (0.9-2.4); AST(SGOT) 10 U/L (15-37); Alanine Aminotransfer ALT/SGPT 14 U/L (16-61); Albumin, Serum 3.1 g/dL (3.2-5.0); Alkaline Phosphatase 82 U/L (45-117); Anion Gap 3 (5-15); BUN 22 mg/dL (7-18); Calcium,Total 9.1 mg/dL (8.5-10.1); Chloride 106 mmol/L (98-107); Cholesterol 112 mg/dL (200); Creatinine, Serum 0.88 mg/dL (0.70-1.30); EST Glomerular Filtration Rate 87 mL/min (>60); Est Glom Filt Rate - Afr Amer 105 mL/min (>60); Globulin 3.3 g/dL (2.2-4.2); Glucose 140 mg/dL (74-106); High Density Lipoprotein 37 mg/dL; Potassium 4.7 mmol/L (3.5-5.1); Protein, Total 6.4 g/dL (6.4-8.2); Sodium Level 142 mmol/L (136-145); Triglycerides 96 mg/dL; Very Low Density Lipoprotein 19 mg/dL (5-40)
== END | disposition home or self-care (01) ==
LOC: LAB 09:08
PROVIDERS: PCP Internal Medicine; Referring Provider Internal Medicine Cardiovascular Disease; Visit Provider Internal Medicine Cardiovascular Disease
DX: I25.10 Atherosclerotic heart disease of native coronary artery without angina pectoris (principal); E11.9 Type 2 diabetes mellitus without complications; I10 Essential (primary) hypertension; E78.5 Hyperlipidemia, unspecified
CPT/HCPCS: 36415; 80053; 80061; 84443; 85027

== ENCOUNTER → 2024-01-22 | Outpatient (CLI) | payer MEDICARE, BC, SELFPAY ==
--- NOTE | 2024-01-22 13:55 | ECHOD_ITS ---
Reason For Study: CAD/ASHD Procedure This was a 2D Doppler, Color Flow transthoracic echocardiogram. Exam performed in department. Left Ventricle Normal LV size. Mild concentric left ventricular hypertrophy. The left ventricular ejection fraction is 65 %. Stage 1 diastolic dysfunction. Right Ventricle Normal right ventricle. Atria The left and right atria are normal. Mitral Valve Mild mitral annular calcification. Trivial mitral valve insufficiency. Tricuspid Valve Trivial tricuspid valve insufficiency. Right ventricular systolic pressure estimated to be 37 mmHg. Aortic Valve Trisinus/trileaflet aortic valve. Mild (1+) aortic valve insufficiency. Pulmonic Valve The pulmonic valve is not well visualized. Trivial pulmonic valve insufficiency. Great Vessels The aortic root is not well visualized. Pericardium/Pleural No pericardial effusion. MMode/2D Measurements & Calculations LVIDd: 4.3 cm IVSd: 1.2 cm LAV(MOD-bp): 30.5 ml LVIDs: 3.3 cm LVPWd: 0.72 cm LAV(MOD-bp) Indexed: 17.6 ml/m2 RVDd: 3.6 cm FS: 23.5 % LAV(MOD-sp2): 32.2 ml LAV(MOD-sp4): 28.6 ml SV(MOD-sp4): 34.5 ml SV(sp4-el): 37.1 ml LVAd ap4: 24.3 cm2 LVLd ap4: 7.8 cm EDV(MOD-sp4): 63.5 ml EDV(sp4-el): 64.3 ml LVAs ap4: 14.0 cm2 LVLs ap4: 6.1 cm ESV(MOD-sp4): 29.0 ml ESV(sp4-el): 27.2 ml EF(MOD-sp4): 54.3 % EF(sp4-el): 57.8 % LA A4 area: 12.8 cm2 LA dimension(2D): 3.0 cm RA A4 area: 12.4 cm2 TAPSE: 1.9 cm Time Measurements MV dec time: 0.38 sec Doppler Measurements & Calculations MV E max clifford: 48.5 cm/sec Lat Peak E' Clifford: 7.8 cm/sec Med Peak E' Clifford: 7.6 cm/sec MV A max clifford: 89.9 cm/sec E/E' lat: 6.2 E/E' med: 6.4 MV E/A: 0.54 MV V2 max: 101.5 cm/sec MV P1/2t max clifford: 51.5 cm/sec Ao V2 max: 98.7 cm/sec MV max P.1 mmHg MV P1/2t: 145.2 msec Ao max P.9 mmHg MV V2 mean: 41.5 cm/sec Ao V2 mean: 67.6 cm/sec MV mean P.85 mmHg MV dec slope: 103.9 cm/sec2 Ao mean P.1 mmHg MV V2 VTI: 23.3 cm MVA(P1/2t): 1.5 cm2 Ao V2 VTI: 22.3 cm AI max clifford: 292.7 cm/sec LV V1 max: 64.5 cm/sec PA V2 max: 76.5 cm/sec AI max P.3 mmHg LV V1 max P.7 mmHg PA max PG (full): 1.2 mmHg AI dec slope: 157.0 cm/sec2 AI P1/2t: 546.2 msec TR max clifford: 267.3 cm/sec TR max P.6 mmHg ECHO/Echo Complete Interpretation Summary Mild concentric left ventricular hypertrophy. The left ventricular ejection fraction is 65 %. Stage 1 diastolic dysfunction. Mild mitral annular calcification. Right ventricular systolic pressure estimated to be 37 mmHg. Mild (1+) aortic valve insufficiency. Ordering Physician: Madai Black Referring Physician: Madai Black Performed By: Aldo Urrutia RCS
== END | disposition home or self-care (01) ==
LOC: CVS 13:52
PROVIDERS: PCP Internal Medicine; Referring Provider Internal Medicine Cardiovascular Disease; Visit Provider Internal Medicine Cardiovascular Disease
DX: I25.10 Atherosclerotic heart disease of native coronary artery without angina pectoris (principal)
CPT/HCPCS: 93306

== ENCOUNTER 2024-09-23 14:38 | Emergency (ER) | payer MEDICARE, BC, SELFPAY ==
[2024-09-23 14:39] VITALS: BP 134/65; PULSE 80; RESP 16; TEMP 36.6; O2SAT 98
--- NOTE | 2024-09-23 18:30 | RAD_ITS ---
PROCEDURE: PELVIS 1 OR 2 VIEWS 09/23/2024 REASON FOR EXAM: INJURY/PAIN TECHNIQUE: 1 view(s) of the pelvis. COMPARISON: 09/29/2021. FINDINGS: No evidence of acute fracture or dislocation. [id number] degenerative changes of the bilateral hips. Degenerative changes of the partially visualized spine. Heavy atherosclerosis. RAD/Pelvis 1 or 2 Views IMPRESSION: No acute osseous abnormalities. Bilateral hip osteoarthrosis. Reading Location: [place] [id number]
--- NOTE | 2024-09-23 18:37 | EX.ED.GENINJ ---
HPI History of Present Illness Chief Complaint: Back Detail of Chief Complaint: Patient had frequent falls. Complaining of tailbone pain. Informant: family (Patient lives with his . He has had frequent falls. He has dementia. Son brought him to the emergency room because he is complaining of tailbone pain for the last 2 days. He fell 3 days ago.) Onset/Context/Timing Onset: Days Mechanism/Context: Fall Location of pain/injuries: - (Tailbone) Quality of Pain: Dull Location: Pelvis Current Severity: Mild Maximum Severity: Moderate Worsened by: Palpation and movement Relieved by: Nothing Associated Symptoms Associated Symptoms: Negative for Parasthesias, Weakness, Loss of function or Inability to ambulate Narrative Narrative: Patient is an 88-year-old male. Lives with his spouse. Ambulates approximately a mile from his residence. He fell 3 days ago. He is coming complaining of tailbone pain. He has a skin tear superior to the right elbow. He has no pain or complaint of pain of right shoulder, elbow or wrist. Complains of pain in his buttocks area. There is no known history of head trauma. No loss of conscious. He has not complained of headache. He denies visual changes. He denies neck pain. No shortness of breath. [place] chest pain. Denies abdominal pain. Prior similar symptoms: Yes Recent Illness/Hospitalization: No PFSH COUNTS INCLUDE 234 BEDS AT THE [facility] Medical History Hx of fall Bowel obstruction Coronary artery disease Dyslipidemia Diverticulitis Pure hypercholesterolemia Essential hypertension Type 2 diabetes mellitus Bradycardia Volume depletion Dehydration Acute renal failure Vertigo Ataxia Near syncope Diabetes History of coronary artery stent placement (12/18/17) Atherosclerosis of coronary artery of [place] heart without angina pectoris (09/02/17) Unstable angina Home Medications ?Medication ?Instructions ?Recorded ?Last Taken ?Type aspirin 81 mg tablet,delayed 81 mg PO DAILY Heart 08/30/17 10/15/19 History release clopidogrel 75 mg tablet 75 mg PO DAILY 02/15/20 Unknown History cyanocobalamin (vitamin B-12) 1,000 mcg IM Q2W 09/19/21 Unknown History 1,000 mcg/mL injection solution metformin 500 mg tablet 500 mg PO BIDCM Blood Sugar 09/19/21 Unknown History lisinopril 2.5 mg tablet 2.5 mg PO DAILY 02/21/22 Unknown History rivastigmine 4.6 mg/24 hour 1 patch topical QDAY 10/03/23 Unknown History transdermal patch atorvastatin 20 mg tablet 20 mg PO QDAY #90 tabs 01/14/24 Unknown Rx fluoxetine 20 mg capsule mg PO QDAY 01/14/24 Unknown History metoprolol succinate 25 mg 25 mg PO QDAY 01/14/24 Unknown History tablet,extended release 24 hr polyethylene glycol 3350 17 g PO QDAY 01/14/24 Unknown History gram/dose oral powder Allergy/AdvReac Type Severity Reaction Status Date / Time Penicillins Allergy Unknown Verified 09/23/24 14:42 Surgical History Presence of coronary angioplasty implant and graft (~12/18/17) Social History Smoking Status: Former smoker how long ago did patient quit smokin years alcohol intake: never caffeine: Yes Type: coffee Number of servings: 3 ROS ROS ED Review of Systems ROS Unobtainable: due to mental status EXAM Physical Exam Const Vital Signs: 09/23/24 14:39 09/23/24 18:42 Temperature 97.8 F Temperature Source Temporal Pulse Rate 80 80 Respiratory Rate 16 18 Blood Pressure 134/65 H Blood Pressure Mean 88 Pulse Ox 98 96 Oxygen Delivery Method Room Air Room Air Positive well nourished and well developed General Appearance ED: well developed and NAD HEENT Reports TM's clear atraumatic; Negative for tenderness Nose: Negative for septum abnormal Tympanic Membrane ED: Yes TM's clear Eyes PERRL and EOMs intact bilaterally General Eye ED: Yes other Other Details: No subconjunctival hemorrhage. No scleral icterus. Neck full ROM General: Negative for tenderness Chest Wall inspection of chest normal and palpation of chest normal Resp normal respiratory effort and clear to auscultation bilaterally Cardio regular rhythm, S1 normal heart sound, S2 normal heart sound and no murmurs Rate: regular rate GI normal to inspection, nondistended, normoactive bowel sounds, non-tender, non-distended and no masses Back/Spine normal to inspection and no thoracic nor lumbar tenderness Back/Spine Narrative: There is pain ovation over the left ischial tuberosity. Questionable tenderness over the right ischial tuberosity. There is no pain ovation of the sacrum or the right or left iliac wing. There is no pain ovation of the pubic symphysis. Nick Merrick 4 test on the right and left causes no discomfort in the hip or sacral area. There is no evidence of trauma to the knees or ankle. He has no pain ovation of his right or left knee or his right or left ankle. Extremity normal to inspection and full ROM General Extremety ED: Negative for deformity, edema or tenderness General Extremity: Negative for deformity or edema Neuro No oriented x3, CN's II-XII intact bilaterally and moves all extremities Neuro Narrative: Patient is awake but not alert. He has dementia. Plantar Reflex: Downgoing: bilateral Psych Mood & Affect: depressed Skin no rashes or lesions noted, No no wounds and No skin turgor normal Skin Narrative: Skin tear noted distal lateral right arm. There is no pain ovation of the lateral medial epicondyle. No pain the patient would like compresses or radial head. He has full active range of motion of the right shoulder and right elbow. MDM MDM MDM Narrative Medical decision making narrative: This patient has pain to the patient predominately over the left ischial tuberosity pelvic x-ray was obtained to evaluate for fracture versus contusion. In my opinion imaging of the right upper extremity is not indicated. There is no history of head trauma no evidence of head trauma imaging of the head was not obtained. Radiography Chest X-Ray - ED: 1 View and Read by ED Physician (Independent review interpreted by me at 1854. There is evidence of atherosclerosis of the right and left femoral artery. There is arthritic changes of the both right and left hip joint. There is no evidence of fracture of the pelvis.) Discharge Plan Triage Chief Complaint: Back ED Provider: Grey Hanna Dx/Rx/DC Orders Clinical Impression: Contusion of lower back and pelvis, initial encounter, Type 2 diabetes mellitus, Essential hypertension, Injury due to fall, Dementia, ISTAP type 1 skin tear of right upper arm Instructions: ED Coccyx or Sacrum Contusion Prescriptions: No Action clopidogrel 75 mg tablet 75 mg PO DAILY Rx Instructions: blood thinner metformin 500 mg tablet 500 mg PO BIDCM Patient Comments: cyanocobalamin (vitamin B-12) 1,000 mcg/mL solution 1,000 mcg IM Q2W Patient Comments: INJECT 1ML INTRAMUSCULARLY TWICE MONTHLY lisinopril 2.5 mg tablet 2.5 mg PO DAILY rivastigmine 4.6 mg/24 hour patch 24 hour 1 patch topical QDAY polyethylene glycol 3350 17 gram/dose powder PO QDAY fluoxetine 20 mg capsule PO QDAY metoprolol succinate 25 mg tablet extended release 24 hr 25 mg PO QDAY atorvastatin 20 mg tablet 20 mg PO QDAY Qty: 90 3RF aspirin 81 MG tablet,delayed release (DR/EC) 81 mg PO DAILY Primary Care Provider: Valeriano Monroy Referrals: Valeriano Monroy MD [Primary Care Provider] - 1 Week if not improving Activity Restrictions/Additional Instructions: 1. Apply ice to areas of discomfort 6 times a day. 2. Significant milligrams of Tylenol every 6-8 hours for pain Print Language: [place] Disposition Disposition: Home, Self Care
[2024-09-23 18:42] VITALS: PULSE 80; RESP 18; O2SAT 96
[2024-09-23 19:20] LABS: Bacteria 0 SEEN /hpf (None Seen); Mucous, Urine 0 SEEN /hpf (<or=2+)
[2024-09-23 19:29] LABS: Color, Urine Yellow (Yellow); Glucose, Dipstick 1000 mg/dl (Normal); Ketone-Dipstick Negative (Negative); Leukocyte Esterase-Dipstick Negative /ul (Negative); Nitrite-Dipstick Negative (Negative); Occult Blood-Urine 10 /ul (Negative); Protein-Dipstick 30 mg/dl (Negative); Urine Bilirubin Dipstick Negative (Negative); Urine Clarity Clear (Clear); Urine Urobilinogen 4 mg/dl (Normal)
[2024-09-23 20:26] LABS: Red Blood Cells-Urine 0-5 SEEN /hpf (0-5); Squamous Epithelial Cells - UA 0-5 SEEN /hpf (0-5); White Blood Cells 0-5 SEEN /hpf (0-5)
[2024-09-23 20:57] VITALS: BP 137/98; PULSE 97; RESP 18; TEMP 37; O2SAT 99
== END 2024-09-23 20:59 | disposition home or self-care (01) ==
PROVIDERS: Emergency Provider Emergency Medicine; PCP Internal Medicine; Visit Provider Emergency Medicine
DX: S00.83XA Contusion of other part of head, initial encounter (principal); G30.9 Alzheimer's disease, unspecified; F02.811 Dementia in other diseases classified elsewhere, unspecified severity, with agitation; E11.9 Type 2 diabetes mellitus without complications; W19.XXXA Unspecified fall, initial encounter; I10 Essential (primary) hypertension; E78.00 Pure hypercholesterolemia, unspecified; I25.10 Atherosclerotic heart disease of native coronary artery without angina pectoris; Z95.5 Presence of coronary angioplasty implant and graft; Z79.02 Long term (current) use of antithrombotics/antiplatelets; Z79.82 Long term (current) use of aspirin; Z79.84 Long term (current) use of oral hypoglycemic drugs; Z79.899 Other long term (current) drug therapy; Z87.891 Personal history of nicotine dependence
CPT/HCPCS: 72170; 81001; 99284; P9612

== ENCOUNTER 2024-09-23 23:39 | Emergency (ER) | payer MEDICARE, BC, SELFPAY ==
[2024-09-23 23:41] VITALS: BP 160/70; PULSE 95; RESP 16; TEMP 36.8; O2SAT 100; O2SAT 98; BMI 19.8
--- NOTE | 2024-09-23 23:52 | EDS_ITS ---
HPI HPI - Fall History of Present Illness Chief Complaint: Fall Narrative Narrative: 88-year-old male past medical history of Alzheimer's dementia presents via EMS status post fall. History and physical is limited secondary to his dementia. According to his son and [id number], he had fallen 3 days ago and has been agitated. He was seen in the emergency department earlier and discharged. After being discharged, patient was still agitated and did not want to go into the house. He lives at home with his . He was finally settled in, and they left him. However, they received a call that he had ran away, and was very agitated, and had fallen. He struck his head. He does take Plavix and aspirin. Unknown loss of consciousness. Patient does not have any neck pain and denies other injury, but once again history and physical is limited secondary to dementia. [facility] Medical History Hx of fall Bowel obstruction Coronary artery disease Dyslipidemia Diverticulitis Pure hypercholesterolemia Essential hypertension Type 2 diabetes mellitus Bradycardia Volume depletion Dehydration Acute renal failure Vertigo Ataxia Near syncope Diabetes History of coronary artery stent placement (12/18/17) Atherosclerosis of coronary artery of [place] heart without angina pectoris (09/02/17) Unstable angina Home Medications ?Medication ?Instructions ?Recorded ?Last Taken ?Type aspirin 81 mg tablet,delayed 81 mg PO DAILY Heart 08/1310/15/19 History release clopidogrel 75 mg tablet 75 mg PO DAILY 02/15/20 Unkn own History cyanocobalamin (vitamin B-12) 1,000 mcg IM Q2W 2 Unknown History 1,000 mcg/mL injection solution metformin 500 mg tablet 500 mg PO BIDCM Blood Sugar 09/19/21 Unknown History lisinopril 2.5 mg tablet 2.5 mg PO DAILY 02/21/22 Unk nown History rivastigmine 4.6 mg/24 hour 1 patch topical QDAY 10/02 Unknown History transdermal patch atorvastatin 20 mg tablet 20 mg PO QDAY #90 tabs 01/13 Unknown Rx fluoxetine 20 mg capsule mg PO QDAY 01/14/24 Unknown History metoprolol succinate 25 mg 25 mg PO QDAY 01/14/24 Unkn own History tablet,extended release 24 hr polyethylene glycol 3350 17 g PO QDAY 01/14/24 Unknown History gram/dose oral powder Allergy/AdvReac Type Severity Reaction Status Date / Time Penicillins Allergy Unknown Verified 09/23/24 23:40 Surgical History Presence of coronary angioplasty implant and graft (~12/18/17) Social History Smoking Status: Former smoker how long ago did patient quit smokin years alcohol intake: never caffeine: Yes Type: coffee Number of servings: 3 ROS ROS ED ROS Narrative Unable to obtain from patient secondary to dementia. Per EMS, hematoma left forehead. Patient denies neck pain. Denies other injury. Review of Systems ROS Unobtainable: due to mental condition EXAM Physical Exam Narrative Exam Narrative: GCS 15. ABCs intact. PERRL, EOMI. Positive hematoma underlying abrasion of left forehead, no active bleeding. Neck soft and supple without meningismus, no vertebral point tenderness or bony step-off. Cardiovascular examination regular rate and rhythm. Lungs are clear to auscultation bilaterally. Abdomen is soft, nontender, with positive bowel sounds, no guarding or rebound. Neurological examination is consistent with dementia, nonfocal, nonlateralizing, moves all extremities, able to raise arms above head without difficulty. Const Vital Signs: 09/23/24 23:41 09/23/24 23:41 Temperature 98.3 F Temperature Source Oral Pulse Rate 95 Respiratory Rate 16 Respiratory Effort Normal Non-Labored Respiratory Depth Normal Respiratory Pattern Normal Blood Pressure 160/70 H Blood Pressure Mean 100 Pulse Ox 98 100 Oxygen Delivery Method Room Air Room Air MDM MDM MDM Narrative Medical decision making narrative: Concern is for skull fracture versus intracranial hemorrhage versus closed head injury. 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 They state that he is essentially comfort care only but still want a CT of the brain and C-spine. Additionally, they requested something for sedation as their plan is to take him home. I discussed with them obtaining laboratory work and admission for placement, but they state that he did not want that and they did not want that as well. I reviewed his prior ED visit. As he had no head injury at that time, CT of the brain was not performed. I reviewed the radiology report of the CT the brain and there is the development of the scalp hematoma, but no intracranial hemorrhage or skull fracture. I reviewed the radiology report for the CT of the C-spine and there is no acute process, no fracture. At this point in time, upon repeat examination, patient is resting on the bed and his wound was cleansed and dressed. In discussion with his son who is the power of compliance attorney, he will be given Haldol 1 mg intramuscularly for his agitation with dementia so that he can go home and sleep. They will discuss with his primary care provider further medications for agitation. Once again, they do not want him observed or admitted to the hospital for placement and are comfortable taking him home. Disposition is discharged in stable condition. History & Record Review Discussion w/independent historian: Patient and Family Additional record(s) reviewed:: Prior ED visit Radiography Diagnostic Testing: Clinical Impression(s) from Imaging Studies Brain CT 09/24/24 00:05 IMPRESSION: Interval appearance of left frontal acute subgaleal soft tissue hematoma. No CT evidence of an acute brain abnormality. Reading Location: [id number] Cervical Spine CT 09/24/24 00:05 IMPRESSION: No CT evidence for acute abnormality. Reading Location: [id number] Discharge Plan Triage Chief Complaint: Fall ED Provider: Neo Shelley Dx/Rx/DC Orders Clinical Impression: Fall, Traumatic hematoma of forehead, Dementia, Agitation due to dementia Instructions: ED CAREGIVER SUPPORT for DEMENTIA, ED Hematoma Prescriptions: No Action clopidogrel 75 mg tablet 75 mg PO DAILY Rx Instructions: blood thinner metformin 500 mg tablet 500 mg PO BIDCM Patient Comments: cyanocobalamin (vitamin B-12) 1,000 mcg/mL solution 1,000 mcg IM Q2W Patient Comments: INJECT 1ML INTRAMUSCULARLY TWICE MONTHLY lisinopril 2.5 mg tablet 2.5 mg PO DAILY rivastigmine 4.6 mg/24 hour patch 24 hour 1 patch topical QDAY polyethylene glycol 3350 17 gram/dose powder PO QDAY fluoxetine 20 mg capsule PO QDAY metoprolol succinate 25 mg tablet extended release 24 hr 25 mg PO QDAY atorvastatin 20 mg tablet 20 mg PO QDAY Qty: 90 3RF aspirin 81 MG tablet,delayed release (DR/EC) 81 mg PO DAILY Primary Care Provider: Valeriano Monroy Referrals: Valeriano Monroy MD [Primary Care Provider] - As soon as possible Activity Restrictions/Additional Instructions: Follow-up with your primary care provider as soon as possible. Print Language: Sinhala Disposition Disposition: Home, Self Care
--- NOTE | 2024-09-24 00:05 | CT_ITS ---
PROCEDURE: BRAIN/HEAD WITHOUT CONTRAST 09/24/2024 REASON FOR EXAM: TRAUMA TECHNIQUE: Head CT without intravenous contrast. Coronal and Sagittal reconstruction series were provided. One or more dose reduction techniques were used (e.g., Automated exposure control, adjustment of the mA and/or kV according to patient size, use of iterative reconstruction technique. RADIATION DOSE SUMMARY: CTDlvol: 12.7 mGy DLP: 1439 mGycm COMPARISON: 09/29/2021. FINDINGS: Interval appearance of left frontal acute subgaleal soft tissue hematoma. Mild diffuse cortical atrophy, commensurate with the patient's age. Scattered hypodense foci in the periventricular and subcortical white matter suggestive of chronic ischemic white matter disease. Normal size of the ventricles and extra-axial spaces for the patient's age. Normal basal ganglia and thalami. Normal brainstem. Normal cerebellum. There is no demonstrated extra-axial, intraparenchymal, or intraventricular hemorrhage. There are no findings of an acute ischemic infarction. Normal calvarium. There is no demonstrated fracture. Normal soft tissue structures. Normal visualized paranasal sinuses. CT/Brain/Head without Contrast IMPRESSION: Interval appearance of left frontal acute subgaleal soft tissue hematoma. No CT evidence of an acute brain abnormality. Reading Location: [facility]
--- NOTE | 2024-09-24 00:05 | CT_ITS ---
PROCEDURE: SPINE CERVICAL WITHOUT CONTRAS 09/24/2024 REASON FOR EXAM: TRAUMA TECHNIQUE: Cervical spine CT without contrast. Coronal and Sagittal reconstruction series were provided. One or more dose reduction techniques were used (e.g., Automated exposure control, adjustment of the mA and/or kV according to patient size, use of iterative reconstruction technique RADIATION DOSE SUMMARY: CTDlvol: 12.7 mGy DLP: 1439 mGycm COMPARISON: CT scan on 09/29/2021. FINDINGS: There are diffuse spondylotic changes. Findings are demonstrated to by diffuse disc space narrowing, osteophyte formation and degenerative endplate sclerosis. There is diffuse facet joint arthropathy with secondary bilateral neural foramina narrowing. No fracture or dislocation is seen. No aggressive lytic or blastic bony lesion is noted. CT/Spine Cervical without Contras IMPRESSION: No CT evidence for acute abnormality. Reading [facility]
--- OUTSIDE RECORDS SUMMARY | 2024-09-24 00:11 | XMS RPT_ITS | CCD ---
Author Organization [facility] Care Team Providers Care Renal Medicine Specialist Name Role Phone JOSE A DAVENPORT Unavailable Unavailable IMCA Unavailable Unavailable MABVALERIANO CISSE Unavailable Unavailable MABVALERIANO CISSE Unavailable Unavailable IMCA Unavailable Unavailable Valeriano Monroy Unavailable Unavailable MabValeriano cisse Unavailable Unavailable Gorge Cervantes Unavailable Unavailable Valeriano Monroy Unavailable Unavailable Carl Garcia Unavailable Unavailable Valeriano Monroy Primary Care Provider [phone] Valeriano Monroy Unavailable Unavailable Unavailable Unavailable Unavailable VALERIANO MONROY Referring Unavailable VALERIANO MONROY Primary Care Unavailable VALERIANO MONROY Attending Unavailable VALERIANO MONROY Referring Unavailable MABVALERIANO CISSE Primary Care Unavailable VALERIANO MONROY Attending Unavailable Valeriano Monroy MD Primary Care Provider Valeriano Monroy MD Unavailable VALERIANO MONROY Primary Care Unavailable ELLIE DUMONT A Attending Unavailable BAL DUFFY Admitting Unavailable VALERIANO MONROY Primary Care Unavailable VALERIANO MONROY Primary Care Unavailable VALERIANO MONROY Primary Care Unavailable VALERIANO MONROY Primary Care Unavailable Valeriano Monroy Primary Care Unavailable Wayne, Madai Attending Unavailable Wayne, Madai Referring Unavailable Valeriano Monroy Primary Care Unavailable Valeriano Monroy Referring Unavailable Wayne, Madai Attending Unavailable Valeriano Monroy Primary Care Unavailable Valeriano Monroy Referring Unavailable Wayne, Madai Attending Unavailable Valeriano Monroy Primary Care Unavailable Susan Luna NP Attending Unavailable Wayne, Madai Attending Unavailable Valeriano Monroy Primary Care Unavailable Valeriano Monroy Primary Care Unavailable Wayne, Madai Attending Unavailable Wayne, Madai Referring Unavailable Valeriano Monroy MD Primary Care Provider [phone] Valeriano Monroy MD Unavailable VALERIANO MONROY Attending Unavailable VALERIANO MONROY Primary Care Unavailable VALERIANO MONROY Attending Unavailable VALERIANO MONROY Primary Care Unavailable VALERIANO MONROY Attending Unavailable VALERIANO MONROY Primary Care Unavailable VALERIANO MONROY Attending Unavailable VALERIANO MONROY Primary Care Unavailable VALERIANO MONROY Attending Unavailable VALERIANO MONROY Primary Care Unavailable VALERIANO MONROY Attending Unavailable VALERIANO MONROY Primary Care Unavailable Eliana KYLE, Dr. Bal Primary Care Provider Dr. Grey Hanna MD Emergency Provider Allergies Allergy Classification Reported Allergen(s) Allergy Type Date of Onset Reaction(s) Facility Penicillins (antibiotic) (4 sources) Penicillins; Translations: [Penicillins] Drug Allergy [facility] Internal Medicine- Work Phone: (20 sources) Penicillins; Translations: [PENICILLINS] Propensity to adverse reactions (disorder) 3 Rash, Swelling, Unknown [facility] Medications Current Medications Medication Drug Class(es) Dates Sig (Normalized) Sig (Original) aspirin 81 mg delayed release oral tablet (20 sources) Platelet Aggregation Inhibitor, Nonsteroidal Anti-inflammatory Drug Start: 08-30-2017 take 1 tablet by mouth once daily Aspirin 81 MG tablet,delayed release (DR/EC) Active 81 mg PO DAILY August 30, 2017 12:00am Aspirin 81 MG TA BS Quantity: 0 Refills: 0 Ordered: 16-Sep-2013 DO Active take 1 tablet by mouth once lakshmi y Aspirin 81 mg Tab Take 81 mg by mouth once daily. 0 Active Comment on above: Take 81 mg by mouth once daily. aspirin 81 mg / calcium carbonate 777 mg oral tablet (6 sources) Platelet Aggregation Inhibitor, Nonsteroidal Anti-inflammatory Drug aspirin-calcium carbonate 81 mg-300 mg calcium(777 mg) tablet Take by mouth. Active atorvastatin 20 mg oral tablet (20 sources) HMG-CoA Reductase Inhibitor Start: take 1 tablet by mouth once daily Atorvastatin 20 mg tablet Active 20 mg PO daily January 14, 2024 12:00am Start: 06-20-2023 take 1 tablet by dionne once daily atorvastatin (Lipitor) 40 mg tablet Indications: ASHD (arteriosclerotic heart disease) TAKE 1 TABLET BY MOUTH DAILY 90 tablet 3 06/20/2023 Active Start: 12-19-2017 End: 01-14-2024 take 1 tablet by mouth once daily atorvastatin (Lipitor) 40 mg tablet Indications: ASHD (arteriosclerotic heart disease) , Hyperlipidemia, unspecified hyperlipidemia type Take 1 tablet (40 mg) by mouth once daily. 90 tablet 3 09/05/2022 02/20/2023 Discontinued (Therapy completed) clopidogrel 75 mg oral tablet (20 sources) [id number] Platelet Inhibitor Start: 05-15-2024 take 1 tablet by mouth once daily clopidogrel (Plavix) 75 mg tablet Indications: ASHD (arteriosclerotic heart disease) TAKE 1 TABLET BY MOUTH DAILY 90 tablet 3 05/15/2024 Active Start: 06-20-2023 take 1 tablet by dionne th once daily clopidogrel (Plavix) 75 mg tablet Indications: ASHD (arteriosclerotic heart disease) TAKE 1 TABLET BY MOUTH DAILY 90 tablet 3 06/20/2023 Active Start: 09-11-2017 take 1 tablet by dionne th twice daily Clopidogrel Bisulfate 75 MG Oral Tablet Take 1 tablet twice daily Quantity: 180 Refills: 3 Valeriano Monroy MD Start : 11-Sep-2017 Active Start: 09-03-2017 End: 02-20-2023 Clopidogrel 75 MG tablet Dis continued 75 mg PO 0600,1800 60 December 19, 2017 12:00am February 25, 2018 3:05pm Comment on above: Take 75 mg by mouth once daily. FLUoxetine 40 mg oral capsule (6 sources) Serotonin Reuptake Inhibitor Start: 04-06-2024 End: 04-06-2025 take 1 capsule by mouth once daily FLUoxetine (PROzac) 40 mg capsule Indications: Atypical depression Take 1 capsule (40 mg) by mouth once daily. 30 capsule 11 04/06/2024 04/06/2025 Active Start: 11-27-2023 take 1 mg by mouth once daily Fluoxetine 20 mg capsule Active mg PO daily January 14, 2024 12:00am Start: 04-13-2022 take 1 capsule by mo [facility] once daily FLUoxetine HCl - 20 MG Oral Capsule 1 daily Quantity: 90 Refills: 3 Ordered: 13-Apr-2022 Valeriano Monroy MD Start : 13-Apr-2022 Active lisinopril 2.5 mg oral tablet (20 sources) Angiotensin Converting Enzyme Inhibitor Start: 02-25-2024 take 1 tablet by mouth once daily lisinopril 2.5 mg tablet Indications: Essential hypertension TAKE 1 TABLET BY MOUTH ONCE DAILY 90 tablet 3 02/25/2024 Active Start: 04-22-2023 take 1 tablet by dionne th once daily lisinopril 2.5 mg tablet Indications: Essential hypertension Take 1 tablet (2.5 mg) by mouth once daily. 90 tablet 3 04/22/2023 Active Start: 09-19-2021 End: 02-21-2022 take 5 mg by mouth once daily Lisinopril 10 mg tablet Discontinued 5 mg PO DAILY September 19, 2021 2:55pm February 21, 2022 3:23pm blood pressure Start: 09-02-2014 End: 02-20-2023 take 1 tablet by mouth once daily lisinopril 2.5 mg tablet Indications: ASHD (arteriosclerotic heart disease) Take 1 tablet (2.5 mg) by mouth once daily. 90 tablet 3 09/05/2022 02/20/2023 Discontinued (Therapy completed) Start: 09-02-2014 End: 09-19-2021 take 1 tablet by mouth once daily Lisinopril 10 mg tablet Discontinued 10 mg PO DAILY January 03, 2018 12:00am September 19, 2021 2:56pm blood pressure LORazepam 0.5 mg oral tablet (1 source) Benzodiazepine Start: 08-06-2024 End: 11-04-2024 take 1 tablet by mouth three times daily as needed for anxiety LORazepam (Ativan) 0.5 mg tablet Indications: Anxiety Take 1 tablet (0.5 mg) by mouth 3 times a day as needed for anxiety. 30 tablet 08/06/2024 11/04/2024 Active metFORMIN hydrochloride 500 mg oral tablet (20 sources) Biguanide Start: 09-02-2023 End: 03-31-2025 take 2 tablets by mouth twice daily metFORMIN (Glucophage) 500 mg tablet Indications: Type 2 diabetes mellitus without complication, without long-term current use of insulin Take 2 tablets (1,000 mg) by mouth 2 times daily (morning and late afternoon). 400 tablet 3 02/25/2024 03/31/2025 Active Start: 02-15-2020 End: 06-07-2022 take 2 tablets by mouth twice daily at mealtime Metformin 500 mg tablet Discontinued 1000 mg PO TWICE DAILY WITH MEALS February 15, 2020 2:06pm September 19, 2021 2:19pm Start: 08-30-2017 End: 01-03-2018 Metformin 500 MG tablet Discontinued 100 mg PO TWICE DAILY WITH MEALS 0 December 19, 2017 9:52am January 03, 2018 11:12am resume 12/23/17 Start: 03-13-2016 End: 10-17-2019 take 2 tablets by mouth twice daily at mealtime Metformin 500 mg tablet Discontinued 1000 mg PO TWICE DAILY WITH MEALS 0 January 03, 2018 11:09am October 17, 2019 12:29pm Start: 03-13-2016 End: 09-05-2023 take 1 tablet by mouth twice daily at mealtime Metformin 500 mg tablet Discontinued 500 mg PO TWICE DAILY WITH MEALS 0 October 17, 2019 12:29pm February 15, 2020 2:08pm Comment on above: Take 500 mg by mouth twice daily. methylPREDNISolone (1 source) Corticosteroid Start: 2023 End: 2023 methylPREDNISolone (Medrol Dospak) 4 mg tablets Indications: Rash Take as directed on package. 21 tablet 10/23/2023 10/30/2023 Active 24 hr metoprolol succinate 25 mg extended release oral tablet (20 sources) beta-Adrenergic Yen Start: 2023 take 1 tablet by mouth once daily metoprolol succinate XL (Toprol-XL) 25 mg 24 hr tablet Indications: ASHD (arteriosclerotic heart disease) TAKE 1 TABLET BY MOUTH ONCE DAILY 90 tablet 3 04/29/2024 Active Start: 12-28-2022 End: 02-20-2023 metoprolol succinate XL (Top rol-XL) 25 mg 24 hr tablet Indications: ASHD (arteriosclerotic heart disease) TAKE 1 TABLET DAILY 90 tablet 3 12/28/2022 02/20/2023 Discontinued (Therapy completed) Start: 03-12-2018 take 0.5 tablet by m outh once daily Metoprolol Succinate ER 25 MG Oral Tablet Extended Release 24 Hour take 1/2 tablet by mouth once daily Quantity: 45 Refills: 3 Ordered: 03-Mar-2020 Valeriano Monroy MD Start : 12-Mar-2018 Active Start: 12-13-2017 End: 01-14-2024 take 2 tablets by mouth once daily Metoprolol Succinate 25 mg tablet extended release 24 hr Discontinued 12.5 mg PO DAILY 45 February 25, 2018 3:04pm January 14, 2024 9:13am Start: 11-18-2017 metoprolol suc cinate ER (TOPROL XL) 25 mg 24 hr tablet TAKE ONE-HALF TABLET (12.5mg) EVERY DAY 3 11/18/2017 Active Start: 11-18-2017 End: 12-13-2017 take 0.5 tablet by mouth once daily Metoprolol Succinate 25 mg tablet extended release 24 hr Discontinued 25 mg PO .COMPLEX 45 November 18, 2017 12:52pm December 13, 2017 11:12am 25 mg PO 0.5 tablet (12.5 mg) daily Start: 09-03-2017 End: 11-18-2017 take 1 tablet by mouth once daily Metoprolol Succinate ER 25 MG Oral Tablet Extended Release 24 Hour take 1 tablet by mouth once daily Quantity: 90 Refills: 3 Ordered: 05-Mar-2022 Valeriano Monroy MD Start : 11-Sep-2017 Active Comment on above: TAKE ONE-HALF TABLET (12.5mg) EVERY DAY polyethylene glycol 3350 52501 mg powder for oral solution (1 source) Osmotic Laxative Start: 01-14-20 Polyethylene Glycol 3350 17 gram/dose powder Active g PO daily January 14, 2024 12:00am 24 hr rivastigmine 0.192 mg/hr transdermal system (7 sources) Start: 06-27-19 apply 1 dose transdermal route once daily rivastigmine (Exelon) 4.6 mg/24 hour Indications: SDAT (senile dementia of Alzheimer's type) (Multi) APPLY 1 PATCH TOPICALLY TO SKIN ONCE DAILY 90 patch 3 06/26/2024 Active Start: 2023 Rivastigmine 4 .6 mg/24 hour patch 24 hour Active 1 NMA TOPICAL daily 2023 12:00am Start: 08-16-2023 apply 1 dose transde rmal route once daily rivastigmine (Exelon) 4.6 mg/24 hour Indications: SDAT (senile dementia of Alzheimer's type) (Multi) APPLY 1 PATCH TOPICALLY TO SKIN ONCE DAILY 90 patch 3 08/16/2023 Active Start: 09-05-2022 End: 09-05-2023 rivastigmine (Exelon Patch) 4.6 mg/24 hour Indications: SDAT (senile dementia of Alzheimer's type) ([facility]) Place 1 patch over 24 hours on the skin once daily. 90 patch 3 09/05/2022 09/05/2023 Active vitamin b12 1 mg/ml injectable solution (20 sources) Vitamin B12 Start: 05-01-2024 cyanocobalamin (Vitamin B-12) 1,000 mcg/mL injection Indications: Pernicious anemia INJECT 1ML INTRAMUSCULARLY TWICE MONTHLY 6 mL 3 05/01/2024 Active Start: 04-24-2023 cyanocobalamin (Vitamin B-12) 1,000 mcg/mL injection Indications: Pernicious anemia INJECT 1ML INTRAMUSCULARLY TWICE MONTHLY 6 mL 4 04/24/2023 Active Start: 04-22-2023 End: 04-21-2024 cyanocobalamin, vitamin B-12 , 1,000 mcg/mL kit Indications: vitamin B12 deficiency Inject 1,000 mcg as directed every 30 (thirty) days. 1 ml once a month 3 kit 3 04/22/2023 11/27/2023 Discontinued (Therapy completed) Start: 09-05-2022 End: 02-20-2023 cyanocobalamin (Vitamin B-12 ) 1,000 mcg/mL injection Indications: Pernicious anemia 1000 MCG TWICE MONTHY 6 mL 3 09/05/2022 02/20/2023 Discontinued (Therapy completed) Start: 09-19-2021 inject 1000 ug by in tramuscular injection every other week Cyanocobalamin (Vitamin B-12) 1,000 mcg/mL solution Active 1000 ug IM every 2 weeks September 19, 2021 12:00am Start: 06-07-2020 Cyanocobalamin 1000 MCG/ML Injection Solution 1000 MCG TWICE MONTHY Quantity: 25 Refills: 0 Ordered: 09-Aug-2021 Valeriano Monroy MD Start : 07-Jun-2020 Active Start: 08-25-2018 Cyanocobalamin 1000 MCG/ML Injection Solution INJECT 1 ML Other twice monthly Quantity: 180 Refills: 1 Valeriano Monroy MD Start : 25-Aug-2018 Active Start: 08-25-2018 inject 1 mL by intra muscular injection every week, then inject 1 mL by intramuscular injection every month Cyanocobalamin 1000 MCG/ML Injection Solution Inject 1mL IM weekly for 4 weeks and then 1mL IM per month Quantity: 6 Refills: 1 Valeriano Monroy MD Start : 25-Aug-2018 Active Start: 08-25-2018 inject 1 mL by intra muscular injection every week, then inject 1 mL by intramuscular injection every month Cyanocobalamin 1000 MCG/ML Injection Solution Inject 1mL IM weekly for 4 weeks and then 1mL IM per month Quantity: 15 Refills: 0 Valeriano Monroy MD Start : 25-Aug-2018 Active Completed/Discontinued Medications Medication Drug Class(es) Dates Sig (Normalized) Sig (Original) amLODIPine 5 mg oral tablet (20 sources) Dihydropyridine Calcium Channel Yen Start: 05-07-2016 End: 02-15-2021 take 1 tablet by mouth once daily Amlodipine 5 MG tablet Discontinued 5 mg PO DAILY August 30, 2017 12:00am February 15, 2021 1:16pm On Hold: low BP Start: 05-07-2016 take 1 tablet by dionne th once daily amLODIPine Besylate 2.5 MG Oral Tablet TAKE 1 TABLET DAILY. Quantity: 90 Refills: 3 Valeriano Monroy MD Start : 07-May-2016 Active amLODIPine (Norv asc) 10 mg tablet Take by mouth once daily. Active Comment on above: Take 10 mg by mouth once daily. 24 hr buPROPion hydrochloride 150 mg extended release oral tablet (1 source) Aminoketone Start: 11-20-19 24 End: 11-27-19 24 take 1 tablet by mouth once daily in the morning buPROPion XL (Wellbutrin XL) 150 mg 24 hr tablet Indications: Depression, unspecified depression type Take 1 tablet (150 mg) by mouth once daily in the morning. Do not crush, chew, or split. 30 tablet 1 11/20/2023 11/27/2023 Discontinued (Therapy completed) ciprofloxacin 250 mg oral tablet (6 sources) Quinolone Antimicrobial Start: 02-22-20 22 take 1 tablet by mouth once daily Ciprofloxacin HCl - 250 MG Oral Tablet TAKE 1 TABLET EVERY 12 HOURS DAILY. Quantity: 14 Refills: 0 Ordered: 21-Feb-2022 Valeriano Monroy MD Start : 21-Feb-2022 Active Start: 01-08-2013 take 1 tablet by dionne th twice daily ciprofloxacin (CIPRO) 500 mg tablet Take 1 tablet by mouth twice daily. 20 tablet 0 01/08/2013 Active Comment on above: Take 1 tablet by dionne th twice daily. cyclobenzaprine hydrochloride 10 mg oral tablet (9 sources) Muscle Relaxant Start: End: cyclobenzaprine (Flexeril) 10 mg tablet Take by mouth. 0 03/28/2021 02/20/2023 Discontinued (Therapy completed) dexamethasone 1 mg/ml / neomycin 3.5 mg/ml / polymyxin b 23911 unt/ml ophthalmic suspension (4 sources) Aminoglycoside Antibacterial, Polymyxin-class Antibacterial, Corticosteroid Start: Rbihajsm-Cpdhcusnk-Syv ameth [id number] Ophthalmic Suspension Quantity: 5 Refills: 0 Ordered: 08-Jan-2020 DO Start : 08-Jan-2020 Complete diclofenac sodium 0.03 mg/mg topical gel (1 source) Nonsteroidal Anti-inflammatory Drug Start: Diclofenac Sodium 3 % Transdermal Gel APPLY SPARINGLY TO THE AFFECTED AREA(S) TWICE DAILY. Quantity: 1 Refills: 0 Carl Garcia MD Start : 22-Dec-2019 Active 100 GM Tube DOCOSAHEXANOIC ACID/EPA (FISH OIL ORAL) (2 sources) DOCOSAHEXANOIC ACID/EPA (FISH OIL ORAL) Take by mouth three times daily. 0 Active Comment on above: Take by mouth three times daily. donepezil hydrochloride 5 mg oral tablet (2 sources) Start: End: take 1 tablet by mouth once daily Donepezil 5 mg tablet Discontinued 5 mg PO DAILY October 15, 2019 12:00am October 17, 2019 12:28pm Start: 09-22-2019 take 1 tablet by [facility] once daily, then take 2 tablets by mouth once daily Donepezil HCl - 5 MG Oral Tablet 1 daily for a month. then 2 daily Quantity: 180 Refills: 1 Valeriano Monroy MD Start : 22-Sep-2019 Active escitalopram 20 mg oral tablet (20 sources) Serotonin Reuptake Inhibitor Start: 05-20-2024 End: 08-06-2024 take 1 tablet by mouth once daily escitalopram (Lexapro) 20 mg tablet Indications: Atypical depression TAKE 1 TABLET BY MOUTH ONCE DAILY 90 tablet 3 05/20/2024 08/06/2024 Discontinued (Therapy completed) Start: 04-03-2021 Escitalopram O xalate 10 MG Oral Tablet Quantity: 90 Refills: 0 Ordered: 30-Sep-2021 DO Start : 03-Apr-2021 Complete Start: 08-30-2017 End: 09-15-2018 take 1 tablet by mouth once daily Escitalopram Oxalate 5 MG tablet Discontinued 5 mg PO DAILY August 30, 2017 12:00am September 15, 2018 1:44pm Start: 03-07-2015 End: 01-14-2024 take 1 tablet by mouth once daily escitalopram (Lexapro) 20 mg tablet Indications: Atypical depression TAKE 1 TABLET BY MOUTH ONCE DAILY 90 tablet 3 07/05/2023 Active Start: 03-07-2015 End: 02-21-2022 take 1 tablet by mouth once daily Escitalopram Oxalate 10 mg tablet Discontinued 10 mg PO DAILY September 15, 2018 12:00am February 21, 2022 3:24pm Comment on above: Take 10 mg by mouth once daily. Herbal Drugs (Colon Herbal Cleanser) 1 EACH capsule (1 source) Start: 08-31-19 End: 09-04-19 take 1 capsule by mouth once daily Herbal Drugs (Colon Herbal Cleanser) 1 EACH capsule Discontinued 1 NMA PO DAILY August 30, 2017 12:00am September 03, 2017 7:19am homatropine methylbromide 0.3 mg/ml / HYDROcodone bitartrate 1 mg/ml oral solution (1 source) Opioid Agonist, Cholinergic Muscarinic Agonist Start: 08-13-19 take 5 mL by mouth every four to six hours as needed HYDROcodone-Homatropi ne 5-1.5 MG/5ML Oral Syrup TAKE 5 ML EVERY 4 TO 6 HOURS NEEDED. Quantity: 240 Refills: 0 Valeriano Monroy MD Start : 12-Aug-2017 Active lactobacillus acidophilus [id number] unt oral capsule (10 sources) Start: 09-16-19 End: 01-23-20 take 1 capsule by mouth once daily Lactobacillus Acidophilus (Acidophilus) capsule Discontinued 10 mg PO DAILY September 15, 2018 12:00am January 22, 2019 9:42am Start: 08-12-2017 Acidophilus Pr obiotic Oral Tablet USE DIRECTED. Refills: 0 Start : 12-Aug-2017 Active lansoprazole 30 mg delayed release oral capsule (20 sources) Proton Pump Inhibitor Start: 12-22-2019 End: 02-21-2022 take 1 capsule by mouth twice daily Lansoprazole 30 MG Oral Capsule Delayed Release TAKE 1 CAPSULE TWICE DAILY. Quantity: 90 Refills: 3 Ordered: 03-Mar-2020 Valeriano Monroy MD Start : 22-Dec-2019 End : 21-Feb-2022 Complete Start: 02-26-2014 Lansoprazole 3 0 MG Oral Capsule Delayed Release Refills: 0 Start : 22-Dec-2019 Active Comment on above: Take 30 mg by mouth once daily. methylPREDNISolone 4 MG Oral Tablet Therapy Pack (1 source) Start: 2020 methylPREDNISolone 4 MG Oral Tablet Therapy Pack TAKE 6 TABLETS ON DAY 1 DIRECTED ON PACKAGE AND DECREASE BY 1 TAB EACH DAY FOR A TOTAL OF 6 DAYS Quantity: 21 Refills: 0 Ordered: 28-Mar-2021 DO Start : 28-Mar-2021 Complete metroNIDAZOLE 7.5 mg/ml topical cream (9 sources) Nitroimidazole Antimicrobial Start: 2015 metroNIDAZOLE 0.75 % External Cream APPLY AND GENTLY MASSAGE INTO AFFECTED AREA(S) ONCE DAILY. Quantity: 45 Refills: 3 Valeriano Monroy MD Start : 29-Feb-2016 Active mv-min/FA/vit K/lycop/lut/zeax (OCUVITE EYE PLUS MULTI ORAL) (4 sources) Start: 2017 mv-min/FA/vit K/lycop/lut/zeax (OCUVITE EYE PLUS MULTI ORAL) AT BEDTIME 0 08/30/2017 Active Comment on above: AT BEDTIME Qi-Ip-Om-Vit R-Nvwty-Yrbc-Zeax 1 EACH tablet (1 source) Start: 2017 End: 2018 take 1 tablet by mouth at bedtime Pt-Rw-Iz-Vit C-Yjvay-Riao-Zeax 1 EACH tablet Discontinued 1 NMA PO AT BEDTIME August 30, 2017 12:00am September 15, 2018 1:44pm nitroglycerin 0.4 mg sublingual tablet (2 sources) Nitrate Vasodilator nitroglyceri n sublingual 0.4 mg SL tablet Dissolve 0.4 mg under the tongue every 5 minutes as needed. 0 Active Comment on above: Dissolve 0.4 mg unde r the tongue every 5 minutes as needed. penciclovir 10 mg/ml topical cream (9 sources) Herpesvirus Nucleoside Analog DNA Polymerase Inhibitor Start: 2015 Denavir 1 % External Cream to 5x per day until clear Quantity: 1 Refills: 5 Valeriano Monroy MD Start : 16-Jan-2016 Active 1.5 GM Tube rosuvastatin calcium 20 mg oral tablet (10 sources) HMG-CoA Reductase Inhibitor Start: 2023 End: 2023 take 1 tablet by mouth once daily Rosuvastatin 20 mg tablet Discontinued 20 mg PO daily January 14, 2024 12:00am January 14, 2024 3:01pm Start: 08-30-2017 End: 12-19-2017 take 1 tablet by mouth at bedtime Rosuvastatin 20 MG tablet Discontinued 20 mg PO AT BEDTIME August 30, 2017 12:00am December 19, 2017 9:52am Comment on above: Take 20 mg by mouth once daily. Syringe 25G X 1 3 ML (5 sources) Start: 03-16-2019 Syringe 25G X 1 3 ML USE DIRECTED. Quantity: 12 Refills: 1 Valeriano Monroy MD Start : 16-Mar-2019 Active triamcinolone acetonide 1 mg/ml topical cream (1 source) Corticosteroid Start: 11-26-2021 Triamcinolone Acetonide 0.1 % External Cream Quantity: 15 Refills: 0 Ordered: 26-Nov-2021 DO Start : 26-Nov-2021 Complete Unspecified Medication (8 sources) Start: 12-22-2019 Unspecified Medication Colon Clenz Quantity: 0 Refills: 0 Ordered: 22-Dec-2019 DO Start : 22-Dec-2019 Active Start: 12-22-2019 Unspecified Me dication Colon Clenz Refills: 0 Start : 22-Dec-2019 Active Problems Active Problems Problem Classification Problem Date Documented Da te Episodic/Chronic Acute and unspecified renal failure (1 source) Acute kidney failure, unspecified; Translations: [MARGIE (acute kidney injury) ([facility])] Onset: 11-30-2023 Episodic Anxiety disorders (3 sources) Anxiety; Translations: [Anxiety disorder, unspecified] Onset: 08-06-2024 08-06-2024 Chronic Cardiac dysrhythmias (1 source) Bradycardia; Translations: [Bradycardia, unspecified] 08-29-2022 Episodic Coronary atherosclerosis and other heart disease (20 sources) Coronary arteriosclerosis; Translations: [Coronary atherosclerosis of unspecified type of vessel, curyung or graft] Onset: 09-02-2017 02-27-2018 Chronic Comment on above: [id number] RCA w/ 3.0 x 16 mm Promus Stent 09/02/17; PTCA/LOUISE to LCX in December 2017; Delirium dementia and amnestic and other cognitive disorders (20 sources) Primary degenerative dementia of the Alzheimer type, senile onset; Translations: [Alzheimer's disease] Onset: 08-27-2022 Resolved: 08-06-2024 02-28-2023 Chronic Diabetes mellitus without complication (20 sources) Diabetes mellitus; Translations: [Type 2 diabetes mellitus] Onset: 02-27-2018 02-27-2018 Chronic Disorders of lipid metabolism (20 sources) Hyperlipidemia; Translations: [Dyslipidemia] Onset: 08-27-2022 02-27-2018 Chronic Comment on above: Added by Amy Zeng; 2013-02-23; Moved to Suppressed Mar 06 2013 9:07PM; Diverticulosis and diverticulitis (1 source) Diverticulitis; Translations: [Diverticulitis of intestine, part unspecified, without perforation or abscess without bleeding] 02-21-2022 Chronic E Codes: Fall (1 source) Falling injury; Translations: [Unspecified fall, initial encounter] 09-23-2024 Episodic Esophageal disorders (20 sources) Gastro-esophageal reflux disease without esophagitis; Translations: [Gastroesophageal reflux disease without esophagitis] Onset: 02-27-2018 02-27-2018 Chronic Essential hypertension (20 sources) Essential hypertension; Translations: [Benign essential hypertension] Onset: 02-27-2018 Resolved: 09-16-2013 02-27-2018 Chronic Comment on above: Added by Problem Demetrice Zeng; 2013-02-23; Moved to Suppressed Mar 06 2013 9:07PM; Genitourinary symptoms and ill-defined conditions (1 source) Retention of urine, unspecified; Translations: [Urinary retention] Onset: 11-30-2023 Episodic Immunizations and screening for infectious disease (19 sources) Patient encounter status; Translations: [Other specified vaccination] Episodic Miscellaneous mental health disorders (6 sources) Confusional state; 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] Chronic Mood disorders (20 sources) Atypical depressive disorder; 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 02-28-2023 Chronic Open wounds of extremities (1 source) Open wound of right upper arm; Translations: [Laceration without foreign body of right upper arm, initial encounter] 09-23-2024 Episodic Other and ill-defined heart disease (1 source) Diastolic dysfunction; Translations: [Other ill-defined heart diseases] 01-14-2024 Chronic Other and unspecified benign neoplasm (20 sources) History of polyp of colon; Translations: [Personal history of colonic polyps] Episodic Other circulatory disease (20 sources) H/O: heart disorder; Translations: [Personal history of other diseases of circulatory system] Episodic Other circulatory disease (20 sources) H/O: hypertension; Translations: [Personal history of other diseases of circulatory system] Episodic Other connective tissue disease (20 sources) H/O: musculoskeletal disease; Translations: [Personal history of other musculoskeletal disorders] Episodic Other connective tissue disease (4 sources) Recurrent falls ; Translations: [History of fall] Episodic Other connective tissue disease (1 source) Pain in left arm; Translations: [Pain in left arm] 10-12-2019 Episodic Other ear and sense organ disorders (2 sources) Bilateral sensory hearing loss; Translations: [Sensory hearing loss, bilateral] Chronic Other ear and sense organ disorders (1 source) Hearing loss; Translations: [Unspecified hearing loss, unspecified ear] 10-10-2017 Chronic Other gastrointestinal disorders (1 source) Constipation, unspecified; Translations: [Constipation, unspecified constipation type] Onset: 12-02-2023 Episodic Other inflammatory condition of skin (20 sources) Rosacea; Translations: [Rosacea] Onset: 08-27-2022 08-27-2022 Chronic Other injuries and conditions due to external causes (20 sources) Injury of head; Translations: [Head injury, unspecified] Resolved: 02-23-2019 10-07-2021 Episodic Other lower respiratory disease (7 sources) Cough; Translations: [Cough] Episodic Other lower respiratory disease (1 source) Dyspnea on exertion; Translations: [Other forms of dyspnea] 10-12-2019 Episodic Other nervous system disorders (5 sources) Ataxia; Translations: [Lack of coordination] 02-12-2020 Episodic Other non-epithelial cancer of skin (20 sources) History of malignant neoplasm of skin; Translations: [Personal history of other malignant neoplasm of skin] Episodic Other nutritional; endocrine; and metabolic disorders (20 sources) H/O: diabetes mellitus; Translations: [Personal history of other endocrine, metabolic, and immunity disorders] Episodic Other nutritional; endocrine; and metabolic disorders (20 sources) H/O: metabolic disorder; Translations: [Personal history of other endocrine, metabolic, and immunity disorders] Episodic Other nutritional; endocrine; and metabolic disorders (1 source) Unintentional weight loss; Translations: [Abnormal weight loss] 2023 Episodic Residual codes; unclassified (20 sources) History of clinical finding in subject; Translations: [Personal history of other specified diseases] Resolved: 09-02-2014 Episodic Sprains and strains (1 source) Strain of neck muscle; Translations: [Strain of muscle, fascia and tendon at neck level, initial encounter] 10-07-2021 Episodic Superficial injury; contusion (2 sources) Contusion of coccyx; Translations: [Contusion of lower back and pelvis, initial encounter] 10-07-2021 Episodic Syncope (1 source) Near syncope; Translations: [Syncope and collapse] 02-12-2020 Episodic Unclassified (1 source) Unknown / UNK(Unknown) Onset: 02-27-2018 Past or Other Problems Problem Classification Problem Date Documented Date Episodic/Chronic Coagulation and hemorrhagic disorders (8 sources) Non-thrombocytopenic purpura; Translations: [Other nonthrombocytopenic purpura] Onset: 3 02-28-2023 Episodic Conditions associated with dizziness or vertigo (20 sources) Dizziness; Translations: [Dizziness and giddiness] Onset: 3 08-27-2022 Episodic Coronary atherosclerosis and other heart disease (4 sources) History of myocardial infarction; Translations: [Presence of coronary angioplasty implant and graft] Onset: 4 Episodic Deficiency and other anemia (20 sources) Pernicious anemia; Translations: [Pernicious anemia] Onset: 3 08-27-2022 Episodic Deficiency and other anemia (2 sources) Vitamin B12 deficiency anemia due to intrinsic factor deficiency; Translations: [Vitamin B12 deficiency anemia due to intrinsic factor deficiency] Onset: 3 Episodic Diseases of mouth; excluding dental (20 sources) Lesion of lip; Translations: [Diseases of lips] Onset: 3 08-27-2022 Episodic Headache; including migraine (20 sources) Headache; Translations: [Headache] Onset: 3 08-27-2022 Episodic Other and unspecified benign neoplasm (20 sources) Polyp of colon; Translations: [Benign neoplasm of colon] Onset: 3 08-27-2022 Episodic Other circulatory disease (20 sources) H/O: angina pectoris; Translations: [Personal history of other diseases of circulatory system] Resolved: 8 Episodic Other connective tissue disease (20 sources) Olecranon bursitis, left elbow; Translations: [Bursitis of olecranon of left elbow] Resolved: 9 Episodic Other connective tissue disease (20 sources) Pain in right arm; Translations: [Pain in limb] Onset: 3 08-27-2022 Episodic Other connective tissue disease (7 sources) Bursitis of olecranon of left elbow; Translations: [History of Olecranon bursitis of left elbow] Other ear and sense organ disorders (2 sources) Excessive cerumen in ear canal ; Translations: [Ear build-up, bilateral] Onset: 8 02-27-2018 Episodic Other ear and sense organ disorders (2 sources) Impaired auditory discrimination; Translations: [Impaired auditory discrimination, bilateral] Onset: 8 02-27-2018 Episodic Other ear and sense organ disorders (2 sources) Noise effects on inner ear; Translations: [Noise effect on inner ear, bilateral] Onset: 8 02-27-2018 Episodic Other hematologic conditions (20 sources) H/O: anemia; Translations: [Personal history of diseases of blood and blood-forming organs] Resolved: 9 Episodic Other infections; including parasitic (20 sources) H/O: viral illness; Translations: [Personal history of other infectious and parasitic diseases] Resolved: 9 Episodic Other lower respiratory disease (20 sources) H/O: bronchitis; Translations: [Personal history of other diseases of respiratory system] Resolved: 5 Episodic Other non-traumatic joint disorders (20 sources) Shoulder pain; Translations: [Pain in joint, shoulder region] Onset: 3 Resolved: 9 08-27-2022 Episodic Other nutritional; endocrine; and metabolic disorders (20 sources) Loss of appetite; Translations: [Anorexia] Resolved: 5 Episodic Other nutritional; endocrine; and metabolic disorders (1 source) Abnormal weight loss; Translations: [Abnormal weight loss] Onset: 4 Episodic Other skin disorders (20 sources) Skin lesion; Translations: [Unspecified disorder of skin and subcutaneous tissue] Onset: 3 08-27-2022 Episodic Other skin disorders (1 source) Eruption; Translations: [Rash and other nonspecific skin eruption] 10-23-2023 Episodic Other skin disorders (2 sources) Rash and other nonspecific skin eruption; Translations: [Rash and other nonspecific skin eruption] Onset: 4 Episodic Residual codes; unclassified (20 sources) H/O: Disorder; Translations: [Personal history of other mental disorders] Resolved: 9 Episodic Spondylosis; intervertebral disc disorders; other back problems (15 sources) Neck pain; Translations: [Cervicalgia] Onset: 3 02-28-2023 Episodic Unclassified (1 source) Noise effects on inner ear, bilateral Onset: 8 Unclassified (20 sources) History of clinical finding in subject; Translations: [History of cough] Resolved: 9 Unclassified (2 sources) Patient encounter status; Translations: [Encounter for immunization] Unclassified (6 sources) Onset: 3 Resolved: 5 10-24-2022 Viral infection (20 sources) Herpesviral vesicular dermatitis; Translations: [Viral disease] Onset: 3 08-27-2022 Episodic NEGATED: Highlighted row has not occurred!Residual codes; unclassified (20 sources) Disease Episodic Results Test Name Value Interpretation Reference Range Facility Bilirubin Test strip Ql (U)O rdered By: Grey Hanna on 09-23-2024 Bilirubin Ql (U) Negative Negative [facility] Ketones Test strip Ql (U)Ord ered By: Grey Hanna on 09-23-2024 Ketones Ql (U) Negative Negative [facility] Microscopic analysis of urin e for red blood cells (RBC)Ordered By: Grey Hanna on 09-23-2024 Microscopic analysis of urine for red blood cells (RBC) 0-5 SEEN /hpf 0-5 [facility] Mucus LM Ql (Urine sed)Order ed By: Grey Hanna on 09-23-2024 Mucus Ql (Urine sed) 0 SEEN /hpf [facility] Nitrite Test strip Ql (U)Ord ered By: Grey Hanna on 09-23-2024 Nitrite Ql (U) Negative Negative [facility] Protein Test strip Ql (U)Ord ered By: Grey Hanna on 09-23-2024 Protein Ql (U) 30 mg/dl High Negative [facility] Squamous epithelial cells de tection in urine sediment by light microscopyOrdered By: Grey Hanna on 09-23-2024 Epithelial cells.squamous LM Ql (Urine sed) 0-5 SEEN /hpf 0-5 [facility] Urine clarityOrdered By: Grey Hanna on 09-23-2024 Clarity (U) Clear Clear [facility] Urine color determinationOrd ered By: Grey Hanna on 09-23-2024 Color (U) Yellow Yellow [facility] Urine glucose detectionOrder ed By: Grey Hanna on 09-23-2024 Glucose Ql (U) 1000 mg/dl High Normal [facility] Urine leukocyte esterase det ection by dipstickOrdered By: Grey Hanna on 09-23-2024 Leukocyte esterase Test strip Ql (U) Negative Negative [facility] Urine pHOrdered By: Grey barriga on 09-23-2024 pH (U) 7.0 [pH] 5.0 - 8.0 [facility] Urine sediment bacteria coun t by microscopy (number/high power field)Ordered By: Grey Hanna on 09-23-2024 Bacteria LM.HPF (Urine sed) [#/Area] 0 /[HPF] None Seen [facility] Urine specific gravity measu rementOrdered By: Grey Hanna on 09-23-2024 Specific gravity (U) [Rel density] 1.010 1.002-1.030 [facility] Urine urobilinogen measureme ntOrdered By: Grey Hanna on 09-23-2024 Urobilinogen Ql (U) 4 mg/dl High Normal [facility] White blood cell countOrdere d By: Grey Hanna on 09-23-2024 White blood cell count 0-5 SEEN /hpf 0-5 [facility] Echo Completeon 01-22-2024 Echo Complete [facility] [address] [place] [address] Echo Complete 01/22/24 1404 MR#: [id number] Acct: [id number] Name: GEORGI LANIER Jr. Rep #: [id number] : [id number] 88 From: Madai Black MD Attending Dr: Dr. Madai Black MD Status: REG CLI Ordering Dr: Madai Black MD Date: 01/22/24 Location: [facility] Sex: M C Admitted: Reason For Study: CAD/ASHD Procedure This was a 2D Doppler, Color Flow transthoracic echocardiogram. Exam performed in department. Left Ventricle Normal LV size. Mild concentric left ventricular hypertrophy. The left ventricular ejection fraction is 65 %. Stage 1 diastolic dysfunction. Right Ventricle Normal right ventricle. Atria The left and right atria are normal. Mitral Valve Mild mitral annular calcification. Trivial mitral valve insufficiency. Tricuspid Valve Trivial tricuspid valve insufficiency. Right ventricular systolic pressure estimated to be 37 mmHg. Aortic Valve Trisinus/trileaflet aortic valve. Mild (1+) aortic valve insufficiency. Pulmonic Valve The pulmonic valve is not well visualized. Trivial pulmonic valve insufficiency. Great Vessels The aortic root is not well visualized. Pericardium/Pleural No pericardial effusion. MMode/2D Measurements Calculations LVIDd: 4.3 cm IVSd: 1.2 cm LAV(MOD-bp): 30.5 ml LVIDs: 3.3 cm LVPWd: 0.72 cm LAV(MOD-bp) Indexed: 17.6 ml/m2 RVDd: 3.6 cm FS: 23.5 % LAV(MOD-sp2): 32.2 ml LAV(MOD-sp4): 28.6 ml SV(MOD-sp4): 34.5 ml SV(sp4-el): 37.1 ml LVAd ap4: 24.3 cm2 LVLd ap4: 7.8 cm EDV(MOD-sp4): 63.5 ml EDV(sp4-el): 64.3 ml LVAs ap4: 14.0 cm2 LVLs ap4: 6.1 cm ESV(MOD-sp4): 29.0 ml ESV(sp4-el): 27.2 ml EF(MOD-sp4): 54.3 % EF(sp4-el): 57.8 % LA A4 area: 12.8 cm2 LA dimension(2D): 3.0 cm RA A4 area: 12.4 cm2 TAPSE: 1.9 cm Time Measurements MV dec time: 0.38 sec Doppler Measurements Calculations MV E max yudith: 48.5 cm/sec Lat Peak E' Yudith: 7.8 cm/sec Med Peak E' Yudith: 7.6 cm/sec MV A max yudith: 89.9 cm/sec E/E' lat: 6.2 E/E' med: 6.4 MV E/A: 0.54 MV V2 max: 101.5 cm/sec MV P1/2t max yudith: 51.5 cm/sec Ao V2 max: 98.7 cm/sec MV max P.1 mmHg MV P1/2t: 145.2 msec Ao max P.9 mmHg MV V2 mean: 41.5 cm/sec Ao V2 mean: 67.6 cm/sec MV mean P.85 mmHg MV dec slope: 103.9 cm/sec2 Ao mean P.1 mmHg MV V2 VTI: 23.3 cm MVA(P1/2t): 1.5 cm2 Ao V2 VTI: 22.3 cm AI max yudith: 292.7 cm/sec LV V1 max: 64.5 cm/sec PA V2 max: 76.5 cm/sec AI max P.3 mmHg LV V1 max P.7 mmHg PA max PG (full): 1.2 mmHg AI dec slope: 157.0 cm/sec2 AI P1/2t: 546.2 msec TR max yudith: 267.3 cm/sec TR max P.6 mmHg ECHO/Echo Complete Interpretation Summary Mild concentric left ventricular hypertrophy. The left ventricular ejection fraction is 65 %. Stage 1 diastolic dysfunction. Mild mitral annular calcification. Right ventricular systolic pressure estimated to be 37 mmHg. Mild (1+) aortic valve insufficiency. Ordering Physician: Madai Black Referring Physician: Madai Black Performed By: Aldo Urrutia RCS 01/23/24915 Date Madai Black MD CC: Dr. Madai Black MD; Dr. Valeriano Monroy MD Date Dictated: 01/22/241403 Date Transcribed: 01/23/24915 Internet Marketing Intern: Signed Normal [facility] CBC-Complete Blood Cnt No Di ffon 01-17-2024 Erythrocyte distribution width (RBC) [Ratio] 12.5 % Normal 11.6-14.6 [facility] Comment on above: Performed By: #### L 500.4050, L100.0500, L500.4100, L501.9520 #### [facility] [address] [place], [address] Hematocrit (Bld) [Volume fraction] 36.0 % Low 40-54 [facility] Comment on above: Performed By: #### L 500.4050, L100.0500, L500.4100, L501.9520 #### [facility] [address] [place], [address] Hemoglobin (Bld) [Mass/Vol] 11.8 g/dL Low 13.0-16.5 [facility] Comment on above: Performed By: #### L 500.4050, L100.0500, L500.4100, [id number] #### [facility] [address] [place], [address] MCH (RBC) [Entitic mass] 29.5 pg Normal 27.0-32.0 [facility] Comment on above: Performed By: #### L 500.4050, L100.0500, L500.4100, [id number] #### [facility] [address] [place], [address] MCHC (RBC) [Mass/Vol] 32.8 g/dL Normal 32-36 [facility] Comment on above: Performed By: #### L 500.4050, L100.0500, L500.4100, [id number] #### [facility] [address] [place], [address] MCV (RBC) [Entitic vol] 90.0 fL Normal 80-94 [facility] Comment on above: Performed By: #### L 500.4050, L100.0500, L500.4100, L501.9520 #### [facility] [address] [place], [address] Platelet mean volume (Bld) [Entitic vol] 10.2 fL Normal 6.2-12.0 [facility] Comment on above: Performed By: #### L 500.4050, L100.0500, L500.4100, L501.9520 #### [facility] [address] [place], [address] Platelets (Bld) [#/Vol] 221 10*3/uL Normal 150-450 [facility] Comment on above: Performed By: #### L 500.4050, L100.0500, L500.4100, L501.9520 #### [facility] [address] [place], [address] RBC (Bld) [#/Vol] 4.00 10*6/uL Low 4.6-6.2 [facility] Comment on above: Performed By: #### L 500.4050, L100.0500, L500.4100, L501.9520 #### [facility] [address] [place], [address] RDW SD 41.3 fl Normal 35.1-43.9 [facility] Comment on above: Performed By: #### L 500.4050, L100.0500, L500.4100, L501.9520 #### [facility] [address] [place], [address] WBC (Bld) [#/Vol] 6.5 10*3/uL Normal 4.4-11.0 [facility] Comment on above: Performed By: #### L 500.4050, L100.0500, L500.4100, L501.9520 #### [facility] [address] [place], [address] Comprehensive Metabolic Prof aron 01-17-2024 Albumin [Mass/Vol] 3.1 g/dL Low 3.2-5.0 [facility] Comment on above: Performed By: #### L 500.4050, L100.0500, L500.4100, L501.9520 #### [facility] [address] [place], [address] Albumin/Globulin [Mass ratio] 0.9 {ratio} Normal 0.9-2.4 [facility] Comment on above: Performed By: #### L 500.4050, L100.0500, L500.4100, L501.9520 #### [facility] [address] [place], [address] ALK P 82 U/L Normal 45-117 [facility] Comment on above: Performed By: #### L 500.4050, L100.0500, L500.4100, L501.9520 #### [facility] [address] [place], [address] ALT [Catalytic activity/Vol] 14 U/L Low 16-61 [facility] Comment on above: Performed By: #### L 500.4050, L100.0500, L500.4100, [id number] #### [facility] [address] [place], [address] AST [Catalytic activity/Vol] 10 U/L Low 15-37 [facility] Comment on above: Performed By: #### L 500.4050, L100.0500, L500.4100, L501.9520 #### [facility] [address] [place], [address] Bilirubin [Mass/Vol] 0.60 mg/dL Normal 0.20-1.00 [facility] Comment on above: Result Comment: For patients on eltrombopag therapy, use of Dimension [place] TBIL is not recommended. Performed By: #### L 500.4050, L100.0500, L500.4100, L501.9520 #### [facility] [address] [place], [address] BUN/CRE 25.0 RATIO High 10-20 [facility] Comment on above: Performed By: #### L 500.4050, L100.0500, L500.4100, L501.9520 #### [facility] [address] [place], [address] CA,Total 9.1 mg/dL Normal 8.5-10.1 [facility] Comment on above: Performed By: #### L 500.4050, L100.0500, L500.4100, L501.9520 #### [facility] [address] [place], [address] Chloride [Moles/Vol] 106 mmol/L Normal 98-107 [facility] Comment on above: Performed By: #### L 500.4050, L100.0500, L500.4100, L501.9520 #### [facility] [address] [place], [address] CO2 [Moles/Vol] 32.0 mmol/L Normal 21.0-32.0 [facility] Comment on above: Performed By: #### L 500.4050, L100.0500, L500.4100, L501.9520 #### [facility] [address] [place], [address] Creatinine [Mass/Vol] 0.88 mg/dL Normal 0.70-1.30 [facility] Comment on above: Result Comment: The validity of the calculated GFR GFRAA in patients over 70 years has not been determined. Clinical correlation is essential. Performed By: #### L 500.4050, L100.0500, L500.4100, L501.9520 #### [facility] [address] [place], [address] EST GFR - AA 105 mL/min Normal >60 [facility] Comment on above: Result Comment: Afri can [place]ese GFR Calc Performed By: #### L 500.4050, L100.0500, L500.4100, L501.9520 #### [facility] [address] [place], [address] GAP 3 Low 5-15 [facility] Comment on above: Performed By: #### L 500.4050, L100.0500, L500.4100, L501.9520 #### [facility] [address] [place], [address] GFR/1.73 sq M.predicted among non-blacks MDRD (S/P/Bld) [Vol rate/Area] 87 mL/min/{1.73_m2} Normal >60 [facility] Comment on above: Result Comment: Non- GFR Calc Performed By: #### L 500.4050, L100.0500, L500.4100, L501.9520 #### [facility] [address] [place], [address] Globulin (S) [Mass/Vol] 3.3 g/dL Normal 2.2-4.2 [facility] Comment on above: Performed By: #### L 500.4050, L100.0500, L500.4100, L501.9520 #### [facility] [address] [place], [address] Glucose [Mass/Vol] 140 mg/dL High 74-106 [facility] Comment on above: Result Comment: Fast ing Glucose result greater than or equal to 126 mg/dL suggests DIABETES MELLITUS per A.D.A. criteria. Performed By: #### L 500.4050, L100.0500, L500.4100, L501.9520 #### [facility] [address] [place], [address] Potassium [Moles/Vol] 4.7 mmol/L Normal 3.5-5.1 [facility] Comment on above: Performed By: #### L 500.4050, L100.0500, L500.4100, L501.9520 #### [facility] [address] [place], [address] Sodium [Moles/Vol] 142 mmol/L Normal 136-145 [facility] Comment on above: Performed By: #### L 500.4050, L100.0500, L500.4100, L501.9520 #### [facility] [address] [place], [address] T PROT 6.4 g/dL Normal 6.4-8.2 [facility] Comment on above: Performed By: #### L 500.4050, L100.0500, L500.4100, L501.9520 #### [facility] [address] [place], [address] Urea nitrogen [Mass/Vol] 22 mg/dL High 7-18 [facility] Comment on above: Performed By: #### L 500.4050, L100.0500, L500.4100, L501.9520 #### [facility] [address] [place], [address] Lipid Profileon 01-17-2024 Cholesterol [Mass/Vol] 112 mg/dL Normal [address] [facility] Comment on above: Result Comment: <200 mg/dL Desirable 200-240 mg/dL Borderline >240 mg/dL High Risk Performed By: #### L 500.4050, L100.0500, L500.4100, L501.9520 #### [facility] [address] [place], [address] Cholesterol in HDL [Mass/Vol] 37 mg/dL Low [facility] Comment on above: Result Comment: The drugs N-Acetylcysteine and Metamizole may falsely depress this assay. Reference Range HDL <40 mg/dL Low HDL Cholesterol HDL >or= 60 mg/dL High HDL Cholesterol Performed By: #### L 500.4050, L100.0500, L500.4100, L501.9520 #### [facility] [address] [place], [address] Cholesterol in LDL [Mass/Vol] 56 mg/dL Normal 0-130 [facility] Comment on above: Performed By: #### L 500.4050, L100.0500, L500.4100, L501.9520 #### [facility] [address] [place], [address] Cholesterol in VLDL [Mass/Vol] 19 mg/dL Normal 5-40 [facility] Comment on above: Performed By: #### L 500.4050, L100.0500, L500.4100, L501.9520 #### [facility] [address] [place], [address] Triglyceride [Mass/Vol] 96 mg/dL Normal [facility] Comment on above: Result Comment: The drugs N-Acetylcysteine and Metamizole may falsely depress this assay. Serum Triglycerides Reference Interval Normal <150 mg/dL Borderline high 150 - 199 mg/dL High 200 - 499 mg/dL Very High > or = 500 mg/dL Performed By: #### L 500.4050, L100.0500, L500.4100, L501.9520 #### [facility] [address] [place], [address] Thyroid Stim Hormone (TSH)on 01-17-2024 TSH 1.300 uIU/mL Normal 0.358-3.740 [facility] Comment on above: Performed By: #### L 500.4050, L100.0500, L500.4100, L501.9520 #### [facility] [address] [place], [address] Cardiology Visit Reporton Cardiology Visit Report [facility] [address] [place] [address] OFFICE VISIT Date of Service: 01/14/24 MR#: [id number] Acct: [id number] Name: GEORGI LANIER JrNed Rep #: [id number] : 1935 Provider: Dr. Madai Black MD Age/Sex: 88/M Location: [facility] [place] Status: Signed HPI HPI History of Present Illness Details: This gentleman is here for regular follow-up visit. According to his and [id number], his primary problem is his worsening dementia. Also his appetite has been running low. Denies any chest pains. Some shortness of breath with exertion which remains stable. No orthopnea or PND. No ankle edema. Denies any palpitations. Intake Vital Signs 10/03/23 13:17 01/14/24 08:12 Height 5 ft 7 in 5 ft 7 in Weight: 139 lb BMI 21.7 BP 106/58 L Blood Pressure Location Lt brachial Position Sitting Respiration 16 Pulse 65 Pulse Source NIBP Intake Visit Reasons: 6 M FU Is patient in pain?: No Allergies Penicillins Allergy (Verified 01/14/24 09:11) Unknown Medications ???Medication ???Instructions ???Recorded ???Confirmed ???Type aspirin 81 mg tablet,delayed 81 mg PO DAILY Heart 08/30/17 01/14/24 History release clopidogrel 75 mg tablet 75 mg PO DAILY 02/15/20 01/14/24 History cyanocobalamin (vitamin B-12) 1,000 mcg IM Q2W 09/19/21 01/14/24 History 1,000 mcg/mL injection solution metformin 500 mg tablet 500 mg PO BIDCM Blood Sugar 09/19/21 01/14/24 History lisinopril 2.5 mg tablet 2.5 mg PO DAILY 02/21/22 01/14/24 History rivastigmine 4.6 mg/24 hour 1 patch topical QDAY 10/03/23 01/14/24 History transdermal patch atorvastatin 20 mg tablet 20 mg PO QDAY #90 tabs 01/14/24 01/14/24 Rx fluoxetine 20 mg capsule mg PO QDAY 01/14/24 01/14/24 History metoprolol succinate 25 mg 25 mg PO QDAY 01/14/24 01/14/24 History tablet,extended release 24 hr polyethylene glycol 3350 17 g PO QDAY 01/14/24 01/14/24 History gram/dose oral powder Ejection fraction %: 65 Have you fallen in the past year?: Yes (2 falls; tripping; no major injuries) [facility] Medical History (Updated 01/14/24 @ 09:[address] Madai Black MD) Hx of fall Bowel obstruction Coronary artery disease Dyslipidemia Diverticulitis Pure hypercholesterolemia Essential hypertension Type 2 diabetes mellitus Bradycardia Volume depletion Dehydration Acute renal failure Vertigo Ataxia Near syncope Diabetes History of coronary artery stent placement (12/18/17) Atherosclerosis of coronary artery of curyung heart without angina pectoris (09/02/17) Unstable angina Surgical History Presence of coronary angioplasty implant and graft ( 12/18/17) Social History Smoking Status: Former smoker how long ago did patient quit smokin years alcohol intake: never caffeine: Yes Type: coffee Number of servings: 3 ROS Const Const: Positive for weakness (w/ exertion and walking) and headache(s) (occasional); Negative for fatigue or weight gain ENT ENT: Positive for headache(s) (occasional), dizziness (postural; when standing; manages well) and balance problems; Negative for Nosebleed/epistaxis Cardio Chest Pain: No Palpitations: No Edema: None Muscle aches with walking: None Resp Respiratory: Positive for SOB with activity; Negative for SOB at rest or SOB orthopnea SOB lying down GI GI: Negative nausea, vomiting or heartburn Musc Musc: Positive for balance problems; Negative for muscle aches/ myalgia, muscle weakness or joint pain Neuro Neuro: Positive for dizziness (postural; when standing; manages well), headache(s) (occasional) and weakness (w/ exertion and walking); Negative for lightheadedness, near syncope or syncope Endo Endo: Negative for fatigue Cardiology Exam Const Appearance: comfortable and no acute distress Nutritional Appearance: well nourished Neck Neck: no JVD Carotids: Negative bruit Chest Auscultation: Bilateral: Clear to Auscultation Cardio Rate: regular rate Rhythm: regular rhythm Heart sounds: S1 normal and S2 normal Neuro General: patient alert, patient awake and patient oriented x3 Extremities Lower Extremity Edema: None: Bilateral Supplemental Info Supplemental Information Echocardiogram: 10-17-2019 Interpretation Summary The estimated ejection fraction is 65 %. Stage 1 diastolic dysfunction. Trivial tricuspid valve insufficiency. Right ventricular systolic pressure estimated to be 43 mmHg. Mild pulmonary hypertension. Compared to echo report dated 09/02/2017, no appreciable changes noted. Stress echocardiogram: 10-17-2019 Interpretation Summary The estimated ejection fraction is 65 %. Normal, adequate, treadmil (more content not included)... Normal [facility] Comprehensive metabolic 2000 panelon 12-06-2023 Albumin BCP dye [Mass/Vol] 3.8 g/dL Normal 3.4-5.0 [facility] Comment on above: Performed By: #### 2 4323-8 #### SILVIA Stewart ([id number]) [facility]) [id number] [place] [address] 95561 ALP [Catalytic activity/Vol] 82 U/L Normal 33-136 [facility] Comment on above: Performed By: #### 2 4323-8 #### SILVIA Stewart ([id number]) [facility] ([facility]) [id number] [place] [address] 73523 ALT With P-5'-P [Catalytic activity/Vol] 13 U/L Normal 10-52 [facility] Comment on above: Result Comment: Mariah ents treated with Sulfasalazine may generate falsely decreased results for ALT. Performed By: #### 2 4323-8 #### SILVIA Stewart ([id number]) [facility] ([facility]) [address] [place] [address] 32736 Anion gap [Moles/Vol] 13 mmol/L Normal 10-20 [facility] Comment on above: Performed By: #### 2 4323-8 #### SILVIA Stewart ([id number]) [facility] ([facility]) [id number] [place] [address] 86921 AST With P-5'-P [Catalytic activity/Vol] 18 U/L Normal 9-39 [facility] Comment on above: Performed By: #### 2 4323-8 #### SILVIA Stewart ([id number]) [facility] ([facility]) [id number] [place] [address] 07785 Bilirubin [Mass/Vol] 0.8 mg/dL Normal 0.0-1.2 [facility] Comment on above: Performed By: #### 2 4323-8 #### SILVIA Stewart ([id number]) [facility] ([facility]) [address] [place] [address] 56584 Calcium [Mass/Vol] 9.3 mg/dL Normal 8.6-10.6 [facility] Comment on above: Performed By: #### 2 4323-8 #### SILVIA Stewart ([id number]) [facility]) [address] [place] [address] 62094 Chloride [Moles/Vol] 100 mmol/L Normal 98-107 [facility] Comment on above: Performed By: #### 2 4323-8 #### SILVIA Stewart ([id number]) [facility]) [address] [place] [address] 37753 CO2 [Moles/Vol] 31 mmol/L Normal 21-32 [facility] Comment on above: Performed By: #### 2 4323-8 #### SILVIA Stewart ([id number]) [facility]) [id number] [place] [address] 24001 Creatinine [Mass/Vol] 0.86 mg/dL Normal 0.50-1.30 [facility] Comment on above: Performed By: #### 2 4323-8 #### SILVIA Stewart ([id number]) [facility]) [address] [place] [address] Glomerular filtration rate/1.73 sq M.predicted 83 mL/min/1.73m*2 Normal >60 [facility] Comment on above: Result Comment: Calc ulations of estimated GFR are performed using the 2020 CKD-EPI Study Refit equation without the race variable for the IDMS-Traceable creatinine methods. https://jasn.asnjournals.org/content/early//ASN.75329 94801 Performed By: #### 2 4323-8 #### SILVIA Stewart ([id number]) [facility]) [id number] [place] [address] 44859 Glucose [Mass/Vol] 192 mg/dL High 74-99 [facility] Comment on above: Performed By: #### 2 4323-8 #### SILVIA Stewart ([id number]) [facility]) [id number] [place] [address] 87244 Potassium [Moles/Vol] 4.3 mmol/L Normal 3.5-5.3 [facility] Comment on above: Performed By: #### 2 4323-8 #### SILVIA Stewart ([id number]) [facility]) [id number] [place] [address] 72384 Protein [Mass/Vol] 6.5 g/dL Normal 6.4-8.2 [facility] Comment on above: Performed By: #### 2 4323-8 #### SILVIA Stewart ([id number]) [facility]) [address] [place] [address] 04453 Sodium [Moles/Vol] 140 mmol/L Normal 136-145 [facility] Comment on above: Performed By: #### 2 4323-8 #### SILVIA Stewart ([id number]) [facility]) [address] [place] [address] 58686 Urea nitrogen [Mass/Vol] 26 mg/dL High - [facility] Comment on above: Performed By: #### 2 4323-8 #### SILVIA Stewart ([id number]) [facility]) [address] [place] [address] 86763 HbA1c (Bld) [Mass fraction]o n 12-06-2023 Average glucose Estimated from glycated hemoglobin (Bld) [Mass/Vol] 177 mg/dL Normal Not Established [facility] Comment on above: Order Comment: Diagn osis of Yfijwals-OqyqovWrg-Vstbhsif: < or = 5.6%Increased risk for developing diabetes: 5.7-6.4%Diagnostic of diabetes: > or = 6.5% Performed By: #### 2 4323-8 #### SILVIA Stewart ([id number]) [facility]) [address] [place] [address] 00814 Hemoglobin A1c/Hemoglobin.to carlos 12-06-2023 HbA1c (Bld) [Mass fraction] 7.8 % High see below [facility] Comment on above: Order Comment: Diagn osis of Tsfyqwde-ZaxmcoFwg-Dvkgzmjl: < or = 5.6%Increased risk for developing diabetes: 5.7-6.4%Diagnostic of diabetes: > or = 6.5% Performed By: #### 2 4323-8 #### SILVIA Stewart ([id number]) [facility]) [id number] [place] [address] 85090 Lipid 1996 panelon 4 Cholesterol [Mass/Vol] 123 mg/dL Normal 0-199 [facility] Comment on above: Result Comment: Age Desirable Borderline High High 0-19 Y 0 - 169 170 - 199 >/= 200 20-24 Y 0 - 189 190 - 224 >/= 225 >24 Y 0 - 199 200 - 239 >/= 240 All ranges are based on fasting samples. Specific therapeutic targets will vary based on patient-specific cardiac risk. Pediatric guidelines reference:Pediatrics 2011, 128(S5).Adult guidelines reference: NCEP ATPIII Guidelines,LAMAR 2001, 258:2486-97 Venipuncture immediately after or during the administration of Metamizole may lead to falsely low results. Testing should be performed immediately prior to Metamizole dosing. Performed By: #### 2 4323-8 #### SILVIA Stewart ([id number]) [facility]) [address] [place] [address] Cholesterol in HDL [Mass/Vol] 28.3 mg/dL Normal [facility] Comment on above: Result Comment: Age Very Low Low Normal High 0-19 Y < 35 < 40 40-45 ---- 20-24 Y ---- < 40 >45 ---- >24 Y ---- < 40 40-60 >60 Performed By: #### 2 4323-8 #### SILVIA Stewart ([id number]) [facility]) [id number] [place] [address] 11580 Cholesterol in LDL [Mass/Vol] 67 mg/dL Normal <=99 [facility] Comment on above: Result Comment: Near Borderline AGE Desirable Optimal High High Very High 0-19 Y 0 - 109 --- 110-129 >/= 130 ---- 20-24 Y 0 - 119 --- 120-159 >/= 160 ---- >24 Y 0 - 99 100-129 130-159 160-189 >/=190 Performed By: #### 2 4323-8 #### SILVIA Stewart ([id number]) [facility]) [id number] [place] [address] 40400 Cholesterol in VLDL [Mass/Vol] 27 mg/dL Normal 0-40 [facility] Comment on above: Performed By: #### 2 4323-8 #### SILVIA Stewart ([id number]) [facility]) [address] [place] [address] CHOLESTEROL/HDL RATIO 4.3 Normal [facility] Comment on above: Result Comment: Ref Values Desirable < 3.4 High Risk > 5.0 Performed By: #### 2 4323-8 #### SILVIA Stewart ([id number]) [facility]) [address] [place], [place] [id number] NON HDL CHOLESTEROL 95 mg/dL Normal 0-149 [facility] Comment on above: Result Comment: Age Desirable Borderline High High Very High 0-19 Y 0 - 119 120 - 144 >/= 145 >/= 160 20-24 Y 0 - 149 150 - 189 >/= 190 ---- >24 Y 30 mg/dL above LDL Cholesterol goal Performed By: #### 2 4323-8 #### SILVIA Stewart ([id number]) [facility]) [address] [place], [place] [id number] Triglyceride [Mass/Vol] 137 mg/dL Normal 0-149 [facility] Comment on above: Result Comment: Age Desirable Borderline High High Very High 0 D-90 D 19 - 174 ---- ---- ---- 91 D- 9 Y 0 - 74 75 - 99 >/= 100 ---- 10-19 Y 0 - 89 90 - 129 >/= 130 ---- 20-24 Y 0 - 114 115 - 149 >/= 150 ---- >24 Y 0 - 149 150 - 199 200- 499 >/= 500 Venipuncture immediately after or during the administration of Metamizole may lead to falsely low results. Testing should be performed immediately prior to Metamizole dosing. Performed By: #### 2 4323-8 #### SILVIA Stewart ([id number]) [facility]) [address] [place], [place] [id number] CNDSon 12-02-2023 CNDS HNO ID: [id number] Author: ELLIE DUMONT MD Service: Hospital Medicine Author Type: Physician Type: Discharge Summary Filed: 12/02/2023 14:40 Note Text: DISCHARGE SUMMARY PATIENT NAME: Georgi Lanier ADMISSION DATE: 11/30/2023 DISCHARGE DATE: 12/02/2023 ATTENDING PHYSICIAN: Ellie Dumont MD Code Status: Not on file PCP: Valeriano Monroy MD Highest Readmission Risk Score: 12 The 30 day readmissions risk score is derived from an internally validated risk model which evaluates patient level characteristics, utilization history, medication orders and lab results up until the day of discharge. Patients with a score of 40 or above are considered highest risk for readmission. Specific patient level drivers will be listed at the bottom of the summary. TRANSITIONS OF CARE CRITICAL ISSUES: LUNDBERG MEDICATION CHANGES: Conspitation FOLLOW UP APPOINTMENTS: PCP REASON FOR HOSPITALIZATION/PRINCI PAL DIAGNOSES: Constipation HOSPITAL PROBLEMS: Principal Problem (Resolved): Constipation (POA: Yes) Active Problems: Essential hypertension (POA: Yes) Type 2 diabetes mellitus (HCC) (POA: Yes) Gastroesophageal reflux disease without esophagitis (POA: Yes) Dyslipidemia (POA: Yes) CAD (coronary artery disease) (POA: Yes) Dementia (HCC) (POA: Yes) HOSPITAL COURSE: Georgi Lanier is a 88 year old male with a past medical history notable for DM2, hypertension, CAD s/p stenting, dyslipidemia, GERD, dementia, and anxiety who presents with abdominal pain. In the ED the patient was found to be afebrile and had dynamically stable on room air albeit mildly hypertensive to 179/103 as a high. Labs are most notable for BUN of 25 but otherwise normal renal function, normal LFTs, blood glucose of 153, and chronic anemia with a hemoglobin of 11.9. Chest x-ray was unremarkable but KUB demonstrated a large amount of retained fecal material. Throughout the colon including the rectosigmoid colon. The patient was given 2 soapsuds enemas without much result as well as lactulose, morphine, and Zofran. Thus he is being admitted under hospital medicine for further workup and management of constipation. Patient was given Senna-S 2 tabs twice daily and miralax daily. Patient will DC on Senna-S 1 tab daily and Miralax daily. If diarrhea please hold the stool softeners for 24 hours and restart. If constipation on this medications please take Miralax twice daily for 2-3 days. DC home with [facility]. OPERATIONS/PROCEDURE DURING THIS HOSPITALIZATION: * No surgery found * CONSULTS DURING HOSPITALIZATION: Treatment Team: Attending Provider: Ellie Dumont MD Primary Service: , [facility] PATIENT CONDITION AT DISCHARGE: Stable DISCHARGE DISPOSITION: Home with Home Health Discharge Physical Exam: VITAL SIGNS: Blood Pressure 126/54 Pulse 65 Temperature 36.8 ?C (98.3 ?F) (Oral) Respiration 16 Height 172.7 cm (5' 8) Weight 66.1 kg (145 lb 11.6 oz) Oxygen Saturation 95% Body Mass Index 22.16 kg/m? GENERAL: Alert, no distress, cooperative SKIN: Skin color, texture, turgor normal. No rashes or lesions. HEAD/SINUSES: No significant findings EYES: PERRLA, EOMI LUNGS: Lungs clear to auscultation, Good diaphragmatic excursion CARDIAC: Normal S1 and S2; no rubs, murmurs, or gallops ABDOMEN: Abdomen soft, non-tender, BS normal, No masses or organomegaly EXTREMITIES: Extremities normal, no deformities, edema, clubbing or skin discoloration. Good capillary refill., No ulcers NEURO: Cranial nerves II-XII intact PULSES: 2+ radial, 2+ carotid WOUND/SURGICAL SITE CARE: None SUPPLIES OR EQUIPMENT: None DIET: Resume pre-hospital diet ACTIVITY AND EXERCISE: Resume pre-hospital activity FOLLOW UP APPOINTMENTS: Future Appointments Date Time Provider Department Center 01/14/2024 11:00 AM Saritha Hill PA-C [facility] Discharge Information [facility] Care Row Name ED to Hosp-Admission (Current) from 11/30/2023 in [facility] Start of Care (comments only) (Comment) SOC within 24- 48hrs of DC ALLERGIES Allergen Reactions Penicillins Rash, Swelling DISCHARGE MEDICATION: Medication List Start taking these medications polyethylene glycol 3350 17 gram/dose powder Commonly known as: MIRALAX Take 17 g by mouth once daily. Dissolve dose in 4 - 8 ounces of liquid and take as directed. senna-docusate 8.6-50 mg per tablet Commonly known as: SENNA-S Take 1 tablet by mouth two times a day. Change how you take these medications amLODIPine 10 mg tablet Commonly known as: NORVASC What changed: Another medication with the same name was removed. Continue taking this medication, and follow the directions you see here. metFORMIN 500 mg tablet Commonly known as: GLUCOPHAGE Take 2 tablets by mouth two times a day with meals. What changed: medication strength how much to take w (more content not included)... Normal [facility] ALLIED HEALTHon 12-01-2023 ALLIED HEALTH HNO ID: [id number] Author: KRISSY MC RT(R) Service: Radiology Author Type: Technologist Type: Allied Health Filed: 12/01/2023 13:39 Note Text: Radiology Service Progress Note PATIENT NAME: Georgi Lanier DATE OF SERVICE: December 01, 2023 TIME: 1:38 PM PATIENT IDENTITY VERIFICATION COMPLETED USING TWO (2) IDENTIFIERS: Name and Date of confirmed by patient verbally. FALL SCREENING: Has the patient had 2 falls in the last year or 1 fall with injury or currently using an Ambulatory Assistive Device (Walker, Cane, Wheelchair, Crutches, etc.)? Inpatient: Screened on floor PATIENT GENDER DATA: Male PATIENT RELEVANT IMPLANT DATA REVIEWED: Not Applicable PATIENT PRESENTS WITH AN IMPLANTABLE OR ATTACHED HAND SANDER: No RADIOLOGY DEPARTMENT: General X-ray: Exam(s) Completed: Abdomen X-Ray: Abdomen PERIPHERAL IV DATA: Not applicable SIGNED BY: RT Pawel(R) December 01, 2023 1:38 PM Normal [facility] Bacteria Ur Culton Bacteria identified Cx Nom (U) ORGANISM ID: 1 <10,000 CFU/ml Normal urogenital shiraz Normal [facility] Comment on above: Performed By: #### 6 30-4 ####[facility] [id number] [place] [address] [place] Basic metabolic 2000 panelon 12-01-2023 Anion gap [Moles/Vol] 13 mmol/L Normal 8-15 [facility] Comment on above: Order Comment: Speci men Type: BLOOD SPECIMENOrdering Facility: [facility] Address: [address] [place] [address] Performed By: #### 2 4321-2, 2284-8 ####[facility] [id number] [place] [address] [place] Calcium [Mass/Vol] 9.6 mg/dL Normal 8.5-10.2 [facility] Comment on above: Order Comment: Speci men Type: BLOOD SPECIMENOrdering Facility: [facility] Address: [address] [place] [address] Performed By: #### 2 4321-2, 4-8 ####[facility] [id number] [place] [address] [place] Chloride [Moles/Vol] 102 mmol/L Normal 98-107 [facility] Comment on above: Order Comment: Speccheyenne men Type: BLOOD SPECIMENOrdering Facility: [facility] Address: [address] [place] [address] Performed By: #### 2 4321-2, 2283-8 ####[facility] [id number] [place] [address] [place] CO2 [Moles/Vol] 27 mmol/L Normal 22-30 [facility] Comment on above: Order Comment: Sinai gonsalez Type: BLOOD SPECIMENOrdering Facility: [facility] Address: [address] [place] [address] Performed By: #### 2 4321-2, 2283-8 ####[facility]ORY[facility] [id number] [place] [id number] [place] Creatinine [Mass/Vol] 0.94 mg/dL Normal 0.73-1.22 [facility] Comment on above: Order Comment: Sinai gonsalez Type: BLOOD SPECIMENOrdering Facility: [facility] Address: [address] [place] [address] Performed By: #### 2 4321-2, 2283-8 ####[facility]ORY[facility] [id number] [place] [id number] [facility] [place] Creatinine and Glomerular filtration rate.predicted panel (S/P/Bld) 77 mL/min/1.73m??? Normal >=60 [facility] Comment on above: Order Comment: Sinai gonsalez Type: BLOOD SPECIMENOrdering Facility: [facility] Address: [address] [place] [address] Result Comment: Martina mated Glomerular Filtration Rate (eGFR) is calculated using the 2020 CKD-EPI creatinine equation. This equation utilizes serum creatinine, sex, and age as parameters. The creatinine assay has traceable calibration to isotope dilution-mass spectrometry. Refer to KDIGO guidelines for clinical interpretation. In patients with unstable renal function, e.g. those with acute kidney injury, the eGFR may not accurately reflect actual GFR. Performed By: #### 2 43204-16, 2283-11 ####[facility]ORYCL[facility] [id number] [place] [address] [place] Glucose [Mass/Vol] 187 mg/dL High 74-99 [facility] Comment on above: Order Comment: Sinai gonsalez Type: BLOOD SPECIMENOrdering Facility: [facility] Address: [address] [place] [address] Result Comment: The [place] Diabetes Association (ADA) provides guidance for cutoff values for fasting glucose and random glucose. The ADA defines fasting as no caloric intake for at least 8 hours. Fasting plasma glucose results between 100 to 125 mg/dL indicate increased risk for diabetes (prediabetes). Fasting plasma glucose results greater than or equal to 126 mg/dL meet the criteria for diagnosis of diabetes. In the absence of unequivocal hyperglycemia, results should be confirmed by repeat testing. In a patient with classic symptoms of hyperglycemia or hyperglycemic crisis, random plasma glucose results greater than or equal to 200 mg/dL meet the criteria for diagnosis of diabetes. Reference: Standards of Medical Care in Diabetes 2016, [place] Diabetes Association. Diabetes Care. 2016.39(Suppl 1). Performed By: #### 2 43204-16, 2283-11 ####[facility]ORY[facility] [id number] [place] [address] [place] Potassium [Moles/Vol] 4.7 mmol/L Normal 3.7-5.1 [facility] Comment on above: Order Comment: Sinai gonsalez Type: BLOOD SPECIMENOrdering Facility: [facility] Address: [address] [place] [address] Performed By: #### 2 43204-16, 2283-11 ####[facility]ORY[facility] [id number] [place] [address] [place] Sodium [Moles/Vol] 142 mmol/L Normal 136-144 [facility] Comment on above: Order Comment: Siani gonsalez Type: BLOOD SPECIMENOrdering Facility: [facility] Address: [address] [place] [address] Performed By: #### 2 43204-16, 2283-11 ####[facility]ORYCLIA [id number] [address] [facility] Urea nitrogen [Mass/Vol] 25 mg/dL High 9-24 [facility] Comment on above: Order Comment: Speci men Type: BLOOD SPECIMENOrdering Facility: [facility] Address: [address] [place] [address] Performed By: #### 2 4321-2, 2284-8 ####[facility] [id number] [address] [place] CBC panel Auto (Bld)on 11-30 Erythrocyte distribution width (RBC) [Ratio] 12.6 % Normal 11.5-15.0 [facility] Comment on above: Order Comment: Speci men Type: BLOOD SPECIMENOrdering Facility: [facility] Address: [address] [place] [address] Performed By: #### 5 8410-2 ####[facility]ORYCLIA [id number] 16 [address] Hematocrit (Bld) [Volume fraction] 39.2 % Normal 39.0-51.0 [facility] Comment on above: Order Comment: Speci men Type: BLOOD SPECIMENOrdering Facility: [facility] Address: [address] [place] [address] Performed By: #### 5 8410-2 ####[facility] LABORATORYCLIA [id number] [address] Hemoglobin (Bld) [Mass/Vol] 13.1 g/dL Normal 13.0-17.0 [facility] Comment on above: Order Comment: Speci men Type: BLOOD SPECIMENOrdering Facility: [facility] Address: [address] [place] [address] Performed By: #### 5 8410-2 ####[facility] LABORATORYCLIA [id number] [address] MCH (RBC) [Entitic mass] 30.3 pg Normal 26.0-34.0 [facility] Comment on above: Order Comment: Speci men Type: BLOOD SPECIMENOrdering Facility: [facility] Address: [address] [place] [address] Performed By: #### 5 8410-2 ####[facility] LABORATORYCLIA [id number] [address] [place] [facility] MCHC (RBC) [Mass/Vol] 33.4 g/dL Normal 30.5-36.0 [facility] Comment on above: Order Comment: Speci men Type: BLOOD SPECIMENOrdering Facility: [facility] Address: [address] [place] [address] Performed By: #### 5 8410-2 ####[facility] LABORATORYCLIA [id number] [address] [place] MCV (RBC) [Entitic vol] 90.7 fL Normal 80.0-100.0 [facility] Comment on above: Order Comment: Speci men Type: BLOOD SPECIMENOrdering Facility: [facility] Address: [address] [place] [address] Performed By: #### 5 8410-2 ####[facility] LABORATORYCLIA [id number] [address] [place] Nucleated RBC (Bld) [#/Vol] 10*3/uL Normal <0.01 [facility] Comment on above: Order Comment: Speci men Type: BLOOD SPECIMENOrdering Facility: [facility] Address: [address] [place] [address] Performed By: #### 5 8410-2 ####[facility] LABORATORYCLIA [id number] [address] [place] Platelet mean volume (Bld) [Entitic vol] 10.9 fL Normal 9.0-12.7 [facility] Comment on above: Order Comment: Speci men Type: BLOOD SPECIMENOrdering Facility: [facility] Address: [address] [place] [address] Performed By: #### 5 8410-2 ####[facility] LABORATORYCLIA [id number] [address] [place] Platelets (Bld) [#/Vol] 237 10*3/uL Normal 150-400 [facility] Comment on above: Order Comment: Speci men Type: BLOOD SPECIMENOrdering Facility: [facility] Address: [address] [place] [address] Performed By: #### 5 8410-2 ####[facility] LABORATORYCLIA [id number] [place] [address] [place] RBC (Bld) [#/Vol] 4.32 10*6/uL Normal 4.20-6.00 [facility] Comment on above: Order Comment: Speci men Type: BLOOD SPECIMENOrdering Facility: [facility] Address: [address] [place] [address] Performed By: #### 5 8410-2 ####[facility] LABORATORYCLIA [id number] [address] [place] WBC (Bld) [#/Vol] 9.57 10*3/uL Normal 3.70-11.00 [facility] Comment on above: Order Comment: Speci men Type: BLOOD SPECIMENOrdering Facility: [facility] Address: [address] [place] [address] Performed By: #### 5 8410-2 ####[facility] LABORATORYCLIA [id number] [address] [place] Folate SerPl-mCncon 12-01-19 24 Folate [Mass/Vol] 17.5 ng/mL Normal >4.7 [facility] Comment on above: Order Comment: Speci men Type: BLOOD SPECIMENOrdering Facility: [facility] Address: [address] [place] [address] Performed By: #### 2 4321-2, 2284-8 ####[facility] LABORATORYCLIA [id number] [address] HbA1c (Bld)on 12-01-2023 Average glucose Estimated from glycated hemoglobin (Bld) [Mass/Vol] 186 mg/dL Normal [facility] Comment on above: Order Comment: Speci men Type: BLOOD SPECIMENOrdering Facility: [facility] Address: [address] [place] [address] Result Comment: eAG: (Estimated average glucose) is a calculated value from HgbA1c and is workforce services representative of the average blood glucose level in the last 2-3 month period. Performed By: #### 5 5454-3 ####[facility] LABCLIA [id number] [place] [address] [place] HbA1c (Bld) [Mass fraction] 8.1 % High 4.3-5.6 [facility] Comment on above: Order Comment: Speci men Type: BLOOD SPECIMENOrdering Facility: [facility] Address: [address] [place] [address] Result Comment: [place] Diabetes Association guidelines indicate that patients with HgbA1c in the range 5.7-6.4% are at increased risk for development of diabetes, and intervention by lifestyle modification may be beneficial. HgbA1c greater or equal to 6.5% is considered diagnostic of diabetes. Performed By: #### 5 5454-3 ####[facility] LABIA [id number] [address] OF [facility] NURSING PROGon 12-01-2023 NURSING PROG HNO ID: [id number] Author: MIRIAM MYERS RN Service: ? Author Type: Registered Nurse Type: Nursing Progress Note Filed: 12/01/2023 09:57 Note Text: Nursing Progress Note Topic of Note: Daily Note PATIENT NAME: Georgi Lanier Patient Location: [place] [address]/[address] Room: [place] [address] 0945: Patient A AND O to self only. Patient refusing all medications. RN spend 30 minutes talking with patient encouraging patient to take PO medications. Patient understands he was constipated but is still refusing treatment. Patient stating his will not come to see him and she and her son thinks he is crazy. Patient stating he wants to , but unable to tell RN if he has a plan. RN has not witnessed patient able to urinate or have a bowel movement. RN will advise attending. 1000: and family at bedside. Patient crying in room. RN discussed behavior of patient with family. It seems patient has been refusing medications at home. RN educated patient and he is now agreeable to take medications. RN to advise attending. This note was completed by: Miriam Myers [facility] NURSING PROG HNO ID: [id number] Author: BRIAN MÉNDEZ RN Service: Nursing Author Type: Registered Nurse Type: Nursing Progress Note Filed: 12/01/2023 02:09 Note Text: Transfer Note: PATIENT NAME: Georgi Lanier Patient Location: [place] [address] Room: [place] [address] Patient transferred into room/unit [address] [place] [address] in stable condition. Actions taken: No futher actions taken at this time. Will continue to monitor and check with patient. Patient belongings with patient. Unable to reach spouse to complete [employer] meds, will attempt again at later time. Normal [facility] URINALYSIS, REFLEX MICROSCOP ICon 12-01-2023 Bilirubin Ql (U) Negative Normal Negative [facility] Comment on above: Order Comment: Speci men Type: URINE SPECIMENOrdering Facility: [facility] Address: [address] [place] [address] Performed By: #### L [id number] ####[facility] LABORATORYIA [id number] [address] [place] Clarity (Unsp spec) Clear Normal Clear [facility] Comment on above: Order Comment: Speci men Type: URINE SPECIMENOrdering Facility: [facility] Address: [address] [place] [address] Performed By: #### L [id number] ####[facility]PITALIA [id number] [address] Color (U) Yellow Normal Yellow [facility] Comment on above: Order Comment: Speci men Type: URINE SPECIMENOrdering Facility: [facility] Address: [address] [place] [address] Performed By: #### L [id number] ####[facility] LABORATORYCLIA [id number] [place] [id number] [facility] [place] Glucose Test strip (U) [Mass/Vol] Trace Abnormal Negative [facility] Comment on above: Order Comment: Speci men Type: URINE SPECIMENOrdering Facility: [facility] Address: [address] [place] [address] Performed By: #### L [id number] ####[facility] LABORATORYCLIA [id number] [place] [address] [place] Hemoglobin Ql (U) Negative Normal Negative [facility] Comment on above: Order Comment: Speci men Type: URINE SPECIMENOrdering Facility: [facility] Address: [address] [place] [address] Performed By: #### L [id number] ####[facility] LABORATORYCLIA [id number] [place] [address] [place] Ketones Ql (U) Negative Normal Negative [facility] Comment on above: Order Comment: Speci men Type: URINE SPECIMENOrdering Facility: [facility] Address: [address] [place] [address] Performed By: #### L [id number] ####[facility] LABORATORYCLIA [id number] [place] [address] [place] Leukocyte esterase Test strip Ql (U) Negative Normal Negative [facility] Comment on above: Order Comment: Speci men Type: URINE SPECIMENOrdering Facility: [facility] Address: [address] [place] [address] Performed By: #### L [id number] ####[facility] LABORATORYCLIA [id number] [place] [address] [place] Nitrite Ql (U) Negative Normal Negative [facility] Comment on above: Order Comment: Speci men Type: URINE SPECIMENOrdering Facility: [facility] Address: [address] [place] [address] Performed By: #### L [id number] ####[facility] LABORATORYCLIA [id number] [place] [address] [place] pH (U) 6.0 [pH] Normal 5.0-8.0 [facility] Comment on above: Order Comment: Speci men Type: URINE SPECIMENOrdering Facility: [facility] Address: [address] [place] [address] Performed By: #### L [id number] ####[facility] LABORATORYCLIA [id number] [place] [id number] [place] Protein (U) [Mass/Vol] Negative Normal Negative [facility] Comment on above: Order Comment: Speci men Type: URINE SPECIMENOrdering Facility: [facility] Address: [address] [place] [address] Performed By: #### L [id number] ####[facility] LABORATORYCLIA [id number] [address] [place] Specific gravity (U) [Rel density] 1.010 Normal 1.005-1.030 [facility] Comment on above: Order Comment: Speci men Type: URINE SPECIMENOrdering Facility: [facility] Address: [address] [place] [address] Performed By: #### L [id number] ####[facility] LABORATORYCLIA [id number] [address] Urobilinogen Ql (U) 1.0 EU/dL Normal 0.2-1.0 EU/dL [facility] Comment on above: Order Comment: Speci men Type: URINE SPECIMENOrdering Facility: [facility] Address: [address] [place] [address] Performed By: #### L [id number] ####[facility] LABORATORYCLIA [id number] [address] Urinalysis complete panel (U )on 12-01-2023 Bacteria LM.HPF (Urine sed) [#/Area] Rare Abnormal None Seen [facility] Comment on above: Order Comment: Speci men Type: URINE SPECIMENOrdering Facility: [facility] Address: [address] [place] [address] Performed By: #### 2 4356-8 ####[facility] LABORATORYCLIA [id number] [address] [place] Bilirubin Ql (U) Negative Normal Negative [facility] Comment on above: Order Comment: Speci men Type: URINE SPECIMENOrdering Facility: [facility] Address: [address] [place] [address] Performed By: #### 2 4356-8 ####[facility] LABORATORYCLIA [id number] [address] [place] Clarity (Unsp spec) Clear Normal Clear [facility] Comment on above: Order Comment: Speci men Type: URINE SPECIMENOrdering Facility: [facility] Address: [address] [place] [address] Performed By: #### 2 4356-8 ####[facility] LABORATORYCLIA [id number] [address] [place] Color (U) Yellow Normal Yellow [facility] Comment on above: Order Comment: Speci men Type: URINE SPECIMENOrdering Facility: [facility] Address: [address] [place] [address] Performed By: #### 2 4356-8 ####[facility] LABORATORYCLIA [id number] [address] [place] Epithelial cells LM.HPF (Urine sed) [#/Area] Few Normal [facility] Comment on above: Order Comment: Speci men Type: URINE SPECIMENOrdering Facility: [facility] Address: [address] [place] [address] Performed By: #### 2 4356-8 ####[facility] LABORATORYCLIA [id number] [address] [place] Glucose Test strip (U) [Mass/Vol] Trace Abnormal Negative [facility] Comment on above: Order Comment: Speci men Type: URINE SPECIMENOrdering Facility: [facility] Address: [address] [place] [address] Performed By: #### 2 4356-8 ####[facility] LABORATORYCLIA [id number] [place] [address] [place] Hemoglobin Ql (U) Negative Normal Negative [facility] Comment on above: Order Comment: Speci men Type: URINE SPECIMENOrdering Facility: [facility] Address: [address] [place] [address] Performed By: #### 2 4356-8 ####[facility] LABORATORYCLIA [id number] [address] [place] Ketones Ql (U) Negative Normal Negative [facility] Comment on above: Order Comment: Speci men Type: URINE SPECIMENOrdering Facility: [facility] Address: [address] [place] [address] Performed By: #### 2 4356-8 ####[facility] LABORATORYCLIA [id number] [address] Leukocyte esterase Test strip Ql (U) Negative Normal Negative [facility] Comment on above: Order Comment: Speci men Type: URINE SPECIMENOrdering Facility: [facility] Address: [address] [place] [address] Performed By: #### 2 4356-8 ####[facility] LABORATORYCLIA [id number] [place] [address] [place] Nitrite Ql (U) Negative Normal Negative [facility] Comment on above: Order Comment: Speci men Type: URINE SPECIMENOrdering Facility: [facility] Address: [address] [place] [address] Performed By: #### 2 4356-8 ####[facility] LABORATORYCLIA [id number] [address] [place] pH (U) 6.0 [pH] Normal 5.0-8.0 [facility] Comment on above: Order Comment: Speci men Type: URINE SPECIMENOrdering Facility: [facility] Address: [address] [place] [address] Performed By: #### 2 4356-8 ####[facility] LABORATORYCLIA [id number] [address] Protein (U) [Mass/Vol] Negative Normal Negative [facility] Comment on above: Order Comment: Speci men Type: URINE SPECIMENOrdering Facility: [facility] Address: [address] [place] [address] Performed By: #### 2 4356-8 ####[facility] LABORATORYCLIA [id number] [place] [address] [place] RBC LM.HPF (Urine sed) [#/Area] 0-3 /HPF Normal 0-3 /HPF [facility] Comment on above: Order Comment: Speci men Type: URINE SPECIMENOrdering Facility: [facility] Address: [address] [place] [address] Performed By: #### 2 4356-8 ####[facility] LABORATORYCLIA [id number] [place] [address] [place] Specific gravity (U) [Rel density] 1.010 Normal 1.005-1.030 [facility] Comment on above: Order Comment: Speci men Type: URINE SPECIMENOrdering Facility: [facility] Address: [address] [place] [address] Performed By: #### 2 4356-8 ####[facility] LABORATORYCLIA [id number] [place] [id number] [place] Urobilinogen Ql (U) 1.0 EU/dL Normal 0.2-1.0 EU/dL [facility] Comment on above: Order Comment: Speci men Type: URINE SPECIMENOrdering Facility: [facility] Address: [address] [place] [address] Performed By: #### 2 4356-8 ####[facility] LABORATORYCLIA [id number] [place] [address] [place] WBC LM.HPF (Urine sed) [#/Area] 0-5 /HPF Normal 0-5 /HPF [facility] Comment on above: Order Comment: Speci men Type: URINE SPECIMENOrdering Facility: [facility] Address: [address] [place] [address] Performed By: #### 2 4356-8 ####[facility] LABORATORYCLIA [id number] [address] [place] VITAMIN B1 (THIAMINE), WHOLE BLOODon 12-01-2023 Thiamine (Bld) [Moles/Vol] 155.0 nmol/L Normal 84.3-213.3 [facility] Comment on above: Order Comment: Speci men Type: BLOOD SPECIMENOrdering Facility: [facility] Address: [address] [place] [address] Result Comment: This assay measures the concentration of thiamine diphosphate (TDP), the primary active form of vitamin B1. Approximately 90 percent of vitamin B1 present in whole blood is TDP. Thiamine and thiamine monophosphate, which comprise the remaining 10 percent, are not measured. This test was developed and its performance characteristics determined by [facility] Pathology and Laboratory Medicine [place] ([facility]). It has not been cleared or approved by the FDA. [facility] is regulated under CLIA as qualified to perform high-complexity testing. This test is used for clinical purposes. It should not be regarded as investigational or for research. Performed By: #### B 1WB ####[facility] LABCLIA [id number] [place] [id number] [place] XR ABDOMEN 1V SUPINEon 11-30 XR ABDOMEN 1V SUPINE * * *Final Report* * * DATE OF EXAM: Dec 01 2023 1:38PM MDX 5289 - XR ABDOMEN 1V SUPINE / PROCEDURE REASON: Constipation * * * * Physician Interpretation * * * * KUB: INDICATION: Constipation TECHNIQUE: XR ABDOMEN 1V SUPINE COMPARISON: 11/30/2023 FINDINGS: Significant interval evacuation of stool from the colon. No significant colonic stool content remains. No dilated bowel. No mass or abnormal calcification. IMPRESSION: Significant interval evacuation of stool. Internet Marketing Intern: PSC[employer] Transcribe Date/Time: Dec 02 2023 7:27A Dictated by : JACQUELYN BOWER MD This examination was interpreted and the report reviewed and electronically signed by: JACQUELYN BOWER MD on Dec 02 2023 7:28AM EST [id number] [facility] HEALTHon 11-30-2023 ALLIED HEALTH HNO ID: [id number] Author: CAROLINE MOON Tech Service: ? Author Type: Glass Cutter Hand Type: Allied Health Filed: 11/30/2023 19:04 Note Text: Radiology Service Progress Note PATIENT NAME: Georgi Lanier DATE OF SERVICE: November 30, 2023 TIME: 7:03 PM PATIENT IDENTITY VERIFICATION COMPLETED USING TWO (2) IDENTIFIERS: Name and Date of confirmed by patient verbally. FALL SCREENING: Has the patient had 2 falls in the last year or 1 fall with injury or currently using an Ambulatory Assistive Device (Walker, Cane, Wheelchair, Crutches, etc.)? No PATIENT GENDER DATA: Male PATIENT RELEVANT IMPLANT DATA REVIEWED: Not Applicable PATIENT PRESENTS WITH AN IMPLANTABLE OR ATTACHED HAND SANDER: No RADIOLOGY DEPARTMENT: General X-ray: Exam(s) Completed: Abdomen X-Ray: Abdomen with Upright PERIPHERAL IV DATA: Not applicable SIGNED BY: Leopoldo Knapp November 30, 2023 7:03 PM Normal [facility] CBC W Auto Differential pane l (Bld)on 11-30-2023 Basophils (Bld) [#/Vol] 10*3/uL Normal <0.11 [facility] Comment on above: Order Comment: Speci men Type: BLOOD SPECIMENOrdering Facility: [facility] Address: [address] [place] [address] Performed By: #### 5 7021-8 ####[facility] LABORATORYCLIA [id number] [place] [address] [place] Basophils/100 WBC (Bld) 0.2 % Normal [facility] Comment on above: Order Comment: Speci men Type: BLOOD SPECIMENOrdering Facility: [facility] Address: [address] [place] [address] Performed By: #### 5 7021-8 ####[facility] LABORATORYCLIA [id number] [place] [address] [place] Differential cell count method Nom (Bld) Auto Normal [facility] Comment on above: Order Comment: Speci men Type: BLOOD SPECIMENOrdering Facility: [facility] Address: [address] [place] [address] Performed By: #### 5 7021-8 ####[facility] LABORATORYCLIA [id number] [place] [address] [place] Eosinophils (Bld) [#/Vol] 0.07 10*3/uL Normal <0.46 [facility] Comment on above: Order Comment: Speci men Type: BLOOD SPECIMENOrdering Facility: [facility] Address: [address] [place] [address] Performed By: #### 5 7021-8 ####[facility] LABORATORYCLIA [id number] [place] [address] [place] Eosinophils/100 WBC (Bld) 0.8 % Normal [facility] Comment on above: Order Comment: Speci men Type: BLOOD SPECIMENOrdering Facility: [facility] Address: [address] [place] [address] Performed By: #### 5 7021-8 ####[facility] LABORATORYCLIA [id number] [address] [place] Erythrocyte distribution width (RBC) [Ratio] 12.5 % Normal 11.5-15.0 [facility] Comment on above: Order Comment: Speci men Type: BLOOD SPECIMENOrdering Facility: [facility] Address: [address] [place] [address] Performed By: #### 5 7021-8 ####[facility] LABORATORYCLIA [id number] [place] [address] [place] Hematocrit (Bld) [Volume fraction] 35.2 % Low 39.0-51.0 [facility] Comment on above: Order Comment: Speci men Type: BLOOD SPECIMENOrdering Facility: [facility] Address: [address] [place] [address] Performed By: #### 5 7021-8 ####[facility] LABORATORYCLIA [id number] [place] [address] [place] Hemoglobin (Bld) [Mass/Vol] 11.9 g/dL Low 13.0-17.0 [facility] Comment on above: Order Comment: Speci men Type: BLOOD SPECIMENOrdering Facility: [facility] Address: [address] [place] [address] Performed By: #### 5 7021-8 ####[facility] LABORATORYCLIA [id number] [address] [place] Immature granulocytes (Bld) [#/Vol] 10*3/uL Normal <0.10 [facility] Comment on above: Order Comment: Speci men Type: BLOOD SPECIMENOrdering Facility: [facility] Address: [address] [place] [address] Performed By: #### 5 7021-8 ####[facility] LABORATORYCLIA [id number] [address] [place] Immature granulocytes/100 WBC (Bld) 0.1 % Normal [facility] Comment on above: Order Comment: Speci men Type: BLOOD SPECIMENOrdering Facility: [facility] Address: [address] [place] [address] Performed By: #### 5 7021-8 ####[facility] LABORATORYCLIA [id number] [address] Lymphocytes (Bld) [#/Vol] 1.93 10*3/uL Normal 1.00-4.00 [facility] Comment on above: Order Comment: Speci men Type: BLOOD SPECIMENOrdering Facility: [facility] Address: [address] [place] [address] Performed By: #### 5 7021-8 ####[facility] LABORATORYCLIA [id number] [address] Lymphocytes/100 WBC (Bld) 22.9 % Normal [facility] Comment on above: Order Comment: Speci men Type: BLOOD SPECIMENOrdering Facility: [facility] Address: [address] [place] [address] Performed By: #### 5 7021-8 ####[facility] LABORATORYCLIA [id number] [address] STATES [facility] MCH (RBC) [Entitic mass] 30.3 pg Normal 26.0-34.0 [facility] Comment on above: Order Comment: Speci men Type: BLOOD SPECIMENOrdering Facility: [facility] Address: [address] [place] [address] Performed By: #### 5 7021-8 ####[facility] LABORATORYCLIA [id number] [address] MCHC (RBC) [Mass/Vol] 33.8 g/dL Normal 30.5-36.0 [facility] Comment on above: Order Comment: Speci men Type: BLOOD SPECIMENOrdering Facility: [facility] Address: [address] [place] [address] Performed By: #### 5 7021-8 ####[facility] LABORATORYCLIA [id number] [address] MCV (RBC) [Entitic vol] 89.6 fL Normal 80.0-100.0 [facility] Comment on above: Order Comment: Speci men Type: BLOOD SPECIMENOrdering Facility: [facility] Address: [address] [place] [address] Performed By: #### 5 7021-8 ####[facility] LABORATORYCLIA [id number] [place] [address] [place] Monocytes (Bld) [#/Vol] 0.79 10*3/uL Normal <0.87 [facility] Comment on above: Order Comment: Speci men Type: BLOOD SPECIMENOrdering Facility: [facility] Address: [address] [place] [address] Performed By: #### 5 7021-8 ####RED[facility] LABORATORYCLIA [id number] [place] [address] [place] Monocytes/100 WBC (Bld) 9.4 % Normal [facility] Comment on above: Order Comment: Speci men Type: BLOOD SPECIMENOrdering Facility: [facility] Address: [address] [place] [address] Performed By: #### 5 7021-8 ####REDDY LABORATORYCLIA [id number] [place] [address] [place] Neutrophils (Bld) [#/Vol] 5.62 10*3/uL Normal 1.45-7.50 [facility] Comment on above: Order Comment: Speci men Type: BLOOD SPECIMENOrdering Facility: [facility] Address: [address] [place] [address] Performed By: #### 5 7021-8 ####REDDY LABORATORYCLIA [id number] [address] [place] Neutrophils/100 WBC (Bld) 66.6 % Normal [facility] Comment on above: Order Comment: Speci men Type: BLOOD SPECIMENOrdering Facility: [facility] Address: [address] [place] [address] Performed By: #### 5 7021-8 ####REDDY LABORATORYCLIA [id number] [place] [address] [place] Nucleated RBC (Bld) [#/Vol] 10*3/uL Normal <0.01 [facility] Comment on above: Order Comment: Speci men Type: BLOOD SPECIMENOrdering Facility: [facility] Address: [address] [place] [address] Performed By: #### 5 7021-8 ####REDDY LABORATORYCLIA [id number] [place] [address] [place] Nucleated RBC/100 WBC (Bld) [Ratio] 0.0 /100 WBC Normal [facility] Comment on above: Order Comment: Speci men Type: BLOOD SPECIMENOrdering Facility: [facility] Address: [address] [place] [address] Performed By: #### 5 7021-8 ####REDDY LABORATORYCLIA [id number] [place] [address] [place] Platelet mean volume (Bld) [Entitic vol] 10.3 fL Normal 9.0-12.7 [facility] Comment on above: Order Comment: Speci men Type: BLOOD SPECIMENOrdering Facility: [facility] Address: [address] [place] [address] Performed By: #### 5 7021-8 ####REDDY LABORATORYCLIA [id number] [address] [place] Platelets (Bld) [#/Vol] 225 10*3/uL Normal 150-400 [facility] Comment on above: Order Comment: Speci men Type: BLOOD SPECIMENOrdering Facility: [facility] Address: [address] [place] [address] Performed By: #### 5 7021-8 ####REDDY LABORATORYCLIA [id number] [address] [place] RBC (Bld) [#/Vol] 3.93 10*6/uL Low 4.20-6.00 [facility] Comment on above: Order Comment: Speci men Type: BLOOD SPECIMENOrdering Facility: [facility] Address: [address] [place] [address] Performed By: #### 5 7021-8 ####REDDY LABORATORYCLIA [id number] [address] [place] WBC (Bld) [#/Vol] 8.44 10*3/uL Normal 3.70-11.00 [facility] Comment on above: Order Comment: Speci men Type: BLOOD SPECIMENOrdering Facility: [facility] Address: [address] [place] [address] Performed By: #### 5 7021-8 ####REDDY LABORATORYCLIA [id number] [place] [address] [facility] [place] Comprehensive metabolic 2000 panelon 11-30-2023 Albumin [Mass/Vol] 3.6 g/dL Low 3.9-4.9 [facility] Comment on above: Order Comment: Speci men Type: BLOOD SPECIMENOrdering Facility: [facility] Address: [facility] [place] [address] Performed By: #### 2 4323-8, 62011-2, 6-4 ####REDDY LABORATORYCLIA [id number] [place] [address] [place] ALP [Catalytic activity/Vol] 81 U/L Normal 38-113 [facility] Comment on above: Order Comment: Speci men Type: BLOOD SPECIMENOrdering Facility: [facility] Address: [address] [place], [place] [address] [address] Performed By: #### 2 4323-8, 78667-2, 6-4 ####REDDY LABORATORYCLIA [id number] [place] [id number] [place] [facility] ALT [Catalytic activity/Vol] 16 U/L Normal 10-54 [facility] Comment on above: Order Comment: Speci men Type: BLOOD SPECIMENOrdering Facility: [facility] Address: [facility] [place] [address] Performed By: #### 2 4323-8, 45373-5, 2275-4 ####REDDY LABORATORYCLIA [id number] [place] [address] [place] Anion gap [Moles/Vol] 8 mmol/L Normal 8-15 [facility] Comment on above: Order Comment: Speci men Type: BLOOD SPECIMENOrdering Facility: [facility] Address: [facility] [place] [address] Performed By: #### 2 4323-8, 61853-5, 6-4 ####REDDY LABORATORYCLIA [id number] [place] [id number] [place] AST [Catalytic activity/Vol] 19 U/L Normal 14-40 [facility] Comment on above: Order Comment: Speci men Type: BLOOD SPECIMENOrdering Facility: [facility] Address: [facility] [place] [address] Performed By: #### 2 4323-8, 69893-2, 2275- ####REDDY LABORATORYCLIA [id number] [place] [address] [place] Bilirubin [Mass/Vol] 0.5 mg/dL Normal 0.2-1.3 [facility] Comment on above: Order Comment: Speci men Type: BLOOD SPECIMENOrdering Facility: [facility] Address: [facility] [place] [address] Performed By: #### 2 4323-8, 83002-8, 2275-07 ####REDDY LABORATORYCLIA [id number] [place] [address] [place] Calcium [Mass/Vol] 8.9 mg/dL Normal 8.5-10.2 [facility] Comment on above: Order Comment: Speci men Type: BLOOD SPECIMENOrdering Facility: [facility] Address: [facility] [place] [address] Performed By: #### 2 4323-8, 81269-5, 2275-07 ####REDDY LABORATORYCLIA [id number] [place] [address] [place] Chloride [Moles/Vol] 103 mmol/L Normal 98-107 [facility] Comment on above: Order Comment: Speci men Type: BLOOD SPECIMENOrdering Facility: [facility] Address: [facility] [place] [address] Performed By: #### 2 4323-8, 00524-3, 2275- ####REDDY LABORATORYCLIA [id number] [place] [address] [place] CO2 [Moles/Vol] 28 mmol/L Normal 22-30 [facility] Comment on above: Order Comment: Speci men Type: BLOOD SPECIMENOrdering Facility: [facility] Address: [address] [place] [address] [place] [address] Performed By: #### 2 4323-8, 95678-4, 2276-4 ####[facility] LABORATORYCLIA [id number] [place] [address] [place] Creatinine [Mass/Vol] 0.90 mg/dL Normal 0.73-1.22 [facility] Comment on above: Order Comment: Sinai gonsalez Type: BLOOD SPECIMENOrdering Facility: [facility] Address: [address] [place] [address] Performed By: #### 2 4323-8, 93001-5, 6-4 ####[facility] LABORATORYCLIA [id number] [place] [address] [facility] [place] Creatinine and Glomerular filtration rate.predicted panel (S/P/Bld) 82 mL/min/1.73m??? Normal >=60 [facility] Comment on above: Order Comment: Sinai gonsalez Type: BLOOD SPECIMENOrdering Facility: [facility] Address: [address] [place] [address] Result Comment: Martina mated Glomerular Filtration Rate (eGFR) is calculated using the 2020 CKD-EPI creatinine equation. This equation utilizes serum creatinine, sex, and age as parameters. The creatinine assay has traceable calibration to isotope dilution-mass spectrometry. Refer to KDIGO guidelines for clinical interpretation. In patients with unstable renal function, e.g. those with acute kidney injury, the eGFR may not accurately reflect actual GFR. Performed By: #### 2 4323-8, 09216-6, 6-4 ####[facility] LABORATORYCLIA [id number] [place] [address] [place] Glucose [Mass/Vol] 153 mg/dL High 74-99 [facility] Comment on above: Order Comment: Sinai gonsalez Type: BLOOD SPECIMENOrdering Facility: [facility] Address: [address] [place], [place] [address] Result Comment: The [place] Diabetes [employer] (ADA) provides guidance for cutoff values for fasting glucose and random glucose. The ADA defines fasting as no caloric intake for at least 8 hours. Fasting plasma glucose results between 100 to 125 mg/dL indicate increased risk for diabetes (prediabetes). Fasting plasma glucose results greater than or equal to 126 mg/dL meet the criteria for diagnosis of diabetes. In the absence of unequivocal hyperglycemia, results should be confirmed by repeat testing. In a patient with classic symptoms of hyperglycemia or hyperglycemic crisis, random plasma glucose results greater than or equal to 200 mg/dL meet the criteria for diagnosis of diabetes. Reference: Standards of Medical Care in Diabetes 2016, [place] [employer] Association. Diabetes Care. 2016.39(Suppl 1). Performed By: #### 2 4323-8, 40029-4, 2275-4 ####REDDY LABORATORYCLIA [id number] [place] [address] [place] Potassium [Moles/Vol] 4.8 mmol/L Normal 3.7-5.1 [facility] Comment on above: Order Comment: Speci men Type: BLOOD SPECIMENOrdering Facility: [facility] Address: [address] [place] [address] Performed By: #### 2 4323-8, 71542-9, 4 ####REDDY LABORATORYCLIA [id number] [place] [address] [place] Protein [Mass/Vol] 6.4 g/dL Normal 6.3-8.0 [facility] Comment on above: Order Comment: Faribai wallace Type: BLOOD SPECIMENOrdering Facility: [facility] Address: [address] [place] [address] Performed By: #### 2 4323-8, 73760-2, 4 ####REDDY LABORATORYCLIA [id number] [place] [address] [place] Sodium [Moles/Vol] 139 mmol/L Normal 136-144 [facility] Comment on above: Order Comment: Speci men Type: BLOOD SPECIMENOrdering Facility: [facility] Address: [address] [place] [address] Performed By: #### 2 4323-8, 21053-4, 2275-4 ####REDDY LABORATORYCLIA [id number] [place] [address] [place] Urea nitrogen [Mass/Vol] 25 mg/dL High 9-24 [facility] Comment on above: Order Comment: Speci men Type: BLOOD SPECIMENOrdering Facility: [facility] Address: [address] [place] [address] Performed By: #### 2 4323-8, 07476-8, 2276-4 ####[facility] LABORATORYCLIA [id number] [place] [address] [facility] ED NOTEon 11-30-2023 ED NOTE HNO ID: [id number] Author: ANIBAL JEFF APRN.HOGSHEAD FILLER Service: ? Author Type: Clinical Nurse Specialist Type: ED Notes Filed: 11/30/2023 23:27 Note Text: Pt was able to urinate, approx 200cc. Urine contaminated and unable to send for urinalysis [facility] ED NOTE HNO ID: [id number] Author: ANIBAL JEFF APRN.HOGSHEAD FILLER Service: ? Author Type: Clinical Nurse Specialist Type: ED Notes Filed: 11/30/2023 22:10 Note Text: Second soap suds enema - pt sitting on bedside commode with at bedside. [facility] ED NOTE HNO ID: [id number] Author: ANIBAL JEFF APRN.HOGSHEAD FILLER Service: ? Author Type: Clinical Nurse Specialist Type: ED Notes Filed: 11/30/2023 20:55 Note Text: 2034 - soap suds enema [facility] ED NOTE HNO ID: [id number] Author: JACKY CALDERA RN Service: Nursing Author Type: Registered Nurse Type: ED Notes Filed: 11/30/2023 19:13 Note Text: Report given to DHAVAL Evans at this time. [facility] ED NOTE HNO ID: [id number] Author: JACKY CALDERA RN Service: ? Author Type: Registered Nurse Type: ED Notes Filed: 11/30/2023 17:52 Note Text: Bed: ED-15 Expected date: 11/30/23 Expected time: 5:30 PM Means of arrival: Laura Fire/EMS Comments: [facility] ED PROV NOTEon 11-30-2023 ED PROV NOTE HNO ID: [id number] Author: JIE VILLALOBOS DO Service: Emergency Medicine Author Type: Physician Type: ED Provider Notes Filed: 11/30/2023 23:10 Note Text: ED CONTINUATION OF CARE NOTE Code Status: Full Code Assumed care from: Dr. Agarwal Presentation / Findings / Interventions / Plan / Items to Follow Up: results after enema, labs ED Course as of 11/30/232236 Jie Villalobos's Documentation Sat Nov 30, 20232114 XR ACUTE ABD SERIES 3V (2V ABD/1V CXR) 2151 CBC shows chronic anemia with hemoglobin 11.9. Normal white count. Normal platelets. 2151 Pt had small output after enema. Repeat ordered. Clinical Impressions as of 11/30/232236 Constipation, unspecified constipation type Urinary retention MARGIE (acute kidney injury) (HCC) Georgi Lanier is an 88-year-old male with history of dementia, hyperlipidemia, type 2 diabetes, presents for constipation and abdominal pain. He notes that he typically has to take some prune juice and cfor-qhz-uuaczah things to help him have bowel movements. Patient's states that his abdominal pain started suddenly today. No vomiting. On exam, he is in no distress. Abdomen is soft and nontender. He has hypoactive bowel sounds. No rigidity or guarding. Patient did have 2 soapsuds enema with minimal results. Labs were ordered. CMP shows BUN of 25 otherwise unremarkable. CBC shows chronic anemia with hemoglobin 1.9. Normal white count. KUB shows a large amount of retained fecal material per radiology. Patient requires admission for constipation. Dr. Duffy will admit. SIGNATURE: Jie Villalobos DO PATIENT NAME: Georgi Lanier DATE: November 30, 2023 TIME: 10:25 PM PAGER/CONTACT #: JIE VILLALOBOS 11/30/232226 JIE VILLALOBOS 11/30/23 2310 [facility] ED PROV NOTE HNO ID: [id number] Author: GISELLE AGARWAL MD Service: ? Author Type: Physician Type: ED Provider Notes Filed: 11/30/2023 21:26 Note Text: ED Provider Note Patient Name: Georgi Lanier : 1935 SERVICE DATE: 11/30/23 History Patient presents with: Abdominal Pain: ABD PAIN X 2 DAYS, CONCERN FOR CONSTIPATION. DRIED BLOOD NOTED IN UNDERWEAR, UNABLE TO URINATE UPON ARRIVAL. Patient is an 88-year-old male coming in with constipation. He states he had a bowel movement yesterday but feels constipated. He denies any abdominal pain but states now he cannot urinate as well. Patient has not tried any stool softeners or enemas. PAST MEDICAL HISTORY No date: Basal cell carcinoma of nose No date: CAD (coronary artery disease) No date: Diabetes (HCC) No date: Dyslipidemia No date: GERD (gastroesophageal reflux disease) No date: High cholesterol No date: Hypertension No date: Skin cancer PAST SURGICAL HISTORY No date: NOSE SURGERY HX No date: PAST SURGICAL HISTORY OF Comment: Heart Stents 11/2017: STENT Comment: Heart No date: TONSILLECTOMY HX No family history on file. Social History Tobacco Use Smoking status: Former Types: Cigarettes Smokeless tobacco: Never Tobacco comments: 1965 Substance and Sexual Activity Alcohol use: No Drug use: No Sexual activity: Not on file ALLERGIES Allergen Reactions Penicillins Rash, Swelling Review of Systems Constitutional: Negative for fever. Respiratory: Negative for shortness of breath. Cardiovascular: Negative for chest pain. Gastrointestinal: Positive for constipation. All other systems reviewed and are negative. Physical Exam Vitals [11/30/23 1800] BP Pulse Temp Temp src Resp SpO2 Weight Height 179/103 76 36.6 ?C (97.9 ?F) Oral 16 96 % 68.4 kg (150 lb 12.7 oz) -- Physical Exam Vitals reviewed. Constitutional: General: He is not in acute distress. Appearance: He is not ill-appearing. HENT: Head: Normocephalic. Mouth/Throat: Mouth: Mucous membranes are moist. Cardiovascular: Rate and Rhythm: Normal rate and regular rhythm. Pulmonary: Effort: Pulmonary effort is normal. Breath sounds: Normal breath sounds. Abdominal: Palpations: Abdomen is soft. Tenderness: There is abdominal tenderness (minimal suprapubic). There is no guarding or rebound. Genitourinary: Comments: Exam was done and a large amount of stool is at the rectal opening. Musculoskeletal: Cervical back: Neck supple. Skin: General: Skin is warm. Neurological: General: No focal deficit present. Mental Status: He is alert. Sensory: No sensory deficit. Motor: No weakness. Psychiatric: Mood and Affect: Mood normal. Diagnostic Testing ED Labs Ordered and Reviewed - No data to display Procedures ED Course / Clinical Impression Clinical Impressions as of 11/30/232124 Constipation, unspecified constipation type Urinary retention MDM / Disposition / Plan Obtain acute abdominal series showing no acute process but a large amount of retained fecal material which is consistent with history and exam. This time we tried a soapsuds enema. Only small amount of relief. We will try again. Will obtain basic labs. He was able to urinate although we did not get a sample at this time. Differential Diagnoses - Constipation - Urinary retention secondary to constipation Transfer of Care The patient's care was transferred over to Dr. Villalobos at 2100. The care and plan was discussed with the oncoming provider. Items pending that need to be reviewed: Labs and Re-evaluate. Tentative impression of patient: Reevaluation possible admission if no more bowel movement SIGNATURE: Giselle Agarwal MD - GISELLE AGARWAL 11/30/232125 Normal [facility] Ferritin SerPl-mCncon 2023 Ferritin [Mass/Vol] 100.3 ng/mL Normal 30.3-565.7 [facility] Comment on above: Order Comment: Speci men Type: BLOOD SPECIMENOrdering Facility: [facility] Address: [address] [place] [address] Performed By: #### 2 4323-8, 16691-2, 2276-4 ####[facility] LABORATORYCLIA [id number] [place] [address] [place] HISTORY PHYSICALon HISTORY PHYSICAL HNO ID: [id number] Author: URSULA HERNANDEZ APRN.AUTO ADJUDICATION SPECIALIST Service: Hospital Medicine Author Type: Nurse Practitioner Type: H&P Filed: 12/01/2023 00:25 Note Text: Attestation signed by Bal Duffy DO at 12/07/2023 1:48 AM Attending Note I have not personally performed a face to face assessment of the patient. I have reviewed the CHANTE note. Signature: Bal Duffy Date: 12/07/2023 Time: 1:48 AM [facility] MED[facility] HISTORY AND PHYSICAL EXAM SERVICE DATE: 11/30/2023 SERVICE TIME: 11:24 PM Primary Care Physician: Valeriano Monroy MD NIGHT AND WEEKEND COVERAGE: [place] COVERAGE: Days: [phone], please page attending physician. Nights: [phone], please page [facility] Night coverage pager [phone]. Subjective CHIEF COMPLAINT: Abdominal pain HPI: This is a 88 year old male with a past medical history notable for DM2, hypertension, CAD s/p stenting, dyslipidemia, GERD, dementia, and anxiety who presents with abdominal pain. The patient is not the best historian due to his dementia, this HPI was obtained via chart review and interview with the patient. Apparently, the patient's abdominal pain was of sudden onset today and sharp in character generalized throughout most of his abdomen. He notes that it feels similar to prior episodes of constipation and thus tried taking some prune juice and other means at home without relief. Socially, the patient denies nicotineuse, alcohol use, or recreational drug use. Furthermore he denies any other complaints at this time. In the ED the patient was found to be afebrile and had dynamically stable on room air albeit mildly hypertensive to 179/103 as a high. Labs are most notable for BUN of 25 but otherwise normal renal function, normal LFTs, blood glucose of 153, and chronic anemia with a hemoglobin of 11.9. Chest x-ray was unremarkable but KUB demonstrated a large amount of retained fecal material. Throughout the colon including the rectosigmoid colon. The patient was given 2 soapsuds enemas without much result as well as lactulose, morphine, and Zofran. Thus he is being admitted under hospital medicine for further workup and management of constipation. PAST MEDICAL HISTORY No date: Basal cell carcinoma of nose No date: CAD (coronary artery disease) No date: Diabetes (HCC) No date: Dyslipidemia No date: GERD (gastroesophageal reflux disease) No date: High cholesterol No date: Hypertension No date: Skin cancer PAST SURGICAL HISTORY No date: NOSE SURGERY HX No date: PAST SURGICAL HISTORY OF Comment: Heart Stents 11/2017: STENT Comment: Heart No date: TONSILLECTOMY HX No family history on file. Social History Tobacco Use Smoking status: Former Types: Cigarettes Smokeless tobacco: Never Tobacco comments: 1966 Substance Use Topics Alcohol use: No Drug use: No PRIOR TO ADMISSION MEDICATIONS: (Not in a hospital admission) ALLERGIES Allergen Reactions Penicillins Rash, Swelling Review of Systems Constitutional: Negative for appetite change, fatigue, fever, recent unintentional weight loss and recent weight gain. Skin: Negative for color changes in feet/hands. HENT: Negative for hearing loss, loss of smell and trouble swallowing. Musculoskeletal: Negative for arthralgias, myalgias and muscle weakness. Eyes: Negative for blurred vision, double vision and vision loss. Respiratory: Negative for cough and shortness of breath. Cardiovascular: Negative for chest pain, leg swelling and palpitations. Gastrointestinal: Positive for abdominal pain and constipation. Negative for blood in stool, diarrhea, nausea and vomiting. Genitourinary: Negative for incomplete voiding and urinary retention and incontinence. Psychiatric: Positive for confusion (at times). Negative for nervous/anxious. Objective PHYSICAL EXAM: BP 135/62 Pulse 66 Temp (Src) 97.9 (Oral) Resp 18 Wt 150 lb 12.7 oz (68.4kg) SpO2 96% O2 Therapy: Room Air Physical Exam Constitutional: General: He is not in acute distress. Appearance: He is not ill-appearing. HENT: Mouth/Throat: Mouth: Mucous membranes are moist. Eyes: Extraocular Movements: Extraocular movements intact. Pupils: Pupils are equal, round, and reactive to light. Cardiovascular: Rate and Rhythm: Normal rate and regular rhythm. Pulses: Dorsalis pedis pulses are 2+ on the right side and 2+ on the left side. Heart sounds: Normal heart sounds. Pulmonary: Effort: Pulmonary effort is normal. No respiratory distress. Breath sounds: Normal breath sounds. Abdominal: General: Bowel sounds are normal. There is no distension. Palpations: Abdomen is soft. Tenderness: There is no abdominal tenderness. Musculoskeletal: General: No swelling. Normal range of motion. Ce (more content not included)... Normal [facility] Iron and Iron binding capaci ty panelon 11-30-2023 Iron [Mass/Vol] 52 ug/dL Normal 41-186 [facility] Comment on above: Order Comment: Speci men Type: BLOOD SPECIMENOrdering Facility: [facility] Address: [facility] [place] [id number] Performed By: #### 2 4323-8, 45186-9, 2276-4 ####RED[facility] LABORATORYCLIA [id number] [address] Iron binding capacity [Mass/Vol] 241 ug/dL Normal 232-386 [facility] Comment on above: Order Comment: Speci men Type: BLOOD SPECIMENOrdering Facility: [facility] Address: [address] [place] [address] Performed By: #### 2 4323-8, 20347-6, 2276-4 ####RED[facility] LABORATORYCLIA [id number] [address] Iron/TIBC [Molar ratio] 21.6 % Normal 15.0-57.0 [facility] Comment on above: Order Comment: Speci men Type: BLOOD SPECIMENOrdering Facility: [facility] Address: [address] [place], [place] [address] Performed By: #### 2 4323-8, 42859-0, 6-4 ####REDDY LABORATORYCLIA [id number] [address] XR ACUTE ABD SERIES 2V ABD+C XRon 11-30-2023 XR ACUTE ABD SERIES 2V ABD+CXR * * *Final Report* * * DATE OF EXAM: Nov 30 2023 7:03PM MDX 5359 - XR ACUTE ABD SERIES 2V ABD+CXR / PROCEDURE REASON: Constipation * * * * Physician Interpretation * * * * Examination: XR ACUTE ABD SERIES 2V ABD+CXR History: Constipation Technique: XR ACUTE ABD SERIES 2V ABD+CXR Comparison: 04/03/2022 abdominal film. 09/26/2016 chest x-ray RESULT: The lungs are clear. No pleural fluid or pneumothorax. Cardiac size is not enlarged. Supine and erect views of the abdomen reveal a large amount of retained fecal material throughout the colon, including rectosigmoid. Nonspecific and nonobstructive bowel gas pattern. Mild degenerative change involving both hips. Bony structures appear intact. IMPRESSION: NO ACUTE PROCESS IN THE CHEST OR ABDOMEN. LARGE AMOUNT OF RETAINED FECAL MATERIAL Internet Marketing Intern: PSCB Transcribe Date/Time: Nov 30 2023 7:44P Dictated by : AFIA STEVEN MD This examination was interpreted and the report reviewed and electronically signed by: AFIA STEVEN MD on Nov 30 2023 7:46PM EST [id number] Normal [facility] Cardiology Visit Reporton Cardiology Visit Report [facility] [address] [place], [place] [address] OFFICE VISIT Date of Service: 10/03/23 MR#: [id number] Acct: [id number] Name: GEORGI LANIER Rep #: [id number] : 1935 Provider: Dr. Madai Black MD Age/Sex: 87/M Location: [facility] [place] [facility] Status: Signed HPI HPI History of Present Illness Details: This gentleman with history of coronary artery disease status post percutaneous intervention to the RCA and left circumflex, hypertension, dyslipidemia and diabetes mellitus is here for follow-up visit. Denies any complaints of chest pain, shortness of breath or palpitations. No orthopnea or PND. No ankle edema. Per patient's , he may have had little involuntary weight loss over the past some time. Intake Vital Signs 02/13/23 14:41 10/03/23 13:17 Height 5 ft 7 in 5 ft 7 in Weight: 152 lb 146 lb BMI 23.8 22.8 BP 123/65 H 108/55 L Blood Pressure Location Lt brachial Lt brachial Position Sitting Sitting Respiration 16 16 Pulse 66 62 Pulse Source Auscultation Monitor Intake Visit Reasons: 6 M FU Chemical Treatment Operator Required: No Accompanied by: , daughter in law Is patient in pain?: No Allergies Penicillins Allergy (Verified 10/03/23 13:21) Unknown Medications ???Medication ???Instructions ???Recorded ???Confirmed ???Type aspirin 81 mg tablet,delayed 81 mg PO DAILY Heart 08/30/17 10/03/23 History release atorvastatin 40 mg tablet 40 mg PO QHS #90 tabs 01/03/18 10/03/23 Rx metoprolol succinate 25 mg 12.5 mg (1/2 x 25 mg) PO DAILY bp 02/25/18 10/03/23 Rx tablet,extended release 24 hr #45 tabs clopidogrel 75 mg tablet 75 mg PO DAILY 02/15/20 10/03/23 History cyanocobalamin (vitamin B-12) 1,000 mcg IM Q2W 09/19/21 10/03/23 History 1,000 mcg/mL injection solution metformin 500 mg tablet 500 mg PO BIDCM Blood Sugar 09/19/21 10/03/23 History escitalopram oxalate 20 mg tablet 20 mg PO DAILY 02/21/22 10/03/23 History lisinopril 2.5 mg tablet 2.5 mg PO DAILY 02/21/22 10/03/23 History rivastigmine 4.6 mg/24 hour 1 patch topical QDAY 10/03/23 10/03/23 History transdermal patch Ejection fraction %: 65 PFSH Medical History Coronary artery disease Dyslipidemia Diverticulitis Pure hypercholesterolemia Essential hypertension Type 2 diabetes mellitus Bradycardia Volume depletion Dehydration Acute renal failure Vertigo Ataxia Near syncope Diabetes History of coronary artery stent placement (12/18/17) Atherosclerosis of coronary artery of [place] heart without angina pectoris (09/02/17) Unstable angina Surgical History Presence of coronary angioplasty implant and graft ( 12/18/17) Social History Smoking Status: Former smoker how long ago did patient quit smokin years alcohol intake: never caffeine: Yes Type: coffee Number of servings: 3 ROS Const Const: Positive for weakness, headache(s), daytime sleepiness and difficulty sleeping; Negative for fatigue, frequent falls or excessive sweating Eyes Eyes: Negative for loss of peripheral vision, transient loss of vision, blurry vision, double vision or tunnel vision ENT ENT: Positive for headache(s) and balance problems; Negative for dizziness or Nosebleed/epistaxis Cardio Chest Pain: No Palpitations: No Edema: None Muscle aches with walking: None Resp Respiratory: Positive for SOB with activity; Negative for SOB at rest, SOB orthopnea SOB lying down, Cough or paroxysmal nocturnal dyspnea GI GI: Negative nausea, vomiting, heartburn or black,tarry stools : Negative for hematuria Musc Musc: Positive for joint pain and balance problems; Negative for muscle aches/ myalgia or muscle weakness Skin Skin: Negative non-healing lesions, rash or unusual bruising Neuro Neuro: Positive for headache(s), weakness and lack of coordination; Negative for dizziness, lightheadedness, near syncope, syncope, frequent falls, blurry vision or double vision Luis Hematologic/Lymphatic: Negative for easy bleeding or easy bruising Endo Endo: Negative for fatigue, excessive sweating or increased thirst/drinking Psych Psych: Negative for anxiety or depression Allergy Allergy/Immunology: Negative for hives and Negative for rash Cardiology Exam Const Appearance: comfortable and no acute distress Nutritional Appearance: well nourished Neck Neck: no JVD Carotids: Negative bruit Chest Auscultation: Bilateral: Clear to Auscultation Cardio Rate: regular rate Rhythm: regular rhythm Heart sounds: S1 normal and S2 normal Neuro General: patient alert, patient awake and patient oriented x3 Extremities Lower Extremity Edema: None: Bilateral (more content not included)... Normal [facility] CBC W Auto Differential pane l (Bld)on 08-30-2023 Basophils (Bld) [#/Vol] 0.02 x10*3/uL Normal 0.00-0.10 [facility] Comment on above: Performed By: #### 5 7021-8 #### SILVIA SMITHER L ([id number]) [facility]) [id number] [place] [address] 48367 Basophils/100 WBC (Bld) 0.4 % Normal 0.0-2.0 [facility] Comment on above: Performed By: #### 5 7021-8 #### SILVIA WHITEMOTZER L ([id number]) [facility] ([facility]) [address] [place] [address] Eosinophils (Bld) [#/Vol] 0.24 x10*3/uL Normal 0.00-0.40 [facility] Comment on above: Performed By: #### 5 7021-8 #### SILVIA WHITEMOTZER L ([id number]) [facility] ([facility]) [id number] [place] [address] 36693 Eosinophils/100 WBC (Bld) 4.3 % Normal 0.0-6.0 [facility] Comment on above: Performed By: #### 5 7021-8 #### SILVIA Stewart ([id number]) [facility] ([facility]) [address] [place] [address] 32402 Erythrocyte distribution width (RBC) [Ratio] 12.4 % Normal 11.5-14.5 [facility] Comment on above: Performed By: #### 5 7021-8 #### SILVIA Stewart ([id number]) [facility] ([facility]) [address] [place] [address] 58688 Hematocrit (Bld) [Volume fraction] 35.9 % Low 41.0-52.0 [facility] Comment on above: Performed By: #### 5 7021-8 #### SILVIA Stewart ([id number]) [facility] ([facility]) [address] [place] [address] 91912 Hemoglobin (Bld) [Mass/Vol] 12.0 g/dL Low 13.5-17.5 [facility] Comment on above: Performed By: #### 5 7021-8 #### SILVIA Stewart ([id number]) [facility]) [address] [place] [address] 27751 Immature granulocytes (Bld) [#/Vol] 0.02 x10*3/uL Normal 0.00-0.50 [facility] Comment on above: Performed By: #### 5 7021-8 #### SILVIA Stewart ([id number]) [facility]) [address] [place] [address] 23176 Immature granulocytes/100 WBC (Bld) 0.4 % Normal 0.0-0.9 [facility] Comment on above: Result Comment: Arely ture Granulocyte Count (IG) includes promyelocytes, myelocytes and metamyelocytes but does not include bands. Percent differential counts (%) should be interpreted in the context of the absolute cell counts (cells/UL). Performed By: #### 5 7021-8 #### SILVIA Stewart ([id number]) [facility]) [id number] [place] [address] 61572 Lymphocytes (Bld) [#/Vol] 1.91 x10*3/uL Normal 0.80-3.00 [facility] Comment on above: Performed By: #### 5 7021-8 #### SILVIA Stewart ([id number]) [facility]) [id number] [place] [address] 83330 Lymphocytes/100 WBC (Bld) 33.9 % Normal 13.0-44.0 [facility] Comment on above: Performed By: #### 5 7021-8 #### SILVIA Stewart ([id number]) [facility]) [address] [place] [address] 94366 MCH (RBC) [Entitic mass] 29.5 pg Normal 26.0-34.0 [facility] Comment on above: Performed By: #### 5 7021-8 #### SILVIA Stewart ([id number]) [facility]) [address] [place] [address] 70195 MCHC (RBC) [Mass/Vol] 33.4 g/dL Normal 32.0-36.0 [facility] Comment on above: Performed By: #### 5 7021-8 #### SILVIA Stewart ([id number]) [facility]) [address] [place] [address] 00567 MCV (RBC) [Entitic vol] 88 fL Normal 80-100 [facility] Comment on above: Performed By: #### 5 7021-8 #### SILVIA Stewart ([id number]) [facility]) [address] [place] [address] 28634 Monocytes (Bld) [#/Vol] 0.60 x10*3/uL Normal 0.05-0.80 [facility] Comment on above: Performed By: #### 5 7021-8 #### SILVIA Stewart ([id number]) [facility]) [address] [place] [address] 46805 Monocytes/100 WBC (Bld) 10.7 % Normal 2.0-10.0 [facility] Comment on above: Performed By: #### 5 7021-8 #### SILVIA Stewart ([id number]) [facility]) [address] [place] [address] 94115 Neutrophils (Bld) [#/Vol] 2.84 x10*3/uL Normal 1.60-5.50 [facility] Comment on above: Result Comment: Perc ent differential counts (%) should be interpreted in the context of the absolute cell counts (cells/uL). Performed By: #### 5 7021-8 #### SILVIA Stewart ([id number]) [facility]) [address] [place] [address] 70649 Neutrophils/100 WBC (Bld) 50.3 % Normal 40.0-80.0 [facility] Comment on above: Performed By: #### 5 7021-8 #### SILVIA Stewart ([id number]) [facility]) [address] [place] [address] 99563 Nucleated RBC/100 WBC (Bld) [Ratio] 0.0 /100 WBCs Normal 0.0-0.0 [facility] Comment on above: Performed By: #### 5 7021-8 #### SILVIA Stewart ([id number]) [facility]) [address] [place] [address] 36349 Platelets (Bld) [#/Vol] 222 x10*3/uL Normal 150-450 [facility] Comment on above: Performed By: #### 5 7021-8 #### SILVIA Stewart ([id number]) [facility]) [address] [place] [address] 79059 RBC (Bld) [#/Vol] 4.07 x10*6/uL Low 4.50-5.90 [facility] Comment on above: Performed By: #### 5 7021-8 #### SILVIA Stewart ([id number]) [facility]) [address] [place] [address] WBC (Bld) [#/Vol] 5.6 x10*3/uL Normal 4.4-11.3 [facility] Comment on above: Performed By: #### 5 7021-8 #### SILVIA Stewart ([id number]) [facility]) [address] [place] [address] 50013 Cobalaminson 08-30-2023 Cobalamin (Vitamin B12) [Mass/Vol] 1274 pg/mL High 211-911 [facility] Comment on above: Performed By: #### 2 132-9 #### SILVIA Stewart ([id number]) [facility]) [id number] [place] [address] 62007 Comprehensive metabolic 2000 panelon 08-30-2023 Albumin BCP dye [Mass/Vol] 3.6 g/dL Normal 3.4-5.0 [facility] Comment on above: Performed By: #### 2 4323-8 #### SILVIA Stewart ([id number]) [facility]) [address] [place] [address] ALP [Catalytic activity/Vol] 90 U/L Normal 33-136 [facility] Comment on above: Performed By: #### 2 4323-8 #### SILVIA Stewart ([id number]) [facility]) [address] [place] [address] ALT With P-5'-P [Catalytic activity/Vol] 16 U/L Normal 10-52 [facility] Comment on above: Result Comment: Mariah ents treated with Sulfasalazine may generate falsely decreased results for ALT. Performed By: #### 2 4323-8 #### SILVIA Stewart ([id number]) [facility]) [address] [place] [address] Anion gap [Moles/Vol] 10 mmol/L Normal 10-20 [facility] Comment on above: Performed By: #### 2 4323-8 #### SILVIA Stewart ([id number]) [facility]) [address] [place] [address] AST With P-5'-P [Catalytic activity/Vol] 15 U/L Normal 9-39 [facility] Comment on above: Performed By: #### 2 4323-8 #### SILVIA Stewart ([id number]) [facility]) [address] [place] [address] Bilirubin [Mass/Vol] 0.8 mg/dL Normal 0.0-1.2 [facility] Comment on above: Performed By: #### 2 4323-8 #### SILVIA Stewart ([id number]) [facility]) [address] [place] [address] 27343 Calcium [Mass/Vol] 8.9 mg/dL Normal 8.6-10.6 [facility] Comment on above: Performed By: #### 2 4323-8 #### SILVIA Stewart ([id number]) [facility]) [address] [place] [address] Chloride [Moles/Vol] 104 mmol/L Normal 98-107 [facility] Comment on above: Performed By: #### 2 4323-8 #### SILVIA Stewart ([id number]) [facility]) [address] [place] [address] CO2 [Moles/Vol] 31 mmol/L Normal 21-32 [facility] Comment on above: Performed By: #### 2 4323-8 #### SILVIA Stewart ([id number]) [facility]) [address] [place] [address] Creatinine [Mass/Vol] 1.02 mg/dL Normal 0.50-1.30 [facility] Comment on above: Performed By: #### 2 4323-8 #### SILVIA Stewart ([id number]) [facility]) [address] [place] [address] Glomerular filtration rate/1.73 sq M.predicted 71 mL/min/1.73m*2 Normal >60 [facility] Comment on above: Result Comment: Calc ulations of estimated GFR are performed using the 2020 CKD-EPI Study Refit equation without the race variable for the IDMS-Traceable creatinine methods. https://jasn.asnjournals.org/content//ASN.01266 11704 Performed By: #### 2 4323-8 #### SILVIA Stewart ([id number]) [facility]) [address] [place] [address] Glucose [Mass/Vol] 178 mg/dL High 74-99 [facility] Comment on above: Performed By: #### 2 4323-8 #### SILVIA Stewart ([id number]) [facility]) [address] [place] [address] 60248 Potassium [Moles/Vol] 4.3 mmol/L Normal 3.5-5.3 [facility] Comment on above: Performed By: #### 2 4323-8 #### SILVIA Stewart ([id number]) [facility]) [address] [place] [address] 28801 Protein [Mass/Vol] 6.3 g/dL Low 6.4-8.2 [facility] Comment on above: Performed By: #### 2 4323-8 #### SILVIA Stewart ([id number]) [facility]) [address] [place] [address] 85665 Sodium [Moles/Vol] 141 mmol/L Normal 136-145 [facility] Comment on above: Performed By: #### 2 4323-8 #### SILVIA SORIANO L ([id number]) [facility]) [address] [place] [address] 06851 Urea nitrogen [Mass/Vol] 21 mg/dL Normal 6-23 [facility] Comment on above: Performed By: #### 2 4323-8 #### SILVIA Stewart ([id number]) [facility]) [address] [place] [address] HbA1c (Bld) [Mass fraction]o n 08-30-2023 Average glucose Estimated from glycated hemoglobin (Bld) [Mass/Vol] 203 mg/dL Normal Not Established [facility] Comment on above: Order Comment: Diagn osis of Diabetes-Adults Non-Diabetic: < or = 5.6% Increased risk for developing diabetes: 5.7-6.4% Diagnostic of diabetes: > or = 6.5% Monitoring of Diabetes Age (y)....................... Therapeutic Goal (%) Adults: >18.........................<7.0 Pediatrics: 13-18...................<7.5 Pediatrics: 7-12....................<8.0 Pediatrics: 0-6..................... 7.5-8.5 [employer]. Diabetes Care 33(S1)Apr 2009 Performed By: #### 4 548-4 #### SILVIA Stewart ([id number]) [facility]) [address] [place], [place] [address] Hemoglobin A1c/Hemoglobin.to carlos 08-30-2023 HbA1c (Bld) [Mass fraction] 8.7 % High see below [facility] Comment on above: Order Comment: Diagn osis of Diabetes-Adults Non-Diabetic: < or = 5.6% Increased risk for developing diabetes: 5.7-6.4% Diagnostic of diabetes: > or = 6.5% Monitoring of Diabetes Age (y)....................... Therapeutic Goal (%) Adults: >18.........................<7.0 Pediatrics: 13-18...................<7.5 Pediatrics: 7-12....................<8.0 Pediatrics: 0-6..................... 7.5-8.5 [employer]. Diabetes Care 33(S1), Apr 2009 Performed By: #### 4 548-4 #### SILVIA Stewart ([id number]) [facility]) [address] [place] [address] Lipid 1996 panelon 4 Cholesterol [Mass/Vol] 122 mg/dL Normal 0-199 [facility] Comment on above: Result Comment: Age Desirable Borderline High High 0-19 Y 0 - 169 170 - 199 >/= 200 20-24 Y 0 - 189 190 - 224 >/= 225 >24 Y 0 - 199 200 - 239 >/= 240 All ranges are based on fasting samples. Specific therapeutic targets will vary based on patient-specific cardiac risk. Pediatric guidelines reference:Pediatrics 2011, 128(S5).Adult guidelines reference: NCEP ATPIII Guidelines,LAMAR 2001, 258:2486-97 Venipuncture immediately after or during the administration of Metamizole may lead to falsely low results. Testing should be performed immediately prior to Metamizole dosing. Performed By: #### 2 4331-1 #### SILVIA Stewart ([id number]) [facility]) [address] [place] [address] Cholesterol in HDL [Mass/Vol] 27.9 mg/dL Normal [facility] Comment on above: Result Comment: Age Very Low Low Normal High 0-19 Y < 35 < 40 40-45 ---- 20-24 Y ---- < 40 >45 ---- >24 Y ---- < 40 40-60 >60 Performed By: #### 2 4331-1 #### SILVIA Stewart ([id number]) [facility]) [address] [place] [address] Cholesterol in LDL [Mass/Vol] 72 mg/dL Normal <=99 [facility] Comment on above: Result Comment: Near Borderline AGE Desirable Optimal High High Very High 0-19 Y 0 - 109 --- 110-129 >/= 130 ---- 20-24 Y 0 - 119 --- 120-159 >/= 160 ---- >24 Y 0 - 99 100-129 130-159 160-189 >/=190 Performed By: #### 2 4331-1 #### SILVIA Stewart ([id number]) [facility]) [address] [place] [address] Cholesterol in VLDL [Mass/Vol] 22 mg/dL Normal 0-40 [facility] Comment on above: Performed By: #### 2 4331-1 #### SILVIA Stewart ([id number]) [facility]) [address] [place] [address] 98032 CHOLESTEROL/HDL RATIO 4.4 Normal [facility] Comment on above: Result Comment: Ref Values Desirable < 3.4 High Risk > 5.0 Performed By: #### 2 4331-1 #### SILVIA Stewart ([id number]) [facility]) [address] [place] [address] NON HDL CHOLESTEROL 94 mg/dL Normal 0-149 [facility] Comment on above: Result Comment: Age Desirable Borderline High High Very High 0-19 Y 0 - 119 120 - 144 >/= 145 >/= 160 20-24 Y 0 - 149 150 - 189 >/= 190 ---- >24 Y 30 mg/dL above LDL Cholesterol goal Performed By: #### 2 4331-1 #### SILVIA Stewart ([id number]) [facility]) [address] [place] [address] Triglyceride [Mass/Vol] 111 mg/dL Normal 0-149 [facility] Comment on above: Result Comment: Age Desirable Borderline High High Very High 0 D-90 D 19 - 174 ---- ---- ---- 91 D- 9 Y 0 - 74 75 - 99 >/= 100 ---- 10-19 Y 0 - 89 90 - 129 >/= 130 ---- 20-24 Y 0 - 114 115 - 149 >/= 150 ---- >24 Y 0 - 149 150 - 199 200- 499 >/= 500 Venipuncture immediately after or during the administration of Metamizole may lead to falsely low results. Testing should be performed immediately prior to Metamizole dosing. Performed By: #### 2 4331-1 #### SILVIA Stewart ([id number]) [facility]) [address] [place] [address] TSH WITH REFLEX TO FREE T4 I F ABNORMALon 08-30-2023 TSH Qn 1.66 m[IU]/L Normal 0.44-3.98 [facility] Comment on above: Order Comment: TSH t esting is performed using different testing methodology at [facility] than at other [facility]. Direct result comparisons should only be made within the same method. Performed By: #### T HYDS #### SILVIA Stewart ([id number]) [facility]) [address] [place], [place] [id number] Comprehensive metabolic 2000 panelon 02-18-2023 Albumin BCP dye [Mass/Vol] 3.8 g/dL Normal 3.4-5.0 [facility] Comment on above: Performed By: #### 2 4323-8 #### SILVIA Stewart ([id number]) [facility]) [address] [place] [address] 90243 ALP [Catalytic activity/Vol] 72 U/L Normal 33-136 [facility] Comment on above: Performed By: #### 2 4323-8 #### SILVIA Stewart ([id number]) [facility]) [address] [place] [address] 60965 ALT With P-5'-P [Catalytic activity/Vol] 16 U/L Normal 10-52 [facility] Comment on above: Result Comment: Mariah ents treated with Sulfasalazine may generate falsely decreased results for ALT. Performed By: #### 2 4323-8 #### SILVIA Stewart ([id number]) [facility]) [address] [place] [address] Anion gap [Moles/Vol] 16 mmol/L Normal 10-20 [facility] Comment on above: Performed By: #### 2 4323-8 #### SILVIA Stewart ([id number]) [facility]) [address] [place] [address] AST With P-5'-P [Catalytic activity/Vol] 16 U/L Normal 9-39 [facility] Comment on above: Performed By: #### 2 4323-8 #### SILVIA Stewart ([id number]) [facility]) [id number] [place] [address]959 Bilirubin [Mass/Vol] 0.7 mg/dL Normal 0.0-1.2 [facility] Comment on above: Performed By: #### 2 4323-8 #### SILVIA Stewart ([id number]) [facility]) [id number] [place] [address] 46610 Calcium [Mass/Vol] 9.1 mg/dL Normal 8.6-10.6 [facility] Comment on above: Performed By: #### 2 4323-8 #### SILVIA Stewart ([id number]) [facility]) [id number] [place] [address] 63281 Chloride [Moles/Vol] 104 mmol/L Normal 98-107 [facility] Comment on above: Performed By: #### 2 4323-8 #### SILVIA Stewart ([id number]) [facility]) [id number] [place] [address] 99398 CO2 [Moles/Vol] 26 mmol/L Normal 21-32 [facility] Comment on above: Performed By: #### 2 4323-8 #### SILVIA Stewart ([id number]) [facility]) [id number] [place] [address] 09090 Creatinine [Mass/Vol] 0.89 mg/dL Normal 0.50-1.30 [facility] Comment on above: Performed By: #### 2 4323-8 #### SILVIA Stewart ([id number]) [facility] [facility] ([facility]) [id number] [place] [address]77 GFR/1.73 sq M.predicted MDRD (S/P/Bld) [Vol rate/Area] 82 mL/min/1.73m*2 Normal >60 [facility] Comment on above: Result Comment: Calc ulations of estimated GFR are performed using the 2020 CKD-EPI Study Refit equation without the race variable for the IDMS-Traceable creatinine methods. https://jasn.asnjournals.org/content//ASN.82507 87724 Performed By: #### 2 432-8 #### SILVIA Stewart ([id number]) [facility] ([facility]) [address] [place] [address]92 Glucose [Mass/Vol] 209 mg/dL High 74-99 [facility] Comment on above: Performed By: #### 2 432-8 #### ISLVIA Stewart ([id number]) [facility] ([facility]) [id number] [place] [address] 27611 Potassium [Moles/Vol] 4.6 mmol/L Normal 3.5-5.3 [facility] Comment on above: Performed By: #### 2 4323-8 #### SILVIA Stewart ([id number]) [facility] ([facility]) [id number] [place] [address] 58585 Protein [Mass/Vol] 6.3 g/dL Low 6.4-8.2 [facility] Comment on above: Performed By: #### 2 4323-8 #### SILVIA SORIANO L ([id number]) [facility] ([facility]) [address] [place] [address] 49666 Sodium [Moles/Vol] 141 mmol/L Normal 136-145 [facility] Comment on above: Performed By: #### 2 4323-8 #### SILVIA Stewart ([id number]) [facility] ([facility]) [address] [place] [address] Urea nitrogen [Mass/Vol] 20 mg/dL Normal 6-23 [facility] Comment on above: Performed By: #### 2 4323-8 #### SILVIA Stewart ([id number]) [facility] ([facility]) [address] [place] [address] HbA1c (Bld) [Mass fraction]o n 02-18-2023 Average glucose Estimated from glycated hemoglobin (Bld) [Mass/Vol] 197 mg/dL Normal Not Established [facility] Comment on above: Order Comment: Diagn osis of Diabetes-Adults Non-Diabetic: < or = 5.6% Increased risk for developing diabetes: 5.7-6.4% Diagnostic of diabetes: > or = 6.5% Monitoring of Diabetes Age (y)....................... Therapeutic Goal (%) Adults: >18.........................<7.0 Pediatrics: 13-18...................<7.5 Pediatrics: 7-12....................<8.0 Pediatrics: 0-6..................... 7.5-8.5 [employer]. Diabetes Care 33(S1)Apr 2009 Performed By: #### 4 548-4 #### SILVIA Stewart ([id number]) [facility] ([facility]) [address] [place] [address] Hemoglobin A1c/Hemoglobin.to carlos 02-18-2023 HbA1c (Bld) [Mass fraction] 8.5 % High see below [facility] Comment on above: Order Comment: Diagn osis of Diabetes-Adults Non-Diabetic: < or = 5.6% Increased risk for developing diabetes: 5.7-6.4% Diagnostic of diabetes: > or = 6.5% Monitoring of Diabetes Age (y)....................... Therapeutic Goal (%) Adults: >18.........................<7.0 Pediatrics: 13-18...................<7.5 Pediatrics: 7-12....................<8.0 Pediatrics: 0-6..................... 7.5-8.5 [employer]. Diabetes Care 33(S1), Apr 2009 Performed By: #### 4 548-4 #### SILVIA Stewart ([id number]) [facility] ([facility]) [id number] [place] [address] 20437 Lipid 1996 panelon 3 Cholesterol [Mass/Vol] 143 mg/dL Normal 0-199 [facility] Comment on above: Result Comment: Age Desirable Borderline High High 0-19 Y 0 - 169 170 - 199 >/= 200 20-24 Y 0 - 189 190 - 224 >/= 225 >24 Y 0 - 199 200 - 239 >/= 240 All ranges are based on fasting samples. Specific therapeutic targets will vary based on patient-specific cardiac risk. Pediatric guidelines reference:Pediatrics 2011, 128(S5).Adult guidelines reference: NCEP ATPIII Guidelines,LAMAR 2001, 258:2486-97 Venipuncture immediately after or during the administration of Metamizole may lead to falsely low results. Testing should be performed immediately prior to Metamizole dosing. Performed By: #### 2 4331-1 #### SILVIA Stewart ([id number]) [facility] ([facility]) [address] [place] [address] 55324 Cholesterol in HDL [Mass/Vol] 32.9 mg/dL Normal [facility] Comment on above: Result Comment: Age Very Low Low Normal High 0-19 Y < 35 < 40 40-45 ---- 20-24 Y ---- < 40 >45 ---- >24 Y ---- < 40 40-60 >60 Performed By: #### 2 4331-1 #### SILVIA Stewart ([id number]) [facility] ([facility]) [id number] [place] [address] 65961 Cholesterol in LDL [Mass/Vol] 79 mg/dL Normal <=99 [facility] Comment on above: Result Comment: Near Borderline AGE Desirable Optimal High High Very High 0-19 Y 0 - 109 --- 110-129 >/= 130 ---- 20-24 Y 0 - 119 --- 120-159 >/= 160 ---- >24 Y 0 - 99 100-129 130-159 160-189 >/=190 Performed By: #### 2 4331-1 #### SILVIA Stewart ([id number]) [facility] ([facility]) [address] [place] [address] 04601 Cholesterol in VLDL [Mass/Vol] 31 mg/dL Normal 0-40 [facility] Comment on above: Performed By: #### 2 4331-1 #### SILVIA Stewart ([id number]) [facility] ([facility]) [id number] [place] [address] 64871 CHOLESTEROL/HDL RATIO 4.3 Normal [facility] Comment on above: Result Comment: Ref Values Desirable < 3.4 High Risk > 5.0 Performed By: #### 2 4331-1 #### SILVIA Stewart ([id number]) [facility]) [id number] [place] [address] 62031 NON HDL CHOLESTEROL 110 mg/dL Normal 0-149 [facility] Comment on above: Result Comment: Age Desirable Borderline High High Very High 0-19 Y 0 - 119 120 - 144 >/= 145 >/= 160 20-24 Y 0 - 149 150 - 189 >/= 190 ---- >24 Y 30 mg/dL above LDL Cholesterol goal Performed By: #### 2 4331-1 #### SILVIA Stewart ([id number]) [facility]) [id number] [place] [address] 20477 Triglyceride [Mass/Vol] 154 mg/dL High 0-149 [facility] Comment on above: Result Comment: Age Desirable Borderline High High Very High 0 D-90 D 19 - 174 ---- ---- ---- 91 D- 9 Y 0 - 74 75 - 99 >/= 100 ---- 10-19 Y 0 - 89 90 - 129 >/= 130 ---- 20-24 Y 0 - 114 115 - 149 >/= 150 ---- >24 Y 0 - 149 150 - 199 200- 499 >/= 500 Venipuncture immediately after or during the administration of Metamizole may lead to falsely low results. Testing should be performed immediately prior to Metamizole dosing. Performed By: #### 2 4331-1 #### SILVIA Stewart ([id number]) [facility]) [address] [place] [address] TSH WITH REFLEX TO FREE T4 I F ABNORMALon 02-18-2023 TSH Qn 2.54 m[IU]/L Normal 0.44-3.98 [facility] Comment on above: Order Comment: TSH t esting is performed using different testing methodology at [facility] than at other [facility]. Direct result comparisons should only be made within the same method. 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) Falls frequently (V15.88) (R29.6) ASHD (arteriosclerotic heart disease) (414.00) (I25.10) Diabetes mellitus (250.00) (E11.9) Essential hypertension (401.9) (I10) SDAT (senile dementia of Alzheimer's type) (331.0,294.10) (G30.1,F02.80) Orders Ataxia, Falls frequently Physical Therapy - General Referral Evaluation and Treatment Evaluate AND Treat Status: Hold For - Scheduling Requested for: 21Feb2022 Ordered;For: Ataxia, Falls frequently; Ordered By: Valeriano Monroy Performed: Due: 22May2022 Diabetes mellitus Comprehensive Metabolic Panel; Status:Active - Retrospective Authorization; Requested for:16May2022; Perform:Lab Services - Lab To Draw (Blood Test); Due:14Aug2022; Last Updated By:Rayray Carter; 02/21/2022 9:30:34 AM;Ordered; For:Diabetes mellitus; Ordered By:Valeriano Monroy; Falls frequently Start: Ciprofloxacin HCl - 250 MG Oral Tablet; TAKE 1 TABLET EVERY 12 HOURS DAILY Rx By: Valeriano Monroy; Dispense: 7 Days ; #:14 Tablet; Refill: 0;For: Falls frequently; THANH = N; Verified Transmission to [facility][id number]; Last Updated By: Viewabill; 02/21/2022 9:14:38 AM Hyperlipidemia Lipid Panel; Status:Active - Retrospective Authorization; Requested for:16May2022; Perform:Lab Services - Lab To Draw (Blood Test); Due:14Aug2022; Last Updated By:Rayray Carter; 02/21/2022 9:30:34 AM;Ordered; For:Hyperlipidemia; Ordered By:Valeriano Monroy; Pernicious anemia Renew: Syringe 25G X 1 3 ML; USE DIRECTED Rx By: Valeriano Monroy; Dispense: 180 Days ; #:12 Each; Refill: 1;For: Pernicious anemia; THANH = N; Verified Transmission to [facility] #[id number]; Last Updated By: Viewabill; 02/21/2022 9:14:36 AM Complete Blood Count; Status:Active - Retrospective Authorization; Requested for:16May2022; Perform:Lab Services - Lab To Draw (Blood Test); Due:14Aug2022; Last Updated By:Rayray Carter; 02/21/2022 9:30:34 AM;Ordered; For:Pernicious anemia; Ordered By:Valeriano Monroy; Patient Discussion/Summary phys therapy f/u 3 mos w/ labs careful activity cane discussed Chief Complaint Pt is here for 6 month follow up. History of Present Illnessf/u sdat, pa, dep/anx, ashd, dm, hyperlipidemia forgetful anxious but not bad under circumstances no cp. 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0) (D51.0) 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) Right shoulder pain (719.41) (M25.511) Rosacea (695.3) (L71.9) SDAT (senile dementia of Alzheimer's type) (331.0,294.10) (G30.1,F02.80) Skin lesion (709.9) (L98.9) Past Medical History Problems History of Acute pain of left shoulder (719.41) (M25.512) Resolved Date: 23 Feb 2019 History of Anorexia (783.0) (R63.0) Resolved Date: 02 Sep 2014 History of Benign essential hypertension (401.1) (I10) Resolved Date: 16 Sep 2013 Added by Problem List Migration; 2013-02-23; Moved to Suppressed Mar 06 2013 9:07PM History of abnormal weight loss (V13.89) (Z87.898) Resolved Date: 02 Sep 2014 History of acute bronchitis (V12.69) (Z87.09) Resolved Date: 07 Mar 2015 History of angina pectoris (V12.59) (Z86.79) Resolved Date: 22 Sep 2017 History of colonic polyps (V12.72) (Z86.010) History of confusion (V11.8) (Z87.898) Resolved Date: 14 Nov 2018 History of coronary artery disease (V12.59) (Z86.79) History of cough Resolved Date: 23 Feb 2019 History of diabetes mellitus (V12.29) (Z86.39) History of high blood pressure (V12.59) (Z86.79) History of high cholesterol (V12.29) (Z86.39) History of malignant neoplasm of skin (V10.83) (Z85.828) History of myocardial infarction (412) (I25.2) History of pernicious anemia (V12.3) (Z86.2) Resolved Date: 03 Sep 2018 History of shortness of breath (V13.89) (Z87.898) History of viral infection (V12.09) (Z86.19) Resolved Date: 23 Feb 2019 History of Hyperlipidemia (272.4) (E78.5) Added by Problem List Migration; 2013-02-23; Moved to [facility] Mar 06 2013 9:07PM History of Olecranon bursitis of left elbow (726.33) (M70.22) Resolved Date: 23 Feb 2019 Personal history of coronary atherosclerosis (V12.59) (Z86.79) History of Traumatic injury of head, initial encounter (959.01) (S09.90XA) Resolved Brandon (more content not included)... Normal [employer] Tobacco Screening.on 022 Adult depression screening assessment No [facility] Internal [facility] Work Phone: Fall risk assessment a) No falls within the last year [facility] Work Phone: Tobacco use status CPHS b) No [facility] Work Phone: COMPREHENSIVE PANELon 2021 Albumin [Mass/Vol] 4.0 g/dL Normal 3.4 - 5.0 [facility] Comment on above: Performed By: #### C MP #### [facility] [address] [place] [address] ALP [Catalytic activity/Vol] 61 U/L Normal 33 - 136 [facility] Comment on above: Performed By: #### C MP #### [facility] [address] [place] [address] ALT [Catalytic activity/Vol] 13 U/L Normal 10 - 52 [facility] Comment on above: Result Comment: Mariah ents treated with Sulfasalazine may generate falsely decreased results for ALT. Performed By: #### C MP #### [facility] [address] [place] [address] Anion gap [Moles/Vol] 14 mmol/L Normal 10 - 20 [facility] Comment on above: Performed By: #### C MP #### [facility] [address] [place] [address] AST [Catalytic activity/Vol] 11 U/L Normal 9 - 39 [facility] Comment on above: Performed By: #### C MP #### [facility] [address] [place] [address] Bilirubin [Mass/Vol] 0.7 mg/dL Normal 0.0 - 1.2 [facility] Comment on above: Performed By: #### C MP #### [facility] [address] [place] [address] Calcium [Mass/Vol] 9.4 mg/dL Normal 8.6 - 10.6 [facility] Comment on above: Performed By: #### C MP #### [facility] [address] [place] [address] Chloride [Moles/Vol] 104 mmol/L Normal 98 - 107 [facility] Comment on above: Performed By: #### C MP #### [facility] [address] [place] [address] Creatinine [Mass/Vol] 0.89 mg/dL Normal 0.50 - 1.30 [facility] Comment on above: Performed By: #### C MP #### [facility] [address] [place] [address] GFR/1.73 sq M.predicted among non-blacks MDRD (S/P/Bld) [Vol rate/Area] 83 mL/min/{1.73_m2} Normal >90 [facility] Comment on above: Result Comment: CALC ULATIONS OF ESTIMATED GFR ARE PERFORMED USING THE 2020 CKD-EPI STUDY REFIT EQUATION WITHOUT THE RACE VARIABLE FOR THE IDMS-TRACEABLE CREATININE METHODS. https://jasn.asnjournals.org/content//ASN.76955 18706 Performed By: #### C MP #### [place] [address] [place] [address] Glucose [Mass/Vol] 114 mg/dL High 74 - 99 [facility] Comment on above: Performed By: #### C MP #### [facility] [address] [place] [address] HCO3 (Bld) [Moles/Vol] 29 mmol/L Normal 21 - 32 [facility] Comment on above: Performed By: #### C MP #### [facility] [address] [place] [address] Potassium [Moles/Vol] 4.6 mmol/L Normal 3.5 - 5.3 [facility] Comment on above: Performed By: #### C MP #### [facility] [address] [place] [address] Protein [Mass/Vol] 6.5 g/dL Normal 6.4 - 8.2 [facility] Comment on above: Performed By: #### C MP #### [facility] [address] [place] [address] Sodium [Moles/Vol] 142 mmol/L Normal 136 - 145 [facility] Comment on above: Performed By: #### C MP #### [facility] [address] [place] [address] Urea nitrogen [Mass/Vol] 27 mg/dL High 6 - 23 [facility] Comment on above: Performed By: #### C MP #### [facility] [address] [place] [address] HEMOGLOBIN A1Con 02-16-2022 Glucose [Mass/Vol] 160 mg/dL Normal [facility] Comment on above: Performed By: #### H BA1E #### [facility] [address] [place] [address] HbA1c (Bld) [Mass fraction] 7.2 % Abnormal [facility] Comment on above: Result Comment: Diag nosis of Diabetes-Adults Non-Diabetic: < or = 5.6% Increased risk for developing diabetes: 5.7-6.4% Diagnostic of diabetes: > or = 6.5% . Monitoring of Diabetes Age (y) Therapeutic Goal (%) Adults: >18 <7.0 Pediatrics: 13-18 <7.5 7-12 <8.0 0- 6 7.5-8.5 [employer]. Diabetes Care 33(S1), Apr 2009. Performed By: #### H BA1E #### [facility] [address] [place] [address] LIPID PANEL (CORONARY RISK 2 )on 02-16-2022 Cholesterol [Mass/Vol] 143 mg/dL Normal 0 - 199 [facility] Comment on above: Result Comment: . AGE DESIRABLE BORDERLINE HIGH HIGH 0-19 Y 0 - 169 170 - 199 >/= 200 20-24 Y 0 - 189 190 - 224 >/= 225 >24 Y 0 - 199 200 - 239 >/= 240 All ranges are based on fasting samples. Specific therapeutic targets will vary based on patient-specific cardiac risk. . Pediatric guidelines reference:Pediatrics 2011, 128(S5). Adult guidelines reference: NCEP ATPIII Guidelines, LAMAR 2001, 258:2486-97 . Venipuncture immediately after or during the administration of Metamizole may lead to falsely low results. Testing should be performed immediately prior to Metamizole dosing. Performed By: #### L IPID #### [facility] [address] [place] [address] Cholesterol in HDL [Mass/Vol] 38.8 mg/dL Abnormal [facility] Comment on above: Result Comment: . AGE VERY LOW LOW NORMAL HIGH 0-19 Y < 35 < 40 40-45 ---- 20-24 Y ---- < 40 >45 ---- >24 Y ---- < 40 40-60 >60 . Performed By: #### L IPID #### [facility] [address] [place] [address] Cholesterol in LDL [Mass/Vol] 86 mg/dL Normal 0 - 99 [facility] Comment on above: Result Comment: . NEAR BORD AGE DESIRABLE OPTIMAL HIGH HIGH VERY HIGH 0-19 Y 0 - 109 --- 110-129 >/= 130 ---- 20-24 Y 0 - 119 --- 120-159 >/= 160 ---- >24 Y 0 - 99 100-129 130-159 160-189 >/=190 . Performed By: #### L IPID #### [facility] [address] [place] [address] Cholesterol in VLDL [Mass/Vol] 18 mg/dL Normal 0 - 40 [facility] Comment on above: Performed By: #### L IPID #### [facility] [address] [place] [address] Cholesterol.total/Chol esterol in HDL [Mass ratio] 3.7 {ratio} Normal [facility] Comment on above: Result Comment: REF VALUES DESIRABLE < 3.4 HIGH RISK > 5.0 Performed By: #### L IPID #### [facility] [address] [place] [address] Triglyceride [Mass/Vol] 92 mg/dL Normal 0 - 149 [facility] Comment on above: Result Comment: . AGE DESIRABLE BORDERLINE HIGH HIGH VERY HIGH 0 D-90 D 19 - 174 ---- ---- ---- 91 D- 9 Y 0 - 74 75 - 99 >/= 100 ---- 10-19 Y 0 - 89 90 - 129 >/= 130 ---- 20-24 Y 0 - 114 115 - 149 >/= 150 ---- >24 Y 0 - 149 150 - 199 200- 499 >/= 500 . Venipuncture immediately after or during the administration of Metamizole may lead to falsely low results. Testing should be performed immediately prior to Metamizole dosing. Performed By: #### L IPID #### [facility] [address] [place] [address] TSHon 02-16-2022 TSH Qn 1.40 m[IU]/L Normal 0.44 - 3.98 [facility] Comment on above: Result Comment: TSH testing is performed using different testing methodology at [facility] than at other [facility]. Direct result comparisons should only be made within the same method. Performed By: #### T SH2 #### [facility] [address] [place] [address] Hemoglobin A1Con 02-15-2022 Glucose [Mass/Vol] 160 mg/dL [facility] Work Phone: HbA1c (Bld) [Mass fraction] 7.2 % Abnormal [facility] Work Phone: Comment on above: Diagnosis of Diabete s-Adults Non-Diabetic: < or = 5.6% Increased risk for developing diabetes: 5.7-6.4% Diagnostic of diabetes: > or = 6.5%. Monitoring of Diabetes Age (y) Therapeutic Goal (%) Adults: >18 <7.0 Pediatrics: 13-18 <7.5 7-12 <8.0 0- 6 7.5-8.5 [employer]. Diabetes Care 33(S1), Apr 2009. Laboratory - Chemistry and C hemistry - challengeon 02-15-2022 Albumin BCP dye [Mass/Vol] 4.0 g/dL 3.4 - 5.0 [facility] Work Phone: ALP [Catalytic activity/Vol] 61 U/L 33 - 136 [facility] Work Phone: ALT With P-5'-P [Catalytic activity/Vol] 13 U/L 10 - 52 [facility] Work Phone: Comment on above: Patients treated wit h Sulfasalazine may generate falsely decreased results for ALT. Anion gap [Moles/Vol] 14 mmol/L 10 - 20 [facility] Work Phone: AST With P-5'-P [Catalytic activity/Vol] 11 U/L 9 - 39 [facility] Work Phone: Bilirubin [Mass/Vol] 0.7 mg/dL 0.0 - 1.2 [facility] Work Phone: Calcium [Mass/Vol] 9.4 mg/dL 8.6 - 10.6 [facility] Work Phone: Chloride [Moles/Vol] 104 mmol/L 98 - 107 [facility] Work Phone: CO2 [Moles/Vol] 29 mmol/L 21 - 32 [facility] Work Phone: Creatinine [Mass/Vol] 0.89 mg/dL See Below [facility] Work Phone: Comment on above: Reference Range: 0.5 0 - 1.30 Glucose [Mass/Vol] 114 mg/dL above high threshold 74 - 99 [facility] Work Phone: Potassium [Moles/Vol] 4.6 mmol/L 3.5 - 5.3 [facility] Work Phone: Protein [Mass/Vol] 6.5 g/dL 6.4 - 8.2 [facility] Work Phone: Sodium [Moles/Vol] 142 mmol/L 136 - 145 [facility] Work Phone: Urea nitrogen [Mass/Vol] 27 mg/dL above high threshold 6 - 23 [facility] Work Phone: Lipid Panelon 02-15-2022 Cholesterol [Mass/Vol] 143 mg/dL 0 - 199 [facility] Work Phone: [phone] Comment on above: . AGE DESIRABLE BORD AFTAB HIGH HIGH 0-19 Y 0 - 169 170 - 199 >/= 200 20-24 Y 0 - 189 190 - 224 >/= 225 >24 Y 0 - 199 200 - 239 >/= 240 All ranges are based on fasting samples. Specific therapeutic targets will vary based on patient-specific cardiac risk.. Pediatric guidelines reference:Pediatrics 2011, 128(S5). Adult guidelines reference: NCEP ATPIII Guidelines, LAMAR 2001, 258:2486-97. Venipuncture immediately after or during the administration of Metamizole may lead to falsely low results. Testing should be performed immediately prior to Metamizole dosing. Cholesterol in HDL [Mass/Vol] 38.8 mg/dL Abnormal [facility] Work Phone: Comment on above: . AGE VERY LOW LOW N ORMAL HIGH 0-19 Y < 35 < 40 40-45 ---- 20-24 Y ---- < 40 >45 ---- >24 Y ---- < 40 40-60 >60. Cholesterol in LDL [Mass/Vol] 86 mg/dL 0 - 99 [facility] Work Phone: Comment on above: . NEAR BORD AGE FATOUMATA RABLE OPTIMAL HIGH HIGH VERY HIGH 0-19 Y 0 - 109 --- 110-129 >/= 130 ---- 20-24 Y 0 - 119 --- 120-159 >/= 160 ---- >24 Y 0 - 99 100-129 130-159 160-189 >/=190. Cholesterol.total/Chol esterol in HDL [Mass ratio] 3.7 {ratio} [facility] Work Phone: Comment on above: REF VALUESDESIRABLE < 3.4HIGH RISK > 5.0 Triglyceride [Mass/Vol] 92 mg/dL 0 - 149 [facility] Work Phone: Comment on above: . AGE DESIRABLE BORD AFTAB HIGH HIGH VERY HIGH 0 D-90 D 19 - 174 ---- ---- ----91 D- 9 Y 0 - 74 75 - 99 >/= 100 ---- 10-19 Y 0 - 89 90 - 129 >/= 130 ---- 20-24 Y 0 - 114 115 - 149 >/= 150 ---- >24 Y 0 - 149 150 - 199 200- 499 >/= 500. Venipuncture immediately after or during the administration of Metamizole may lead to falsely low results. Testing should be performed immediately prior to Metamizole dosing. Lipid Panel 18 mg/dL 0 - 40 [facility] Work Phone: No Panel Informationon 02-15 83 {mL/min/1.73m2} >90 [facility] Work Phone: Comment on above: CALCULATIONS OF MARTINA MATED GFR ARE PERFORMED USING THE 2020 CKD-EPI STUDY REFIT EQUATION WITHOUT THE RACE VARIABLE FOR THE IDMS-TRACEABLE CREATININE METHODS.https://jasn.asnjournals.org/content//A SN.[id number] TSH - Thyroid Stimulating Ho mariana, Serumon 02-15-2022 TSH Qn 1.40 m[IU]/L See Below [facility] Work Phone: Comment on above: Reference Range: 0.4 4 - 3.98 TSH testing is performed using different testing methodology at [facility] than at other [facility]. Direct result comparisons should only be made within the same method. Medicare Annual Wellness Vis iton 09-13-2021 Medicare Annual Wellness Visit *Chief Complaint Patient is here today for a medicare wellness visit. Follow up on chronic medical problems. Adult Risk Screening Initial Fall Risk Screening: GEORGI has fallen in the last 6 months. He has fallen due to No. His fall resulted in the following injury: Shoulder issues. GEORGI has a fear of falling. He does not need assistance with sitting, standing or walking. Does not need assistance walking in his home. He does not need assistance in an unfamiliar setting. The patient is not using an assistive device. History of Present Illness Past Medical, Surgical and Family History: reviewed and updated in chart. Medications and Supplements: Review of all medications by a prescribing practitioner or clinical pharmacist (such as prescriptions, OTCs, herbal therapies and supplements) documented in the medical record. No, the patient is not using opioids. Patient Self Assessment of Health Status: fair. Tobacco use: Non-User Alcohol use: Non-User Illicit drug use: Non-User Current diet: well balanced diet. Exercise Frequency: the patient does not exercise. Depression/Suicide Screening: Patient has a current diagnosis of depression . During the past 2 weeks, the patient has not felt down, depressed or hopeless. During the past 2 weeks, the patient has not felt little interest or pleasure in doing things. Hearing Impairment: bilaterally, He uses a hearing aid. Cognitive Impairment: Cognitive impairment was observed. Bathing: performs independently. Dressing: performs independently. Walking: performs independently. Managing Finances: needs assistance. Shopping: needs assistance. Managing Medications: needs assistance. Housework / Basic Home Maintenance: needs assistance. Falls Risk Screening:. GEORGI has fallen in the last 6 months. Home safety risk factors: none. 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) Colon polyp (211.3) (K63.5) Diabetes mellitus (250.00) (E11.9) Dizziness (780.4) (R42) Encounter for immunization (V03.89) (Z23) Essential hypertension (401.9) (I10) Gastroesophageal reflux disease without esophagitis (530.81) (K21.9) Headache (784.0) (R51.9) History of right foot drop (V13.59) (Z87.39) Hyperlipidemia (272.4) (E78.5) Lesion of lip (528.5) (K13.0) Medicare annual wellness visit, subsequent (V70.0) (Z00.00) Pain of right upper extremity (729.5) (M79.601) Pernicious anemia (281.0) (D51.0) 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) Right shoulder pain (719.41) (M25.511) Rosacea (695.3) (L71.9) SDAT (senile dementia of Alzheimer's type) (331.0,294.10) (G30.1,F02.80) Skin lesion (709.9) (L98.9) Past Medical History History of Acute pain of left shoulder (719.41) (M25.512) Resolved Date: 23 Feb 2019 History of Anorexia (783.0) (R63.0) Resolved Date: 02 Sep 2014 History of Benign essential hypertension (401.1) (I10) Resolved Date: 16 Sep 2013 Added by Problem List Migration; 2013-02-23; Moved to Suppressed Mar 06 2013 9:07PM History of abnormal weight loss (V13.89) (Z87.898) Resolved Date: 02 Sep 2014 History of acute bronchitis (V12.69) (Z87.09) Resolved Date: 07 Mar 2015 History of angina pectoris (V12.59) (Z86.79) Resolved Date: 22 Sep 2017 History of colonic polyps (V12.72) (Z86.010) History of confusion (V11.8) (Z87.898) Resolved Date: 14 Nov 2018 History of coronary artery disease (V12.59) (Z86.79) History of cough Resolved Date: 23 Feb 2019 History of diabetes mellitus (V12.29) (Z86.39) History of high blood pressure (V12.59) (Z86.79) History of high cholesterol (V12.29) (Z86.39) History of malignant neoplasm of skin (V10.83) (Z85.828) History of myocardial infarction (412) (I25.2) History of pernicious anemia (V12.3) (Z86.2) Resolved Date: 03 Sep 2018 History of shortness of breath (V13.89) (Z87.898) History of viral infection (V12.09) (Z86.19) Resolved Date: 23 Feb 2019 History of Hyperlipidemia (272.4) (E78.5) Added by Problem List Migration; 2013-02-23; Moved to Suppressed Mar 06 2013 9:07PM History of Olecranon bursitis of left elbow (726.33) (M70.22) Resolved Date: 23 Feb 2019 Personal history of coronary atherosclerosis (V12.59) (Z86.79) History of Traumatic injury of head, initial encounter (959.01) (S09.90XA) Resolved Date: 23 Feb 2019 Surgical History History of Complete Colonoscopy History of Tonsillectomy Family History No pertinent family history No pertinent family history Social History Alcohol use (V49.89) (Z72.89) Former smoker (V15.82) (Z87.891) *Allergies Penicillins Recorded By: Tarah Martell; 09/16/2013 8:49:3 (more content not included)... Normal [employer] PHQ-2 VITALSon 09-13-2021 Adult depression screening assessment No [facility] Work Phone: Fall risk assessment b) One or more fall s in the last year [facility] Work Phone: Tobacco use status CPHS b) No [facility] Work Phone: Radiologyon 09-13-2021 XR Cervical spine 4 Views Please click on the link to view the study images Normal [facility] Work Phone: XR Cervical spine 4 Views Normal [facility] Work Phone: XR Shoulder 2 Views Please click on the link to view the study images Normal [facility] Work Phone: XR Shoulder 2 Views Normal [facility] Work Phone: SHOULDER, CMPLT, MIN 2 VIEWS on 09-13-2021 SHOULDER, CMPLT, MIN 2 VIEWS Patient Name: GEORGI LANIER STUDY: SHOULDER, CMPLT, MIN 2 VIEWS; 09/13/2021 9:38 am INDICATION: pain M25.511: Bilateral shoulder pain, unspecified chronicity M25.512:. COMPARISON: 10/24/2015 ACCESSION NUMBER(S): [id number] ORDERING CLINICIAN: VALERIANO MONROY FINDINGS: Three views of the left shoulder obtained. No acute fracture or dislocation. Mild glenohumeral joint spurring. Acromial humeral space is preserved. Smooth calcifications along the superolateral aspect of the humeral head. Smooth irregularity or cortical thickening of the anterior proximal humerus, coracoid process and acromion. AC joint spurring and calcifications. IMPRESSION: Multifocal productive/degenerativ e changes of the left shoulder increased from 10/24/2015. Calcifications adjacent to the humeral head could reflect calcific tendinitis or bursitis. Electronically signed by: VY PORRAS MD Normal [facility] SPINE, CERVICAL; MIN 4 VIEWS on 09-13-2021 SPINE, CERVICAL; MIN 4 VIEWS Patient Name: GEORGI LANIER STUDY: SPINE, CERVICAL MIN 4 VIEWS; 09/13/2021 9:38 am INDICATION: pain M54.2: Neck pain M25.511: Bilateral shoulder pain, unspecified chronicity M25.512:. COMPARISON: None. ACCESSION NUMBER(S): [id number] ORDERING CLINICIAN: VALERIANO MONROY FINDINGS: Four views of the cervical spine obtained. Mild levocurvature. Minimal anterolisthesis at C4-5 and C5-6. Cervical vertebral heights are preserved. C6-7 intervertebral disc space narrowing with endplate sclerosis and spurring. Multilevel bilateral uncovertebral joint spurring resulting in severe neural foraminal narrowing on the right at C3-4 and left at C4-5. no abnormal thickening of the prevertebral soft tissues. Incidental note made of small nonspecific soft tissue neck calcifications and metallic/electronic structure overlying the central skull base on lateral view. IMPRESSION: Multilevel degenerative changes with spondylolisthesis and bilateral neural foraminal narrowing. Electronically signed by: VY PORRAS MD Normal [facility] COMPREHENSIVE PANELon 2021 Albumin [Mass/Vol] 3.9 g/dL Normal 3.4 - 5.0 [facility] Comment on above: Performed By: #### C MP #### [facility] [address] [place] [address] ALP [Catalytic activity/Vol] 65 U/L Normal 33 - 136 [facility] Comment on above: Performed By: #### C MP #### [facility] [address] [place] [address] ALT [Catalytic activity/Vol] 13 U/L Normal 10 - 52 [facility] Comment on above: Result Comment: Mariah ents treated with Sulfasalazine may generate falsely decreased results for ALT. Performed By: #### C MP #### [facility] [address] [place] [address] Anion gap [Moles/Vol] 14 mmol/L Normal 10 - 20 [facility] Comment on above: Performed By: #### C MP #### [facility] [address] [place] [address] AST [Catalytic activity/Vol] 12 U/L Normal 9 - 39 [facility] Comment on above: Performed By: #### C MP #### [facility] [address] [place] [address] Bilirubin [Mass/Vol] 0.7 mg/dL Normal 0.0 - 1.2 [facility] Comment on above: Performed By: #### C MP #### [facility] [address] [place] [address] Calcium [Mass/Vol] 9.2 mg/dL Normal 8.6 - 10.6 [facility] Comment on above: Performed By: #### C MP #### [facility] [address] [place] [address] Chloride [Moles/Vol] 105 mmol/L Normal 98 - 107 [facility] Comment on above: Performed By: #### C MP #### [facility] [address] [place] [address] Creatinine [Mass/Vol] 1.14 mg/dL Normal 0.50 - 1.30 [facility] Comment on above: Performed By: #### C MP #### [facility] [address] [place] [address] GFR/1.73 sq M.predicted among non-blacks MDRD (S/P/Bld) [Vol rate/Area] 62 mL/min/{1.73_m2} Normal >90 [facility] Comment on above: Result Comment: CALC ULATIONS OF ESTIMATED GFR ARE PERFORMED USING THE 2020 CKD-EPI STUDY REFIT EQUATION WITHOUT THE RACE VARIABLE FOR THE IDMS-TRACEABLE CREATININE METHODS. https://jasn.asnjournals.org/content//ASN.71737 75170 Performed By: #### C MP #### [facility] [address] [place] [address] Glucose [Mass/Vol] 145 mg/dL High 74 - 99 [facility] Comment on above: Performed By: #### C MP #### [facility] [address] [place] [address] HCO3 (Bld) [Moles/Vol] 28 mmol/L Normal 21 - 32 [facility] Comment on above: Performed By: #### C MP #### [facility] [address] [place] [address] Potassium [Moles/Vol] 4.5 mmol/L Normal 3.5 - 5.3 [facility] Comment on above: Performed By: #### C MP #### [facility] [address] [place] [address] Protein [Mass/Vol] 6.4 g/dL Normal 6.4 - 8.2 [facility] Comment on above: Performed By: #### C MP #### [facility] [address] [place] [address] Sodium [Moles/Vol] 142 mmol/L Normal 136 - 145 [facility] Comment on above: Performed By: #### C MP #### [facility] [address] [place] [address] Urea nitrogen [Mass/Vol] 23 mg/dL Normal 6 - 23 [facility] Comment on above: Performed By: #### C MP #### [facility] [address] [place] [address] HEMOGLOBIN A1Con 09-09-2021 Glucose [Mass/Vol] 166 mg/dL Normal [facility] Comment on above: Performed By: #### H BA1E #### [facility] [address] [place] [address] HbA1c (Bld) [Mass fraction] 7.4 % Abnormal [facility] Comment on above: Result Comment: Diag nosis of Diabetes-Adults Non-Diabetic: < or = 5.6% Increased risk for developing diabetes: 5.7-6.4% Diagnostic of diabetes: > or = 6.5% . Monitoring of Diabetes Age (y) Therapeutic Goal (%) Adults: >18 <7.0 Pediatrics: 13-18 <7.5 7-12 <8.0 0- 6 7.5-8.5 [employer]. Diabetes Care 33(S1), Apr 2009. Performed By: #### H BA1E #### [facility] [address] [place] [address] Hemoglobin A1Con 09-09-2021 Glucose [Mass/Vol] 166 mg/dL [facility]- Work Phone: HbA1c (Bld) [Mass fraction] 7.4 % Abnormal [facility]- Work Phone: Comment on above: Diagnosis of Diabete s-Adults Non-Diabetic: < or = 5.6% Increased risk for developing diabetes: 5.7-6.4% Diagnostic of diabetes: > or = 6.5%. Monitoring of Diabetes Age (y) Therapeutic Goal (%) Adults: >18 <7.0 Pediatrics: 13-18 <7.5 7-12 <8.0 0- 6 7.5-8.5 [employer]. Diabetes Care 33(S1), Apr 2009. LIPID PANEL (CORONARY RISK 2 )on 09-09-2021 Cholesterol [Mass/Vol] 126 mg/dL Normal 0 - 199 [facility] Comment on above: Result Comment: . AGE DESIRABLE BORDERLINE HIGH HIGH 0-19 Y 0 - 169 170 - 199 >/= 200 20-24 Y 0 - 189 190 - 224 >/= 225 >24 Y 0 - 199 200 - 239 >/= 240 All ranges are based on fasting samples. Specific therapeutic targets will vary based on patient-specific cardiac risk. . Pediatric guidelines reference:Pediatrics 2011, 128(S5). Adult guidelines reference: NCEP ATPIII Guidelines, LAMAR 2001, 258:2486-97 . Venipuncture immediately after or during the administration of Metamizole may lead to falsely low results. Testing should be performed immediately prior to Metamizole dosing. Performed By: #### L IPID #### [facility] [address] [place] [address] Cholesterol in HDL [Mass/Vol] 30.7 mg/dL Abnormal [facility] Comment on above: Result Comment: . AGE VERY LOW LOW NORMAL HIGH 0-19 Y < 35 < 40 40-45 ---- 20-24 Y ---- < 40 >45 ---- >24 Y ---- < 40 40-60 >60 . Performed By: #### L IPID #### [facility] [address] [place] [address] Cholesterol in LDL [Mass/Vol] 76 mg/dL Normal 0 - 99 [facility] Comment on above: Result Comment: . NEAR BORD AGE DESIRABLE OPTIMAL HIGH HIGH VERY HIGH 0-19 Y 0 - 109 --- 110-129 >/= 130 ---- 20-24 Y 0 - 119 --- 120-159 >/= 160 ---- >24 Y 0 - 99 100-129 130-159 160-189 >/=190 . Performed By: #### L IPID #### [facility] [address] [place] [address] Cholesterol in VLDL [Mass/Vol] 20 mg/dL Normal 0 - 40 [facility] Comment on above: Performed By: #### L IPID #### [facility] [address] [place] [address] Cholesterol.total/Chol esterol in HDL [Mass ratio] 4.1 {ratio} Normal [facility] Comment on above: Result Comment: REF VALUES DESIRABLE < 3.4 HIGH RISK > 5.0 Performed By: #### L IPID #### [facility] [address] [place] [address] Triglyceride [Mass/Vol] 98 mg/dL Normal 0 - 149 [facility] Comment on above: Result Comment: . AGE DESIRABLE BORDERLINE HIGH HIGH VERY HIGH 0 D-90 D 19 - 174 ---- ---- ---- 91 D- 9 Y 0 - 74 75 - 99 >/= 100 ---- 10-19 Y 0 - 89 90 - 129 >/= 130 ---- 20-24 Y 0 - 114 115 - 149 >/= 150 ---- >24 Y 0 - 149 150 - 199 200- 499 >/= 500 . Venipuncture immediately after or during the administration of Metamizole may lead to falsely low results. Testing should be performed immediately prior to Metamizole dosing. Performed By: #### L IPID #### [facility] [address] [place] [id number] Laboratory - Chemistry and C hemistry - challengeon 09-09-2021 Albumin BCP dye [Mass/Vol] 3.9 g/dL 3.4 - 5.0 [facility] Work Phone: ALP [Catalytic activity/Vol] 65 U/L 33 - 136 [facility] Work Phone: ALT With P-5'-P [Catalytic activity/Vol] 13 U/L 10 - 52 [facility] Work Phone: Comment on above: Patients treated wit h Sulfasalazine may generate falsely decreased results for ALT. Anion gap [Moles/Vol] 14 mmol/L 10 - 20 [facility] Work Phone: AST With P-5'-P [Catalytic activity/Vol] 12 U/L 9 - 39 [facility] Work Phone: Bilirubin [Mass/Vol] 0.7 mg/dL 0.0 - 1.2 [facility] Work Phone: Calcium [Mass/Vol] 9.2 mg/dL 8.6 - 10.6 [facility] Work Phone: Chloride [Moles/Vol] 105 mmol/L 98 - 107 [facility] Work Phone: CO2 [Moles/Vol] 28 mmol/L 21 - 32 [facility] Work Phone: Creatinine [Mass/Vol] 1.14 mg/dL See Below [facility] Work Phone: Comment on above: Reference Range: 0.5 0 - 1.30 Glucose [Mass/Vol] 145 mg/dL above high threshold 74 - 99 [facility] Work Phone: Potassium [Moles/Vol] 4.5 mmol/L 3.5 - 5.3 [facility] Work Phone: Protein [Mass/Vol] 6.4 g/dL 6.4 - 8.2 [facility] Work Phone: Sodium [Moles/Vol] 142 mmol/L 136 - 145 [facility] Work Phone: Urea nitrogen [Mass/Vol] 23 mg/dL 6 - 23 [facility] Work Phone: Lipid Panelon 09-09-2021 Cholesterol [Mass/Vol] 126 mg/dL 0 - 199 [facility] Work Phone: Comment on above: . AGE DESIRABLE BORD AFTAB HIGH HIGH 0-19 Y 0 - 169 170 - 199 >/= 200 20-24 Y 0 - 189 190 - 224 >/= 225 >24 Y 0 - 199 200 - 239 >/= 240 All ranges are based on fasting samples. Specific therapeutic targets will vary based on patient-specific cardiac risk.. Pediatric guidelines reference:Pediatrics 2011, 128(S5). Adult guidelines reference: NCEP ATPIII Guidelines, LAMAR 2001, 258:2486-97. Venipuncture immediately after or during the administration of Metamizole may lead to falsely low results. Testing should be performed immediately prior to Metamizole dosing. Cholesterol in HDL [Mass/Vol] 30.7 mg/dL Abnormal [facility] Work Phone: Comment on above: . AGE VERY LOW LOW N ORMAL HIGH 0-19 Y < 35 < 40 40-45 ---- 20-24 Y ---- < 40 >45 ---- >24 Y ---- < 40 40-60 >60. Cholesterol in LDL [Mass/Vol] 76 mg/dL 0 - 99 [facility] Work Phone: Comment on above: . NEAR BORD AGE FATOUMATA RABLE OPTIMAL HIGH HIGH VERY HIGH 0-19 Y 0 - 109 --- 110-129 >/= 130 ---- 20-24 Y 0 - 119 --- 120-159 >/= 160 ---- >24 Y 0 - 99 100-129 130-159 160-189 >/=190. Cholesterol.total/Chol esterol in HDL [Mass ratio] 4.1 {ratio} [facility] Work Phone: Comment on above: REF VALUESDESIRABLE < 3.4HIGH RISK > 5.0 Triglyceride [Mass/Vol] 98 mg/dL 0 - 149 [facility] Work Phone: Comment on above: . AGE DESIRABLE BORD AFTAB HIGH HIGH VERY HIGH 0 D-90 D 19 - 174 ---- ---- ----91 D- 9 Y 0 - 74 75 - 99 >/= 100 ---- 10-19 Y 0 - 89 90 - 129 >/= 130 ---- 20-24 Y 0 - 114 115 - 149 >/= 150 ---- >24 Y 0 - 149 150 - 199 200- 499 >/= 500. Venipuncture immediately after or during the administration of Metamizole may lead to falsely low results. Testing should be performed immediately prior to Metamizole dosing. Lipid Panel 20 mg/dL 0 - 40 [facility] Work Phone: No Panel Informationon 09-09 62 {mL/min/1.73m2} >90 [facility] Work Phone: Comment on above: CALCULATIONS OF MARTINA MATED GFR ARE PERFORMED USING THE 2020 CKD-EPI STUDY REFIT EQUATION WITHOUT THE RACE VARIABLE FOR THE IDMS-TRACEABLE CREATININE METHODS.https://jasn.asnjournals.org/content//A SN.[id number] Radiologyon 02-07-2021 XR Shoulder 2 Views Normal [facility] Work Phone: XR Shoulder 2 Views Please click on the link to view the study images Normal -[facility]- Work Phone: SHOULDER, CMPLT, MIN 2 VIEWS on 02-07-2021 SHOULDER, CMPLT, MIN 2 VIEWS Patient Name: GEORGI LANIER STUDY: SHOULDER, CMPLT, MIN 2 VIEWS; Right; 02/07/2021 3:21 pm INDICATION: pain M25.511: Right shoulder pain. COMPARISON: None. ACCESSION NUMBER(S): [id number] ORDERING CLINICIAN: VALERIANO MONROY FINDINGS: No acute fracture. No glenohumeral dislocation. 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 IMPRESSION: Degenerative changes of the right shoulder without acute osseous abnormality. Electronically signed by: MD Bere PRIDE [facility] CNOVon 02-06-2021 CNOV Office Visit (OTFGFL ) GEORGI LANIER ([id number]) 1935 M Date Time Provider Department 02/06/21 11:00 AM HEARING AID OTOL AG FAIRLAWNOTFGFL During your visit today, we recorded the following information about you: VARINDER Verdugo 02/06/2021 11:27 AM Signed Georgi Lanier 85 year old here today with his for a routine 6 month follow up prior to leaving for [place] for the winter. The patient reports no problems with the hearing aids, he sometimes doesn't hear his , but he states he isn't listening. PHYSICAL EXAM: Otoscopic inspection revealed non occluding cerumen bilaterally, right ear canal worse than the left TESTING: Audiometric testing was completed 03/21/20 HEARING AID: The hearing aids were cleaned and wax filters replaced. Wear time was averages at 3 hour/day. The patient was encouraged to increase his wear time. Communication strategies were reviewed with his at her request. PLAN/RECOMMENDATIONS: 1. Monitor hearing aid function and communication ability. 2. Return to the office in 7 months for hearing aid follow up or as needed. 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 - escitalopram oxalate (LEXAPRO) 10 mg tablet Take 10 mg by mouth once daily. - atorvastatin (LIPITOR) 40 mg tablet - clopidogrel (PLAVIX) 75 mg tablet Take 75 mg by mouth once daily. - amLODIPine (NORVASC) 5 mg tablet - lisinopril (ZESTRIL, PRINIVIL) 10 mg tablet - metFORMIN (GLUCOPHAGE) 500 mg tablet - metoprolol succinate ER (TOPROL XL) 25 mg 24 hr tablet TAKE ONE-HALF TABLET (12.5mg) EVERY DAY - ciprofloxacin (CIPRO) 500 mg tablet Take 1 tablet by mouth twice daily. - Aspirin 81 mg Tab Take 81 mg by mouth once daily. - METFORMIN HCL (METFORMIN ORAL) Take 500 mg by mouth twice daily. - rosuvastatin (CRESTOR) 20 mg tablet Take 20 mg by mouth once daily. - nitroglycerin sublingual 0.4 mg SL tablet Dissolve 0.4 mg under the tongue every 5 minutes as needed. - amLODIPine 10 mg tablet Take 10 mg by mouth once daily. - DOCOSAHEXANOIC ACID/EPA (FISH OIL ORAL) Take by mouth three times daily. Problem List As Of Date 02/06/2021 Noted Resolved Ear build-up, bilateral [H61.23] 02/27/2018 Impaired auditory discrimination, bilateral [H9*02/27/2018 Noise effect on inner ear, bilateral [H83.3X3] 02/27/2018 Essential hypertension [I10] 02/27/2018 Type 2 diabetes mellitus (HCC) [E11.9] 02/27/2018 Gastroesophageal reflux disease without esophag*02/27/2018 Dyslipidemia [E78.5] CAD (coronary artery disease) [I25.10] High cholesterol [E78.00] Encounter Status:Closed by ERIN BRODERICK on 02/06/21 Normal [facility] Hemoglobin A1Con 01-31-2021 Glucose [Mass/Vol] 154 mg/dL [facility] Work Phone: HbA1c (Bld) [Mass fraction] 7.0 % Abnormal [facility] Work Phone: Comment on above: Diagnosis of Diabete s-Adults Non-Diabetic: < or = 5.6% Increased risk for developing diabetes: 5.7-6.4% Diagnostic of diabetes: > or = 6.5%. Monitoring of Diabetes Age (y) Therapeutic Goal (%) Adults: >18 <7.0 Pediatrics: 13-18 <7.5 7-12 <8.0 0- 6 7.5-8.5 [employer]. Diabetes Care 33(S1), Apr 2009. Laboratory - Chemistry and C hemistry - challengeon 01-31-2021 Albumin BCP dye [Mass/Vol] 4.0 g/dL 3.4 - 5.0 [facility] Work Phone: Albumin Ql (U) <7.0 See Below [facility] Work Phone: Comment on above: Reference Range: Not Established Albumin/Creatinine DL <= 20 mg/L (U) [Mass ratio] SEE COMMENT 0.0 - 30.0 [facility] Work Phone: Comment on above: One or more analytes used in this calculation is outside of the analytical measurement range.Calculation cannot be performed. ALP [Catalytic activity/Vol] 70 U/L 33 - 136 [facility] Work Phone: ALT With P-5'-P [Catalytic activity/Vol] 11 U/L 10 - 52 [facility] Work Phone: Comment on above: Patients treated wit h Sulfasalazine may generate falsely decreased results for ALT. Anion gap [Moles/Vol] 12 mmol/L 10 - 20 [facility] Work Phone: AST With P-5'-P [Catalytic activity/Vol] 13 U/L 9 - 39 [facility] Work Phone: Bilirubin [Mass/Vol] 0.5 mg/dL 0.0 - 1.2 [facility] Work Phone: Calcium [Mass/Vol] 9.5 mg/dL 8.6 - 10.6 [facility] Work Phone: Chloride [Moles/Vol] 104 mmol/L 98 - 107 [facility] Work Phone: CO2 [Moles/Vol] 29 mmol/L 21 - 32 [facility] Work Phone: Creatinine (U) [Mass/Vol] 98.7 mg/dL See Below [facility] Work Phone: Comment on above: Reference Range: 20. 0 - 370.0 Creatinine [Mass/Vol] 1.11 mg/dL See Below [facility] Work Phone: Comment on above: Reference Range: 0.5 0 - 1.30 Glucose [Mass/Vol] 133 mg/dL above high threshold 74 - 99 [facility] Work Phone: Potassium [Moles/Vol] 5.3 mmol/L 3.5 - 5.3 [facility] Work Phone: Protein [Mass/Vol] 6.8 g/dL 6.4 - 8.2 [facility] Work Phone: Sodium [Moles/Vol] 140 mmol/L 136 - 145 [facility] Work Phone: Urea nitrogen [Mass/Vol] 31 mg/dL above high threshold 6 - 23 [facility] Work Phone: Lipid Panelon 01-31-2021 Cholesterol [Mass/Vol] 130 mg/dL 0 - 199 [facility] Work Phone: Comment on above: . AGE DESIRABLE BORD AFTAB HIGH HIGH 0-19 Y 0 - 169 170 - 199 >/= 200 20-24 Y 0 - 189 190 - 224 >/= 225 >24 Y 0 - 199 200 - 239 >/= 240 All ranges are based on fasting samples. Specific therapeutic targets will vary based on patient-specific cardiac risk.. Pediatric guidelines reference:Pediatrics 2011, 128(S5). Adult guidelines reference: NCEP ATPIII Guidelines, LAMAR 2001, 258:2486-97. Venipuncture immediately after or during the administration of Metamizole may lead to falsely low results. Testing should be performed immediately prior to Metamizole dosing. Cholesterol in HDL [Mass/Vol] 33.9 mg/dL Abnormal [facility] Work Phone: Comment on above: . AGE VERY LOW LOW N ORMAL HIGH 0-19 Y < 35 < 40 40-45 ---- 20-24 Y ---- < 40 >45 ---- >24 Y ---- < 40 40-60 >60. Cholesterol in LDL [Mass/Vol] 75 mg/dL 0 - 99 [facility] Work Phone: Comment on above: . NEAR BORD AGE FATOUMATA RABLE OPTIMAL HIGH HIGH VERY HIGH 0-19 Y 0 - 109 --- 110-129 >/= 130 ---- 20-24 Y 0 - 119 --- 120-159 >/= 160 ---- >24 Y 0 - 99 100-129 130-159 160-189 >/=190. Cholesterol.total/Chol esterol in HDL [Mass ratio] 3.8 {ratio} [facility] Work Phone: Comment on above: REF VALUESDESIRABLE < 3.4HIGH RISK > 5.0 Triglyceride [Mass/Vol] 105 mg/dL 0 - 149 [facility] Work Phone: Comment on above: . AGE DESIRABLE BORD AFTAB HIGH HIGH VERY HIGH 0 D-90 D 19 - 174 ---- ---- ----91 D- 9 Y 0 - 74 75 - 99 >/= 100 ---- 10-19 Y 0 - 89 90 - 129 >/= 130 ---- 20-24 Y 0 - 114 115 - 149 >/= 150 ---- >24 Y 0 - 149 150 - 199 200- 499 >/= 500. Venipuncture immediately after or during the administration of Metamizole may lead to falsely low results. Testing should be performed immediately prior to Metamizole dosing. Lipid Panel 21 mg/dL 0 - 40 [facility] Work Phone: No Panel Informationon 01-31 >60 >60 [facility] Work Phone: Comment on above: CALCULATIONS OF MARTINA MATED GFR ARE PERFORMED USING THE MDRD STUDY EQUATION FOR THE IDMS-TRACEABLE CREATININE METHODS. CLIN CHEM 2007;53:766-72 Tobacco Screening.on 021 Fall risk assessment a) No falls within the last year [facility] Work Phone: Tobacco use status [facility] b) No [facility] Work Phone: Tobacco Screening. b) No [facility] Work Phone: CNOVon 09-05-2020 CNOV Office Visit (OTFGFL ) GEORGI LANIER ([id number]) 1935 M Date Time Provider Department 09/05/20 2:00 PM HEARING AID OTOL AG FAIRLAWNOTFGFL During your visit today, we recorded the following information about you: VARINDER Verdugo 09/05/2020 2:28 PM Signed Georgi Lanier 84 year old here today with his for a routine 6 month follow up. The patient reports hearing well since his last appointment when the volume was increased. He reports hearing a high pitched squeak occasionally from the left aid. PHYSICAL EXAM: Otoscopic inspection revealed non occluding cerumen bilaterally. TESTING: Audiometric testing was completed 03/21/2020 HEARING AID: The hearing aids were cleaned cleaned and wax filters replaced. Listening check confirmed the patient's complaint. The aids were reprogrammed to decrease the gain at 6000Hz bilaterally. The patient states the high pitched sound is not present in the office, he was advised to monitor. PLAN/RECOMMENDATIONS: 1. Monitor hearing aid function and communication ability. 2. Return to the office in 5 months for hearing aid follow up prior to leaving for [place] or as needed. 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 - escitalopram oxalate (LEXAPRO) 10 mg tablet Take 10 mg by mouth once daily. - atorvastatin (LIPITOR) 40 mg tablet - clopidogrel (PLAVIX) 75 mg tablet Take 75 mg by mouth once daily. - amLODIPine (NORVASC) 5 mg tablet - lisinopril (ZESTRIL, PRINIVIL) 10 mg tablet - metFORMIN (GLUCOPHAGE) 500 mg tablet - metoprolol succinate ER (TOPROL XL) 25 mg 24 hr tablet TAKE ONE-HALF TABLET (12.5mg) EVERY DAY - ciprofloxacin (CIPRO) 500 mg tablet Take 1 tablet by mouth twice daily. - Aspirin 81 mg Tab Take 81 mg by mouth once daily. - METFORMIN HCL (METFORMIN ORAL) Take 500 mg by mouth twice daily. - rosuvastatin (CRESTOR) 20 mg tablet Take 20 mg by mouth once daily. - nitroglycerin sublingual 0.4 mg SL tablet Dissolve 0.4 mg under the tongue every 5 minutes as needed. - amLODIPine 10 mg tablet Take 10 mg by mouth once daily. - DOCOSAHEXANOIC ACID/EPA (FISH OIL ORAL) Take by mouth three times daily. Problem List As Of Date 09/05/2020 Noted Resolved Ear build-up, bilateral [H61.23] 02/27/2018 Impaired auditory discrimination, bilateral [H9*02/27/2018 Noise effect on inner ear, bilateral [H83.3X3] 02/27/2018 Essential hypertension [I10] 02/27/2018 Type 2 diabetes mellitus (HCC) [E11.9] 02/27/2018 Gastroesophageal reflux disease without esophag*02/27/2018 Dyslipidemia [E78.5] CAD (coronary artery disease) [I25.10] High cholesterol [E78.00] Encounter Status:Closed by ERIN BRODERICK on 09/05/20 [facility] Hemoglobin A1Con 08-30-2020 Glucose [Mass/Vol] 171 mg/dL [facility] Work Phone: HbA1c (Bld) [Mass fraction] 7.6 % [facility] Work Phone: Comment on above: Diagnosis of Diabete s-Adults Non-Diabetic: < or = 5.6% Increased risk for developing diabetes: 5.7-6.4% Diagnostic of diabetes: > or = 6.5%. Monitoring of Diabetes Age (y) Therapeutic Goal (%) Adults: >18 <7.0 Pediatrics: 13-18 <7.5 7-12 <8.0 0- 6 7.5-8.5 [employer]. Diabetes Care 33(S1), Apr 2009. Laboratory - Chemistry and C hemistry - challengeon 08-30-2020 Albumin BCP dye [Mass/Vol] 3.7 g/dL 3.4 - 5.0 [facility] Work Phone: ALP [Catalytic activity/Vol] 70 U/L 33 - 136 [facility] Work Phone: ALT With P-5'-P [Catalytic activity/Vol] 11 U/L 10 - 52 [facility] Work Phone: Comment on above: Patients treated wit h Sulfasalazine may generate falsely decreased results for ALT. Anion gap [Moles/Vol] 10 mmol/L 10 - 20 [facility] Work Phone: AST With P-5'-P [Catalytic activity/Vol] 11 U/L 9 - 39 [facility] Work Phone: Bilirubin [Mass/Vol] 0.6 mg/dL 0.0 - 1.2 [facility] Work Phone: Calcium [Mass/Vol] 8.9 mg/dL 8.6 - 10.6 [facility] Work Phone: Chloride [Moles/Vol] 107 mmol/L 98 - 107 [facility] Work Phone: CO2 [Moles/Vol] 30 mmol/L 21 - 32 [facility] Work Phone: Creatinine [Mass/Vol] 0.91 mg/dL See Below [facility] Work Phone: Comment on above: Reference Range: 0.5 0 - 1.30 Glucose [Mass/Vol] 138 mg/dL above high threshold 74 - 99 [facility] Work Phone: Potassium [Moles/Vol] 4.9 mmol/L 3.5 - 5.3 [facility] Work Phone: Protein [Mass/Vol] 6.1 g/dL below low threshold 6.4 - 8.2 [facility] Work Phone: Sodium [Moles/Vol] 142 mmol/L 136 - 145 [facility] Work Phone: Urea nitrogen [Mass/Vol] 18 mg/dL 6 - 23 [facility] Work Phone: Lipid Panelon 08-30-2020 Cholesterol [Mass/Vol] 121 mg/dL 0 - 199 [facility] Work Phone: Comment on above: . AGE DESIRABLE BORD AFTAB HIGH HIGH 0-19 Y 0 - 169 170 - 199 >/= 200 20-24 Y 0 - 189 190 - 224 >/= 225 >24 Y 0 - 199 200 - 239 >/= 240 All ranges are based on fasting samples. Specific therapeutic targets will vary based on patient-specific cardiac risk.. Pediatric guidelines reference:Pediatrics 2011, 128(S5). Adult guidelines reference: NCEP ATPIII Guidelines, LAMAR 2001, 258:2486-97. Venipuncture immediately after or during the administration of Metamizole may lead to falsely low results. Testing should be performed immediately prior to Metamizole dosing. Cholesterol in HDL [Mass/Vol] 34.1 mg/dL Abnormal [facility] Work Phone: Comment on above: . AGE VERY LOW LOW N ORMAL HIGH 0-19 Y < 35 < 40 40-45 ---- 20-24 Y ---- < 40 >45 ---- >24 Y ---- < 40 40-60 >60. Cholesterol in LDL [Mass/Vol] 67 mg/dL 0 - 99 [facility] Work Phone: Comment on above: . NEAR BORD AGE FATOUMATA RABLE OPTIMAL HIGH HIGH VERY HIGH 0-19 Y 0 - 109 --- 110-129 >/= 130 ---- 20-24 Y 0 - 119 --- 120-159 >/= 160 ---- >24 Y 0 - 99 100-129 130-159 160-189 >/=190. Cholesterol.total/Chol esterol in HDL [Mass ratio] 3.5 {ratio} [facility] Work Phone: Comment on above: REF VALUESDESIRABLE < 3.4HIGH RISK > 5.0 Triglyceride [Mass/Vol] 102 mg/dL 0 - 149 [facility] Work Phone: Comment on above: . AGE DESIRABLE BORD AFTAB HIGH HIGH VERY HIGH 0 D-90 D 19 - 174 ---- ---- ----91 D- 9 Y 0 - 74 75 - 99 >/= 100 ---- 10-19 Y 0 - 89 90 - 129 >/= 130 ---- 20-24 Y 0 - 114 115 - 149 >/= 150 ---- >24 Y 0 - 149 150 - 199 200- 499 >/= 500. Venipuncture immediately after or during the administration of Metamizole may lead to falsely low results. Testing should be performed immediately prior to Metamizole dosing. Lipid Panel 20 mg/dL 0 - 40 [facility] Work Phone: No Panel Informationon 08-30 >60 >60 [facility] Work Phone: Comment on above: CALCULATIONS OF MARTINA MATED GFR ARE PERFORMED USING THE MDRD STUDY EQUATION FOR THE IDMS-TRACEABLE CREATININE METHODS. CLIN CHEM 2007;53:766-72 CNOVon 05-25-2020 CNOV Office Visit (OTFGCT ) GEORGI LANIER ([id number]) 1935 M Date Time Provider Department 05/25/20 1:00 PM HEARING AID OTOL AG FAIRLAWNOTFGFL During your visit today, we recorded the following information about you: VARINDER Verdugo 05/25/2020 1:24 PM Signed Georgi Lanier 84 year old here today for a problem with his right hearing aid . The patient states since he left his last appointment, the volume of the right hearing aid was too loud. He also thinks the shell of the right hearing aid is cracked. PHYSICAL EXAM: Otoscopic inspection revealed non occluding cerumen bilaterally TEST RESULTS: Audiometric testing was completed 03/21/2020 HEARING AID: The hearing aids were inspected finding no crack. The aids were cleaned, debris removed from the vents and filters replaced. Listening and functional checks confirm the patient's complaint. The aids were reprogrammed and the gain adjusted to be approximately equal. The patient was satisfied with the volume and sound quality in the office. He was advised to monitor the hearing aid function as there may be a short in the right aid, causing the fluctuations in volume. PLAN/RECOMMENDATIONS: 1. Monitor hearing aid function and communication ability 2. 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] Prescriptions as of 05/25/2020 Sig: OCUVITE EYE PLUS MULTI ORAL AT BEDTIME OCUVITE EYE PLUS MULTI ORAL AT BEDTIME AFLURIA QUAD [id number] (PF) 6* To be injected by Pharmacist LANSOPRAZOLE 30 MG CAPSULE,DE* Take 30 mg by mouth once lakshmi* ESCITALOPRAM 10 MG TABLET Take 10 mg by mouth once lakshmi* ATORVASTATIN 40 MG TABLET CLOPIDOGREL 75 MG TABLET Take 75 mg by mouth once lakshmi* AMLODIPINE 5 MG TABLET LISINOPRIL 10 MG TABLET METFORMIN 500 MG TABLET METOPROLOL SUCCINATE ER 25 MG* TAKE ONE-HALF TABLET (12.5mg)* CIPROFLOXACIN 500 MG TABLET Take 1 tablet by mouth twice * Patient not taking: Reported on 02/27/2018 ASPIRIN 81 MG TABLET Take 81 mg by mouth once lakshmi* METFORMIN ORAL Take 500 mg by mouth twice da* ROSUVASTATIN 20 MG TABLET Take 20 mg by mouth once lakshmi* NITROGLYCERIN 0.4 MG SUBLINGU* Dissolve 0.4 mg under the ton* AMLODIPINE 10 MG TABLET Take 10 mg by mouth once lakshmi* FISH OIL ORAL Take by mouth three times da* Problem List As Of Date 05/25/2020 Noted Resolved Ear build-up, bilateral [H61.23] 02/27/2018 Impaired auditory discrimination, bilateral [H9*02/27/2018 Noise effect on inner ear, bilateral [H83.3X3] 02/27/2018 Essential hypertension [I10] 02/27/2018 Type 2 diabetes mellitus (HCC) [E11.9] 02/27/2018 Gastroesophageal reflux disease without esophag*02/27/2018 Dyslipidemia [E78.5] CAD (coronary artery disease) [I25.10] High cholesterol [E78.00] Encounter Status:Closed [facility]ICK [facility]25[facility] GEORGI LANIER ([id number]) 1935 M Date Time Provider Department 03/21/20 2:00 PM HEARING AID OTOL AG FAIRLAWNOTFGFL During your visit today, we recorded the following information about you: VARINDER Verdugo 03/21/2020 2:18 PM Signed Georgi Lanier 84 year old here today for a routine 3 month follow up. The patient reports the right hearing aid volume is louder than the left and he has notices some feedback . Otherwise he has had no problems with the hearing aids. PHYSICAL EXAM: Otoscopic inspection revealed non occluding cerumen bilaterlly TESTING: Audiometric testing revealed decreased pure tone thresholds in the right ear, essentially symmetrical hearing sensitivity. HEARING AID: The hearing aids were cleaned and the aids were reprogrammed to the new audiometric test. The patient reports a balanced volume and good sound quality. PLAN/RECOMMENDATIONS: 1. Monitor hearing aid function and communication ability. 2. Return to the office in 6 months for hearing aid follow up or as needed. 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] Prescriptions as of 03/21/2020 Sig: OCUVITE EYE PLUS MULTI ORAL AT BEDTIME OCUVITE EYE PLUS MULTI ORAL AT BEDTIME AFLURIA QUAD [id number] (PF) 6* To be injected by Pharmacist LANSOPRAZOLE 30 MG CAPSULE,DE* Take 30 mg by mouth once lakshmi* ESCITALOPRAM 10 MG TABLET Take 10 mg by mouth once lakshmi* ATORVASTATIN 40 MG TABLET CLOPIDOGREL 75 MG TABLET Take 75 mg by mouth once lakshmi* AMLODIPINE 5 MG TABLET LISINOPRIL 10 MG TABLET METFORMIN 500 MG TABLET METOPROLOL SUCCINATE ER 25 MG* TAKE ONE-HALF TABLET (12.5mg)* CIPROFLOXACIN 500 MG TABLET Take 1 tablet by mouth twice * Patient not taking: Reported on 02/27/2018 ASPIRIN 81 MG TABLET Take 81 mg by mouth once lakshmi* METFORMIN ORAL Take 500 mg by mouth twice da* ROSUVASTATIN 20 MG TABLET Take 20 mg by mouth once lakshmi* NITROGLYCERIN 0.4 MG SUBLINGU* Dissolve 0.4 mg under the ton* AMLODIPINE 10 MG TABLET Take 10 mg by mouth once lakshmi* FISH OIL ORAL Take by mouth three times da* Problem List As Of Date 03/21/2020 Noted Resolved Ear build-up, bilateral [H61.23] 02/27/2018 Impaired auditory discrimination, bilateral [H9*02/27/2018 Noise effect on inner ear, bilateral [H83.3X3] 02/27/2018 Essential hypertension [I10] 02/27/2018 Type 2 diabetes mellitus (HCC) [E11.9] 02/27/2018 Gastroesophageal reflux disease without esophag*02/27/2018 Dyslipidemia [E78.5] CAD (coronary artery disease) [I25.10] High cholesterol [E78.00] [employer] filed during this visit: Audiometry Encounter Status:Closed by ERIN BRODERICK on 03/21/20 [facility] Hemoglobin A1Con 02-22-2020 HbA1c (Bld) [Mass fraction] 7.1 % [facility] Work Phone: Comment on above: Diagnosis of Diabete s-Adults Non-Diabetic: < or = 5.6% Increased risk for developing diabetes: 5.7-6.4% Diagnostic of diabetes: > or = 6.5%. Monitoring of Diabetes Age (y) Therapeutic Goal (%) Adults: >18 <7.0 Pediatrics: 13-18 <7.5 7-12 <8.0 0- 6 7.5-8.5 [employer]. Diabetes Care 33(S1), Apr 2009. HbA1c (Bld) [Mass fraction] 157 {MG/DL} [facility] Work Phone: Lipid Panelon 02-22-2020 Cholesterol [Mass/Vol] 124 mg/dL 0 - 199 [facility] Work Phone: Comment on above: . AGE DESIRABLE BORD AFTAB HIGH HIGH 0-19 Y 0 - 169 170 - 199 >/= 200 20-24 Y 0 - 189 190 - 224 >/= 225 >24 Y 0 - 199 200 - 239 >/= 240 All ranges are based on fasting samples. Specific therapeutic targets will vary based on patient-specific cardiac risk.. Pediatric guidelines reference:Pediatrics 2011, 128(S5). Adult guidelines reference: NCEP ATPIII Guidelines, LAMAR 2001, 258:2486-97. Venipuncture immediately after or during the administration of Metamizole may lead to falsely low results. Testing should be performed immediately prior to Metamizole dosing. Cholesterol in HDL [Mass/Vol] 32.0 mg/dL Abnormal [facility] Work Phone: Comment on above: . AGE VERY LOW LOW N ORMAL HIGH 0-19 Y < 35 < 40 40-45 ---- 20-24 Y ---- < 40 >45 ---- >24 Y ---- < 40 40-60 >60. Cholesterol in LDL [Mass/Vol] 71 mg/dL 0 - 99 [facility] Work Phone: Comment on above: . NEAR BORD AGE FATOUMATA RABLE OPTIMAL HIGH HIGH VERY HIGH 0-19 Y 0 - 109 --- 110-129 >/= 130 ---- 20-24 Y 0 - 119 --- 120-159 >/= 160 ---- >24 Y 0 - 99 100-129 130-159 160-189 >/=190. Cholesterol.total/Chol esterol in HDL [Mass ratio] 3.9 {ratio} [facility] Work Phone: Comment on above: REF VALUESDESIRABLE < 3.4HIGH RISK > 5.0 Triglyceride [Mass/Vol] 104 mg/dL 0 - 149 [facility] Work Phone: Comment on above: . AGE DESIRABLE BORD AFTAB HIGH HIGH VERY HIGH 0 D-90 D 19 - 174 ---- ---- ----91 D- 9 Y 0 - 74 75 - 99 >/= 100 ---- 10-19 Y 0 - 89 90 - 129 >/= 130 ---- 20-24 Y 0 - 114 115 - 149 >/= 150 ---- >24 Y 0 - 149 150 - 199 200- 499 >/= 500. Venipuncture immediately after or during the administration of Metamizole may lead to falsely low results. Testing should be performed immediately prior to Metamizole dosing. Lipid Panel 21 mg/dL 0 - 40 [facility] Work Phone: Metabolic Panelon 02-22-2020 ALP [Catalytic activity/Vol] 63 U/L 33 - 136 [facility] Work Phone: Anion gap [Moles/Vol] 11 mmol/L 10 - 20 [facility] Work Phone: Bilirubin [Mass/Vol] 0.7 mg/dL 0.0 - 1.2 [facility] Work Phone: Calcium [Mass/Vol] 9.1 mg/dL 8.6 - 10.6 [facility] Work Phone: Chloride [Moles/Vol] 106 mmol/L 98 - 107 [facility] Work Phone: CO2 [Moles/Vol] 30 mmol/L 21 - 32 [facility] Work Phone: Creatinine [Mass/Vol] 1.01 mg/dL See Below [facility] Work Phone: Comment on above: Reference Range: 0.5 0 - 1.30 Glucose [Mass/Vol] 140 mg/dL above high threshold 74 - 99 [facility] Work Phone: Potassium [Moles/Vol] 4.5 mmol/L 3.5 - 5.3 [facility] Work Phone: Protein [Mass/Vol] 6.3 g/dL below low threshold 6.4 - 8.2 [facility] Work Phone: Sodium [Moles/Vol] 142 mmol/L 136 - 145 [facility] Work Phone: Urea nitrogen [Mass/Vol] 23 mg/dL 6 - 23 [facility] Work Phone: Otheron 02-22-2020 Albumin BCP dye [Mass/Vol] 3.9 g/dL 3.4 - 5.0 [facility] Work Phone: ALT With P-5'-P [Catalytic activity/Vol] 8 U/L below low threshold 10 - 52 [facility] Work Phone: Comment on above: Patients treated wit h Sulfasalazine may generate falsely decreased results for ALT. AST With P-5'-P [Catalytic activity/Vol] 12 U/L 9 - 39 [facility] Work Phone: >60 >60 [facility] Work Phone: Comment on above: CALCULATIONS OF MARTINA MATED GFR ARE PERFORMED USING THE MDRD STUDY EQUATION FOR THE IDMS-TRACEABLE CREATININE METHODS. CLIN CHEM 2007;53:766-72 Sedimentation Rate, Erythroc yteon 09-22-2019 ESR (Bld) [Velocity] 2 mm/h 0 - 20 [facility] Work Phone: Hemoglobin A1Con 09-21-2019 HbA1c (Bld) [Mass fraction] 6.3 % [facility] Work Phone: Comment on above: Diagnosis of Diabete s-Adults Non-Diabetic: < or = 5.6% Increased risk for developing diabetes: 5.7-6.4% Diagnostic of diabetes: > or = 6.5%. Monitoring of Diabetes Age (y) Therapeutic Goal (%) Adults: >18 <7.0 Pediatrics: 13-18 <7.5 7-12 <8.0 0- 6 7.5-8.5 [employer]. Diabetes Care 33(S1), Apr 2009. HbA1c (Bld) [Mass fraction] 134 {MG/DL} [facility] Work Phone: Lipid Panelon 09-21-2019 Cholesterol [Mass/Vol] 132 mg/dL 0 - 199 [facility] Work Phone: Comment on above: . AGE DESIRABLE BORD AFTAB HIGH HIGH 0-19 Y 0 - 169 170 - 199 >/= 200 20-24 Y 0 - 189 190 - 224 >/= 225 >24 Y 0 - 199 200 - 239 >/= 240 All ranges are based on fasting samples. Specific therapeutic targets will vary based on patient-specific cardiac risk.. Pediatric guidelines reference:Pediatrics 2011, 128(S5). Adult guidelines reference: NCEP ATPIII Guidelines, LAMAR 2001, 258:2486-97. Venipuncture immediately after or during the administration of Metamizole may lead to falsely low results. Testing should be performed immediately prior to Metamizole dosing. Cholesterol in HDL [Mass/Vol] 29.8 mg/dL Abnormal [facility] Work Phone: Comment on above: . AGE VERY LOW LOW N ORMAL HIGH 0-19 Y < 35 < 40 40-45 ---- 20-24 Y ---- < 40 >45 ---- >24 Y ---- < 40 40-60 >60. Cholesterol in LDL [Mass/Vol] 77 mg/dL 0 - 99 [facility] Work Phone: Comment on above: . NEAR BORD AGE FATOUMATA RABLE OPTIMAL HIGH HIGH VERY HIGH 0-19 Y 0 - 109 --- 110-129 >/= 130 ---- 20-24 Y 0 - 119 --- 120-159 >/= 160 ---- >24 Y 0 - 99 100-129 130-159 160-189 >/=190. Cholesterol.total/Chol esterol in HDL [Mass ratio] 4.4 {ratio} [facility] [facility] Work Phone: Comment on above: REF VALUESDESIRABLE < 3.4HIGH RISK > 5.0 Triglyceride [Mass/Vol] 124 mg/dL 0 - 149 [facility] Work Phone: Comment on above: . AGE DESIRABLE BORD AFTAB HIGH HIGH VERY HIGH 0 D-90 D 19 - 174 ---- ---- ----91 D- 9 Y 0 - 74 75 - 99 >/= 100 ---- 10-19 Y 0 - 89 90 - 129 >/= 130 ---- 20-24 Y 0 - 114 115 - 149 >/= 150 ---- >24 Y 0 - 149 150 - 199 200- 499 >/= 500. Venipuncture immediately after or during the administration of Metamizole may lead to falsely low results. Testing should be performed immediately prior to Metamizole dosing. Lipid Panel 25 mg/dL 0 - 40 [facility] Work Phone: Metabolic Panelon 09-21-2019 ALP [Catalytic activity/Vol] 54 U/L 33 - 136 [facility] Work Phone: Anion gap [Moles/Vol] 13 mmol/L 10 - 20 [facility] Work Phone: Bilirubin [Mass/Vol] 0.7 mg/dL 0.0 - 1.2 [facility] Work Phone: Calcium [Mass/Vol] 9.2 mg/dL 8.6 - 10.6 [facility] Work Phone: Chloride [Moles/Vol] 106 mmol/L 98 - 107 [facility] Work Phone: CO2 [Moles/Vol] 28 mmol/L 21 - 32 [facility] Work Phone: Creatinine [Mass/Vol] 0.99 mg/dL See Below [facility] Work Phone: Comment on above: Reference Range: 0.5 0 - 1.30 Glucose [Mass/Vol] 110 mg/dL above high threshold 74 - 99 [facility] Work Phone: Potassium [Moles/Vol] 4.8 mmol/L 3.5 - 5.3 [facility] Work Phone: Protein [Mass/Vol] 6.2 g/dL below low threshold 6.4 - 8.2 [facility] Work Phone: Sodium [Moles/Vol] 142 mmol/L 136 - 145 [facility]: Urea nitrogen [Mass/Vol] 26 mg/dL above high threshold 6 - 23 [facility] Work Phone: Otheron 09-21-2019 Albumin BCP dye [Mass/Vol] 3.8 g/dL 3.4 - 5.0 [facility] Work Phone: ALT With P-5'-P [Catalytic activity/Vol] 9 U/L below low threshold 10 - 52 [facility] Work Phone: Comment on above: Patients treated wit h Sulfasalazine may generate falsely decreased results for ALT. AST With P-5'-P [Catalytic activity/Vol] 11 U/L 9 - 39 [facility] Work Phone: >60 >60 [facility] Work Phone: Comment on above: CALCULATIONS OF MARTINA MATED GFR ARE PERFORMED USING THE MDRD STUDY EQUATION FOR THE IDMS-TRACEABLE CREATININE METHODS. CLIN CHEM 2007;53:766-72 Thyroidon 09-21-2019 TSH Qn 1.35 {mIU/L} See Below [facility] Work Phone: Comment on above: Reference Range: 0.4 4 - 3.98 TSH testing is performed using different testing methodology at [facility] than at other [facility]. Direct result comparisons should only be made within the same method. Complete Blood Count + Diffe rentialon 08-22-2018 Basophils (Bld) [#/Vol] 0.02 {x10E9/L} See Below [facility] Work Phone: Comment on above: Reference Range: 0.0 0 - 0.10 Basophils/100 WBC (Bld) 0.4 % 0.0 - 2.0 [facility] Work Phone: Eosinophils (Bld) [#/Vol] 0.20 {x10E9/L} See Below [facility] Work Phone: Comment on above: Reference Range: 0.0 0 - 0.40 Eosinophils/100 WBC (Bld) 3.5 % 0.0 - 6.0 [facility] Work Phone: Erythrocyte distribution width (RBC) [Ratio] 12.3 % See Below [facility] Work Phone: Comment on above: Reference Range: 11. 5 - 14.5 Hematocrit (Bld) [Volume fraction] 36.5 % below low threshold See Below [facility] Work Phone: Comment on above: Reference Range: 41. 0 - 52.0 Hemoglobin (Bld) [Mass/Vol] 11.7 g/dL below low threshold See Below [facility] Work Phone: Comment on above: Reference Range: 13. 5 - 17.5 Lymphocytes (Bld) [#/Vol] 1.98 {x10E9/L} See Below [facility] Work Phone: Comment on above: Reference Range: 0.8 0 - 3.00 Lymphocytes/100 WBC (Bld) 35.0 % See Below [facility] Work Phone: Comment on above: Reference Range: 13. 0 - 44.0 MCHC (RBC) [Mass/Vol] 32.1 g/dL See Below [facility] Work Phone: Comment on above: Reference Range: 32. 0 - 36.0 MCV (RBC) [Entitic vol] 92 fL 80 - 100 [facility] Work Phone: Monocytes (Bld) [#/Vol] 0.65 {x10E9/L} See Below [facility] Work Phone: Comment on above: Reference Range: 0.0 5 - 0.80 Monocytes/100 WBC (Bld) 11.5 % 2.0 - 10.0 [facility] Work Phone: Neutrophils (Bld) [#/Vol] 2.80 {x10E9/L} See Below [facility] Work Phone: Comment on above: Reference Range: 1.6 0 - 5.50 Neutrophils/100 WBC (Bld) 49.4 % See Below [facility] Work Phone: Comment on above: Reference Range: 40. 0 - 80.0 Platelets (Bld) [#/Vol] 231 {x10E9/L} 150 - 450 [facility] Work Phone: RBC (Bld) [#/Vol] 3.96 {x10E12/L} below low threshold See Below [facility] Work Phone: Comment on above: Reference Range: 4.5 0 - 5.90 WBC (Bld) [#/Vol] 5.7 {x10E9/L} 4.4 - 11.3 [facility] Work Phone: WBC (Bld) [#/Vol] 0.0 {/100_WBC} 0.0-0.0 [facility] Work Phone: Complete Blood Count + Differential 0.2 % 0.0 - 0.9 [facility] Work Phone: Comment on above: Percent differential counts (%) should be interpreted in the context of the absolute cell counts (cells/L). Otheron 08-22-2018 CT Head limited WO contrast Interpreted by: KELTON AGUIRRE08/22/18 12:08MRN: [id number] Name: GEORGI LANIER STUDY:CT HEAD WO CONTRAST; 08/22/2018 10:35 am INDICATION:confusion. COMPARISON:08/22/2016 ORDERING CLINICIAN:VALERIANO MONROY TECHNIQUE:Multiple axial CT images of the brain were obtained. INTRAVENOUS CONTRAST:None. FINDINGS:BRAIN PARENCHYMA:The barrett-white differentiation is intact. There is no mass effect ormidline shift. There are patchy foci of hypoattenuation in theperiventricular and subcortical white matter which is nonspecific. VENTRICLES AND CSF SPACES:Mild atrophy and ventriculomegaly similar to prior. HEMORRHAGE:None. INTRACRANIAL VESSELS:Prominent atherosclerotic calcifications but otherwise suboptimallyevaluated. EXTRACRANIAL SOFT TISSUES:Within normal limits. PARANASAL SINUSES:Mild ethmoid sinus opacification with some thickening and fluidgrossly similar in appearance compared to previous study. Mildsphenoid sinus mucosal thickening. Probable 6 mm mucous retentioncyst or polyp inferomedially left sphenoid sinus. Partialopacification mastoid air cells of uncertain chronicity. CALVARIUM:Grossly intact. ADDITIONAL FINDINGS:None significant. IMPRESSION:No definite acute cortical infarct or intracranial hemorrhage. Nonspecific deep and subcortical white matter disease. Mild atrophy and ventriculomegaly similar to prior. Sinus disease as above.Electronically signed by: KELTON AGUIRRE 08/22/18 12:08 Normal [facility] Work Phone: Vitamin B12, Serumon 019 Cobalamin (Vitamin B12) [Mass/Vol] 145 pg/mL below low threshold 211 - 911 [facility] Work Phone: Hemoglobin A1Con 08-18-2018 Hemoglobin A1c/Hemoglobin.total mass fraction (Bld) 5.9 % [facility] Work Phone: Comment on above: Diagnosis of Diabete s-Adults Non-Diabetic: < or = 5.6% Increased risk for developing diabetes: 5.7-6.4% Diagnostic of diabetes: > or = 6.5%. Monitoring of Diabetes Age (y) Therapeutic Goal (%) Adults: >18 <7.0 Pediatrics: 13-18 <7.5 7-12 <8.0 0- 6 7.5-8.5 [employer]. Diabetes Care 33(S1), Apr 2009. Hemoglobin A1c/Hemoglobin.total mass fraction (Bld) 123 {MG/DL} [facility] Work Phone: Lipid Panelon 08-18-2018 Cholesterol in HDL mass conc 31.3 mg/dL Abnormal [facility] Work Phone: Comment on above: . AGE VERY LOW LOW N ORMAL HIGH 0-19 Y < 35 < 40 40-45 ---- 20-24 Y ---- < 40 >45 ---- >24 Y ---- < 40 40-60 >60. Cholesterol in LDL mass conc 87 mg/dL 0 - 99 [facility] Work Phone: Comment on above: . NEAR BORD AGE FATOUMATA RABLE OPTIMAL HIGH HIGH VERY HIGH 0-19 Y 0 - 109 --- 110-129 >/= 130 ---- 20-24 Y 0 - 119 --- 120-159 >/= 160 ---- >24 Y 0 - 99 100-129 130-159 160-189 >/=190. Cholesterol mass conc 136 mg/dL 0 - 199 [facility] Work Phone: Comment on above: . AGE DESIRABLE BORD AFTAB HIGH HIGH 0-19 Y 0 - 169 170 - 199 >/= 200 20-24 Y 0 - 189 190 - 224 >/= 225 >24 Y 0 - 199 200 - 239 >/= 240 All ranges are based on fasting samples. Specific therapeutic targets will vary based on patient-specific cardiac risk.. Pediatric guidelines reference:Pediatrics 2011, 128(S5). Adult guidelines reference: NCEP ATPIII Guidelines, LAMAR 2001, 258:2486-97. Venipuncture immediately after or during the administration of Metamizole may lead to falsely low results. Testing should be performed immediately prior to Metamizole dosing. Cholesterol.total/Chol esterol in HDL mass ratio 4.3 {ratio} [facility] Work Phone: Comment on above: REF VALUESDESIRABLE < 3.4HIGH RISK > 5.0 Triglyceride mass conc 89 mg/dL 0 - 149 [facility] Work Phone: Comment on above: . AGE DESIRABLE BORD AFTAB HIGH HIGH VERY HIGH 0 D-90 D 19 - 174 ---- ---- ----91 D- 9 Y 0 - 74 75 - 99 >/= 100 ---- 10-19 Y 0 - 89 90 - 129 >/= 130 ---- 20-24 Y 0 - 114 115 - 149 >/= 150 ---- >24 Y 0 - 149 150 - 199 200- 499 >/= 500. Venipuncture immediately after or during the administration of Metamizole may lead to falsely low results. Testing should be performed immediately prior to Metamizole dosing. Lipid Panel 18 mg/dL 0 - 40 [facility] Work Phone: Metabolic Panelon 08-18-2018 ALP enzyme act/vol 49 U/L 33 - 136 [facility] Work Phone: Anion gap molar conc 14 mmol/L 10 - 20 [facility] Work Phone: Bilirubin mass conc 0.5 mg/dL 0.0 - 1.2 [facility] Work Phone: Calcium mass conc 9.7 mg/dL 8.6 - 10.6 [facility] Work Phone: Chloride molar conc 103 mmol/L 98 - 107 [facility] Work Phone: CO2 molar conc 29 mmol/L 21 - 32 [facility] Work Phone: Creatinine mass conc 1.15 mg/dL See Below [facility] Work Phone: Comment on above: Reference Range: 0.5 0 - 1.30 Glucose mass conc 131 mg/dL above high threshold 74 - 99 [facility] Work Phone: Potassium molar conc 5.0 mmol/L 3.5 - 5.3 Ame allenramon [facility] Work Phone: Protein mass conc 6.6 g/dL 6.4 - 8.2 [facility] Work Phone: Sodium molar conc 141 mmol/L 136 - 145 [facility] Work Phone: Urea nitrogen mass conc 38 mg/dL above high threshold 6 - 23 [facility] Work Phone: Otheron 08-18-2018 Albumin Bromocresol purple (BCP) dye binding method mass conc 4.0 g/dL 3.4 - 5.0 [facility] Work Phone: ALT With P-5'-P enzyme act/vol 11 U/L 10 - 52 [facility] Work Phone: Comment on above: Patients treated wit h Sulfasalazine may generate falsely decreased results for ALT. AST With P-5'-P enzyme act/vol 13 U/L 9 - 39 [facility] Work Phone: >60 >60 [facility] Work Phone: Comment on above: CALCULATIONS OF MARTINA MATED GFR ARE PERFORMED USING THE MDRD STUDY EQUATION FOR THE IDMS-TRACEABLE CREATININE METHODS. CLIN CHEM 2007;53:766-72 Thyroidon 08-18-2018 Thyrotropin Qn 1.66 {mIU/L} See Below R[facility] Work Phone: Comment on above: Reference Range: 0.4 4 - 3.98 TSH testing is performed using different testing methodology at [facility] than at other [facility]. Direct result comparisons should only be made within the same method.. Patients receiving more than 5 mg/day of biotin may have interference in test results. A sample should be taken no sooner than eight hours after previous dose. Contact [phone] for additional information. Vital Signs Date Time Vital Sign Value Performing Clinician Facility 09-23-2024 20:57-0400 Body temperature 98.6 [degF] Dr. Valeriano Monroy MD Work Phone: [facility] 09-23-2024 20:57-0400 Diastolic blood pressure 98 mm[Hg] Dr. Valeriano Monroy MD Work Phone: [facility] 09-23-2024 20:57-0400 Heart rate 97 /min Dr. Valeriano Monroy MD Work Phone: [facility] 09-23-2024 20:57-0400 Respiratory rate 18 /min Dr. Valeriano Monroy MD Work Phone: [facility] 09-23-2024 20:57-0400 SaO2% (BldA) [Mass fraction] 99 % Dr. Valeriano Monroy MD Work Phone: [facility] 09-23-2024 20:57-0400 Systolic blood pressure 137 mm[Hg] Dr. Valeriano Monroy MD Work Phone: [facility] 09-23-2024 14:39-0400 Body height 170.[address] Valeriano Monroy MD Work Phone: [facility] 08-06-2024 16:00-0400 Body height 180.3 cm Valeriano Monroy MD Work Phone: [facility] 08-06-2024 16:00-0400 Body mass index (BMI) [Ratio] 17.57 kg/m2 Valeriano Monroy MD Work Phone: [facility] 08-06-2024 16:00-0400 Body weight 57.15 kg Valeriano Monroy MD Work Phone: [facility] 08-06-2024 16:00-0400 Diastolic blood pressure 70 mm[Hg] Valeriano Monroy MD Work Phone: [facility] 08-06-2024 16:00-0400 Heart rate 61 /min Valeriano Monroy MD Work Phone: [facility] 08-06-2024 16:00-0400 SaO2% (BldA) [Mass fraction] 95 % Valreiano Monroy MD Work Phone: [facility] 08-06-2024 16:00-0400 Systolic blood pressure 122 mm[Hg] Valeriano Monroy MD Work Phone: [facility] 02-05-2024 10:03-0400 Body height 180.3 cm Valeriano Monroy MD Work Phone: [facility] 02-05-2024 10:03-0400 Body mass index (BMI) [Ratio] 19.39 kg/m2 Valeriano Monroy MD Work Phone: [facility] 02-05-2024 10:03-0400 Body weight 63.05 kg Valeriano Monroy MD Work Phone: [facility] 02-05-2024 10:03-0400 Diastolic blood pressure 76 mm[Hg] Valeriano Monroy MD Work Phone: [facility] 02-05-2024 10:03-0400 Heart rate 76 /min Valeriano Monroy MD Work Phone: [facility] 02-05-2024 10:03-0400 SaO2% (BldA) [Mass fraction] 98 % Valeriano Monroy MD Work Phone: [facility] 02-05-2024 10:03-0400 Systolic blood pressure 130 mm[Hg] Valeriano Monroy MD Work Phone: [facility] 12-11-2023 15:01-0400 Body height 180.3 cm Valeriano Monroy MD Work Phone: [facility] 12-11-2023 15:01-0400 Body mass index (BMI) [Ratio] 19.39 kg/m2 Valeriano Monroy MD Work Phone: [facility] 12-11-2023 15:01-0400 Body weight 63.05 kg Valeriano Monroy MD Work Phone: [facility] 12-11-2023 15:01-0400 Diastolic blood pressure 60 mm[Hg] Valeriano Monroy MD Work Phone: [facility] 12-11-2023 15:01-0400 Heart rate 69 /min Valeriano Monroy MD Work Phone: [facility] 12-11-2023 15:01-0400 SaO2% (BldA) [Mass fraction] 97 % Valeriano Monroy MD Work Phone: [facility] 12-11-2023 15:01-0400 Systolic blood pressure 120 mm[Hg] Valeriano Monroy MD Work Phone: [facility] 11-27-2023 14:27-0400 Body height 180.3 cm Valeriano Monroy MD Work Phone: [facility] 11-27-2023 14:27-0400 Body mass index (BMI) [Ratio] 19.94 kg/m2 Valeriano Monroy MD Work Phone: [facility] 11-27-2023 14:27-0400 Body weight 64.86 kg Valeriano Monroy MD Work Phone: [facility] 11-27-2023 14:27-0400 Diastolic blood pressure 60 mm[Hg] Valeriano Monroy MD Work Phone: [facility] 11-27-2023 14:27-0400 Heart rate 72 /min Valeriano Monroy MD Work Phone: [facility] 11-27-2023 14:27-0400 SaO2% (BldA) [Mass fraction] 97 % Valeriano Monroy MD Work Phone: [facility] 11-27-2023 14:27-0400 Systolic blood pressure 130 mm[Hg] Valeriano Monroy MD Work Phone: [facility] 10-23-2023 08:23-0400 Body height 180.3 cm Valeriano Monroy MD Work Phone: [facility] 10-23-2023 08:23-0400 Body mass index (BMI) [Ratio] 20.08 kg/m2 Valeriano Monroy MD Work Phone: [facility] 10-23-2023 08:23-0400 Body weight 65.32 kg Valeriano Monroy MD Work Phone: [facility] 10-23-2023 08:23-0400 Diastolic blood pressure 60 mm[Hg] Valeriano Monroy MD Work Phone: [facility] 10-23-2023 08:23-0400 Heart rate 67 /min Valeriano Monroy MD Work Phone: [facility] 10-23-2023 08:23-0400 SaO2% (BldA) [Mass fraction] 98 % Valeriano Monroy MD Work Phone: [facility] 10-23-2023 08:23-0400 Systolic blood pressure 120 mm[Hg] Valeriano Monroy MD Work Phone: [facility] 02-20-2023 14:31-0500 Body height 170.2 cm Valeriano Monroy MD Work Phone: [facility] 02-20-2023 14:31-0500 Body mass index (BMI) [Ratio] 23.49 kg/m2 Valeriano Monroy MD Work Phone: [facility] 02-20-2023 14:31-0500 Body temperature 97.3 [degF] Valeriano Monroy MD Work Phone: [facility] 02-20-2023 14:31-0500 Body weight 68.04 kg Valeriano Monroy MD Work Phone: [facility] 02-20-2023 14:31-0500 Diastolic blood pressure 68 mm[Hg] Valeriano Monroy MD Work Phone: [facility] 02-20-2023 14:31-0500 Heart rate 58 /min Valeriano Monroy MD Work Phone: [facility] 02-20-2023 14:31-0500 SaO2% (BldA) [Mass fraction] 98 % Valeriano Monroy MD Work Phone: [facility] 02-20-2023 14:31-0500 Systolic blood pressure 118 mm[Hg] Valeriano Monroy MD Work Phone: [facility] 02-21-2022 08:42-0500 Body temperature 97.1 [degF] Valeriano Monroy Work Phone: [facility] Work Phone: 02-21-2022 08:42-0500 Diastolic blood pressure 70 mm[Hg] Valeriano Monroy Work Phone: [facility] Work Phone: 02-21-2022 08:42-0500 Heart rate 69 /min Valeriano Monroy Work Phone: [facility] Work Phone: 02-21-2022 08:42-0500 SaO2% (BldA) [Mass fraction] 97 % Valeriano Monroy Work Phone: [facility] Work Phone: 02-21-2022 08:42-0500 Systolic blood pressure 120 mm[Hg] Valeriano Monroy Work Phone: [facility] Work Phone: 02-21-2022 08:31-0500 Body height 170.18 cm Valeriano Monroy Work Phone: [facility] Work Phone: 02-21-2022 08:31-0500 Body mass index (BMI) [Ratio] 22.08 kg/m2 Valeriano Monroy Work Phone: [facility] Work Phone: 02-21-2022 08:31-0500 Body surface area Derived from formula 1.74 m2 Valeriano Coeee Work Phone: [facility] Work Phone: 02-21-2022 08:31-0500 Body weight 63.96 kg Valeriano Coeee Work Phone: [facility] Work Phone: 09-13-2021 08:33-0400 Body height 170.18 cm Valeriano Coeee Work Phone: [facility] Work Phone: 09-13-2021 08:33-0400 Body mass index (BMI) [Ratio] 22.87 kg/m2 Valeriano Coeee Work Phone: [facility] Work Phone: 09-13-2021 08:33-0400 Body surface area Derived from formula 1.77 m2 Valeriano Coeee Work Phone: [facility] Work Phone: 09-13-2021 08:33-0400 Body weight 66.23 kg Valeriano Coeee Work Phone: [facility] Work Phone: 09-13-2021 08:33-0400 Diastolic blood pressure 84 mm[Hg] Valeriano Coeee Work Phone: [facility] Work Phone: 09-13-2021 08:33-0400 Heart rate 62 /min Valeriano Coeee Work Phone: [facility] Work Phone: 09-13-2021 08:33-0400 Systolic blood pressure 140 mm[Hg] Valeriano Coeee Work Phone: -[facility] Work Phone: 02-07-2021 14:22-0400 Body height 170.18 cm Valeriano Coeee Work Phone: -[facility] Work Phone: 02-07-2021 14:22-0400 Body mass index (BMI) [Ratio] 23.65 kg/m2 Valeriano Coeee Work Phone: [facility] Work Phone: 02-07-2021 14:22-0400 Body surface area Derived from formula 1.79 m2 Valeriano Coeee Work Phone: [facility]- Work Phone: 02-07-2021 14:22-0400 Body temperature 97.3 [degF] Valeriano Coeee Work Phone: [facility]- Work Phone: 02-07-2021 14:22-0400 Body weight 68.49 kg Valeriano Coeee Work Phone: -[facility]- Work Phone: 02-07-2021 14:22-0400 Diastolic blood pressure 70 mm[Hg] Valeriano Coeee Work Phone: [facility]- Work Phone: 02-07-2021 14:22-0400 Heart rate 60 /min Valeriano Coeee Work Phone: -[facility]- Work Phone: 02-07-2021 14:22-0400 Systolic blood pressure 120 mm[Hg] Valeriano Coeee Work Phone: [facility]- Work Phone: 09-08-2020 15:07-0400 Body height 170.18 cm Valeriano Coeee Work Phone: [facility]- Work Phone: 09-08-2020 15:07-0400 Body mass index (BMI) [Ratio] 23.65 kg/m2 Valeriano Coeee Work Phone: [facility]- Work Phone: 09-08-2020 15:07-0400 Body surface area Derived from formula 1.79 m2 Valeriano Monroy Work Phone: [facility]- Work Phone: 09-08-2020 15:07-0400 Body temperature 98.3 [degF] Valeriano Monroy Work Phone: [facility] Work Phone: 09-08-2020 15:07-0400 Body weight 68.49 kg Valeriano Coeee Work Phone: [facility] Work Phone: 09-08-2020 15:07-0400 Diastolic blood pressure 60 mm[Hg] Valeriano Monroy Work Phone: [facility] Work Phone: 09-08-2020 15:07-0400 Heart rate 64 /min Valeriano Coeee Work Phone: [facility] Work Phone: 09-08-2020 15:07-0400 Systolic blood pressure 116 mm[Hg] Valeriano Coeee Work Phone: [facility] Work Phone: 03-03-2020 16:06-0500 BMI (Body Mass Index) 24.12 kg/m2 Valeriano navarro [facility]- Work Phone: 03-03-2020 16:06-0500 Body Temperature 97.6 [degF] Valeriano Solo [facility] Work Phone: 03-03-2020 16:06-0500 Body weight 69.85 kg Valeriano Solo [facility] Work Phone: 03-03-2020 16:06-0500 BP Diastolic 62 mm[Hg] Valeriano Solo [facility] Work Phone: 03-03-2020 16:06-0500 BP Systolic 116 mm[Hg] Valeriano Solo [facility] Work Phone: 03-03-2020 16:06-0500 BSA (Body Surface Area) 1.81 m2 Valeriano Solo [facility] Work Phone: 03-03-2020 16:06-0500 Height 170.18 cm Valeriano Solo [facility] Work Phone: 03-03-2020 16:06-0500 Pulse (Heart Rate) 62 /min Valeriano Solo [facility] Work Phone: 12-22-2019 13:01-0400 BMI (Body Mass Index) 23.49 kg/m2 [facility] Work Phone: 12-22-2019 13:01-0400 Body Temperature 97.7 [degF] [facility] Work Phone: 12-22-2019 13:01-0400 Body weight 68.04 kg [facility] Work Phone: 12-22-2019 13:01-0400 BP Diastolic 67 mm[Hg] [facility]iano [facility]-Otolaryngolog y-A aury Work Phone: 12-22-2019 13:01-0400 BP Systolic 137 mm[Hg] [facility]-Otolaryngolog y-A aury Work Phone: 12-22-2019 13:01-0400 BSA (Body Surface Area) 1.79 m2 [facility] VM-Rxiktwhqbtykxe-X aury Work Phone: 12-22-2019 13:01-0400 Height 170.18 cm [facility]-Otolaryngolog y-A aury Work Phone: 11-24-2019 16:10-0400 BMI (Body Mass Index) 23.11 kg/m2 [facility] [employer] Work Phone: 11-24-2019 16:10-0400 Body Temperature 97.4 [degF] [facility] [employer] Work Phone: 11-24-2019 16:10-0400 Body weight 68.95 kg [facility] [employer] Work Phone: 11-24-2019 16:10-0400 BP Diastolic 62 mm[Hg] [facility] Work Phone: 11-24-2019 16:10-0400 BP Systolic 114 mm[Hg] [facility] [employer] Work Phone: 11-24-2019 16:10-0400 BSA (Body Surface Area) 1.82 m2 [facility] [employer] Work Phone: 11-24-2019 16:10-0400 Height 172.72 cm [facility] [employer] Work Phone: 11-24-2019 16:10-0400 Pulse (Heart Rate) 72 /min [facility] [employer] Work Phone: 09-22-2019 16:18-0400 BMI (Body Mass Index) 23.11 kg/m2 [facility] Eunice navarro Internal Medicine- Work Phone: 09-22-2019 16:18-0400 Body Temperature 98.2 [degF] Valeriano [facility] Work Phone: 09-22-2019 16:18-0400 Body weight 68.95 kg Valeriano [facility] Work Phone: 09-22-2019 16:18-0400 BP Diastolic 58 mm[Hg] Vlaeriano [facility] Work Phone: 09-22-2019 16:18-0400 BP Systolic 120 mm[Hg] Valeriano [facility] Work Phone: 09-22-2019 16:18-0400 BSA (Body Surface Area) 1.82 m2 Valeriano Solo [facility]- Work Phone: 09-22-2019 16:18-0400 Height 172.72 cm Valeriano Solo [facility]- Work Phone: 09-22-2019 16:18-0400 Pulse (Heart Rate) 72 /min Valeriano Solo [facility]- Work Phone: 09-03-2018 12:02-0400 BMI (Body Mass Index) 22.05 kg/m2 Valeriano navarro Internal Medicine- Work Phone: 09-03-2018 12:02-0400 Body Temperature 97.5 [degF] Valeriano Solo [facility]- Work Phone: 09-03-2018 12:02-0400 BP Diastolic 58 mm[Hg] Valeriano Solo [facility]- Work Phone: 09-03-2018 12:02-0400 BP Systolic 116 mm[Hg] Valeriano Solo [facility]- Work Phone: 09-03-2018 12:02-0400 BSA (Body Surface Area) 1.78 m2 Valeriano [facility] Work Phone: 09-03-2018 12:02-0400 Height 172.72 cm Valeriano [facility] Work Phone: 09-03-2018 12:02-0400 Pulse (Heart Rate) 72 /min Valeriano [facility] Work Phone: 09-03-2018 12:02-0400 Weight 65.77 kg Valeriano [facility] Work Phone: 08-20-2018 13:17-0400 BMI (Body Mass Index) 21.59 kg/m2 Valeriano navarro [facility] Work Phone: 08-20-2018 13:17-0400 Body Temperature 97.7 [degF] Valeriano Solo [facility]- Work Phone: 08-20-2018 13:17-0400 Body weight 64.41 kg Valeriano Solo [facility]- Work Phone: 08-20-2018 13:17-0400 BP Diastolic 54 mm[Hg] Valeriano [facility] Work Phone: 08-20-2018 13:17-0400 BP Systolic 112 mm[Hg] Valeriano [facility] Work Phone: 08-20-2018 13:17-0400 BSA (Body Surface Area) 1.77 m2 Valeriano [facility] Work Phone: 08-20-2018 13:17-0400 Height 172.72 cm Valeriano [facility] Work Phone: 08-20-2018 13:17-0400 Pulse (Heart Rate) 68 /min Valeriano [facility] Work Phone: 08-20-2018 13:17-0400 Weight 64.41 kg [facility]eriano Monroy [facility] Phone: Encounters Encounter Date Encounter Type Care Provider Facility Start: 09-23-2024 End: 09-23-2024 Emergency department patient visit Dr. Valeriano Monroy MD Work Phone: -Emergency Department Work Phone: Start: 08-06-2024 End: 08-06-2024 Office outpatient visit 25 minutes Valeriano Monroy MD Work Phone: [facility] Internal Medicine Comment on above: Anxiety (Primary Dx) ; SDAT (senile dementia of Alzheimer's type) (Multi) Start: 08-06-2024 End: 08-06-2024 ambulatory [facility] Start: 02-05-2024 End: 02-05-2024 Office outpatient visit 15 minutes Valeriano Monroy MD Work Phone: [facility] Internal Medicine Comment on above: SDAT (senile dementi a of Alzheimer's type) (Multi) (Primary Dx); Hyperlipidemia, unspecified hyperlipidemia type; Type 2 diabetes mellitus without complication, without long-term current use of insulin (Multi); ASHD (arteriosclerotic heart disease); Atypical depression; Pernicious anemia Start: 02-05-2024 End: 02-05-2024 ambulatory [facility] Start: 02-03-2024 End: 02-03-2024 ambulatory [facility] Start: 01-23-2024 ambulatory [facility] Start: 01-22-2024 ambulatory Mad[facility] Start: 01-22-2024 End: 01-22-2024 ambulatory [facility] Facility:[facility] Start: 01-17-2024 End: 01-17-2024 ambulatory [facility] Facility:[facility] Start: 01-14-2024 End: 01-14-2024 ambulatory [facility] Start: 12-11-2023 End: 12-11-2023 Office outpatient visit 25 minutes Valeriano Monroy MD Work Phone: [facility] Internal Medicine Comment on above: SDAT (senile dementi a of Alzheimer's type) (Multi) (Primary Dx); Pernicious anemia; Hyperlipidemia, unspecified hyperlipidemia type; Atypical depression; Type 2 diabetes mellitus without complication, without long-term current use of insulin (Multi) Start: 12-11-2023 End: 12-11-2023 ambulatory [facility] Start: 12-06-2023 End: 12-06-2023 ambulatory [facility] Start: 11-30-2023 End: 12-02-2023 ambulatory [facility] Facility:[facility] Start: 11-27-2023 End: 11-27-2023 Assay of hemosiderin, quant Valeriano Monroy MD Work Phone: [facility] Work Phone: Start: 11-27-2023 End: 11-27-2023 Office outpatient visit 25 minutes Valeriano Monroy MD Work Phone: [facility] Internal Medicine Comment on above: Routine general [facility] examination at health care facility (Primary Dx); Medicare annual wellness visit, subsequent; Atypical depression Start: 11-27-2023 End: 11-27-2023 Patient encounter procedure Valeriano Monroy MD Work Phone: [facility] Work Phone: Start: 11-27-2023 End: 11-27-2023 ambulatory [facility] Start: 11-27-2023 End: 11-27-2023 Encounter for general adult medical examination without abnormal findings [facility] Start: 10-23-2023 End: 10-23-2023 Office outpatient visit 15 minutes Valeriano Monroy MD Work Phone: [facility] Internal Medicine Comment on above: Rash (Primary Dx); SDAT (senile dementia of Alzheimer's type) (Multi); Other nonthrombocytopenic purpura ([facility]) Start: 10-23-2023 End: 10-23-2023 ambulatory [facility] Start: 2023 End: 2023 [facility] Start: 09-02-2023 End: 09-02-2023 ambulatory [facility] Start: 08-30-2023 End: 08-30-2023 ambulatory [facility] Start: 02-20-2023 End: 02-20-2023 Office outpatient visit 25 minutes Valeriano Monroy MD Work Phone: [facility] Internal Medicine Comment on above: Type 2 diabetes kianna itus without complication, without long- term current use of insulin ([facility]) (Primary Dx); SDAT (senile dementia of Alzheimer's type) ([facility]); ASHD (arteriosclerotic heart disease); Other nonthrombocytopenic purpura ([facility]); Neck pain; Hyperlipidemia, unspecified hyperlipidemia type; Essential hypertension; Atypical depression; Gastroesophageal reflux disease without esophagitis Start: 02-18-2023 End: 02-18-2023 ambulatory [facility] Start: 04-18-2022 AUDIT Valeriano Monroy Work Phone: [facility] Work Phone: Start: 03-12-2022 Rx Renewal Valeriano Monroy Work Phone: [facility] Work Phone: Start: 03-05-2022 AUDIT Valeriano Monroy Work Phone: [facility] Work Phone: Start: 02-21-2022 Office outpatient vi sit 25 minutes Valeriano Monroy Work Phone: [facility] Work Phone: Start: 02-21-2022 ambulatory VALERIANO MONROY Facility: [id number] Start: 02-16-2022 Chart Update Valeriano Monroy Work Phone: [facility] Work Phone: Start: 11-30-2021 AUDIT Valeriano Hdez [place] Work Phone: [facility] [facility] Work Phone: Start: 09-14-2021 Chart Update Valeriano Hdez [place] Work Phone: [facility] [facility] Work Phone: Start: 09-13-2021 Office outpatient vi sit 25 minutes Valeriano Hdez [place] Work Phone: [facility] [facility] Work Phone: Start: 09-13-2021 Patient encounter procedure Sc aleida Hdez [place] Work Phone: [facility] [facility] Work Phone: Start: 09-13-2021 ambulatory VALERIANO MONROY Facility: [id number] Start: 09-12-2021 Chart Update Valeriano Hdez [place] Work Phone: [facility] [facility] Work Phone: Start: 08-09-2021 AUDIT Valeriano W [place] Work Phone: [facility] [facility] Work Phone: Start: 06-20-2021 AUDIT Valeriano W [place] Work Phone: [facility] [facility] Work Phone: Start: 04-03-2021 AUDIT Valeriano W [place] Work Phone: [facility] [facility] Work Phone: Start: 02-26-2021 AUDIT Valeriano W [place] Work Phone: [facility] [facility] Work Phone: Start: 02-07-2021 Office outpatient vi sit 25 minutes Valeriano Hdez [place] Work Phone: [facility] [facility] Work Phone: Start: 02-01-2021 Chart Update Valeriano Monroy Work Phone: -[place] [facility]- Work Phone: Start: 09-08-2020 Office outpatient vi sit 25 minutes Valeriano Monroy Work Phone: [facility] [facility] Work Phone: Start: 09-08-2020 Patient encounter procedure Sc aleida Monroy Work Phone: [facility] [facility] Work Phone: Start: 03-21-2020 End: 03-21-2020 Patient encounter procedure Hearing Aid [facility] [place] Work Phone: [facility] Comment on above: Sensory hearing loss , bilateral (Primary Dx) Start: 03-03-2020 Patient encounter procedure Valeriano muir [facility] [facility] Work Phone: Start: 01-21-2020 Patient encounter procedure Valeriano muir [facility] [facility]- Work Phone: Start: 12-25-2019 End: 12-25-2019 Patient encounter procedure Hearing Aid [facility]ol [facility] [place] Work Phone: [facility] Comment on above: Sensory hearing loss , bilateral (Primary Dx) Start: 12-22-2019 Patient encounter procedure Valeriano muir [facility] Work Phone: Start: 11-24-2019 [facility] Start: 10-27-2019 Patient encounter procedure Valeriano [facility] Work Phone: Start: 09-22-2019 Patient encounter procedure Valeriano muir [facility] [facility]- Work Phone: Start: 02-23-2019 Patient encounter procedure Valeriano muir -[place] [facility]- Work Phone: Start: 11-14-2018 Patient encounter procedure Valeriano muir [facility] [facility] Work Phone: Start: 09-03-2018 Patient encounter procedure Valeriano muir [facility] [facility] Work Phone: Start: 08-20-2018 Patient encounter procedure Valeriano muir [facility] [facility] Work Phone: Start: 03-11-2018 Patient encounter procedure Valeriano muir [facility] [facility] Work Phone: Start: 02-27-2018 End: 02-27-2018 Patient encounter procedure VALERIANO MONROY Facility:[facility] Start: 02-24-2018 Patient encounter procedure JOSE A MAHER Facility:[facility] Start: 09-11-2017 Patient encounter procedure Valeriano muir [facility] [facility] Work Phone: Start: 08-12-2017 Patient encounter procedure Valeriano muir [facility] [facility] Work Phone: Start: 02-19-2017 Patient encounter procedure Valeriano muir [facility] [facility] Work Phone: Start: 10-24-2016 Patient encounter procedure Valeriano muir [facility] [facility] Work Phone: Start: 09-21-2016 Patient encounter procedure Valeriano muir [facility] [facility] Work Phone: Start: 08-22-2016 Patient encounter procedure Valeriano muir [facility] [facility] Work Phone: Patient encounter procedure Berhane Monroy Work Phone: [facility] [facility]- Work Phone: Procedures Date Procedure Procedure Detail Performing Clinician Start: 09-23-2024 Urnls dip stick/tabl et reagent auto microscopy Dr. Valeriano Monroy MD Work Phone: Start: 09-23-2024 Plain radiography of pelvis Dr. Valeriano Monroy MD Work Phone: Start: 12-11-2023 Follow-up visit Follow-up VALERIANO Ketty COEBETITO Start: 12-06-2023 Lipid 1996 panel - S cornelio or Plasma Valeriano Monroy MD Work Phone: Start: 08-30-2023 CBC W Auto Different ial panel - Blood VALERIANO ELIANA Start: 08-30-2023 Comprehensive metabo lic 2000 panel - Serum or Plasma VALERIANO SARAVANANBETITO Start: 08-30-2023 Hemoglobin A1c/Hemoglobin.total in Blood VALERIANO SARAVANANBETITO Start: 08-30-2023 Lipid panel VALERIANO JUAN E Start: 08-30-2023 TSH WITH REFLEX TO F REE T4 IF ABNORMAL [facility] Start: 08-30-2023 Cyanocobalamin vitam in b-12 VALERIANO [facility] Start: 08-30-2023 Lipid 1996 panel - S cornelio or Plasma Valeriano Monroy MD Work Phone: Start: 02-18-2023 Comprehensive metabo lic 1999 panel - Serum or Plasma VALERIANO SARAVANANBETITO Start: 02-18-2023 Hemoglobin A1c/Hemoglobin.total in Blood VALERIANO ELIANA Start: 02-18-2023 Lipid panel VALERIANO MARTINEZ E Start: 02-18-2023 TSH WITH REFLEX TO F REE T4 IF ABNORMAL VALERIANO SARAVANAN Start: 02-18-2023 Lipid 1996 panel - S cornelio or Plasma Valeriano Monroy MD Work Phone: Start: 03-03-2020 Comprehensive metabo lic 1999 panel Valeriano Eliana Start: 03-03-2020 Hemoglobin glycosyla may a1c Valeriano [facility] Start: 03-03-2020 Lipid panel Valeriano Martinez e Start: 11-24-2019 Comprehensive metabo lic 2000 panel Valeriano Coe Start: 11-24-2019 Hemoglobin glycosyla may a1c Valeriano [facility] Start: 11-24-2019 Lipid panel Valeriano Martinez e Start: 09-22-2019 Comprehensive metabo lic 2000 panel Valeriano Saravanan Start: 09-22-2019 Hemoglobin glycosyla may a1c Valeriano [facility] Start: 09-22-2019 Lipid panel Valeriano Coee e Start: 08-20-2018 Blood count complete auto&auto difrntl wbc Valeriano [facility] Start: 08-20-2018 CT Head without Contrast Valeriano [facility] Start: 08-20-2018 Cyanocobalamin vitam in b-12 Valeriano Monroy Start: 12-18-2017 History of placement of stent for coronary artery disease History of coronary artery stent placement Dr. Valeriano Monroy MD Work Phone: Comment on above: [id number] RCA w/ 3.0 x 16 mm Promus Stent 09/02/2017; PCI- LOUISE of proximal LCX with 3.0 X12 Promus Synergy 12/18/2017 Screening colonoscopy Valeriano Monroy Tonsillectomy Valeriano Monroy Plan of Treatment Date Care Activity Detail Author Start: 03-17-2031 DTaP/Tdap/Td Vaccine s (3 - Td or Tdap) DTaP/Tdap/Td Vaccines (3 - Td or Tdap) [facility] Start: 12-05-2024 Lipid panel Lipid Panel [facility] Start: 09-23-2024 [facility] Start: 09-22-2024 End: 09-22-2024 Patient encounter procedure 09/22/2024 1:00 PM EDT Office Visit [facility] [address] [facility] [address] [place] [phone] Valeriano Monroy MD [address] [facility] [place] [address] [facility] Start: 09-17-2024 End: 09-17-2024 Patient encounter procedure 09/17/2024 11:30 AM EDT Office Visit [facility] [address] [facility] [address] [place] [phone] Valeriano Monroy MD [address] [facility] [place] [address] [facility] Start: 08-29-2024 Lipid panel Lipid Panel [facility] Start: 07-29-2024 COVID-19 Vaccine ( season) COVID-19 Vaccine ( season) [facility] Start: 03-07-2024 Hemoglobin A1c measurement Diabetes: Hemoglobin A1C [facility] Start: 02-19-2024 Lipid panel Lipid Panel [facility] Start: 02-05-2024 End: 02-05-2024 Patient encounter procedure 02/05/2024 10:30 AM EDT Office Visit [facility] [address] [facility] [address] [place] [phone] [place] [address] [place] [address], [address] [place] [address] [facility] Start: 12-15-2023 Influenza vaccination Influenza Vacc ine (#1) [facility] Start: 12-11-2023 End: 12-11-2023 Patient encounter procedure 12/11/2023 3:00 PM EDT Office Visit [facility] [address] [facility] [address] [place] [phone] Valeriano Monroy MD [address] [facility] [place] [address] [facility] Internal [facility] Start: 11-30-2023 Hemoglobin A1c measurement Diabetes: Hemoglobin A1C [facility] Start: 10-26-2023 Medicare Annual Wellness Visit Medicare Annual Wellness Visit (AWV) [facility] Start: 09-02-2023 End: 09-02-2023 Patient encounter procedure 09/02/2023 2:00 PM EDT Office Visit [facility] [address] [place] [phone] Valeriano Monroy MD [address] [facility] [place] [address] [facility] Start: 07-03-2023 COVID-19 Vaccine ( season) COVID-19 Vaccine () [facility] Start: 05-21-2023 Hemoglobin A1c measurement Diabetes: Hemoglobin A1C [facility] Start: 12-14-2022 Influenza vaccination Influenza Vacc ine (#1) [facility] Start: 09-14-2022 Medicare Annual Wellness Visit Medicare Annual Wellness Visit (AWV) [facility] Start: 04-06-2022 COVID-19 Vaccine (4 - Moderna series) COVID-19 Vaccine (4 - Moderna series) [facility] Start: 02-21-2022 FUV, Provider: Valeriano Monroy, Status: Pen, Time: 9:00 AM FUV, Provider: Valeriano Monroy, Status: Pen, Time: 9:00 AM [facility] Work Phone: Start: 01-31-2022 Urine screening for protein Diabetes: Urine Protein Screening [facility] Start: 08-28-2021 FUV, Provider: Valeriano Monroy, Status: Pen, Time: 11:30 AM FUV, Provider: Valeriano Monroy, Status: Pen, Time: 11:30 AM [facility] Work Phone: Start: 08-28-2021 FUV, Provider: Valeriano Monroy, Status: Pen, Time: 11:15 AM FUV, Provider: Valeriano Monroy, Status: Pen, Time: 11:15 AM [facility] Work Phone: Start: 02-07-2021 FUV, Provider: Valeriano Monroy, Status: Pen, Time: 2:15 PM FUV, Provider: Valeriano Monroy, Status: Pen, Time: 2:15 PM [facility] Work Phone: Start: 08-31-2020 HbA1c (Bld) [Mass fraction] HBA1C [facility] Start: 08-22-2020 Comprehensive metabo lic 2000 panel Comprehensive Metabolic Panel [facility] Work Phone: Start: 08-22-2020 HbA1c (Bld) [Mass fraction] Hemoglobin A1C [facility] Internal [facility]- Work Phone: Start: 08-22-2020 Lipid panel Lipid Panel [facility]- Work Phone: Start: 05-26-2020 HbA1c (Bld) [Mass fraction] HBA1C [facility] Start: 02-14-2020 Comprehensive metabo lic 2000 panel Comprehensive Metabolic Panel [facility]- Work Phone: Start: 02-14-2020 HbA1c (Bld) [Mass fraction] Hemoglobin A1C [facility]- Work Phone: Start: 02-14-2020 Lipid panel Lipid Panel [facility]- Work Phone: Start: 01-14-2020 Comprehensive metabo lic 2000 panel Comprehensive Metabolic Panel [facility] Work Phone: Start: 01-14-2020 HbA1c (Bld) [Mass fraction] Hemoglobin A1C [facility] Work Phone: Start: 01-14-2020 Lipid panel [facility] Work Phone: Start: 12-15-2019 Influenza vaccination INFLUENZA (#1) [facility] Start: 08-22-2018 CT Head withou t Contrast [facility] Work Phone: Start: 03-10-2016 Pneumococcal vaccination Pneumococcal Vaccine (2 of 2 - PPSV23) [facility] Start: 03-10-2016 Pneumococcal Vaccine : 65+ Years (2 - PPSV23 or PCV20) Pneumococcal Vaccine: 65+ Years (2 - PPSV23 or PCV20) [facility] Start: 03-10-2016 Pneumococcal Vaccine : 65+ Years (2 of 2 - PPSV23 or PCV20) Pneumococcal Vaccine: 65+ Years (2 of 2 - PPSV23 or PCV20) [facility] Start: 2009 RSV High Risk: (Elde rly (60+) or Population) (1 - 1-dose 75+ series) RSV High Risk: (Elderly (60+) or Population) (1 - 1-dose 75+ series) [facility] Start: 10-04-1999 ADVANCE DIRECTIVE DISCUSSION ADVANCE DIRECTIVE DISCUSSION [facility] Start: 10-04-1999 PNEUMOVAX AGE 65 AND OVER WITH 5YR LOOKBACK (#1) PNEUMOVAX AGE 65 AND OVER WITH 5YR LOOKBACK (#1) [facility] Start: 1994 RSV patient s and/or patients aged 60+ years (1 - 1-dose 60+ series) RSV patients and/or patients aged 60+ years (1 - 1-dose 60+ series) [facility] Start: 1984 SHINGRIX VACCINE (1 of 2) SHINGRIX VACCINE (1 of 2) [facility] Start: 1984 Zoster Vaccines (1 o f 2) Zoster Vaccines (1 of 2) [facility] Start: 1953 Urine microalbumin profile DTAP,TDAP,TD (1 - Tdap) [facility] Start: 1952 Hepatitis B surface antibody level LDL CHOLESTEROL [facility] Start: 1944 [object Object] [facility] Start: 1944 Diabetic foot examination Diabetes: Foot Exam [facility] Start: 1944 Glaucoma screening Diabetes: R etinopathy Screening [facility] Start: 1944 Hepatitis B screening URINE ALBUMIN:CREATININE RATIO [facility] Start: 1945 Hepatitis C antibody , confirmatory test DILATED RETINAL EXAM [facility] Start: 1935 Yearly Adult Physical Yearly Adult P hysical [facility] Patient Education ED Coccyx or S acrum Contusion [facility] Work Phone: Patient referral [facility] Work Phone: [facility] Work Phone: NEGATED: Highlighted row has been ruled out! Planned Goals not documented [facility]- Work Phone: Immunizations Immunization Date Immunization Notes Care Provider Gregoria [facility] 03-04-2023 influenza virus vaccine, unspecified formulation Valeriano Monroy MD Work Phone: [facility] Work Phone: 02-09-2022 Fluzone High-Dose Quadrivalent 0.7 ML Intramuscular Suspension Prefilled Syringe Valeriano Monroy Work Phone: [facility] Work Phone: 02-09-2022 Moderna COVID-19 Biv al Booster 50 MCG/0.5ML Intramuscular Suspension Valeriano Hdez Saravananbetito Work Phone: [facility] Work Phone: 02-09-2022 influenza virus vaccine, unspecified formulation Valeriano Monroy MD Work Phone: [facility] Work Phone: 02-22-2021 Fluzone High-Dose Quadrivalent 0.7 ML Intramuscular Suspension Prefilled Syringe Valeriano Monroy Work Phone: [facility] Work Phone: 02-06-2021 Moderna COVID-19 Vaccine 100 MCG/0.5ML Intramuscular Suspension Valeriano Hdez Saravananbetito Work Phone: [facility] Work Phone: 06-09-2020 Moderna COVID-19 Vaccine 100 MCG/0.5ML Intramuscular Suspension Valeriano Hdez Saravananbetito Work Phone: [facility] Work Phone: 05-12-2020 Moderna COVID-19 Vaccine 100 MCG/0.5ML Intramuscular Suspension Valeriano Hdez Saravananbetito Work Phone: [facility] Work Phone: 01-20-2020 Fluad Quadrivalent 0 .5 ML Intramuscular Prefilled Syringe Valeriano Monroy Work Phone: [facility] Work Phone: 01-20-2020 influenza, seasonal, injectable Valeriano Monroy [facility]- Work Phone: 01-20-2020 influenza, seasonal, injectable Valeriano Monroy -[place] [facility] Work Phone: 02-13-[address] Valeriano Monroy MD Work Phone: [facility] 01-05-2019 tetanus toxoid, redu jose diphtheria toxoid, and acellular pertussis vaccine, adsorbed Valeriano Ketty Eliana Work Phone: -[place] [facility]- Work Phone: 03-04-2018 influenza virus vaccine, unspecified formulation Valeriano Ketty Eliana Work Phone: [facility] Work Phone: Comment on above: Series: 03-04-2018 influenza, seasonal, injectable Valeriano Monroy [facility] Work Phone: 02-17-2018 AFLURIA QUAD 19, PF, 60 mcg/0.5 mL syrg [facility] Comment on above: To be injected by Ivania hogue 01-14-2016 pneumococcal conjuga te vaccine, 13 valent Valeriano Monroy [facility] Work Phone: Comment on above: Series: 03-09-2013 influenza, seasonal, injectable Valeriano Monroy [facility] Work Phone: Comment on above: Series: 03-10-2012 influenza, seasonal, injectable Valeriano Monroy [facility] Work Phone: Comment on above: Series: Payers Date Payer Category Payer Self-pay 2011 [employer] [facility] Care [facility] [id number] 2011 Unknown 1999 Medicare MEDICARE MEDICAR E A AND B [id number] 1999-Present [place] Medicare [id number] 1999 Medicare [id number] 1999 Unknown [employer] BLUE CARD PPO [id number] 1999-Present PPO [id number] 1999 Medicare [id number] 1999 Unknown [id number] 1934 Unknown [id number] [id number] 9.2.278 1934 Unknown [id number] 2.16.840.1.561793.3.57 9.2.278 1934 Unknown [id number] 2.16.840.1.480760.3.57 9.2.278 1934 Unknown [id number] 2.16.840.1.400028.3.57 9.2.356 1934 Unknown [id number] 2.16.840.1.454430.3.57 9.2.356 1934 Unknown [id number] 2.16.840.1.087215.3.57 9.2.1245 1934 Unknown [id number] 2.16.840.1.491109.3.57 9.2.1245 1934 Unknown [id number] 2.16840.1.757259.3.57 9.2.124 1934 Unknown [id number] 2.16840.1.015381.3.57 9.2.124 1934 Unknown [id number] 2.16840.1.001346.3.57 9.2.1244 1934 Unknown [id number] 2.840.1.282582.3.57 9.2.1244 1934 Unknown [id number] 2.840.1.169749.3.57 9.2.124 1934 Unknown [id number] 2.840.1.879652.3.57 9.2.1244 1934 Unknown [id number] 2.840.1.921279.3.57 9.2.124 1934 Unknown [id number] 2.840.1.510871.3.57 9.2.1244 Medicare [id number] Unknown [id number] 2.16840.1.159476.3.57 9.2.462 Unknown [id number] 2.840.1.418077.3.57 9.2.462 Unknown [id number] 2.840.1.285907.3.57 9.2.462 Unknown [id number] 2.840.1.612513.3.57 9.2.462 Unknown [id number] 2.840.1.219100.3.57 9.2.462 Unknown [id number] 9.2.462 Social History Date Type Detail Facility Start: 02-27-2018 End: 09-23-2024 Tobacco smoking status NHIS Former smoker [facility] History of tobacco use Cigarette Smoker [facility] Start: 02-27-2018 End: 08-27-2022 Tobacco use and exposure Never used [facility] Start: 02-27-2018 Alcohol intake Current non-dr optimization consultant of alcohol (finding) [facility] Start: 01-27-2018 Tobacco Comment 1966 [facility] Start: 1935 Sex Assigned At Not on file [facility] Start: 02-10-2023 End: 08-06-2024 Exposure to SARS-CoV-2 (event) Not sure [facility] Start: 02-20-2023 End: 08-06-2024 Alcohol use Alcohol use [facility] Work Phone: History of tobacco use Current smoker [facility] Work Phone: Start: 02-20-2023 End: 08-06-2024 Alcohol intake Current drinker of alcohol (finding) [facility] Work Phone: Start: 02-20-2023 End: 08-06-2024 Tobacco use panel [facility] Work Phone: Start: 10-16-2019 Alcohol Alcohol [facility] Start: 10-16-2019 Lives Lives [facility] Start: 09-03-2017 Tobacco Use Tobacco Use [facility] Start: 1935 Sex Assigned At Male [facility] NEGATED: Highlighted row - Former smoker [facility] Work Phone: Medical Equipment Procedure Code Equipment Code Equipment Origin al Text Equipment Identifier Dates Accu-Chek Suly Plus In Vitro Strip Refills: 0 Active Accu-Chek Suly Plus In Vitro Strip Refills: 0 DO Active Accu-Chek Suly Plus In Vitro Strip Refills: 0 Active Accu-Chek Suly Plus In Vitro Strip Refills: 0 DO Active Accu-Chek Suly Plus In Vitro Strip Refills: 0 Active Accu-Chek Suly Plus In Vitro Strip Refills: 0 Active Accu-Chek Suly Plus In Vitro Strip Refills: 0 Active Accu-Chek Suly Plus In Vitro Strip Refills: 0 Active Accu-Chek Suly Plus In Vitro Strip Refills: 0 Active Accu-Chek Suly Plus In Vitro Strip Refills: 0 Active Accu-Chek Suly Plus In Vitro Strip Refills: 0 DO Active Accu-Chek Suly Plus In Vitro Strip Refills: 0 Active [id number] Inject 1 each in to the muscle every 14 (fourteen) days. [id number] Start: 04-22-2023 Functional Status Date Assessment Result Facility 08-06-2024 Patient Health Questionnaire 2 item (PHQ-2) [Reported] [facility] Work Phone: NEGATED: Highlighted row Functional performance Functional status health issues are not documented Disease [facility] Work Phone: Mental Status Date Assessment Result Facility NEGATED: Highlighted row Cognitive function [Interpretation] Cognitive status health issues are not documented Disease [facility] Work Phone: Clinical Notes 03-21-2020 to 09-23-2024 Note Date & Type Note Facility 09-23-2024 Discharge summary [facility] 09-23-2024 Radiology Diagnostic study note [facility] Imaging Services [address] [place] [address] [id number] Pelvis 1 or 2 Views MR#: [id number] Acct: [id number] Name: GEORGI LANIER Jr. Rep #: [id number] : 1935 M 88 From: Teo Reed MD PCP: Dr. Valeriano Monroy MD Status: REG ER Study:Pelvis 1 or 2 Views Date of Exam: 09/23/24 Exam# [id number] Ordering Dr: Ramonita Hanna MD PROCEDURE: PELVIS 1 OR 2 VIEWS 09/23/2024 REASON FOR EXAM: INJURY/PAIN TECHNIQUE: 1 view(s) of the pelvis. COMPARISON: 09/29/2021. FINDINGS: No evidence of acute fracture or dislocation. Azra-gk-ktzmnjfj degenerative changes of the bilateral hips. Degenerative changes of the partially visualized spine. Heavy atherosclerosis. RAD/Pelvis 1 or 2 Views IMPRESSION: No acute osseous abnormalities. Bilateral hip osteoarthrosis. Reading Location: [id number] CC: Dr. Valeriano Monroy MD; Dr. Grey Hanna MD ~ Internet Marketing Intern: Signed [facility] 09-23-2024 Discharge summary Note Date/Time September 23, 2024 8:36pm [facility] Medical Records Department [address] [place] [address] Emergency Department Summary 09/23/24 MR#: [id number] Acct: [id number] Name: GEORGI LANIER Jr. Rep #:[id number] : 1935 88 From: Grey Hanna MD PCP: Dr. Valeriano Monroy MD Status:REG ER Location: ED ADDENDUM by Dr. Grey Hanna MD on 09/23/24 at 2035 There is no evidence infection on the micro. Patient was discharged to home. 09/23/242035<Electronically signed by Grey Hanna MD> Cosigner Signature (if applicable): cc: Dr. Valeriano Monroy MD ~* Signed ADDENDUM by Dr. Grey Hanna MD on 09/23/24 at 190 Family was made aware of x-rays. There is a new family in the room. She stateshe has been agitated the past couple of days. Apparently he becomes agitated when he has a UTI. Will obtain a urine. 09/23/241900<Electronically signed by Grey Hanna MD> Cosigner Signature (if applicable): cc: Dr. Valeriano Monroy MD ~* Signed HPI History of Present Illness Chief Complaint: Back Detail of Chief Complaint: Patient had frequent falls. Complaining of tailbone pain. Informant: family (Patient lives with his . He has had frequent falls. He has dementia. Son brought him to the emergency room because he is complaining of tailbone pain for the last 2 days. He fell 3 days ago.) Onset/Context/Timing Onset: Days Mechanism/Context: Fall Location of pain/injuries: - (Tailbone) Quality of Pain: Dull Location: Pelvis Current Severity: Mild Maximum Severity: Moderate Worsened by: Palpation and movement Relieved by: Nothing Associated Symptoms Associated Symptoms: Negative for Parasthesias, Weakness, Loss of function or Inability to ambulate Narrative Narrative: Patient is an 88-year-old male. Lives with his spouse. [place] from his residence. He fell 3 days ago. He is coming complaining of tailbone pain. He has a skin tear superior to the right elbow. He has no pain or complaint of pain of right shoulder, elbow or wrist. Complains of pain in his buttocks area. There is no known history of head trauma. No loss of conscious. He has not complained of headache. He denies visual changes. He denies neck pain. No shortness of breath. Nuys chest pain. Denies abdominal pain. Prior similar symptoms: Yes Recent Illness/Hospitalization: No PFSH PFS Medical History Hx of fall Bowel obstruction Coronary artery disease Dyslipidemia Diverticulitis Pure hypercholesterolemia Essential hypertension Type 2 diabetes mellitus Bradycardia Volume depletion Dehydration Acute renal failure Vertigo Ataxia Near syncope Diabetes History of coronary artery stent placement (12/18/17) Atherosclerosis of coronary artery of [place] heart without angina pectoris (09/02/17) Unstable angina Home Medications ?Medication ?Instructions ?Recorded ?Last Taken ?Type aspirin 81 mg tablet,delayed 81 mg PO DAILY Heart 08/1310/15/19 History release clopidogrel 75 mg tablet 75 mg PO DAILY 02/15/20 Unkn own History cyanocobalamin (vitamin B-12) 1,000 mcg IM Q2W 2 Unknown History 1,000 mcg/mL injection solution metformin 500 mg tablet 500 mg PO BIDCM Blood Sugar 09/19/21 Unknown History lisinopril 2.5 mg tablet 2.5 mg PO DAILY 02/21/22 Unk nown History rivastigmine 4.6 mg/24 hour 1 patch topical QDAY 10/02 Unknown History transdermal patch atorvastatin 20 mg tablet 20 mg PO QDAY #90 tabs 01/13 Unknown Rx fluoxetine 20 mg capsule mg PO QDAY 01/14/24 Unknown History metoprolol succinate 25 mg 25 mg PO QDAY 01/14/24 Unkn own History tablet,extended release 24 hr polyethylene glycol 3350 17 g PO QDAY 01/14/24 Unknown History gram/dose oral powder Allergy/AdvReac Type Severity Reaction Status Date / Time Penicillins Allergy Unknown Verified 09/23/24 14:42 Surgical History Presence of coronary angioplasty implant and graft (~12/18/17) Social History Smoking Status: Former smoker how long ago did patient quit smokin years alcohol intake: never caffeine: Yes Type: coffee Number of servings: 3 ROS ROS ED Review of Systems ROS Unobtainable: due to mental status EXAM Physical Exam Const Vital Signs: 09/23/24 14:39 09/23/24 18:42 Temperature 97.8 F Temperature Source Temporal Pulse Rate 80 80 Respiratory Rate 16 18 Blood Pressure 134/65 H Blood Pressure Mean 88 Pulse Ox 98 96 Oxygen Delivery Method Room Air Room Air Positive well nourished and well developed General Appearance ED: well developed and NAD HEENT Reports TM's clear atraumatic; Negative for tenderness Nose: Negative for septum abnormal Tympanic Membrane ED: Yes TM's clear Eyes PERRL and EOMs intact bilaterally General Eye ED: Yes other Other Details: No subconjunctival hemorrhage. No scleral icterus. Neck full ROM General: Negative for tenderness Chest Wall inspection of chest normal and palpation of chest normal Resp normal respiratory effort and clear to auscultation bilaterally Cardio regular rhythm, S1 normal heart sound, S2 normal heart sound and no murmurs Rate: regular rate GI normal to inspection, nondistended, normoactive bowel sounds, non-tender, non-distended and no masses Back/Spine normal to inspection and no thoracic nor lumbar tenderness Back/Spine Narrative: There is pain ovation over the left ischial tuberosity. Questionable tendernessover the right ischial tuberosity. There is no pain ovation of the sacrum or the right or left iliac wing. There is no pain ovation of the pubic symphysis. Nick Merrick 4 test on the right and left causes no discomfort in the hip or sacral area. There is no evidence of trauma to the knees or ankle. He has no pain ovation of his right or left knee or his right or left ankle. Extremity normal to inspection and full ROM General Extremety ED: Negative for deformity, edema or tenderness General Extremity: Negative for deformity or edema Neuro No oriented x3, CN's II-XII intact bilaterally and moves all extremities Neuro Narrative: Patient is awake but not alert. He has dementia. Plantar Reflex: Downgoing: bilateral Psych Mood & Affect: depressed Skin no rashes or lesions noted, No no wounds and No skin turgor normal Skin Narrative: Skin tear noted distal lateral right arm. There is no pain ovation of the lateral medial epicondyle. No pain the patient would like compresses or radial head. He has full active range of motion of the right shoulder and right elbow. MDM MDM MDM Narrative Medical decision making narrative: This patient has pain to the patient predominately over the left ischial tuberosity pelvic x-ray was obtained to evaluate for fracture versus contusion. In my opinion imaging of the right upper extremity is not indicated. There is no history of head trauma no evidence of head trauma imaging of the head was notobtained. Radiography Chest X-Ray - ED: 1 View and Read by ED Physician (Independent review interpreted by me at 1854. There is evidence of atherosclerosis of the right and left femoral artery. There is arthritic changes of the both right and left hip joint. There is no evidence of fracture of the pelvis.) Discharge Plan Triage Chief Complaint: Back ED Provider: Grey Hanna Dx/Rx/DC Orders Clinical Impression: Contusion of lower back and pelvis, initial encounter, Type 2 diabetes mellitus, Essential hypertension, Injury due to fall, Dementia, ISTAP type 1 skin tear of right upper arm Instructions: ED Coccyx or Sacrum Contusion Prescriptions: No Action clopidogrel 75 mg tablet 75 mg PO DAILY Rx Instructions: blood thinner metformin 500 mg tablet 500 mg PO BIDCM Patient Comments: cyanocobalamin (vitamin B-12) 1,000 mcg/mL solution 1,000 mcg IM Q2W Patient Comments: INJECT 1ML INTRAMUSCULARLY TWICE MONTHLY lisinopril 2.5 mg tablet 2.5 mg PO DAILY rivastigmine 4.6 mg/24 hour patch 24 hour 1 patch topical QDAY polyethylene glycol 3350 17 gram/dose powder PO QDAY fluoxetine 20 mg capsule PO QDAY metoprolol succinate 25 mg tablet extended release 24 hr 25 mg PO QDAY atorvastatin 20 mg tablet 20 mg PO QDAY Qty: 90 3RF aspirin 81 MG tablet,delayed release (DR/EC) 81 mg PO DAILY Primary Care Provider: Valeriano Monroy Referrals: Valeriano Monroy MD [Primary Care Provider] - 1 Week if not improving Activity Restrictions/Additional Instructions: 1. Apply ice to areas of discomfort 6 times a day. 2. Significant milligrams of Tylenol every 6-8 hours for pain Print Language: Yakut Disposition Disposition: Home, Self Care What to do if you have Problems For any increased pain, shortness of breath, bleeding, nausea or vomiting, chestpain, or any unexpected problems, contact your Primary Care Provider. Call [facility] ([phone]) or report to the closest Emergency Room. Call 911 if necessary. 09/23/241856 <Electronically signed by Grey Hanna MD> Cosigner Signature (if applicable): CC: Dr. Valeriano Monroy MD ~ Signed [facility] Work Phone: 1(498) 674-487306-11-2025 Hospital Discharge instructions Additional Instructions 1. Apply ice to areas of discomfort 6 times a day. 2. Significant milligrams of Tylenol every 6-8 hours for [facility] Work Phone: 1(795) 984-395504-24-2025 History of Present illness Narrative* Valeriano Monroy MD - 08/06/2024 4:00 PM EDT Subjective Patient ID: Georgi Lanier is a 88 y.o. male who presents for Medicare Annual Wellness Visit Subsequent. HPI progressive sdat. Much less functional. Some depression, anxiety and paranoia. Presents w/ wifeand other family members. Family wondering about hospice. Review of Systems As above. Pt not communicating today. Hx from family Objective BP 122/70 (BP Location: Right arm, Patient Position: Sitting) Pulse 61 Ht 1.803 m (5' 11) Wt57.2 kg (126 lb) SpO2 95% BMI 17.57 kg/m Physical Exam GEN nad, Affect flat Heent ncat, eomfg, face symmetric Skin good color Resp breathing easily No p/m retardation or agitation Thinking appropriate Oriented Assessment/Plan Diagnoses and all orders for this visit: Anxiety - LORazepam (Ativan) 0.5 mg tablet; Take 1 tablet (0.5 mg) by mouth 3 times a day as needed for anxiety. SDAT (senile dementia of Alzheimer's type) (Multi) Discussed dx and natural progression Discussed hospice in great detail and other options Small amount of ativan for extreme anxiety/paranoia behavioral issues Family will discuss w/ pt and consider and let me know what they wish to do [facility] Work Phone: 1(283) 405-343810-23-2024 History of Present illness Narrative* Valeriano Monroy MD - 02/05/2024 10:30 AM EDT Subjective Patient ID: Georgi Lanier is a 88 y.o. male who presents for Follow-up. HPI fu sdat, anxiety, paranoia, dm, htn, hyperlipidemia, ashd Doing better. Less paranoid and anxious. Seems undepressed No other problems Review of Systems As above Objective BP 130/76 Pulse 76 Ht 1.803 m (5' 11) Wt 63 kg (139 lb) SpO2 98% BMI 19.39 kg/m Physical Exam Gen nad, affect wnl Heentt eomfg, face symmetric, ncat Neck w/o la, tm, bruit Lungs clear Cv rrr nl s1, s2 Ext w/o edema Neuro grossly nonfocal Skin good color Labs reviewed Assessment/Plan Diagnoses and all orders for this visit: SDAT (senile dementia of Alzheimer's type) (Multi) Hyperlipidemia, unspecified hyperlipidemia type Type 2 diabetes mellitus without complication, without long-term current use of insulin (Multi) ASHD (arteriosclerotic heart disease) Atypical depression Pernicious anemia [facility] Work Phone: 1(361) 459-998008-28-2024 History of Present illness Narrative* Valeriano Monroy MD - 12/11/2023 3:00 PM EDT Subjective Patient ID: Georgi Lanier is a 88 y.o. male who presents for Follow-up. HPI in er w/ constipation. Better Dep/anx/paranoia better w/ fluoxetine Fu dm, sday, ashd, htn, hyperlipidemia Review of Systems Feels pretty well Objective BP 120/60 Pulse 69 Ht 1.803 m (5' 11) Wt 63 kg (139 lb) SpO2 97% BMI 19.39 kg/m Physical Exam Gen nad, affect wnl Heentt eomfg, face symmetric, ncat Neck w/o la, tm, bruit Lungs clear Cv rrr nl s1, s2 Ext w/o edema Neuro grossly nonfocal Skin good color Labs, er records reviewed Assessment/Plan Diagnoses and all orders for this visit: SDAT (senile dementia of Alzheimer's type) (Multi) Pernicious anemia Hyperlipidemia, unspecified hyperlipidemia type Atypical depression Type 2 diabetes mellitus without complication, without long-term current use of insulin (Multi) documented in this [facility] Work Phone: 1(907) 918-829708-19-2024 NoteHNO ID: [id number] Author: ANDREW BARRETT RN Service: Care Management Author Type: Registered Nurse Type: Care Mgt Progress Note Filed: 12/02/2023 15:50 Note Text: CARE MANAGEMENT DISCHARGE NOTE SERVICE DATE: December 02, 2023 SERVICE TIME: 3:49 PM Admission Date: 11/30/2023 LOS: 0 days Discharge Arrangement Discharge Arrangement: Home with Home Health Services Arranged Medical Services: Skilled Home Health Care Type: Home Health Agency, Senior Living, Physical Therapy, Occupational Therapy Provider Name: DR Valeriano Monroy Caregiver Assessment Caregiver is ready, willing and able to meet the patient's needs as recommended by the inter-professional team: Yes Name of Caregiver: spouse/ home care Transportation Arrangements Transportation Arrangements: Car Destination: home Handoff Communication: Handoff to: Primary Care Physician Primary Care Physician Name/Phone: Dr Monroy Additional Information: Discharge Information Row Name ED to Hosp-Admission (Current) from 11/30/2023 in [facility] [place] Start of Care -- SOC within 24- 48hrs of DC Patient and spouse aware of DC orders placed for today Patient will dc home with home care to follow. [facility] referral updated Family to transport SIGNATURE: Andrew Barrett RN PATIENT NAME: Georgi Lanier DATE: December 02, 2023 TIME: 3:49 PM CONTACT #: [id number] [place], [place] 1532308-19-2024 NoteHNO ID: [id number] Author: ANDREW BARRETT RN Service: Care Management Author Type: Registered Nurse Type: Care Mgt Progress Note Filed: 12/02/2023 11:13 Note Text: CARE MANAGEMENT PROGRESS NOTE SERVICE DATE: 12/02/2023 SERVICE TIME: 11:12 AM LOS: 0 days [place] of Choice Given: Yes Level of Care Discussed: Home Care Provider List: Home Care Provider list within the patient's requested geographic area shared with the patient/family: Yes within: 10 miles of zip code: [address] Quality and resource use metrics shared with the patient that are relevant to the patient's goals of care and treatment preferences:: Yes Metrics: Functional Status CM met with patient and spouse at bedside. Per MD plan to DC today with home care Patient and spouse agreeable with home on DC [facility] in [facility] Spouse to transport home SIGNATURE: Andrew Barrett RN PATIENT NAME: Georgi [place] DATE: December 02, 2023 TIME: 11:12 AM PAGER/CONTACT #: [phone] [place], [place] [id number] NoteHNO ID: [id number] Author: FELIPE ASHFORD LSW Service: Care Management Author Type: Cnc Machine Programmer Type: Care Mgt Initial Assessment Filed: 12/01/2023 14:07 Note Text: CARE MANAGEMENT: ASSESSMENT AND DISCHARGE PLAN SERVICE DATE: December 01, 2023 SERVICE TIME: 2:04 PM PCP: Valeriano Monroy MD Primary Contact: Extended Emergency Contact Information Primary Emergency Contact: Sandra Lanier Address: [address] [place] [address] Mobile Relation: Spouse Secondary Emergency Contact: Ghislaine Ochoa Mobile Relation: Grandchild Admission Status: Observation Insurance Provider: MEDICARE A AND B Discharge Planning requested by: Per Department Practice Potential Transition Plans Home Advance Directives Current Advance Directive: None Sales Advisor Attempted to Assist with AD Completion: Yes Action: Education Provided Current Living Arrangements and Support Lives with: Spouse/significant other Type of Residence: Private Residence (House) Does the patient have to climb stairs at home?: Yes;stairs within the home Support: Spouse/significant other, Family members, Children How do you manage to accomplish the following: Independent: Ambulation;Bathe/Shower;Dress;Meals/Meal Prep;Going to the bathroom;Medication Management Dependent: Transportation to appointments/community Current Services/Equipment Current Post-Acute Service(s): DME Current DME Type: Cane, Walker, Grab bars, Shower seat, Elevated toilet seat Discharge Planning Patient Goal(s): Be able to go home, General wellness Stanley of Choice Explained: Stanley of Choice Given: No Reason Not Given: Unable to complete with this assessment - revisit Are you interested in bedside delivery of your medications? No Discharge Planning Participant(s): Spouse/significant other Patient/Family Comments: Sandra Lanier/spouse Caregiver Assessment: Caregiver is ready, willing and able to meet the patient's needs as recommended by the inter-professional team: No Caregiver needed Transport at Discharge: Transportation Arrangements: Car Destination: Home Needs Prior to Discharge: Needs Prior to Discharge: To Be Determined;Other: See Comment;Discharge Transportation (medical clearance) Post-Acute Discharge Plan: CMSW called and spoke to the patient's spouse, introduced self/role. Patient is a 88 year old male who presents with constipation. 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 Patient is not currently active with skilled services. Patient son to transport the patient home at discharge. Patient is safe, has his needs met, and is supported. CM assigned will continue to follow for discharge needs. SIGNATURE: CARLO Aaron PATIENT NAME: Georgi Lainer DATE: December 01, 2023 TIME: 2:04 PM CONTACT #: [phone] NoteHNO ID: [id number] Author: ELLIE DUMONT MD Service: Hospital Medicine Author Type: Physician Type: Progress Notes Filed: 12/01/2023 11:40 Note Text: DEPARTMENT OF HOSPITAL MEDICINE PROGRESS NOTE SERVICE DATE: 12/01/2023 SERVICE TIME: 11:36 AM Hospital Medicine/Primary Attending: Ellie Dumont MD NIGHT AND WEEKEND COVERAGE: [place] COVERAGE: Days: [phone], please page attending physician. Nights: [phone], please page [facility] Night coverage pager [phone]. Subjective INTERVAL HPI: Patient had multiple BMs over night. No issues. Family states he eats less. Is having blood in the urine - pending UA for eval. Current Facility-Administered Medications Medication Dose Route Frequency dextrose 40 % 15 g 15 g ORAL PRN Or glucagon 1 mg injection 1 mg INTRAMUSCULAR PRN Or dextrose 10% iv bolus 12.5 g INTRAVENOUS PRN NaCl 0.9% iv flush bag 20 mL INTRAVENOUS PRN aluminum-magnesium hydroxide-simethicone 200-200-20 mg/5 mL 30 mL 30 mL ORAL q 6 H PRN acetaminophen 650 mg tab(s) (TYLENOL) 650 mg ORAL q 6 H PRN insulin lispro injection (rapid acting) (ADMElog) SUBCUTANEOUS w MEALS senna-docusate 8.6-50 mg 2 tablet (SENNA-S) 2 tablet ORAL BID clopidogrel 75 mg tab(s) (PLAVIX) 75 mg ORAL DAILY atorvastatin 40 mg tab(s) (LIPITOR) 40 mg ORAL AT BEDTIME pantoprazole DR 40 mg tab(s) (PROTONIX) 40 mg ORAL DAILY aspirin 81 mg chewable tab(s) 81 mg ORAL DAILY lisinopril 2.5 mg tab(s) (ZESTRIL) 2.5 mg ORAL DAILY metoprolol succinate ER 25 mg tab(s) (TOPROL XL) 25 mg ORAL DAILY rivastigmine 13.3 mg/24 hour 13.3 mg patch (EXELON) 1 Patch TRANSDERMAL DAILY [START ON 12/02/2023] rivastigmine - REMOVE patch OTHER DAILY And rivastigmine - VERIFY PATCH OTHER q 8 H polyethylene glycol 3350 17 g packet 17 g ORAL DAILY [START ON 12/02/2023] FLUoxetine 20 mg cap(s) (PROzac) 20 mg ORAL DAILY Objective PHYSICAL EXAM: BP 140/54 Pulse 71 Temp (Src) 97.5 (Oral) Resp 18 Ht 5' 8 (1.73m) Wt 142 lb 13.7 oz (64.8kg) SpO2 96% BMI 21.73 kg/(m2). O2 Therapy: Room Air Physical Exam Performed GENERAL: Alert, no distress, cooperative SKIN: Skin color, texture, turgor normal. No rashes or lesions. HEAD/SINUSES: No significant findings EYES: PERRLA, EOMI LUNGS: Lungs clear to auscultation, Good diaphragmatic excursion CARDIAC: Normal S1 and S2; no rubs, murmurs, or gallops ABDOMEN: Abdomen soft, non-tender, BS normal, No masses or organomegaly EXTREMITIES: Extremities normal, no deformities, edema, clubbing or skin discoloration. Good capillary refill., No ulcers NEURO: Cranial nerves II-XII intact PULSES: 2+ radial, 2+ carotid Lines, Drains, and Airways Line Name Duration Peripheral 12/01/[address] [facility] Right Forearm 20 Gauge <1 day Patient does not currently have any lines, drains or airways. DATA: Diagnostic tests reviewed for today's visit: Recent Labs 12/01/23 0353 11/30/23 2130 WBC 9.57 8.44 RBC 4.32 3.93* HB 13.1 11.9* HCT 39.2 35.2* PLT 237 225 MCV 90.7 89.6 MCH 30.3 30.3 MPV 10.9 10.3 ABSNEUT -- 5.62 NEUTP -- 66.6 LYMPHP -- 22.9 MONOP -- 9.4 EODINP -- 0.8 Recent Labs 12/01/23 0354 11/30/23 2130 GLUC 187* 153* NA 142 139 K 4.7 4.8 CHLOR 102 103 CO2 27 28 CREAT 0.94 0.90 BUN 25* 25* ANION 13 8 CA 9.6 8.9 TPROT -- 6.4 ALB -- 3.6* TBILI -- 0.5 ALKPHOS -- 81 AST -- 19 ALT -- 16 No results found for: HSTNT Most recent imaging Assessment/Plan Problem List Assessment AND Plan Constipation Essential hypertension Type 2 diabetes mellitus (HCC) Gastroesophageal reflux disease without esophagitis Dyslipidemia CAD (coronary artery disease) Dementia (HCC) HOSPITAL COURSE: Georgi Lanier is a 88 year old male with a past medical history notable for DM2, hypertension, CAD s/p stenting, dyslipidemia, GERD, dementia, and anxiety who presents with abdominal pain. In the ED the patient was found to be afebrile and had dynamically stable on room air albeit mildly hypertensive to 179/103 as a high. Labs are most notable for BUN of 25 but otherwise normal renal function, normal LFTs, blood glucose of 153, and chronic anemia with a hemoglobin of 11.9. Chest x-ray was unremarkable but KUB demonstrated a large amount of retained fecal material. Throughout the colon including the rectosigmoid colon. The patient was given 2 soapsuds enemas without much result as well as lactulose, morphine, and Zofran. Thus he is being admitted under hospital medicine for further workup and management of constipation. Constipation -Patient presents with abdominal pain/lack of bowel movement and KUB showing large amount of retained fecal matter throughout the colon -Labs noncontributory -Given 2 soapsuds enemas as well as lactulose in the ED without results -multiple episodes of BMs overnight. Plan: -Repeat enemas as well as starting senna twice daily -Consider GI consult if conserva (more content not included)...[facility] 11-27-2023 History of Present illness Narrative* Valeriano Monroy MD - 11/27/2023 2:30 PM EDT Subjective Reason for Visit: Georgi Lanier is an 88 y.o. male here for a Medicare Wellness visit. Past Medical, Surgical, and Family History reviewed and updated in chart. Reviewed all medications by prescribing practitioner or clinical pharmacist (such as prescriptions,OTCs, herbal therapies and supplements) and documented in the medical record. HPI dementia w/ paranoia. Refusing to take meds. Concerned meds are causing ed. Escitalopram not helping anxiety and depression. Familty would like to try prozac Patient Care Team: Valeriano Monroy MD as PCP - General Valeriano Monroy MD as PCP - [facility] Attributed Provider Review of Systems As above Objective Vitals: BP 130/60 Pulse 72 Ht 1.803 m (5' 11) Wt 64.9 kg (143 lb) SpO2 97% BMI 19.94 kg/m Physical Exam GEN nad, Affect wnl although at times appears suspicious Heent ncat, eomfg, face symmetric Skin good color Resp breathing easily No p/m retardation or agitation Thinking appropriate Oriented Assessment/Plan Medicare wellness Sdat w/ behavioral issues Dep/anx Reviewed all meds w/ pt Reviewed ed most likely age related and not meds Discussed stopping escitalopram to see if helps Discussed trying prozac 20 and then increasing to 40 mg daily if need be Fu in near future [facility] Work Phone: 1(202) 995-242007-10-2024 History of Present illness Narrative* Valeriano Monroy MD - 10/23/2023 8:30 AM EDT Subjective Patient ID: Georgi aLnier is a 88 y.o. male who presents for Rash (Arms/legs/back. Started 16 of October). HPI rash. Generalized and pruritic. Since 10/16 picnic sitting in dog's chair Ok otherwise Review of Systems Objective BP 120/60 Pulse 67 Ht 1.803 m (5' 11) Wt 65.3 kg (144 lb) SpO2 98% BMI 20.08 kg/m Physical Exam GEN nad, Affect wnl Heent ncat, eomfg, face symmetric Skin generalized maculorpapular subtle rash w/ some excoriated areas Resp breathing easily No p/m retardation or agitation Thinking appropriate Oriented Assessment/Plan Diagnoses and all orders for this visit: Rash - methylPREDNISolone (Medrol Dospak) 4 mg tablets; Take as directed on package. Claritin a.m. Lower dose benadryl in evening Call if persistent documented in this [facility] Work Phone: 1(516) 911-592411-08-2023 History of Present illness Narrative* Valeriano Monroy MD - 02/20/2023 2:30 PM EST Subjective Patient ID: Georgi Lanier is a 87 y.o. male who presents for Follow-up (Pt c/o upper back pain ). HPI fu ashd, dementia, b12 def, luiza, atyp dep Review of Systems Oa cervical spine sx Objective BP 118/68 Pulse 58 Temp 36.3 C (97.3 F) Ht 1.702 m (5' 7) Wt 68 kg (150 lb) SpO2 98% BMI 23.49 kg/m Physical Exam GEN nad, Affect wnl Heent ncat, eomfg, face symmetric Skin good color Resp breathing easily No p/m retardation or agitation Thinking appropriate Oriented Dec rom neck cw/ oa Reviewed labs, xrays Assessment/Plan Diagnoses and all orders for this visit: Type 2 diabetes mellitus without complication, without long-term current use of insulin ([facility]) SDAT (senile dementia of Alzheimer's type) (CMS/HCC) ASHD (arteriosclerotic heart disease) Other nonthrombocytopenic purpura (CMS/HCC) Neck pain Hyperlipidemia, unspecified hyperlipidemia type Essential hypertension Atypical depression Gastroesophageal reflux disease without esophagitis Fu 6 mos Discussed dx and rx oa cspine documented in this [facility] Work Phone: 1(748) 214-460610-25-2021 NoteHNO ID: [id number] Author: VARINDER Baron Service: ? Author Type: Service Center Manager Type: Progress Notes Filed: 02/06/2021 11:27 AM Note Text: Georgi Lanier 85 year old here today with his for a routine 6 month follow up prior to leaving for [place] for the winter. The patient reports no problems with the hearing aids, he sometimes doesn't hear his , but he states he isn't listening. PHYSICAL EXAM: Otoscopic inspection revealed non occluding cerumen bilaterally, right ear canal worse than the left TESTING: Audiometric testing was completed 03/21/20 HEARING AID: The hearing aids were cleaned and wax filters replaced. Wear time was averages at 3 hour/day. The patient was encouraged to increase his wear time. Communication strategies were reviewed with his at her request. PLAN/RECOMMENDATIONS: 1. Monitor hearing aid function and communication ability. 2. Return to the office in 7 months for hearing aid follow up or as needed. Erin Broderick, [facility]08-01-2021 History of Present illness Narrative* f/u dementia, dep/anx, ashd, dm, hyperlipidemia, htn, pa * some sob/weakness/dizzyness relieved by sitting * no cp * off amlodipine w/o resolution * had stent cx in november [facility] Work Phone: [phone]) 735-473605-24-2021 NoteHNO ID: [id number] Author: VARINDER Baron Service: ? Author Type: Service Center Manager Type: Progress Notes Filed: 09/05/2020 2:28 PM Note Text: Georgi Lanier 84 year old here today with his for a routine 6 month follow up. The patient reports hearing well since his last appointment when the volume was increased. He reports hearing a high pitched squeak occasionally from the left aid. PHYSICAL EXAM: Otoscopic inspection revealed non occluding cerumen bilaterally. TESTING: Audiometric testing was completed 03/21/2020 HEARING AID: The hearing aids were cleaned cleaned and wax filters replaced. Listening check confirmed the patient's complaint. The aids were reprogrammed to decrease the gain at 6000Hz bilaterally. The patient states the high pitched sound is not present in the office, he was advised to monitor. PLAN/RECOMMENDATIONS: 1. Monitor hearing aid function and communication ability. 2. Return to the office in 5 months for hearing aid follow up prior to leaving for [place] or as needed. Erin Broderick, [facility]02-10-2021 NoteHNO ID: [id number] Author: Erin Broderick (Aud) Service: ? Author Type: Service Center Manager Type: Progress Notes Filed: 05/25/2020 1:24 PM Note Text: Georgi Lanier 84 year old here today for a problem with his right hearing aid . The patient states since he left his last appointment, the volume of the right hearing aid was too loud. He also thinks the shell of the right hearing aid is cracked. PHYSICAL EXAM: Otoscopic inspection revealed non occluding cerumen bilaterally TEST RESULTS: Audiometric testing was completed 03/21/2020 HEARING AID: The hearing aids were inspected finding no crack. The aids were cleaned, debris removed from the vents and filters replaced. Listening and functional checks confirm the patient's complaint. The aids were reprogrammed and the gain adjusted to be approximately equal. The patient was satisfied with the volume and sound quality in the office. He was advised to monitor the hearing aid function as there may be a short in the right aid, causing the fluctuations in volume. PLAN/RECOMMENDATIONS: 1. Monitor hearing aid function and communication ability 2. Return to the office in 5 months as previously scheduled for hearing aid follow up or as needed Erin Broderick, [facility]12-07-2020 NoteHNO ID: [id number] Author: Erin Broderick (Aud) Service: ? Author Type: Service Center Manager Type: Progress Notes Filed: 03/21/2020 2:18 PM Note Text: Georgi Lanier 84 year old here today for a routine 3 month follow up. The patient reports the right hearing aid volume is louder than the left and he has notices some feedback . Otherwise he has had no problems with the hearing aids. PHYSICAL EXAM: Otoscopic inspection revealed non occluding cerumen bilaterlly TESTING: Audiometric testing revealed decreased pure tone thresholds in the right ear, essentially symmetrical hearing sensitivity. HEARING AID: The hearing aids were cleaned and the aids were reprogrammed to the new audiometric test. The patient reports a balanced volume and good sound quality. PLAN/RECOMMENDATIONS: 1. Monitor hearing aid function and communication ability. 2. Return to the office in 6 months for hearing aid follow up or as needed. Erin Broderick, [facility]* Diagnosis Type 2 diabetes mellitus without complication, without long-term current use of insulin (CMS/HCC)- Primary SDAT (senile dementia of Alzheimer's type) (CMS/HCC) ASHD (arteriosclerotic heart disease) Coronary atherosclerosis of unspecified type of vessel, curyung or graft Other nonthrombocytopenic purpura (CMS/HCC) Neck pain Cervicalgia Hyperlipidemia, unspecified hyperlipidemia type Essential hypertension Unspecified essential hypertension Atypical depression Gastroesophageal reflux disease without esophagitis Esophageal reflux documented in this encounter [facility] Work Phone: Evaluation note* Diagnosis SDAT (senile dementia of Alzheimer's type) (Multi)- Primary Hyperlipidemia, unspecified hyperlipidemia type Type 2 diabetes mellitus without complication, without long-term current use of insulin (Multi) ASHD (arteriosclerotic heart disease) Coronary atherosclerosis of unspecified type of vessel, curyung or graft Atypical depression Pernicious anemia documented in this encounter [facility] Work Phone: Evaluation note* Diagnosis Rash- Primary Rash and other nonspecific skin eruption SDAT (senile dementia of Alzheimer's type) (Multi) Other nonthrombocytopenic purpura (CMS-HCC) documented in this encounter [facility] Work Phone: Evaluation note* Diagnosis Routine general medical examination at health care facility- Primary Routine general medical examination at a health care facility Medicare annual wellness visit, subsequent Atypical depression documented in this encounter [facility] Work Phone: Evaluation note* Diagnosis SDAT (senile dementia of Alzheimer's type) (Multi)- Primary Pernicious anemia Hyperlipidemia, unspecified hyperlipidemia type Atypical depression Type 2 diabetes mellitus without complication, without long-term current use of insulin (Multi) documented in this encounter [facility] Work Phone: Evaluation note* Diagnosis Anxiety- Primary Anxiety state, unspecified SDAT (senile dementia of Alzheimer's type) (Multi) documented in this encounter [facility] Work Phone: Evaluation noteNo assessment information available [facility] Work Phone: History of Present illness Narrative* f/u dm, ashd, dep, htn, hyperlipidemia * hines stable * no cp, palpitations [facility] Work Phone: History of Present illness Narrative* f/u dm, ashd, dep, htn, hyperlipidemia * hines stable * no cp, palpitations [facility] Work Phone: History of Present illness Narrative* f/u dm, ashd, dep, htn, hyperlipidemia * hines stable * no cp, palpitations * lip lesions concerning to pt * saw ent. dissatisfied w/ situation. wants another opinion [facility] Work Phone: History of Present illness Narrative* f/u dm, ashd, dep, htn, hyperlipidemia * hines stable * no cp, palpitations * lip lesions concerning to pt * saw ent. dissatisfied w/ situation. wants another opinion [facility] Work Phone: History of Present illness Narrative* Past Medical, Surgical and Family History: reviewed and updated in chart. * Medications and Supplements: Review of all medications by a prescribing practitioner or clinical pharmacist (such as prescriptions, OTCs, herbal therapies and supplements) documented in the medical record. * No, the patient is not using opioids. * Patient Self Assessment of Health Status: fair. * Tobacco use: Non-User * Alcohol use: Non-User * Illicit drug use: Non-User * Current diet: well balanced diet. * Exercise Frequency: the patient does not exercise. * Depression/Suicide Screening: Patient has a current diagnosis of depression . * During the past 2 weeks, the patient has not felt down, depressed or hopeless. * During the past 2 weeks, the patient has not felt little interest or pleasure in doing things. * Hearing Impairment: bilaterally, He uses a hearing aid. * Cognitive Impairment: Cognitive impairment was observed. * Bathing: performs independently. * Dressing: performs independently. * Walking: performs independently. * Managing Finances: needs assistance. * Shopping: needs assistance. * Managing Medications: needs assistance. * Housework / Basic Home Maintenance: needs assistance. * Falls Risk Screening:. GEORGI has fallen in the last 6 months. * Home safety risk factors: none. * fell down steps last fall * did not go to ER * saw doctor in [place] * still has soreness in traps, shoulders * -11/22 severity * no arm numbness * mildly painful rom neck * shoulder rom w/o problems * f/u dm, hyperlipidemia, b12 def, sdat, htn, ashd [facility] Work Phone: History of Present illness Narrative* f/u sdat, pa, dep/anx, ashd, dm, hyperlipidemia * forgetful * anxious but not bad under circumstances * no cp. hines stable * balance not perfect [facility] Work Phone: Reason for referral (narrative)No reason for referral information availableWLouis Stokes [facility] Work Phone: Summary Purpose Family History Mother Name Dates Details No pertinent family history( V49.89, Z78.9) Status:Active Father Name Dates Details No pertinent family history( V49.89, Z78.9) Status:Active Mother Name Dates Details No pertinent family history( V49.89, Z78.9) Status:Active Father Name Dates Details No pertinent family history( V49.89, Z78.9) Status:Active Mother Name Dates Details No pertinent family history( V49.89, Z78.9) Status:Active Father Name Dates Details No pertinent family history( V49.89, Z78.9) Status:Active Mother Name Dates Details No pertinent family history( V49.89, Z78.9) Status:Active Father Name Dates Details No pertinent family history( V49.89, Z78.9) Status:Active Mother Name Dates Details No pertinent family history( V49.89, Z78.9) Status:Active Father Name Dates Details No pertinent family history( V49.89, Z78.9) Status:Active Mother Name Dates Details No pertinent family history( V49.89, Z78.9) Status:Active Father Name Dates Details No pertinent family history( V49.89, Z78.9) Status:Active Mother Name Dates Details No pertinent family history( V49.89, Z78.9) Status:Active Father Name Dates Details No pertinent family history( V49.89, Z78.9) Status:Active Mother Name Dates Details No pertinent family history( V49.89, Z78.9) Status:Active Father Name Dates Details No pertinent family history( V49.89, Z78.9) Status:Active Mother Name Dates Details No pertinent family history( V49.89, Z78.9) Status:Active Father Name Dates Details No pertinent family history( V49.89, Z78.9) Status:Active Mother Name Dates Details No pertinent family history( V49.89, Z78.9) Status:Active Father Name Dates Details No pertinent family history( V49.89, Z78.9) Status:Active Mother Name Dates Details No pertinent family history( V49.89, Z78.9) Status:Active Father Name Dates Details No pertinent family history( V49.89, Z78.9) Status:Active Mother Name Dates Details No pertinent family history( V49.89, Z78.9) Status:Active Father Name Dates Details No pertinent family history( V49.89, Z78.9) Status:Active Unknown Family Member Name Dates Details No pertinent family history: Mother, Father(V49.89, Z78.9) Status:Active Unknown Family Member Name Dates Details No pertinent family history: Mother, Father(V49.89, Z78.9) Status:Active Unknown Family Member Name Dates Details No pertinent family history: Mother, Father(V49.89, Z78.9) Status:Active Unknown Family Member Name Dates Details No pertinent family history: Mother, Father(V49.89, Z78.9) Status:Active Unknown Family Member Name Dates Details No pertinent family history: Mother, Father(V49.89, Z78.9) Status:Active Unknown Family Member Name Dates Details No pertinent family history: Mother, Father(V49.89, Z78.9) Status:Active Unknown Family Member Name Dates Details No pertinent family history: Mother, Father(V49.89, Z78.9) Status:Active Unknown Family Member Name Dates Details No pertinent family history: Mother, Father(V49.89, Z78.9) Status:Active Unknown Family Member Name Dates Details No pertinent family history: Mother, Father(V49.89, Z78.9) Status:Active Unknown Family Member Name Dates Details No pertinent family history: Mother, Father(V49.89, Z78.9) Status:Active Unknown Family Member Name Dates Details No pertinent family history: Mother, Father(V49.89, Z78.9) Status:Active Unknown Family Member Name Dates Details No pertinent family history: Mother, Father(V49.89, Z78.9) Status:Active Unknown Family Member Name Dates Details No pertinent family history: Mother, Father(V49.89, Z78.9) Status:Active Unknown Family Member Name Dates Details No pertinent family history: Mother, Father(V49.89, Z78.9) Status:Active Unknown Family Member Name Dates Details No pertinent family history: Mother, Father(V49.89, Z78.9) Status:Active Unknown Family Member Name Dates Details No pertinent family history: Mother, Father(V49.89, Z78.9) Status:Active Relationship Condition Age at Onset Recorded Date/T carlos Unknown Family History?- Unknown August 30, 018 5:57pm Family History?- Unknown December 172017 10:09am Family History?Heart Disease Unknown December 17, 2017 10:09am Advance Directives Advance Directive Response Recorded Date/ Time Advance Directives No December 8:52am History of Present Illness * Erin Broderick (Aud) - 12/25/2019 2:27 PM EDT Georgi Christianson [place] 84 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 HEARING AID: The hearing aid was dispensed and per the patient's complaint, the aids were reprogrammed to increase the gain of the left aid to be approximately equal to the right. PLAN/RECOMMENDATIONS: 1. Monitor hearing aid function and communication ability. 2. Return to the office 3 months for hearing aid follow up or as needed. VARINDER Verdugo documented in this encounter* Erin Broderick (Varinder) - 03/21/2020 2:15 PM EST Georgi Lanier 84 year old here today for a routine 3 month follow up. The patient reports the right hearing aid volume is louder than the left and he has notices some feedback . Otherwise he has had no problems with the hearing aids. PHYSICAL EXAM: Otoscopic inspection revealed non occluding cerumen bilaterlly TESTING: Audiometric testing revealed decreased pure tone thresholds in the right ear, essentially symmetrical hearing sensitivity. HEARING AID: The hearing aids were cleaned and the aids were reprogrammed to the new audiometric test. The patient reports a balanced volume and good sound quality. PLAN/RECOMMENDATIONS: 1. Monitor hearing aid function and communication ability. 2. Return to the office in 6 months for hearing aid follow up or as needed. VARINDER Verdugo documented in this encounter Assessments Diagnosis Sensory hearing loss, bilateral- Primary Chief Complaint 6 month follow up with labs6 month follow up with labs6 month follow up with labs6 month follow up with labsfollow up with labsPatient is here today for a medicare wellness visit. Follow up on chronic medical problems.Pt is here for 6 month follow up. Chief Complaint and Reason for Visit Chief Complaint Admit Date BACK September 23, 2024 2:38 pm Additional Source Comments (unrecognized sect ion and content) No Status Records FoundNo Status Records FoundNo Status Records FoundNo Status Records FoundNo Status Records FoundNo Status Records FoundNo Status Records FoundNo Status Records FoundNo Status Records Found INFORMATION SOURCE (unrecogn ized section and content) DATE CREATED AUTHOR 03/24/2018 [facility] DATE CREATED AUTHOR AUTHOR'S ORGANIZ ATION 02/07/2021 [facility] DATE CREATED AUTHOR AUTHOR'S ORGANIZ ATION 09/16/2021 [facility] DATE CREATED AUTHOR AUTHOR'S ORGANIZ ATION 02/22/2022 [employer] DATE CREATED AUTHOR AUTHOR'S ORGANIZ ATION 03/21/2022 [facility] DATE CREATED AUTHOR AUTHOR'S ORGANIZ ATION 12/09/2023 [facility] DATE CREATED AUTHOR AUTHOR'S ORGANIZ ATION 02/08/2024 [facility] DATE CREATED AUTHOR AUTHOR'S ORGANIZ ATION 05/31/2024 [facility] DATE CREATED AUTHOR AUTHOR'S ORGANIZ ATION 08/26/2024 [facility] Source Comments (unrecognize d section and content) In the event this informatio n is protected by the Federal Confidentiality of Alcohol and Drug Abuse Patient Records regulations: The Federal rules restrict any use of the information to criminally investigate or prosecute any alcohol or drug abuse patient.[facility] Healthcare[facility] the event this information is protected by the Federal Confidentiality of Alcohol and Drug Abuse Patient Records regulations: The Federal rules restrict any use of the information to criminally investigate or prosecute any alcohol or drug abuse patient.[facility] Reason for Visit (unrecogniz ed section and content) Reason Comments Follow Up Reason Comments Follow-up Pt c/o upper back pa in Reason Comments Follow-up Reason Comments Rash Arms/legs/back. Star may 16 of October Reason Comments Medicare Annual Wellness Visit Subsequen t Pt would like to follow up and discuss meds. Reason Comments Medicare Annual Wellness Visit Subsequen t Care Teams (unrecognized sec tion and content) Renal Medicine Specialist Relationship Specialty Start Date End Date Valeriano Monroy MD [address] [facility] [place] [address] PCP - General 10/24/15 Valeriano Monroy MD [address] [facility], [address] [place] [address] PCP - MSSP ACO Attributed Provider 10/13/21 Renal Medicine Specialist Relationship Specialty Start Date End Date Valeriano Monroy MD [address] [facility], [address] [place] [address] PCP - General 10/24/15 Valeriano Monroy MD [address] [facility], [address] [place] [address] PCP - MSSP ACO Attributed Provider 10/13/21 Renal Medicine Specialist Relationship Specialty Start Date End Date Valeriano Monroy MD [address] [facility], [address] [place] [address] PCP - General 10/24/15 Valeriano Monroy MD [address] [facility] [place] [address] PCP - MSSP ACO Attributed Provider 10/13/21 Team Status: Active Member Role Status Dates Dr. Valeriano Monroy MD Primary Care Provider Active Team Status: Inactive Member Role Status Dates Dr. Valeriano Monroy MD Primary Care Provider Active Start: September 23, 2024 End: September 23, 2024 Dr. Grey Hanna MD Emergency Provider Active Sta rt: September 23, 2024 End: September 23, 2024 Goals (unrecognized section and content) Goals may be documented in a n alternate section FOR RECORDS PERTAINING TO PATIENTS WHO ARE OR HAVE BEEN ENROLLED IN A CHEMICAL DEPENDENCY/SUBSTANCEABUSE PROGRAM, SOME INFORMATION MAY BE OMITTED. This clinical summary was aggregated from multiple sources. Caution should be exercised in using it in the provision of clinical care. This summary normalizes information from multiple sources, and as a consequence, information in this document may materially change the coding, format and clinical context of patient data. In addition, data may be omitted in some cases. CLINICAL DECISIONS SHOULD BE BASED ON THE PRIMARY CLINICAL RECORDS. [facility] [employer] [facility]. provides no warranty or guarantee of the accuracy or completeness of information in this document.
[2024-09-24] MEDS: Haloperidol Lactate 5 MG/ML Vial 1 MG IM (01:26)
[2024-09-24 01:32] VITALS: BP 136/64; PULSE 79; RESP 18; TEMP 36.6; O2SAT 100
== END 2024-09-24 01:48 | disposition home or self-care (01) ==
PROVIDERS: Emergency Provider Emergency Medicine; PCP Internal Medicine; Visit Provider Emergency Medicine
DX: S00.83XA Contusion of other part of head, initial encounter (principal); F03.911 Unspecified dementia, unspecified severity, with agitation; E11.9 Type 2 diabetes mellitus without complications; Z87.891 Personal history of nicotine dependence; E78.00 Pure hypercholesterolemia, unspecified; I25.10 Atherosclerotic heart disease of native coronary artery without angina pectoris; W19.XXXA Unspecified fall, initial encounter; I10 Essential (primary) hypertension; Z95.5 Presence of coronary angioplasty implant and graft
CPT/HCPCS: 70450; 72125; 96372; 99284